=== PATIENT | male | born 1965 | race Caucasian/White ===

== ENCOUNTER 2020-01-17 22:55 | Inpatient (IN) | payer OTHER, SELFPAY ==
[2020-01-17 22:56] VITALS: BP 198/94; PULSE 67; RESP 16; TEMP 37.1; O2SAT 96; BMI 41.5
[2020-01-17 23:11] VITALS: BMI 41.5
[2020-01-17 23:12] VITALS: BP 197/93; PULSE 68; RESP 18; O2SAT 95
--- NOTE | 2020-01-17 23:15 | CT_ITS ---
STUDY: CT BRAIN WITHOUT CONTRAST REASON FOR EXAM: Male, 54 years old. LT WEAKNESS/NOW RESOLVED HX CVA X 2. Hx of HLD, HTN, diabetes, sarcoidosis and sleep apnea RADIATION DOSAGE (If Supplied By Facility): CTDIvol = ( 44.99 ) mGy, DLP = ( 863.60 ) mGycm TECHNIQUE: Transaxial CT imaging of the brain was performed without administration of intravenous contrast material. Individualized dose optimization techniques were used for this CT. COMPARISON: No relevant priors. FINDINGS: Normal soft tissue structures. Normal calvarium. Normal size ventricles and extra-axial spaces for the patient''s age. Normal white matter tracts of the cerebral hemispheres. Lacunar infarcts of the left basal ganglia. Normal brainstem. Normal cerebellum. There is no intracranial hemorrhage. There are no findings of an acute ischemic infarction. Normal visualized paranasal sinuses. CT/Brain/Head without Contrast IMPRESSION: Chronic involutional changes of the brain. Electronically Signed: Parmjit Peterson MD at 23:39 EST , Service support ,
--- NOTE | 2020-01-17 23:15 | RAD_ITS ---
HISTORY: cough came to ed for neuro symptoms (lt sided weakness) EXAMINATION/TECHNIQUE: XR Chest 1 View: COMPARISON: None FINDINGS: Cardiac telemetry leads in place. Shallow inspiration. Borderline cardiomegaly. No vascular congestion, pleural effusion, or pulmonary infiltration. No pneumothorax. The bony thorax appears intact. RAD/Chest 1 View IMPRESSION: 1. No acute cardiopulmonary disease. 2. Borderline cardiomegaly. at 2352 Reported and signed by: Lenny Green MD Electronically Signed: Lenny Green, at 23:51 EST Tel , Service support ,
--- NOTE | 2020-01-17 23:15 | EKG12_ITS ---
Test Reason : STROKE SYMPTOMS Blood Pressure : / mmHG Vent. Rate : 064 BPM Atrial Rate : 064 BPM P-R Int : 170 ms QRS Dur : 096 ms QT Int : 402 ms P-R-T Axes : 030 029 022 degrees QTc Int : 414 ms Normal sinus rhythm Normal ECG Confirmed by NIKOLAY SIMON ([id number]), slot editor LORI MALAVE ([id number]) on 01/19/2020 9:36:00 AM Referred By: DUANE Confirmed By:NIKOLAY SIMON
--- NOTE | 2020-01-17 23:16 | ED.DCSUM_ITS ---
History of Present Illness Chief Complaint: Neuro S/Sx Informant: Patient, Significant Other Onset: Today Context: Gradual Onset Timing: Intermittent Quality and Location: Left Arm Parasthesia, Left Leg Weakness, Expressive Aphasia Onset: 1999 Current Severity: Gone Associated Symptoms: Headache Narrative: Patient is a 54-year-old male with history of hypertension, hyperlipidemia and prior stroke presenting with a transient episode of left-sided weakness. Patient states around 8 PM he was noticed to have some left-sided weakness. He was having a hard time using his left hand, scrolling on his phone and even buckling his pants. His noted that he was having a hard time walking and his left leg seemed to be dragging. Coworker thought his speech sounded different as well. Patient states he was trying to type on his phone but he could not get it to work. While they were driving here patient was also having involuntary flexure of his left wrist. Patient symptoms have since resolved. Patient notes he is had a mild headache today. He notes he is had a cough and some chills for the past few days. He denies any associated chest pain. [place] any vision changes. He denies any paresthesias. He had a stroke in 2017 with left-sided symptoms. Patient denies any other complaints at this time. Prior similar symptoms: Yes Past Medical History - Allergies and Home Meds Allergies/Adverse Reactions: Allergies No Known Allergies Allergy (Verified 01/17/20 22:58) Past Medical History: - - Prior stroke, hypertension, hyperlipidemia Smoking Status: Never smoker - Family History Maternal Family History: Reports: - - Denies knowledge of maternal medical history. Paternal Family History: Reports: Heart Disease, - - He thinks his father from a blood clot. Review of Systems General: Denies: Chills, Fever, Sweats Eyes: Denies: Visual changes - bilaterally, Diplopia ENT: Denies: Rhinorrhea, Sore throat Cardiovascular: Denies: Chest pain, Palpitations Respiratory: Reports: Cough. Denies: Dyspnea, Dyspnea on exertion Gastrointestinal: Denies: Abdominal pain, Nausea, Vomiting, Diarrhea, Melena, Hematochezia Genitourinary: Denies: Dysuria, Hematuria, Frequency Musculoskeletal: Denies: Back pain, Extremity Pain Skin: Denies: Rash, Wounds Neurological: Reports: Headache, Weakness - left sided , - - speech changes . Denies: Numbness STROKE Vital Signs/Narrative: Vital Signs Temp Pulse Resp BP Pulse Ox 01/17/20 23:12 68 18 197/93 H 95 01/17/20 22:56 98.8 F 67 16 198/94 H 96 Inital Vital Signs reviewed: Yes - NIHSS Initial 1a Level of Consciousness: 0 1b LOC Questions (Score 2 if aphasic/stupor): 0 1c LOC Commands (Only score 1st attempt): 0 2 Best Gaze (If aphasic, use reflexive mvmts.): 0 3 Visual: 0 4 Facial Palsy: 0 5 Motor Arm Right (UN = amputation/fusion): 0 5 Motor Arm Left: 0 6 Motor Leg Right: 0 6 Motor Leg Left: 0 7 Limb ataxia (Only + if out of proportion): 0 8 Sensory (Aphasia/stupor=0 or 1, coma=2): 0 9 Best Language: 0 10 Dysarthria (mute, coma=2, intubated=UN): 0 11 Extinction and Inattention (only scored if +): 0 Total Score: 0 General: Well nourished, Well developed, Obese Head: Normocephalic, Atraumatic Eyes: Perrl, EOMI ENT: Moist mucous membranes, No rhinorrhea, TM's clear Neck: Supple, Nontender Cardiovascular: Regular rate, Regular rhythm, No murmurs Respiratory: No distress, CTA bilaterally, Chest nontender Abdomen: Soft, Nontender, Nondistended, Normal bowel sounds Back: Nontender, Normal Inspection Extremities: Nontender, No edema Skin: Normal color, No rash Neurological: Alert, Oriented x3, Cranial nerves II-XII grossly intact, Normal Strength, Normal Sensation. Negative for: Confused, Parasthesia, Weakness Psychological: Normal affect Diagnostic/Tx/Re-eval Clinical Impression(s) from Imaging Studies Brain CT 01/17/20 23:15 IMPRESSION: Chronic involutional changes of the brain. Electronically Signed: Parmjit Peterson MD at 23:39 EST , Service support , Chest X-Ray 01/17/20 23:15 IMPRESSION: 1. No acute cardiopulmonary disease. 2. Borderline cardiomegaly. at 2352 Reported and signed by: Lenny Green MD Electronically Signed: Lenny Green, at 23:51 EST Tel , Service support , Laboratory Data 01/17/20 01/17/20 01/17/20 23:06 23:10 23:10 WBC 7.7 RBC 5.26 Hgb 14.4 Hct 45.0 MCV 85.6 MCH 27.4 MCHC 32.0 RDW Std Deviation 38.2 RDW Coeff of Lefty 12.3 Plt Count 250 MPV 10.0 Immature Gran % (Auto) 0.400 Neut % (Auto) 54.3 Lymph % (Auto) 32.1 [place] % (Auto) 11.0 H Eos % (Auto) 1.4 Baso % (Auto) 0.8 Absolute Neuts (auto) 4.2 Absolute Lymphs (auto) 2.48 Nucleated RBC % 0 PT 13.8 INR 1.1 APTT 23.4 L Sodium Potassium Chloride Carbon Dioxide Anion Gap BUN Creatinine Estim Creat Clear Calc Est GFR (MDRD) Af Amer Est GFR (MDRD) Non-Af BUN/Creatinine Ratio Glucose Calcium Troponin I POC Glucose 300 H 01/17/20 23:10 WBC RBC Hgb Hct MCV MCH MCHC RDW Std Deviation RDW Coeff of Lefty Plt Count MPV Immature Gran % (Auto) Neut % (Auto) Lymph % (Auto) [place] % (Auto) Eos % (Auto) Baso % (Auto) Absolute Neuts (auto) Absolute Lymphs (auto) Nucleated RBC % PT INR APTT Sodium 136 Potassium 4.3 Chloride 102 Carbon Dioxide 28.0 Anion Gap 6 BUN 23 H Creatinine 1.23 Estim Creat Clear Calc 72.54 Est GFR (MDRD) Af Amer 79 Est GFR (MDRD) Non-Af 66 BUN/Creatinine Ratio 18.7 Glucose 320 H Calcium 9.6 Troponin I < 0.015 POC Glucose Chest X-Ray - ED: 1 View, Read by ED Physician, Read by Radiologist, No Acute Disease, Cardiomegaly - Rhythm Strip Rhythm Strip: Sinus Rhythm Rate: 64 Ectopy: None - EKG Initial EKG Interpretation: Sinus Rhythm, - - Normal sinus rhythm at a rate of 64 Normal intervals Normal axis Normal ST segments - Medical Decision Making Stroke Team Activated: No - Symptoms resolved prior to my evaluation Patient is evaluated for episode of left-sided weakness and possible speech symptoms. He does have a history of stroke. By the time patient was brought back to the emergency exam room his symptoms had completely resolved. His NIH was 0. I will treat this like a TIA however. As he currently does not have any symptoms I did not call stroke alert. A work-up does show signs of a prior infarct but no acute intracranial process. Patient will be admitted for further stroke evaluation. His work-up including troponin, EKG, chest x-ray and blood work is otherwise normal. Patient is agreeable to this plan. He is admitted f or observation status to the PCU. ED Disposition - Plan for ED Patient: Disposition: Acute Care Hospital [facility] Diagnosis: Stroke-like symptoms
[2020-01-17 23:18] VITALS: BP 180/91; PULSE 66; RESP 24; O2SAT 97
[2020-01-17 23:27] LABS: Absolute Lymphocyte Count 2.48 X10^3/uL (0.83-4.51); Absolute Neutrophil Count 4.2 X10^3/uL (2.0-7.7); Basophil# 0.06 X10^3/uL; Basophil% 0.8 % (0-1); Eosinophil# 0.11 X10^3/uL; Eosinophils% 1.4 % (0-5); Hemoglobin 14.4 g/dL (13.0-16.5); Lymphocyte # 2.48 X10^3/ul (4.0); Lymphocyte % 32.1 % (19-41); Mean Corpuscular Hgb 27.4 pg (27.0-32.0); Mean Corpuscular Volume 85.6 fL (80-94); Monocyte# 0.85 X10^3/uL; NRBC Flagged by Analyzer 0 % (0-5); Neutrophil % 54.3 % (47-70); Platelet Count 250 K/mm3 (150-450); RBC Distribution Width CV 12.3 % (11.6-14.6); RBC Distribution Width SD 38.2 fl (35.1-43.9); Red Blood Count 5.26 M/mm3 (4.6-6.2); White Blood Count 7.7 K/mm3 (4.4-11.0)
[2020-01-17 23:32] LABS: International Normalized Ratio 1.1; Partial Thromboplast Time 23.4 Seconds (24.1-36.2); Prothrombin Time (Protime)PT. 13.8 SECONDS (11.7-14.9)
[2020-01-17 23:40] LABS: Anion Gap 6 (5-15); BUN 23 mg/dL (7-18); BUN/Creat Ratio 18.7 RATIO (10-20); Calcium,Total 9.6 mg/dL (8.5-10.1); Chloride 102 mmol/L (98-107); Creatinine, Serum 1.23 mg/dL (0.70-1.30); EST Glomerular Filtration Rate 66 mL/min (>60); Est Glom Filt Rate - Afr Amer 79 mL/min (>60); Estimated Creatinine Clearance 72.54 ml/min; Glucose 320 mg/dL (74-106); Potassium 4.3 mmol/L (3.5-5.1); Sodium Level 136 mmol/L (136-145)
[2020-01-17 23:50] VITALS: BP 184/102; PULSE 63; RESP 17; O2SAT 96
[2020-01-17 23:56] LABS: Bedside Glucose 300 mg/dL (70-110)
[2020-01-18] VITALS (14 sets, daily range): BP systolic 112–160; BP diastolic 66–83; PULSE 58–86; RESP 14–18; TEMP 36.4–37.3; O2SAT 94–98; BMI 40.8; BMI 41.6
--- NOTE | 2020-01-18 00:36 | PCM.HP.STD ---
Problem List (1) Stroke-like symptoms Status: Acute History of Present Illness Date of Admission: 01/18/20 Chief Complaint: apraxia The patient is a 54 year old M with a significant history of CVA/TIA x2; pretension; and diabetes mellitus who presented to emergency department with apraxia of his left arm. Patient was not able to use his phone or pickups things his left arm. Also he was found to be dragging his left foot and found to have slurry speech. CT of the head at emergency department was unremarkable. Past Medical History Medical History: Medical History (Last Updated 01/18/20 @ 06:04 by Darion Francis MD) Hypertension I10 Allergies No Known Allergies Allergy (Verified 01/17/20 22:58) Home Medications: Ambulatory Orders Medication Instructions Recorded Amlodipine [Norvasc] 10 mg PO DAILY 01/17/20 Atorvastatin Calcium [Lipitor] 10 mg PO QHS 01/17/20 Clonidine HCl [Catapres] 0.1 mg PO PRN PRN 01/17/20 Clopidogrel Bisulfate [Plavix] 75 mg PO DAILY 01/17/20 Glipizide 20 mg PO BID 01/17/20 Insulin Detemir [Levemir FlexPen] 36 unit SUBCUT QHS 01/17/20 Losartan/Hydrochlorothiazide 1 tab PO DAILY 01/17/20 [Losartan-Hctz 50-12.5 mg Tab] Metoprolol Tartrate 75 mg PO BID 01/17/20 metFORMIN (XR) [Glucophage Xr] 1,000 mg PO BID 01/17/20 Surgical History: - - Mediastinoscopy to remove lymph nodes; tonsillectomy; hernia surgery; varicose veins surgery. Lives: Spouse/ Significant Other Smoking Status: Never smoker Tobacco Use: Non-smoker - *Family History Maternal History Items: - - Denies knowledge of maternal medical history. Paternal History Items: Heart Disease, - - He thinks his father from a blood clot. Review of Systems Constitutional: Denies: Chills, Fever, Weight Change HEENT: Denies: Head Aches, Sinus Congestion, Sinus Drainage Cardiovascular: Denies: Chest Pain, Palpitations Respiratory: Denies: Cough, Shortness of breath at rest, Sputum production Gastrointestinal: Denies: Abdominal Pain, Nausea, Vomiting Genitourinary: Denies: Dysuria Musculoskeletal: Denies: Joint Pain, Joint Tenderness Skin: Denies: Rash, Wounds Neurological: Reports: Slurred speech, Focal weakness. Denies: Numbness, Tingling Psychiatric: Denies: Anxiety, Depression, Homicidal Ideations, Suicidal Ideations Hematologic/ Lymphatic: Denies: Easy Bruising, Easy Bleeding VTE Information - Inpt Only VTE Present on Admission: No VTE Mechan Device Prophylaxis: None VTE Pharm Prophylaxis ordered?: Yes Patient Problems: Active and Suspected Problems (Last Updated 01/18/20 @ 06:04 by Darion Francis MD) Stroke-like symptoms (Acute) - Physical Exam Vitals/I&O's: Vital Signs Temp Pulse Resp BP Pulse Ox 98.8 F 63 17 184/102 H 96 01/17/20 22:56 01/17/20 23:50 01/17/20 23:50 01/17/20 23:50 01/17/20 23:50 Oxygen Delivery Method Room Air Weight: 131.36 kg Body Mass Index (BMI) 41.5 Finger Stick Blood Glucose 300 General: Alert, Oriented x3, Cooperative HEENT: Atraumatic, PERRLA, EOMI, Normocephalic Neck: Supple, No JVD, Negative Carotid Bruits Lungs: Clear to auscultation, Normal air movement Cardiovascular: Regular rate, No murmurs Abdomen: Bowel Sounds Present, Soft, Non Tender Extremities: No edema, Capillary Refill Less than 3 Seconds Skin: No rashes, No breakdown Musculoskeletal: No Tenderness to Palpation of Joints or Extremities Neurological: Cranial nerves II-XII grossly intact, Neuro grossly intact, Motor Exam 5/5 strength throughout, Muscle tone normal Psych/Mental Status: Normal Affect, Appropriate Laboratory Results 01/17/20 23:06: POC Glucose 300 H 01/17/20 23:10: WBC 7.7, RBC 5.26, Hgb 14.4, Hct 45.0, MCV 85.6, MCH 27.4, MCHC 32.0, RDW Std Deviation 38.2, RDW Coeff of Lefty 12.3, Plt Count 250, MPV 10.0, Immature Gran % (Auto) 0.400, Neut % (Auto) 54.3, Lymph % (Auto) 32.1, [place] % (Auto) 11.0 H, Eos % (Auto) 1.4, Baso % (Auto) 0.8, Absolute Neuts (auto) 4.2, Absolute Lymphs (auto) 2.48, Nucleated RBC % 0 01/17/20 23:10: PT 13.8, INR 1.1, APTT 23.4 L 01/17/20 23:10: Sodium 136, Potassium 4.3, Chloride 102, Carbon Dioxide 28.0, Anion Gap 6, BUN 23 H, Creatinine 1.23, Estim Creat Clear Calc 72.54, Est GFR (MDRD) Af Amer 79, Est GFR (MDRD) Non-Af 66, BUN/Creatinine Ratio 18.7, Glucose 320 H, Calcium 9.6, Troponin I < 0.015 Assessment/Plan All Active Problems (Last Updated 01/18/20 @ 06:04 by Darion Francis MD) Stroke-like symptoms (Acute) The patient is a 54 year old M with a significant history of CVA/TIA x2; pretension; and diabetes mellitus who presented to emergency department with apraxia of his left arm; left lower extremity weakness and slurred speech consistent with strokelike symptoms. Stroke-like symptoms CT of the head and CTA head and neck did not show any acute pathology. -Check Hba1c, Lipid level Physical therapy, occupational therapy and speech therapy to work with patient. N.p.o. until bedside swallow eval. Daily aspirin. Home Plavix continued. Escalate home statin. Permissive hypertension. Control blood pressure with labetalol for systolic blood pressure of more than 220 or diastolic blood pressure of more than 120. -Permissive HTN for 24 hrs, buttermaker continuous churn goal BP < 120/80 mmHg and goal Hba1c < 7% MRI of the head ordered. Ativan in route for CT. Echocardiogram ordered. HTN: Blood pressure is now within goal but will accept for permissive hypertension.. Hold home losartan/hydrochlorothiazide combo. Hold home clonidine. Hold home amlodipine. PRN labetalol for permissive hypertension as above. Diabetes mellitus with hyperglycemia Home prandial insulin continued. Accu-Chek with correction scale insulin continued. Glipizide continued. Hold home metformin. DVT prophylaxis Subcutaneous Lovenox Code Visit OBSV E&M: [id number] Initial observation care L3
[2020-01-18] MEDS: Aspirin 81 MG TAB.CHEW 162 MG PO (01:07)
--- NOTE | 2020-01-18 01:27 | ECHOCS_ITS ---
Reason For Study: TIA/CVA Procedure This was a 2D Doppler, Color Flow transthoracic echocardiogram. The study was technically difficult. Exam performed portable in patient room. Left Ventricle Normal size and thickness. The estimated ejection fraction is 65 %. Stage 1 diastolic dysfunction. No regional wall motion abnormalities noted. Right Ventricle Normal size and thickness. Normal systolic function. Atria Normal left atrium. Normal right atrium. Normal atrial septum. Bubble contrast study negative for right to left interatrial shunt. Mitral Valve The mitral valve is structurally normal. No prolapse or stenosis seen. Tricuspid Valve Normal tricuspid valve. Trivial tricuspid valve insufficiency. Unable to estimate RV systolic pressure due to insufficient tricuspid regurgitant envelope. Aortic Valve Normal aortic valve. Trisinus/trileaflet aortic valve. Pulmonic Valve The pulmonic valve is not well visualized. Great Vessels Normal aortic root. Normal arch. Normal inferior vena cava. Inferior vena cava collapse with sniff. Pericardium/Pleural No pericardial effusion. Medication Performed a rapid injection of agitated mix of 9 cc saline and 1cc air to assess for atrial septal defect. Diluted definity 4ml given slow IV push to enhance endocardial definition. MMode/2D Measurements & Calculations LVIDd: 5.1 cm IVSd: 0.95 cm Ao root diam: 3.1 cm LVIDs: 3.3 cm LVPWd: 0.97 cm FS: 34.1 % LAV(MOD-sp4): 40.6 ml LVAd ap4: 35.8 cm2 SV(MOD-sp4): 70.4 ml EDV(MOD-sp4): 118.5 ml EDV(sp4-el): 123.6 ml LVAs ap4: 20.3 cm2 ESV(MOD-sp4): 48.1 ml ESV(sp4-el): 47.8 ml EF(MOD-sp4): 59.4 % EF(sp4-el): 61.3 % SV(sp4-el): 75.7 ml LA A4 area: 16.7 cm2 LA dimension(2D): 4.0 cm RA A4 area: 12.4 cm2 Time Measurements MV dec time: 0.31 sec Doppler Measurements & Calculations MV E max gomez: 76.0 cm/sec Lat Peak E' Gomez: 10.2 cm/sec Med Peak E' Gomez: 6.1 cm/sec MV A max gomez: 87.2 cm/sec E/E' lat: 7.4 E/E' med: 12.4 MV E/A: 0.87 Ao V2 max: 120.5 cm/sec LV V1 max: 91.9 cm/sec PA V2 max: 130.7 cm/sec Ao max P.8 mmHg LV V1 max P.4 mmHg Interpretation Summary The estimated ejection fraction is 65 %. Stage 1 diastolic dysfunction. Trivial tricuspid valve insufficiency. Unable to estimate RV systolic pressure due to insufficient tricuspid regurgitant envelope. Bubble contrast study negative for right to left interatrial shunt. The study was technically difficult. Contrast injection was performed. There is no comparison study available. Ordering Physician: Darion Francis Referring Physician: CHANCE WYNNE Performed By: Maryann Stover RDCS
--- NOTE | 2020-01-18 01:27 | MRI_ITS ---
STUDY: MRI BRAIN WITHOUT CONTRAST REASON FOR EXAM: Male, 54 years old. Stroke confusion slurred speech and left arm weakness TECHNIQUE: Standardized multiplanar fat and water weighted pulse sequences were obtained. COMPARISON: 17 January 2020 FINDINGS: There are small subcortical right parietal and cortical right temporal insular acute infarcts, estimated at less than 3-4 days in age. This appearance of infarcts is possibly related to a small broken up MCA distribution clot. There is no mass effect, midline shift, extra parenchymal fluid collections or hydrocephalus. Major vascular flow structures are preserved. The infarct is too small to be detected on CT. MRI/Brain without Contrast IMPRESSION: 1. Small acute right temporal and parietal cortical/subcortical infarcts, estimated less than 3-4 days old. Electronically Signed: Rosa Evangelista, at 9:25 EST Tel , Service support ,
--- NOTE | 2020-01-18 01:27 | CT_ITS ---
HISTORY: NEURO DEFICIT/LT WEAKNESS. Hx of prior CVA x 2. TECHNIQUE: Routine carotid CT angiogram protocol was performed without and with IV contrast. In addition, images were obtained of the [place]. [place]ascet criteria using the distal ICAs for comparison were used for evaluation of stenoses. 3D reconstructions were reviewed. A radiation dose optimization technique was used for this scan. IV Contrast dosage and agent: Isovue 370 100ml IV COMPARISON: None FINDINGS: --NECK: AORTIC ARCH AND BRANCHES: Normal anatomy, patent. RIGHT CCA/ICA: No occlusion, significant stenosis or dissection. LEFT CCA/ICANo occlusion, significant stenosis or dissection. RIGHT VERTEBRAL ARTERY: No cervical level occlusion, significant stenosis or dissection. LEFT VERTEBRAL ARTERY: No cervical level occlusion, significant stenosis or dissection. --HEAD: --Anterior circulation: Dense eccentric calcified plaque of the supraclinoid left ICA over a 6 mm length with secondary short length 75% ICA narrowing without occlusion or aneurysm formation. Normal bilateral filling of the anterior and middle cerebral arteries without aneurysm or occlusion. No arterial dissection. --Posterior circulation: Circumferential calcified plaque of the proximal intradural left vertebral artery over a 5 mm length with secondary short length 75% stenosis but no occlusion. Normal intradural right vertebral artery. The posterior cerebral arteries fill via the basilar artery. No circulation. Normal bilateral filling of the posterior cerebral arteries. No evidence of intracranial aneurysm or vascular malformation. CT/CTA Head AND Neck W/ Contrast IMPRESSION: 1. 75% short length stenosis of the supraclinoid left ICA secondary to calcified plaque. 2. 75% short length stenosis of the intradural left vertebral artery secondary to calcified plaque. 3. No vessel occlusion, dissection, or acute disease. No aneurysm. 4. No hemodynamically significant narrowing of the cervical carotid and vertebral arteries. Individualized dose optimization techniques were used for this CT. at 0330 Reported and signed by: Lenny Green MD Electronically Signed: Lenny Green, at 3:29 EST Tel , Service support ,
[2020-01-18] MEDS: Atorvastatin Calcium 40 MG Tablet PO (02:34)
[2020-01-18] MEDS: Insulin Lispro 100 UNIT/ML INSULN.PEN 8 UNIT SC ×2 (02:34→18:17)
[2020-01-18 03:06] LABS: Bedside Glucose 245 mg/dL (70-110)
[2020-01-18 03:22] LABS: Absolute Lymphocyte Count 2.24 X10^3/uL (0.83-4.51); Basophil# 0.04 X10^3/uL; Basophil% 0.6 % (0-1); Eosinophil# 0.08 X10^3/uL; Eosinophils% 1.1 % (0-5); Hematocrit 41.4 % (40-54); Hemoglobin 13.4 g/dL (13.0-16.5); Lymphocyte # 2.24 X10^3/ul (4.0); Lymphocyte % 31.4 % (19-41); Mean Corp Hgb Conc 32.4 g/dL (32-36); Mean Corpuscular Hgb 27.6 pg (27.0-32.0); Mean Corpuscular Volume 85.4 fL (80-94); Mean Platelet Vol. 10.1 fl (6.2-12.0); Monocyte# 0.73 X10^3/uL; Monocyte% 10.2 % (0-10); NRBC Flagged by Analyzer 0 % (0-5); Neutrophil # 4.03 X10^3/uL (2.7-7.7); Neutrophil % 56.4 % (47-70); Platelet Count 227 K/mm3 (150-450); RBC Distribution Width CV 12.3 % (11.6-14.6); Red Blood Count 4.85 M/mm3 (4.6-6.2); White Blood Count 7.1 K/mm3 (4.4-11.0)
[2020-01-18 04:31] LABS: Anion Gap 8 (5-15); BUN 22 mg/dL (7-18); BUN/Creat Ratio 21.6 RATIO (10-20); Calcium,Total 9.3 mg/dL (8.5-10.1); Chloride 102 mmol/L (98-107); Cholesterol 142 mg/dL (200); Creatinine, Serum 1.02 mg/dL (0.70-1.30); EST Glomerular Filtration Rate 82 mL/min (>60); Est Glom Filt Rate - Afr Amer 99 mL/min (>60); Estimated Creatinine Clearance 87.47 ml/min; Glucose 263 mg/dL (74-106); High Density Lipoprotein 31 mg/dL; Potassium 4.5 mmol/L (3.5-5.1); Sodium Level 135 mmol/L (136-145); Triglycerides 333 mg/dL; Very Low Density Lipoprotein 67 mg/dL (5-40)
[2020-01-18] MEDS: Insulin Lispro 100 UNIT/ML INSULN.PEN SC ×3 (06:56→18:16)
[2020-01-18] MEDS: glipiZIDE 10 MG Tablet 20 MG PO ×2 (06:56→18:18)
[2020-01-18 07:05] LABS: Bedside Glucose 227 mg/dL (70-110)
[2020-01-18 07:15] LABS: Cholesterol 155 mg/dL (200); High Density Lipoprotein 33 mg/dL; Triglycerides 362 mg/dL; Very Low Density Lipoprotein 72 mg/dL (5-40)
[2020-01-18] MEDS: 0.9% Saline Lock 10 ML Syringe IV (07:55)
[2020-01-18] MEDS: LORazepam 2 MG/ML Syringe 1 MG IV (07:55)
[2020-01-18] MEDS: Clopidogrel Bisulfate 75 MG Tablet PO (09:25)
[2020-01-18] MEDS: Aspirin 81 MG TAB.CHEW PO (09:25)
--- NOTE | 2020-01-18 12:49 | PN_ITS ---
Patient Problems: Active and Suspected Problems (Last Updated 01/18/20 @ 06:04 by Darion Francis MD) Stroke-like symptoms (Acute) Reason for Visit: CVA Subjective: still with left-sided weakness. Vitals/I&O's: Vital Signs Temp Pulse Resp BP Pulse Ox 37.3 C 66 16 147/83 H 95 01/18/20 09:16 01/18/20 09:16 01/18/20 09:16 01/18/20 09:16 01/18/20 09:16 Oxygen Delivery Method Room Air Weight: 129.1 kg Body Mass Index (BMI) 40.8 Finger Stick Blood Glucose 300 Intake and Output for Last 24 Hours 01/16/20 01/17/20 01/18/20 23:59 23:59 23:59 Intake Total 120 / 120 Balance 120 / 120 General: Alert, No apparent distress HEENT: Atraumatic, PERRLA, EOMI, Normocephalic Oral: Moist Mucosa, No Gingival or Mucosal Lesions/ Ulcerations Neck: No Nodes, Trachea Midline Lungs: Clear to auscultation, Normal air movement, No rhonchi, No wheeze, No rales Cardiovascular: Regular rate, Regular Rhythm, Normal S1, Normal S2 Abdomen: Bowel Sounds Present, Soft, Non Tender, Non-Distended, No Hepato- splenomegaly Extremities: No edema, No Calf Tenderness Skin: No rashes, No breakdown Musculoskeletal: No Tenderness to Palpation of Joints or Extremities, No Muscle Wasting Neurological: Cranial nerves II-XII grossly intact, - - MS 5/5 in RUE. 4/5 in LUE and BLE. ataxic in LUE Psych/Mental Status: Flat Affect Laboratory Results 01/17/20 23:06: POC Glucose 300 H 01/17/20 23:10: WBC 7.7, RBC 5.26, Hgb 14.4, Hct 45.0, MCV 85.6, MCH 27.4, MCHC 32.0, RDW Std Deviation 38.2, RDW Coeff of Lefty 12.3, Plt Count 250, MPV 10.0, Immature Gran % (Auto) 0.400, Neut % (Auto) 54.3, Lymph % (Auto) 32.1, Price % (Auto) 11.0 H, Eos % (Auto) 1.4, Baso % (Auto) 0.8, Absolute Neuts (auto) 4.2, Absolute Lymphs (auto) 2.48, Nucleated RBC % 0 01/17/20 23:10: PT 13.8, INR 1.1, APTT 23.4 L 01/17/20 23:10: Sodium 136, Potassium 4.3, Chloride 102, Carbon Dioxide 28.0, Anion Gap 6, BUN 23 H, Creatinine 1.23, Estim Creat Clear Calc 72.54, Est GFR (MDRD) Af Amer 79, Est GFR (MDRD) Non-Af 66, BUN/Creatinine Ratio 18.7, Glucose 320 H, Calcium 9.6, Troponin I < 0.015 01/18/20 01:55: POC Glucose 245 H 01/18/20 02:30: WBC 7.1, RBC 4.85, Hgb 13.4, Hct 41.4, MCV 85.4, MCH 27.6, MCHC 32.4, RDW Std Deviation 38.0, RDW Coeff of Lefty 12.3, Plt Count 227, MPV 10.1, Immature Gran % (Auto) 0.300, Neut % (Auto) 56.4, Lymph % (Auto) 31.4, Price % (Auto) 10.2 H, Eos % (Auto) 1.1, Baso % (Auto) 0.6, Absolute Neuts (auto) 4.0, Absolute Lymphs (auto) 2.24, Nucleated RBC % 0 01/18/20 02:30: Sodium 135 L, Potassium 4.5, Chloride 102, Carbon Dioxide 25.0, Anion Gap 8, BUN 22 H, Creatinine 1.02, Estim Creat Clear Calc 87.47, Est GFR (MDRD) Af Amer 99, Est GFR (MDRD) Non-Af 82, BUN/Creatinine Ratio 21.6 H, Glucose 263 H, Calcium 9.3, Triglycerides 333 H, Cholesterol 142, LDL Cholesterol 44, VLDL Cholesterol 67 H, HDL Cholesterol 31 L 01/18/20 02:30: Troponin I < 0.015 01/18/20 04:55: Troponin I < 0.015 01/18/20 04:55: Triglycerides 362 H, Cholesterol 155, LDL Cholesterol 50, VLDL Cholesterol 72 H, HDL Cholesterol 33 L 01/18/20 04:55: Hemoglobin A1c 12.0 H 01/18/20 06:51: POC Glucose 227 H Clinical Impression(s) from Imaging Studies Brain CT 01/17/20 23:15 IMPRESSION: Chronic involutional changes of the brain. Electronically Signed: Parmjit Peterson MD at 23:39 EST , Service support , Chest X-Ray 01/17/20 23:15 IMPRESSION: 1. No acute cardiopulmonary disease. 2. Borderline cardiomegaly. at 2352 Reported and signed by: Lenny Green MD Electronically Signed: Lenny Green, at 23:51 EST Tel , Service support , Brain MRI 01/18/20 01:27 IMPRESSION: 1. Small acute right temporal and parietal cortical/subcortical infarcts, estimated less than 3-4 days old. Electronically Signed: Rosa Evangelista at 9:25 EST Tel , Service support , Head/Neck CTA 01/18/20 01:27 IMPRESSION: 1. 75% short length stenosis of the supraclinoid left ICA secondary to calcified plaque. 2. 75% short length stenosis of the intradural left vertebral artery secondary to calcified plaque. 3. No vessel occlusion, dissection, or acute disease. No aneurysm. 4. No hemodynamically significant narrowing of the cervical carotid and vertebral arteries. Individualized dose optimization techniques were used for this CT. at 0330 Reported and signed by: Lenny Green MD Electronically Signed: Lenny Green at 3:29 EST Tel , Service support , Current Medications Aspirin (Aspirin, Baby) 81 mg PO DAILY@0800 [facility] Last Admin: 01/18/20 09:25 Dose: 81 mg Documented by: Atorvastatin Calcium (Lipitor) 40 mg PO QHS [facility] Last Admin: 01/18/20 02:34 Dose: 40 mg Documented by: Clopidogrel Bisulfate (Plavix) 75 mg PO DAILY [facility] Last Admin: 01/18/20 09:25 Dose: 75 mg Documented by: Glipizide (Glucotrol) 20 mg PO BIDAC [facility] Last Admin: 01/18/20 06:56 Dose: 20 mg Documented by: Glucagon () 1 mg IM .X1 PRN PRN Reason: Hypoglycemia Dextrose (Dextrose 10%-Water) 250 mls @ 999 mls/hr IV .Q16M PRN; Protocol PRN Reason: HYPOGLYCEMIA Sodium Chloride () 250 mls @ 15 mls/hr IV .[id number] PRN PRN Reason: Saline Flush Sodium Chloride () 250 mls @ 15 mls/hr IV .[id number] PRN PRN Reason: Additional IVPB Infusion Insulin Glargine (Lantus ([facility])) 36 units SC QHS [facility] Insulin Human Lispro (Humalog Kwikpen ([facility])) 0 unit SC ACHS [facility]; Protocol Last Admin: 01/18/20 06:56 Dose: 4 units Documented by: Labetalol HCl (Trandate) 10 mg IV Q10M PRN PRN Reason: MAINTAIN BP < 220/120 Lorazepam (Ativan) 1 mg IV X1 PRN PRN Reason: ANXIETY Last Admin: 01/18/20 07:55 Dose: 1 mg Documented by: Sodium Chloride () 10 - 40 ml IV UD PRN PRN Reason: SALINE FLUSH Last Admin: 01/18/20 07:55 Dose: 10 ml Documented by: STROKE Vital Signs/Narrative: Vital Signs Temp Pulse Resp BP Pulse Ox 01/18/20 09:16 37.3 C 66 16 147/83 H 95 Medical Necessity - Tobacco Use Smoking Status: Never smoker Tobacco Use: Non-smoker Assessment/Plan All Active Problems (Last Updated 01/18/20 @ 06:04 by Darion Francis MD) Stroke-like symptoms (Acute) 1. acute CVA * MRI shows small acute right temporal and parietal cortical/subcortical infarcts. * CTA shows 75% stenosis on LICA and Left vert--not contributing to this CVA * echo pending * on ASA, clopidogrel, atorvastatin (will increase to 80 from 40) * neurology SOC consult pending 2. DM2 * uncontrolled (high) * a1c 12 * increase basal to 40, start scheduled log * metformin held given contrast. 3. HTN * fair control, permissive HTN given the CVA * amlodipine, losartan/HCTZ held * resume metoprolol. 4. Carotid and vertebral stenosis * left sided. this CVA is contralateral * outpt vascular evaluation. 5. VTE proph: LMWH DW family present, with patient's permission. Code Visit Procedures: Other Procedure - See Report - non-billable rounding, patient admitted after midnight.
--- NOTE | 2020-01-18 13:40 | CASEMGMT ---
Therapy indicated patient would be a good rehab candidate. SW spoke with patient and his . Introduced self and role at [facility]. SW mentioned that therapy feels patient would benefit from [facility] Inpatient Rehab Unit. Patient felt he was fine for home, but then his spoke up and said she isn't comfortable with him coming home right now. He needs supervision while walking and he will not have 24/7 supervision. Patient and then agreed to [facility] Inpatient Rehab Unit. KARL explained SW will make a referral and we will need to wait on insurance to approve. Plan: [facility] 4th floor Inpatient Rehab Unit pending insurance acceptance. Tammy TORRES MSW
[2020-01-18 13:41] LABS: Bedside Glucose 280 mg/dL (70-110)
--- NOTE | 2020-01-18 16:31 | PCA ---
Addendum entered by Barb Bess 01/18/20 17:32: When we called to tell them patient would likely come today they stated that had to accept the patient first. Original Note: Rehab called and stated they received approval for patient to come there, they said patient could come today or tomorrow.
--- NOTE | 2020-01-18 16:49 | DCINST_ITS ---
- Discharge Diagnoses Current Active Problems: Current Active and Chronic Problems (Last Updated 01/18/20 @ 06:04 by Darion Francis MD) Stroke-like symptoms (Acute) You will use the following diet at home:: Calorie/Carbohydrate Controlled (specify 1200, 1400, etc) - 1800, Cardiac Your food should be the consistency of: Regular Your liquids should be the consistency of: Regular/Thin Call your doctor if you observe: - - increased weakness, difficulty speaking. Allergies/Adverse Reactions: Allergies No Known Allergies Allergy (Verified 01/17/20 22:58) Medications to take at Discharge Amlodipine [Norvasc] 10 mg PO DAILY 01/17/20 Clonidine HCl [Catapres] 0.1 mg PO PRN PRN 01/17/20 Clopidogrel Bisulfate [Plavix] 75 mg PO DAILY 01/17/20 Glipizide 20 mg PO BID 01/17/20 Losartan/Hydrochlorothiazide [Losartan-Hctz 50-12.5 mg Tab] 1 tab PO DAILY 01/17/20 Metoprolol Tartrate 75 mg PO BID 01/17/20 Aspirin [Aspirin, Baby] 81 mg PO DAILY@0800 tab.chew 01/18/20 Atorvastatin Calcium [Lipitor] 80 mg PO QHS tab 01/18/20 Insulin Glargine [Lantus SoloStar Pen] 40 units SUBCUT QHS pen 01/18/20 Insulin Lispro [Humalog KwikPen] 8 unit SUBCUT TIDAC insuln.pen 01/18/20 Insulin Lispro [Humalog KwikPen] See Protocol SUBCUT ACHS insuln.pen 01/18/20 Orders to be completed after discharge: 30-Day Event Recorder [[facility]] Location: None Selected Primary Care Physician: Helen Howe MD [Primary Care Provider] - Within 2 Weeks Test Results: Test results from this visit will be discussed in further detail at your follow- up appointment, if applicable. Please Follow Up With: Augusto Pickard MD - Cardiology for PAYAL When: 2-4 weeks
--- NOTE | 2020-01-18 16:51 | PCM.DC.SUM ---
Discharge Date and Diagnosis Date of Admission: 01/18/20 Date of Discharge: 01/18/20 - Primary Discharge Diagnosis Active and Suspected Problems (Last Updated 01/18/20 @ 06:04 by Darion Francis MD) [facility] Hospital Course and Treatment Imaging Results: Clinical Impression(s) from Imaging Studies Brain CT 01/17/20 23:15 IMPRESSION: Chronic involutional changes of the brain. Electronically Signed: Parmjit Peterson MD at 23:39 EST , Service support , Chest X-Ray 01/17/20 23:15 IMPRESSION: 1. No acute cardiopulmonary disease. 2. Borderline cardiomegaly. at 2352 Reported and signed by: Lenny Green MD Electronically Signed: Lenny Green, at 23:51 EST Tel , Service support , Brain MRI 01/18/20 01:27 IMPRESSION: 1. Small acute right temporal and parietal cortical/subcortical infarcts, estimated less than 3-4 days old. Electronically Signed: Rosa Evangelista, at 9:25 EST Tel , Service support , Head/Neck CTA 01/18/20 01:27 IMPRESSION: 1. 75% short length stenosis of the supraclinoid left ICA secondary to calcified plaque. 2. 75% short length stenosis of the intradural left vertebral artery secondary to calcified plaque. 3. No vessel occlusion, dissection, or acute disease. No aneurysm. 4. No hemodynamically significant narrowing of the cervical carotid and vertebral arteries. Individualized dose optimization techniques were used for this CT. at 0330 Reported and signed by: Lenny Green MD Electronically Signed: Lenny Green at 3:29 EST Tel , Service support , SOC teleneurology Procedures: 2-D Echocardiogram Summary of Care Provided: The patient is a 54 year old M presents with left-sided weakness and ataxia. Patient had an MRI that showed small acute right temporal and parietal cortical and subcortical infarcts. Patient was seen in consultation by [facility] telemetry neurology. Recommended continue with aspirin and clopidogrel, statin. They also advised Holter monitor but given the embolic nature of an order an event monitor to evaluate for atrial fibrillation. The neurologist also recommended a transesophageal echocardiogram but could be done as outpatient. Discussed with Dr. Pickard, who would be interpreting the event monitor and patient will follow up with Dr. Pickard to have a PAYAL as outpatient. In the midst of the patient stroke work-up patient did have left internal carotid as well as vertebral artery stenosis of 75%. Given that this was contralateral to his acute stroke this was not directly related with his stroke. Patient can follow-up with vascular surgery for further evaluation. Patient also has very uncontrolled diabetes. Patient's basal insulin was increased from 36-40 at night and started on prandial insulin of 8 units with meals. [] - Physical Exam Vitals/I&O's: Vital Signs Temp Pulse Resp BP Pulse Ox 36.8 C 66 16 117/71 98 01/18/20 13:15 01/18/20 13:15 01/18/20 13:15 01/18/20 13:15 01/18/20 13:15 Oxygen Delivery Method Room Air Weight: 129.1 kg Body Mass Index (BMI) 40.8 Finger Stick Blood Glucose 300 Intake and Output for Last 24 Hours 01/16/20 01/17/20 01/18/20 23:59 23:59 23:59 Intake Total 120 / 120 Balance 120 / 120 Laboratory Results 01/17/20 23:06: POC Glucose 300 H 01/17/20 23:10: WBC 7.7, RBC 5.26, Hgb 14.4, Hct 45.0, MCV 85.6, MCH 27.4, MCHC 32.0, RDW Std Deviation 38.2, RDW Coeff of Lefty 12.3, Plt Count 250, MPV 10.0, Immature Gran % (Auto) 0.400, Neut % (Auto) 54.3, Lymph % (Auto) 32.1, [place] % (Auto) 11.0 H, Eos % (Auto) 1.4, Baso % (Auto) 0.8, Absolute Neuts (auto) 4.2, Absolute Lymphs (auto) 2.48, Nucleated RBC % 0 01/17/20 23:10: PT 13.8, INR 1.1, APTT 23.4 L 01/17/20 23:10: Sodium 136, Potassium 4.3, Chloride 102, Carbon Dioxide 28.0, Anion Gap 6, BUN 23 H, Creatinine 1.23, Estim Creat Clear Calc 72.54, Est GFR (MDRD) Af Amer 79, Est GFR (MDRD) Non-Af 66, BUN/Creatinine Ratio 18.7, Glucose 320 H, Calcium 9.6, Troponin I < 0.015 01/18/20 01:55: POC Glucose 245 H 01/18/20 02:30: WBC 7.1, RBC 4.85, Hgb 13.4, Hct 41.4, MCV 85.4, MCH 27.6, MCHC 32.4, RDW Std Deviation 38.0, RDW Coeff of Lefty 12.3, Plt Count 227, MPV 10.1, Immature Gran % (Auto) 0.300, Neut % (Auto) 56.4, Lymph % (Auto) 31.4, [place] % (Auto) 10.2 H, Eos % (Auto) 1.1, Baso % (Auto) 0.6, Absolute Neuts (auto) 4.0, Absolute Lymphs (auto) 2.24, Nucleated RBC % 0 01/18/20 02:30: Sodium 135 L, Potassium 4.5, Chloride 102, Carbon Dioxide 25.0, Anion Gap 8, BUN 22 H, Creatinine 1.02, Estim Creat Clear Calc 87.47, Est GFR (MDRD) Af Amer 99, Est GFR (MDRD) Non-Af 82, BUN/Creatinine Ratio 21.6 H, Glucose 263 H, Calcium 9.3, Triglycerides 333 H, Cholesterol 142, LDL Cholesterol 44, VLDL Cholesterol 67 H, HDL Cholesterol 31 L 01/18/20 02:30: Troponin I < 0.015 01/18/20 04:55: Troponin I < 0.015 01/18/20 04:55: Triglycerides 362 H, Cholesterol 155, LDL Cholesterol 50, VLDL Cholesterol 72 H, HDL Cholesterol 33 L 01/18/20 04:55: Hemoglobin A1c 12.0 H 01/18/20 06:51: POC Glucose 227 H 01/18/20 13:00: POC Glucose 280 H Current Medications Aspirin (Aspirin, Baby) 81 mg PO DAILY@0800 [facility] Last Admin: 01/18/20 09:25 Dose: 81 mg Documented by: Atorvastatin Calcium (Lipitor) 80 mg PO QHS [facility] Clopidogrel Bisulfate (Plavix) 75 mg PO DAILY [facility] Last Admin: 01/18/20 09:25 Dose: 75 mg Documented by: Glipizide (Glucotrol) 20 mg PO BIDAC [facility] Last Admin: 01/18/20 06:56 Dose: 20 mg Documented by: Glucagon () 1 mg IM .X1 PRN PRN Reason: Hypoglycemia Dextrose (Dextrose 10%-Water) 250 mls @ 999 mls/hr IV .Q16M PRN; Protocol PRN Reason: HYPOGLYCEMIA Sodium Chloride () 250 mls @ 15 mls/hr IV .[id number] PRN PRN Reason: Saline Flush Sodium Chloride () 250 mls @ 15 mls/hr IV .[id number] PRN PRN Reason: Additional IVPB Infusion Insulin Glargine (Lantus ([facility])) 40 units SC QHS [facility] Insulin Human Lispro (Humalog Kwikpen ([facility])) 0 unit SC ACHS [facility]; Protocol Last Admin: 01/18/20 13:31 Dose: 6 units Documented by: Insulin Human Lispro (Humalog Kwikpen ([facility])) 8 unit SC TIDAC [facility] Labetalol HCl (Trandate) 10 mg IV Q10M PRN PRN Reason: MAINTAIN BP < 220/120 Lorazepam (Ativan) 1 mg IV X1 PRN PRN Reason: ANXIETY Last Admin: 01/18/20 07:55 Dose: 1 mg Documented by: Sodium Chloride () 10 - 40 ml IV UD PRN PRN Reason: SALINE FLUSH Last Admin: 01/18/20 07:55 Dose: 10 ml Documented by: Discharge Diet: 1800 Calorie Control Diet Call your doctor if you observe: - - increased weakness, difficulty speaking. Home Medications: Medications to take at Discharge Amlodipine [Norvasc] 10 mg PO DAILY 01/17/20 Clonidine HCl [Catapres] 0.1 mg PO PRN PRN 01/17/20 Clopidogrel Bisulfate [Plavix] 75 mg PO DAILY 01/17/20 Glipizide 20 mg PO BID 01/17/20 Losartan/Hydrochlorothiazide [Losartan-Hctz 50-12.5 mg Tab] 1 tab PO DAILY 01/17/20 Metoprolol Tartrate 75 mg PO BID 01/17/20 Aspirin [Aspirin, Baby] 81 mg PO DAILY@0800 tab.chew 01/18/20 Atorvastatin Calcium [Lipitor] 80 mg PO QHS tab 01/18/20 Insulin Glargine [Lantus SoloStar Pen] 40 units SUBCUT QHS pen 01/18/20 Insulin Lispro [Humalog KwikPen] 8 unit SUBCUT TIDAC insuln.pen 01/18/20 Insulin Lispro [Humalog KwikPen] See Protocol SUBCUT ACHS insuln.pen 01/18/20 Other Amb Orders: 30-Day Event Recorder [[facility]] Location: None Selected Primary Care Physician: Helen Howe MD [Primary Care Provider] - Within 2 Weeks Please Follow Up With: Augusto Pickard MD - Cardiology for PAYAL When: 2-4 weeks Disposition: Inpt Rehab Unit/Facility Minutes spent on discharge:: 35 Patient Condition:: Fair Medical Necessity - Tobacco Use Smoking Status: Never smoker Tobacco Use: Non-smoker Meaningful Use Info Meaningful Use Diagnoses (Choose all that apply): Ischemic CVA - CVA Therapy Assessed for PT,OT and/or ST?: Yes - Ischemic Stroke Antithrombotic order at d/c?: Yes Dx of Atrial fib/flutter?: No Statins at discharge?: Yes Primary Dx Acute Ischemic CVA?: Yes IV tPA ordered during stay?: Yes Code Visit Inpatient E&M: 10547 Disch Hosp
--- NOTE | 2020-01-18 17:00 | NURSING ---
Inpatient rehab called to notify that insurance approved rehab. Awaiting final approval from Dr Flores
--- NOTE | 2020-01-18 17:57 | PCA ---
Recieved a call from Keri on Inpt Rehab that they can take patient tonight and for the nurse to call report to [facility] when ready.
[2020-01-18 18:25] LABS: Bedside Glucose 279 mg/dL (70-110)
--- NOTE | 2020-01-19 07:49 | CASEMGMT ---
SW did not complete a PHQ-9 with patient yesterday as his whole family was in the room visiting. SW was planning to come back the next day to complete it, however he was approved by insurance to go to the Inpatient Rehab Unit and was discharged. Tammy TORRES MSW
== END 2020-01-18 19:17 | DRG 65 ==
LOC: ED 23:27 → PCU 01-18 01:25
PROVIDERS: Admitting Provider Hospitalist; Emergency Provider Emergency Medicine; PCP Family Medicine
DX: I63.9 Cerebral infarction, unspecified (principal); G81.94 Hemiplegia, unspecified affecting left nondominant side; Z68.41 Body mass index [BMI] 40.0-44.9, adult; E11.65 Type 2 diabetes mellitus with hyperglycemia; I10 Essential (primary) hypertension; I65.22 Occlusion and stenosis of left carotid artery; I65.02 Occlusion and stenosis of left vertebral artery; R27.0 Ataxia, unspecified; R29.700 NIHSS score 0; Z79.4 Long term (current) use of insulin; E66.9 Obesity, unspecified; Z86.73 Personal history of transient ischemic attack (TIA), and cerebral infarction without residual deficits
CPT/HCPCS: 36415; 70450; 70496; 70498; 70551; 71045; 80048; 80061; 82962; 83036; 84484; 85025; 85610; 85730; 92523; 92610; 93005; 93306; 94762; 97162; 97166; 97530; 99285; Q9957; Q9967; A4216; C8929

== ENCOUNTER 2020-01-18 19:25 | Inpatient (IN) | payer OTHER, SELFPAY ==
[2020-01-18 01:36] VITALS: BMI 40.8
[2020-01-18 19:52] VITALS: BMI 41.4
[2020-01-18 19:56] VITALS: BP 143/77; PULSE 76; RESP 18; TEMP 36.7; O2SAT 96
[2020-01-18 21:45] VITALS: BMI 41.4
[2020-01-18 21:52] VITALS: BMI 41.4
[2020-01-18 22:05] VITALS: BP 143/77; PULSE 75; RESP 18; TEMP 36.7; O2SAT 96
[2020-01-18 22:11] VITALS: BP 143/77; PULSE 76
[2020-01-18 22:11] LABS: Bedside Glucose 240 mg/dL (70-110)
[2020-01-18] MEDS: Metoprolol Tartrate 25 MG Tablet 75 MG PO (22:11)
[2020-01-18] MEDS: Atorvastatin Calcium 80 MG Tablet PO (22:11)
[2020-01-18] MEDS: Senna/Docusate Sodium 1 Tablet 2 TABLET PO (22:11)
[2020-01-18] MEDS: Insulin Lispro 100 UNIT/ML INSULN.PEN SC (22:23)
[2020-01-19] MEDS: 0.9% Saline Lock 10 ML Syringe IV ×3 (02:38→21:09)
[2020-01-19 06:15] VITALS: O2SAT 96
[2020-01-19 07:10] LABS: Bedside Glucose 216 mg/dL (70-110)
[2020-01-19] MEDS: glipiZIDE 10 MG Tablet 20 MG PO ×2 (08:40→16:37)
[2020-01-19] MEDS: Insulin Lispro 100 UNIT/ML INSULN.PEN SC ×4 (08:40→21:12)
[2020-01-19] MEDS: Aspirin 81 MG TAB.CHEW PO (08:41)
[2020-01-19 08:42] VITALS: PULSE 62
[2020-01-19] MEDS: Losartan Potassium 50 MG Tablet PO (08:42)
[2020-01-19] MEDS: hydroCHLOROthiazide 12.5mg 12.5 MG PO (08:42)
[2020-01-19] MEDS: Metoprolol Tartrate 25 MG Tablet 75 MG PO ×2 (08:42→21:10)
[2020-01-19] MEDS: Clopidogrel Bisulfate 75 MG Tablet PO (08:43)
[2020-01-19] MEDS: amLODIPine 10 MG Tablet PO (08:43)
[2020-01-19] MEDS: Senna/Docusate Sodium 1 Tablet 2 TABLET PO ×2 (08:43→21:10)
[2020-01-19 08:52] VITALS: BP 152/83; PULSE 62; RESP 17; TEMP 36.5; O2SAT 96
--- NOTE | 2020-01-19 10:48 | CASEMGMT ---
Social Work Completed PHQ-9 on pt. score 08/26. Kya Pugh, social work manufacturing intern Alanna Chris, [employer] DIRECTOR CYTOLOGY MANAGER
--- NOTE | 2020-01-19 11:53 | HP.PCM_ITS ---
Problem List (1) History of CVA (cerebrovascular accident) Status: Acute Comment: 01/18/2020 possibly cardioembolic (2) HTN (hypertension) Status: Chronic (3) Morbid obesity with BMI of 40.0-44.9, adult Status: Chronic (4) Stenosis of left vertebral artery Status: Chronic (5) Stenosis of left carotid artery Status: Chronic Comment: supraclinoid stenosis (6) Uncontrolled type II diabetes mellitus Status: Chronic Qualifiers: Glycemic state: with hyperglycemia Qualified Code(s): E11.65 - Type 2 diabetes mellitus with hyperglycemia Comment: Hemoglobin A1c was 12.0 on 01/18/2020 (7) Hypertriglyceridemia Status: Chronic Comment: possibly due to uncontrolled DM II (8) Hyperlipidemia associated with type 2 diabetes mellitus Status: Chronic (9) Sarcoid Status: Chronic Comment: not currently seeing a meter repairer helper (10) Obstructive sleep apnea Status: Chronic Comment: on CPAP (11) Diabetic retinopathy associated with uncontrolled type 2 diabetes mellitus Status: Chronic History of Present Illness Date of Admission: 01/18/20 Chief Complaint: Debility secondary to recent right temporal and parietal cortical and subcortical infarcts thought to be cardioembolic The patient is a 54 year old M with a past medical history of hypertension, hyperlipidemia, morbid obesity, diabetic retinopathy, sarcoidosis, ROD and poorly controlled diabetes mellitus type 2 who presented to the ED at [facility] on 01/18/20 with c/o Left side weakness and slurred speech. He has had 2 strokes in the past. Noncontrasted CT brain showed no acute pathology. CTA of the head and neck showed a 75% stenosis of the supraclinoid left internal carotid artery secondary to calcified plaque and a 75% stenosis of the intradural left vertebral artery secondary to calcified plaque. MRI showed small acute right temporal and parietal cortical/subcortical infarcts. [facility] tele-neurology recommended dual antiplatelet drugs, continued statins, a 30-day event monitor, hypercoagulable panel and consideration for PAYAL. Upper coagulable panel was not done in the acute hospital stay. He was admitted to the inpatient rehab unit at [facility] on 01/18/2020 for debility secondary to recent ischemic (suspected to be cardioembolic) CVAs. He will do 3 or more hours of therapy daily to restore function at or near his prior level. He was independent with mobility, ADL's and driving prior to 01/18/20. He has never seen a meter repairer helper about the sarcoid dx...diagnosed from a mediastinal lymph node bx. He was treated with steroids for a time and has had no follow up since that time. He does admit to [facility] and he also has a chronic cough. There is a FH of asthma. His last sleep study was in 2017 and he states his weight has been stable since then. Admits to not checking his BS's at home and thinks his last HGBA1C was 10 something. Echocardiogram recently showed a 65% ejection fraction with stage I diastolic dysfunction and no regional wall motion abnormalities. Bubble contrast study was negative for right to left intra-atrial shunt. There was no significant valvular heart disease and the right ventricular systolic pressure could not be estimated due to insufficient tricuspid regurgitant envelope. At DC from the hospital he was given a req for a 30 day event monitor.....has not been applied. And there is a plan for him to get a PAYAL as an OP with Dr. Pickard. Past Medical History Past Medical History (Chronic Problems): Chronic Problems (Last Reviewed 01/19/20 @ 14:[address] Ruby Flores DO) HTN (hypertension) (Chronic) Morbid obesity with BMI of 40.0-44.9, adult (Chronic) Stenosis of left vertebral artery (Chronic) Stenosis of left carotid artery (Chronic) supraclinoid stenosis Uncontrolled type II diabetes mellitus (Chronic) Hemoglobin A1c was 12.0 on 01/18/2020 Hypertriglyceridemia (Chronic) possibly due to uncontrolled DM II Hyperlipidemia associated with type 2 diabetes mellitus (Chronic) Sarcoid (Chronic) not currently seeing a meter repairer helper Obstructive sleep apnea (Chronic) on CPAP Diabetic retinopathy associated with uncontrolled type 2 diabetes mellitus (Chronic) Medical History: Medical History (Last Reviewed 01/19/20 @ 14:[address] Ruby Flores DO) Hypertension I10 Allergies No Known Allergies Allergy (Verified 01/17/20 22:58) Home Medications: Ambulatory Orders Medication Instructions Recorded Amlodipine [Norvasc] 10 mg PO PRN PRN 01/17/20 Clonidine HCl [Catapres] 0.1 mg PO PRN PRN 01/17/20 Clopidogrel Bisulfate [Plavix] 75 mg PO DAILY 01/17/20 Glipizide 20 mg PO BID 01/17/20 Losartan/Hydrochlorothiazide 1 tab PO DAILY 01/17/20 [Losartan-Hctz 50-12.5 mg Tab] Metoprolol Tartrate 75 mg PO BID 01/17/20 Aspirin [Aspirin, Baby] 81 mg PO DAILY@0800 01/18/20 Atorvastatin Calcium [Lipitor] 80 mg PO QHS 01/18/20 Insulin Glargine [Lantus SoloStar 40 units SUBCUT QHS 01/18/20 Pen] Insulin Lispro [Humalog KwikPen] 8 unit SUBCUT TIDAC 01/18/20 Insulin Lispro [Humalog KwikPen] See Protocol SUBCUT ACHS 01/18/20 Surgical History: - - Mediastinoscopy to remove lymph nodes; tonsillectomy; hernia surgery; varicose veins surgery: laser tx of diabetic retinopathy: catarract surgery Lives: Spouse/ Significant Other Smoking Status: Never smoker Tobacco Use: Non-smoker Alcohol: Occasional Drugs: None - *Family History Maternal History Items: - - Denies knowledge of maternal medical history. His mother is still alive. Paternal History Items: Heart Disease, - - He thinks his father from a blood clot. Sibling History Items: - - he knows of no chronic illnesses in his siblings Review of Systems Constitutional: Reports: Weakness - on the left side. Denies: Chills, Fever, Weight Change Eyes: Reports: Blurred vision - more likely than not due to uncontrolled sugars HEENT: Denies: Head Aches, Nasal Congestion, Sinus Congestion, Sinus Drainage, Sore Throat Cardiovascular: Reports: Edema - sometimes. Denies: Chest Pain, Palpitations, Syncope Respiratory: Reports: Cough - chronic and productive, Shortness of breath upon exertion. Denies: Hemoptysis, Pleuritic Pain, Shortness of Breath, Shortness of breath at rest, Sputum production Gastrointestinal: Denies: Abdominal Pain, Diarrhea, Nausea, Vomiting Genitourinary: Denies: Dysuria Musculoskeletal: Denies: Joint Pain, Joint Tenderness Skin: Denies: Jaundice, Rash, Wounds Neurological: Reports: Balance problems, Numbness - left side - present prior to this third stroke....denies numbness on the right side. Denies: Blurred vision, Double vision, Slurred speech, Confusion, Focal weakness, Tingling, Tremor, Seizures Psychiatric: Denies: Anxiety, Depression, Homicidal Ideations, Suicidal Ideations Endocrine: Denies: Change in Body Habitus, Heat/ Cold Intolerance, Hx of Thyroiditis Hematologic/ Lymphatic: Reports: Adenopathy - has had this in the past and a mediastinal lymph node bx showed sarcoidosis. Denies: Easy Bruising, Easy Bleeding, Hx of blood clot VTE Information - Inpt Only VTE Present on Admission: No VTE Mechan Device Prophylaxis: Knee High YUKI Hose VTE Pharm Prophylaxis ordered?: Yes Patient Problems: Active and Suspected Problems (Last Reviewed 01/19/20 @ 14:[address] Ruby Flores, DO) History of CVA (cerebrovascular accident) (Acute) 01/18/2020 possibly cardioembolic - Physical Exam Vitals/I&O's: Vital Signs Temp Pulse Resp BP Pulse Ox 97.7 F L 62 17 152/83 H 96 01/19/20 08:52 01/19/20 08:52 01/19/20 08:52 01/19/20 08:52 01/19/20 08:52 Oxygen Delivery Method Room Air Weight: 288 lb 12.889 oz Body Mass Index (BMI) 41.4 Finger Stick Blood Glucose 300 Intake and Output for Last 24 Hours 01/17/20 01/18/20 01/19/20 23:59 23:59 23:59 Intake Total 440 / 440 Output Total 300 / 600 600 / 600 Balance -300 / -600 -160 / -160 General: Alert, Oriented x3, Cooperative, No apparent distress, Well developed, Well nourished HEENT: Atraumatic, PERRLA, EOMI, Normocephalic Oral: Moist Mucosa, No Gingival or Mucosal Lesions/ Ulcerations Neck: Supple, No JVD, Negative Carotid Bruits, Trachea Midline Lungs: Clear to auscultation, No rhonchi, No wheeze, No rales, Diminished - devin in the bases Cardiovascular: Regular rate, Regular Rhythm, Normal S1, Normal S2, No murmurs, No Ectopic Activity, No rub noted, No Gallop Abdomen: Bowel Sounds Present, Soft, Non Tender, Non-Distended, Obese Extremities: No clubbing, No cyanosis, No edema, Capillary Refill Less than 3 Seconds, No Calf Tenderness Skin: No rashes, No breakdown Musculoskeletal: No Tenderness to Palpation of Joints or Extremities, No Muscle Wasting Neurological: Cranial nerves II-XII grossly intact, - - He has decreased sensation of the left face, arm and leg. He has 4/5 strength in the LUE and the LLE. He was only able to ambulate 60 feet with a FWW and he reuired assistance and cueing. He drifts/leans to the left and the left knee makenna at times.....not to the point of falling. Psych/Mental Status: Normal Affect, Appropriate Laboratory Results 01/18/20 21:43: POC Glucose 240 H 01/19/20 07:06: POC Glucose 216 H Current Medications Acetaminophen (Tylenol) 650 mg PO Q4H PRN PRN PRN Reason: Pain Score 1-10/10 Amlodipine Besylate (Norvasc) 10 mg PO DAILY [facility] Last Admin: 01/19/20 08:43 Dose: 10 mg Documented by: Aspirin (Aspirin, Baby) 81 mg PO DAILY@0800 [facility] Last Admin: 01/19/20 08:41 Dose: 81 mg Documented by: Atorvastatin Calcium (Lipitor) 80 mg PO QHS [facility] Last Admin: 01/18/20 22:11 Dose: 80 mg Documented by: Bisacodyl (Dulcolax) 10 mg RECTAL .PRN X 1 PRN PRN Reason: Constipation Clonidine (Catapres) 0.1 mg PO PRN PRN PRN Reason: HTN Clopidogrel Bisulfate (Plavix) 75 mg PO DAILY [facility] Last Admin: 01/19/20 08:43 Dose: 75 mg Documented by: Glipizide (Glucotrol) 20 mg PO BIDAC [facility] Last Admin: 01/19/20 08:40 Dose: 20 mg Documented by: Hydrochlorothiazide () 12.5 mg PO DAILY [facility] Last Admin: 01/19/20 08:42 Dose: 12.5 mg Documented by: Insulin Glargine (Lantus (Bk)) 40 units SC QHS [facility] Last Admin: 01/18/20 22:25 Dose: 40 u Documented by: Insulin Human Lispro (Humalog Kwikpen (Bk)) 0 unit [facility]; Protocol Last Admin: 01/19/20 11:51 Dose: 4 u Documented by: Losartan Potassium (Cozaar) 50 mg PO DAILY [facility] Last Admin: 01/19/20 08:42 Dose: 50 mg Documented by: Magnesium Hydroxide (Milk Of Magnesia) 30 ml PO .PRN X 1 PRN PRN Reason: Constipation Metoprolol Tartrate (Lopressor (Beta Wesly)) 75 mg PO BID [facility] Last Admin: 01/19/20 08:42 Dose: 75 mg Documented by: Senna/Docusate Sodium (Senokot-S, Ansley-Colace) 2 tablet PO BID [facility] Last Admin: 01/19/20 08:43 Dose: 2 tablet Documented by: Sodium Chloride () 10 - 40 ml IV UD PRN PRN Reason: SALINE FLUSH Last Admin: 01/19/20 02:38 Dose: 10 ml Documented by: Assessment/Plan All Active Problems (Last Reviewed 01/19/20 @ 14:[address] Ruby Flores, DO) History of CVA (cerebrovascular accident) (Acute) Stroke-like symptoms (Acute) Impressions 1. Debility secondary to recent right parietal and temporal cortical/subcortical infarcts with Left side weakness, numbness and ataxia due to left side weakness in a pt who has had 2 prior strokes at the age of 54. 2. Uncontrolled diabetes mellitus type 2 with a recent hemoglobin A1c of 12-not compliant with blood sugar monitoring at home or diet. Eats out frequently. 3. Permissive mild HTN - stroke on 01/18/20 - will allow for the next week and tehn get the systolic down below 140. 4. L Carotid stenosis and L Vertebral stenosis 5. diabetic retinopathy with hx of laser tx 6. HLD with elevated TRIGS also - this may correct with improvement in the diabetic control. IF not consider Vascepa or fenofibrate 7. History of sarcoidosis diagnosed on a mediastinitis committee with mediastinal lymph node biopsy. Has had a course of steroids in the past but is not seen a meter repairer helper and is complaining of dyspnea on exertion and chronic cough. I recommended to him that he follow-up with pulmonary medicine following discharge. 8. Obstructive sleep apnea 9. Morbid obesity -weight loss was recommended and will consult the dietitian for education. PLAN PT for gait stability OT for ADL's ST for evaluation Analgesics as needed Bowel protocol Fall precautions Assess for Anxiety/Depression GI prophylaxis not indicated DVT prophylaxis with Lovenox 40 mg daily and YUKI hose Follow up with Dr. Howe, pulmonary medicine, Dr. Rueda and Dr. Pickard following DC from Rehab. When he s discharged from rehab will have cardiology apply 30 day event monitor prior to him leaving the building. He will follow up with Dr. Pickard for a PAYAL. Consult Dr. Rueda to manage the DM II and have him follow up with her post DC Code Visit Inpatient E&M: 12371 Init Hosp L3
[2020-01-19 11:55] LABS: Bedside Glucose 246 mg/dL (70-110)
[2020-01-19 13:48] VITALS: BMI 41.4
[2020-01-19 13:55] LABS: Fibrinogen 505 mg/dl (203-444)
--- NOTE | 2020-01-19 14:48 | REHABEVAL_ITS ---
Admission Information Primary Diagnosis:: Debility secondary to right parietal and right temporal cortical and subcortical infarcts Status Changes from Prescreening?: No changes Identified Actual Problem List:: Skin Intergrity, Mobility Impaired, Self Care Deficit, Diabetes, Hyperglycemia, BP, Hypertension, Alteration-Leisure Activ. Potential Problem List:: DVT, Bleeding, Infection, UTI, Aspiration, Falls, Skin Integrity, Depression Risk of Complications DVT: LMWH, YUKI Hose Bleeding: Monitor Lab Values, Nursing to Teach Precautions for anti-coagulation therapy., Wound, if applicable, to be assessed every shift., Stroke patients assessed for lethargy or change in status. Infection: Clinical Staff to Monitor for S/S of infection:, S/S of infection include fever, redness, warmth, etc. Urinary Tract Infection: Monitor for frequency, burning, discomfort, or incontinence., Nursing will obtain urine sample for urinalysis and C&S when ordered. Aspiration: Clinical staff will monitor for coughing, drooling, congestion., Speech will evaluate swallowing and dsyphasia., Nursing will monitor patient swallowing during meals. Falls: Patient will be evaluated for Fall Precautions, Patient will be placed on Fall Precautions as indicated per protocol. Skin Breakdown: Nursing will assess skin daily using assessment tool., Nursing will place on Skin Breakdown Precautions as indicated. Pain: Clinical staff will assess patient's pain level per protocol., Medications will be given, if needed, and the pain level reassessed., Other methods: Massage, distraction, decrease stimulus, etc. used PRN. Plan of Care Patient requires physician specializing in physical medicine and rehab oversight to provide close medical supervision of rehab issues including: Pain Management, Sleep Problems, Bowel and Bladder, Medical and co-morbidity Management, DVT prophylaxis, Rehabilitation Leadership, Coordination of treatment team Patient needs Physical Therapy: For a minimum of 1 hour, At least 5 out of 7 days Patient needs Physical Therapy to improve:: Mobility, Mobility, Mobility, Strengthening, Transfers, Stretching, ROM, Endurance, Stairs, Gait, Balance Patient needs Occupational Therapy: For a minimum of 1 hour, At least 5 out of 7 days Patient needs Occupational Therapy to improve ADL's incl.: Eating, Grooming, Ba thing, Dressing, Toileting, Toilet transfers, Community Reintegration, Higher functioning activities, Household tasks, Adaptive Equipment, Splinting, Other activities as determined Patient requires speech therapy: For a minimum of 1 hour, At least 5 out of 7 days Patient requires speech therapy for: Cognition, Language Skills, Compensatory Strategies Patient requires 24/ Rehabilitation Nursing for: Pain Issues, Identifying and preventing risk factors, Monitoring and reporting current medical conditions, Assisting with ambulation, transfer, and all ADL's, Teaching patients about disease process and medications, Family teaching, Providing safe environment, Bowel and Bladder Issues, Skin integrity, Medication Management Patient needs Guide Changer/ Case Management for: Discharge Planning, Arranging Home Equipment or Services, Family Interventions Patient needs Dietary and Nutrition Services for: Adequate Nutrition, Nutritional Supplements, Nutritional Education Goals Patient will remain: free from falls, or injury at time of discharge. Patient will perform bed mobility at: MOD I level of assist. Patient will complete transfers from bed to chair at: MOD I level of assist. Patient will ambulate: 100 feet, with MOD I assist, with LRD Patient will complete upper body dressing at: MOD I level of assist. Patient will complete lower body dressing at: MOD I level of assist. Patient will complete toileting at: MOD I level of assist. Patient will perform bathing at: MOD I level of assist. Patient will complete grooming at: MOD I level of assist. Patient will complete home management skills at: MOD I level of assist. Patient will achieve: 12 stairs, at MOD I assist Patient will have pain level of: of 3 or less Patient's skin will: remain intact, free from infection. Patient will receive: adequate nutrition. Discharge Planning Pt Prognosis for Sig. Practical Improv. w/in Reasonable Time: Good Estimated Length of stay (days): 14 Anticipated D/C Destination: Home with Outpt Therapy
--- NOTE | 2020-01-19 15:02 | CASEMGMT ---
Social Work Reviewed and agreed with social work international logistics coordinator documentation on this date. Alanna Chris, MEMBER SERVICES REPRESENTATIVE CIGAR INSPECTOR
[2020-01-19 16:51] LABS: Bedside Glucose 322 mg/dL (70-110)
--- NOTE | 2020-01-19 17:40 | CON.PCM_ITS ---
Reason for Consult History of Present Illness: The patient is a 54 year old Male with longstanding history of uncontrolled diabetes type 2. At home he takes oral agents and basal insulin. His A1C is 12.4%. He has had 2 prior strokes and is admitted with stroke. He has carotid disease and most certainly CAD. He states he is too busy to eat right and therefore his diabetes can't be controlled. He is very friendly during interview and uses humor to make his situation seem less dire. [] Past Medical History Past Medical History (Chronic Problems): Chronic Problems (Last Reviewed 01/19/20 @ 14:[address] Ruby Flores DO) HTN (hypertension) (Chronic) Morbid obesity with BMI of 40.0-44.9, adult (Chronic) Stenosis of left vertebral artery (Chronic) Stenosis of left carotid artery (Chronic) supraclinoid stenosis Uncontrolled type II diabetes mellitus (Chronic) Hemoglobin A1c was 12.0 on 01/18/2020 Hypertriglyceridemia (Chronic) possibly due to uncontrolled DM II Hyperlipidemia associated with type 2 diabetes mellitus (Chronic) Sarcoid (Chronic) not currently seeing a health informatics specialist Obstructive sleep apnea (Chronic) on CPAP Diabetic retinopathy associated with uncontrolled type 2 diabetes mellitus (Chronic) Medical History: Medical History (Last Reviewed 01/19/20 @ 14:[address] Ruby Flores DO) Hypertension I10 Allergies No Known Allergies Allergy (Verified 01/17/20 22:58) Home Medications: Ambulatory Orders Medication Instructions Recorded Amlodipine [Norvasc] 10 mg PO PRN PRN 01/17/20 Clonidine HCl [Catapres] 0.1 mg PO PRN PRN 01/17/20 Clopidogrel Bisulfate [Plavix] 75 mg PO DAILY 01/17/20 Glipizide 20 mg PO BID 01/17/20 Losartan/Hydrochlorothiazide 1 tab PO DAILY 01/17/20 [Losartan-Hctz 50-12.5 mg Tab] Metoprolol Tartrate 75 mg PO BID 01/17/20 Aspirin [Aspirin, Baby] 81 mg PO DAILY@0800 01/18/20 Atorvastatin Calcium [Lipitor] 80 mg PO QHS 01/18/20 Insulin Glargine [Lantus SoloStar 40 units SUBCUT QHS 01/18/20 Pen] Insulin Lispro [Humalog KwikPen] 8 unit SUBCUT TIDAC 01/18/20 Insulin Lispro [Humalog KwikPen] See Protocol SUBCUT ACHS 01/18/20 Surgical History: - - Mediastinoscopy to remove lymph nodes; tonsillectomy; hernia surgery; varicose veins surgery: laser tx of diabetic retinopathy: catarract surgery Lives: Spouse/ Significant Other Smoking Status: Never smoker Tobacco Use: Non-smoker Alcohol: Occasional Drugs: None - *Family History Maternal History Items: - - Denies knowledge of maternal medical history. His mother is still alive. Paternal History Items: Heart Disease, - - He thinks his father from a blood clot. Sibling History Items: - - he knows of no chronic illnesses in his siblings Patient Problems: Active and Suspected Problems (Last Reviewed 01/19/20 @ 14:[address] Ruby Flores DO) History of CVA (cerebrovascular accident) (Acute) 01/18/2020 possibly cardioembolic - Physical Exam Vitals/I&O's: Vital Signs Temp Pulse Resp BP Pulse Ox 97.7 F L 62 17 152/83 H 96 01/19/20 08:52 01/19/20 08:52 01/19/20 08:52 01/19/20 08:52 01/19/20 08:52 Oxygen Delivery Method Room Air Weight: 288 lb 12.889 oz Body Mass Index (BMI) 41.4 Finger Stick Blood Glucose 300 Intake and Output for Last 24 Hours 01/17/20 01/18/20 01/19/20 23:59 23:59 23:59 Intake Total 680 / 680 Output Total 300 / 600 750 / 750 Balance -300 / -600 -70 / -70 Laboratory Results 01/18/20 21:43: POC Glucose 240 H 01/19/20 07:06: POC Glucose 216 H 01/19/20 11:50: POC Glucose 246 H 01/19/20 12:50: Miscellaneous Test Pending 01/19/20 13:25: Protein C Antigen Pending, Prot C Funct Activity Pending, Antithrombin III Ag Pending, Func Antithrombin III Pending, Factor V Leiden Mutat Pending, Anti-Cardiolipin IgG Ab Pending, Anti-Cardiolipin IgM Ab Pending 01/19/20 13:25: Miscellaneous Test Cancelled 01/19/20 13:25: Func Antithrombin III Pending 01/19/20 13:25: Miscellaneous Test Cancelled 01/19/20 13:25: Miscellaneous Test Cancelled 01/19/20 13:25: Miscellaneous Test Cancelled 01/19/20 13:25: Miscellaneous Test Cancelled 01/19/20 13:25: Miscellaneous Test Pending 01/19/20 13:25: Miscellaneous Test Pending 01/19/20 13:25: Fibrinogen 505 H 01/19/20 16:38: POC Glucose 322 H Current Medications Acetaminophen (Tylenol) 650 mg PO Q4H PRN PRN PRN Reason: Pain Score 1-10/10 Amlodipine Besylate (Norvasc) 10 mg PO DAILY [facility] Last Admin: 01/19/20 08:43 Dose: 10 mg Documented by: Aspirin (Aspirin, Baby) 81 mg PO DAILY@0800 [facility] Last Admin: 01/19/20 08:41 Dose: 81 mg Documented by: Atorvastatin Calcium (Lipitor) 80 mg PO QHS [facility] Last Admin: 01/18/20 22:11 Dose: 80 mg Documented by: Bisacodyl (Dulcolax) 10 mg RECTAL .PRN X 1 PRN PRN Reason: Constipation Clopidogrel Bisulfate (Plavix) 75 mg PO DAILY [facility] Last Admin: 01/19/20 08:43 Dose: 75 mg Documented by: Enoxaparin Sodium (Lovenox) 40 mg SC DAILY@0600 [facility] Glipizide (Glucotrol) 20 mg PO BIDAC [facility] Last Admin: 01/19/20 16:37 Dose: 20 mg Documented by: Hydrochlorothiazide () 12.5 mg PO DAILY [facility] Last Admin: 01/19/20 08:42 Dose: 12.5 mg Documented by: Insulin Glargine (Lantus (Bkc)) 40 units SC QHS [facility] Last Admin: 01/18/20 22:25 Dose: 40 u Documented by: Insulin Human Lispro (Humalog Kwikpen (Bkc)) 0 unit SC ACHS [facility]; Protocol Last Admin: 01/19/20 16:38 Dose: 6 u Documented by: Insulin Human Lispro (Humalog Kwikpen (Bkc)) 12 unit SC TIDAC [facility] Losartan Potassium (Cozaar) 50 mg PO DAILY [facility] Last Admin: 01/19/20 08:42 Dose: 50 mg Documented by: Magnesium Hydroxide (Milk Of Magnesia) 30 ml PO .PRN X 1 PRN PRN Reason: Constipation Metoprolol Tartrate (Lopressor (Beta Wesly)) 75 mg PO BID [facility] Last Admin: 01/19/20 08:42 Dose: 75 mg Documented by: Senna/Docusate Sodium (Senokot-S, Ansley-Colace) 2 tablet PO BID [facility] Last Admin: 01/19/20 08:43 Dose: 2 tablet Documented by: Sodium Chloride () 10 - 40 ml IV UD PRN PRN Reason: SALINE FLUSH Last Admin: 01/19/20 16:41 Dose: 10 ml Documented by: Assessment/Plan All Active Problems (Last Reviewed 01/19/20 @ 14:[address] Ruby Flores DO) History of CVA (cerebrovascular accident) (Acute) Stroke-like symptoms (Acute)
[2020-01-19] MEDS: Insulin Lispro 100 UNIT/ML INSULN.PEN 8 UNIT SC (17:44)
[2020-01-19 19:12] VITALS: BP 151/81; PULSE 62; RESP 18; TEMP 36.7; O2SAT 96
[2020-01-19 21:01] LABS: Bedside Glucose 297 mg/dL (70-110)
[2020-01-19 21:10] VITALS: BP 151/81; PULSE 62
[2020-01-19] MEDS: Atorvastatin Calcium 80 MG Tablet PO (21:10)
[2020-01-20] VITALS (7 sets, daily range): BP systolic 135–185; BP diastolic 68–91; PULSE 58–64; RESP 16–18; TEMP 36.4–36.7; O2SAT 95–97; BMI 41.4
[2020-01-20 06:16] LABS: Bedside Glucose 173 mg/dL (70-110)
[2020-01-20] MEDS: Enoxaparin 40 MG/0.4 ML Syringe SC (06:40)
[2020-01-20] MEDS: glipiZIDE 10 MG Tablet 20 MG PO ×2 (07:29→16:33)
[2020-01-20] MEDS: Aspirin 81 MG TAB.CHEW PO (07:30)
[2020-01-20] MEDS: Losartan Potassium 50 MG Tablet PO (07:30)
[2020-01-20] MEDS: hydroCHLOROthiazide 12.5mg 12.5 MG PO (07:30)
[2020-01-20] MEDS: Metoprolol Tartrate 25 MG Tablet 75 MG PO ×2 (07:30→21:14)
[2020-01-20] MEDS: Clopidogrel Bisulfate 75 MG Tablet PO (07:31)
[2020-01-20] MEDS: amLODIPine 10 MG Tablet PO (07:31)
[2020-01-20] MEDS: Insulin Lispro 100 UNIT/ML INSULN.PEN SC ×4 (07:32→21:14)
[2020-01-20] MEDS: Senna/Docusate Sodium 1 Tablet 2 TABLET PO ×2 (07:32→21:14)
[2020-01-20] MEDS: Insulin Lispro 100 UNIT/ML INSULN.PEN 12 UNIT SC ×3 (07:33→16:33)
--- NOTE | 2020-01-20 11:41 | PN_ITS ---
Progress Note Afebile VSS-blood pressure is mildly elevated and we will allow this fr the next 4-5 days due to recent ischemic strokes. If still increased by mid week will adjust the antihypertensives with a goal of systolic < 140 and distolic < 85 Maintaining appropriate oxygen saturation on RA Oral intake is good Discussed with nursing - no problems that need addressed Reviewed the PT/OT notes Medication list reviewed. I reviewed Dr. Rueda's consult and appreciate her input. Pt has no complaints. We did some additional teaching with him today. We talked about the cardiovascular complications of uncontrolled DM and we also talked about the lab drawn yesterday for Hypercoagulable W/U. I related to him that the majority of these tests are send outs and the results will not be back until next week at which time we will review the results with him. We explained that diabetics who have retinopathy and cerebrovascular disease frequently have CAD as well and because of neuropathy frequently do not get CP with coronary ischemia....sometimes they just get SENA....which he has. This could be due to sarcoidosis but it may be an anginal equivalent. He is going to follow up with Dr. Pickard for a PAYAL following DC from rehab and in my opinion should have either a pharmacologic stress or a cath also to evaluate for occult CAD. He will discuss with Dr. Pickard. Alert, appropriate, pleasant, no apparent distress, sitting in the recliner at the bedside. Lungs-decreased but clear to auscultation Heart-regular rate and rhythm, no ectopy, no murmur, no gallop No peripheral edema Abdomen-soft, nontender, nondistended, no guarding with palpation, normal bowel sounds heard No calf tenderness Impressions 1. Debility secondary to recent right parietal and temporal cortical/subcortical infarcts with left-sided weakness, numbness and ataxia 2. Permissive hypertension 3. History of sarcoidosis 4. Dyspnea on exertion-secondary to anginal equivalent? Or sarcoid? Will need follow-up with cardiology and pulmonology at discharge 5. Uncontrolled diabetes mellitus with history of retinopathy and cerebrovascular disease. I suspect he may also have coronary artery disease. He will follow-up with Dr. Pickard post discharge from rehab for a PAYAL and pharmacologic stress and/or cardiac catheterization. Hypercoagulability work-up in progress. Appreciate Dr. Rueda's input and patient would like to follow-up with Dr. Rueda post discharge for diabetic management. He will continue to follow-up with Dr. Helen Howe for his routine medical care. awaiting the results of the UA to see if he has protein in the urine. Will also get a microalbumin/creat ratio. I left a VM on his 's cell phone explaining I would like to talk with her and we would like her to come in and meet with Wyatt and the business intelligence etl developer to discuss healthy choices when eating out and also meal planning at home. Code Visit Inpatient E&M: 80515 Subs Hosp L2
[2020-01-20 11:45] LABS: Bedside Glucose 176 mg/dL (70-110)
--- NOTE | 2020-01-20 12:57 | NS ---
Consult received - Dr. Flores requesting patient AND be educated on diabetic diet, specifically given info on eating out and to also encourage pt to eat at home more often. Message left with pt to have RU notify dietitian when available so diet education can be provided.
[2020-01-20 13:51] LABS: Color, Urine Yellow (Yellow); Glucose, Dipstick 1000 mg/dl (Normal); Ketone-Dipstick Negative (Negative); Leukocyte Esterase-Dipstick Negative /ul (Negative); Nitrite-Dipstick Negative (Negative); Occult Blood-Urine Negative /ul (Negative); Protein-Dipstick 100 mg/dl (Negative); Specific Gravity, Urine 1.025 (1.002-1.030); Urine Bilirubin Dipstick Negative (Negative); Urine Clarity Clear (Clear); Urine Urobilinogen Normal (Normal)
[2020-01-20 14:11] LABS: Protein, Urine (Random) 113.2 mg/dL (<11.9); Protein:Creat Ratio 658 mg/g CRE (0-200)
[2020-01-20 16:45] LABS: Bedside Glucose 194 mg/dL (70-110)
--- NOTE | 2020-01-20 17:36 | PCM.PN.BLA ---
Progress Note S: Patient states he is doing fine. Therapy is going well. No problems with eating. Appetite is normal. He states he doesn't understand why his blood sugar is so high. I explain, his sugars are higher than this at home, he just didn't know it. O: Blood sugars 170's earlier today, now 190 Patient is alert and oriented, no distress. sitting in chair, visiting with family A/P: Increase meal time insulin to 15 units with meals. I explained to patient that he will need meal time insulin at discharge. He agrees. Code Visit Inpatient E&M: 08288 Subs Hosp L1
[2020-01-20] MEDS: Insulin Lispro 100 UNIT/ML INSULN.PEN 15 UNIT SC (18:07)
[2020-01-20] MEDS: Acetaminophen 325 MG Tablet 650 MG PO (20:21)
[2020-01-20 21:11] LABS: Bedside Glucose 286 mg/dL (70-110)
[2020-01-20] MEDS: Atorvastatin Calcium 80 MG Tablet PO (21:14)
[2020-01-20] MEDS: hydrALAZINE 25 MG Tablet PO (23:45)
[2020-01-20] MEDS: Rizatriptan Benzoate 10 MG Tablet PO (23:45)
[2020-01-21 01:32] VITALS: BMI 41.4
[2020-01-21 01:49] VITALS: BP 162/95; PULSE 64
[2020-01-21] MEDS: Enoxaparin 40 MG/0.4 ML Syringe SC (05:28)
[2020-01-21 05:31] LABS: Bedside Glucose 189 mg/dL (70-110)
[2020-01-21] MEDS: Acetaminophen 325 MG Tablet 650 MG PO (05:32)
[2020-01-21 07:00] VITALS: BP 158/79; PULSE 66; RESP 16; TEMP 36.7; O2SAT 98
[2020-01-21 07:19] VITALS: O2SAT 92
[2020-01-21 07:52] VITALS: BP 158/79; PULSE 66
[2020-01-21] MEDS: Aspirin 81 MG TAB.CHEW PO (07:52)
[2020-01-21] MEDS: glipiZIDE 10 MG Tablet 20 MG PO ×2 (07:52→16:57)
[2020-01-21] MEDS: Metoprolol Tartrate 25 MG Tablet 75 MG PO ×2 (07:52→21:28)
[2020-01-21] MEDS: hydroCHLOROthiazide 12.5mg 12.5 MG PO (07:52)
[2020-01-21] MEDS: Losartan Potassium 50 MG Tablet PO (07:52)
[2020-01-21] MEDS: amLODIPine 10 MG Tablet PO (07:53)
[2020-01-21] MEDS: Clopidogrel Bisulfate 75 MG Tablet PO (07:53)
[2020-01-21] MEDS: Insulin Lispro 100 UNIT/ML INSULN.PEN SC ×4 (07:54→21:29)
[2020-01-21] MEDS: Insulin Lispro 100 UNIT/ML INSULN.PEN 15 UNIT SC ×3 (07:54→16:58)
[2020-01-21 07:56] LABS: Bedside Glucose 221 mg/dL (70-110)
[2020-01-21 10:13] LABS: Antithrombin 3 Function 110 % (75-135)
[2020-01-21 12:11] LABS: Bedside Glucose 218 mg/dL (70-110)
[2020-01-21 16:38] VITALS: BMI 41.4
[2020-01-21 16:51] LABS: Bedside Glucose 169 mg/dL (70-110)
[2020-01-21 20:30] VITALS: BP 131/68; PULSE 60; RESP 16; TEMP 36.3; O2SAT 95
[2020-01-21 20:36] LABS: Bedside Glucose 152 mg/dL (70-110)
[2020-01-21 21:28] VITALS: BP 131/68; PULSE 60
[2020-01-21] MEDS: Atorvastatin Calcium 80 MG Tablet PO (21:28)
--- NOTE | 2020-01-22 01:25 | NURSING ---
PT REPORTS TO HAVE FRANCO SIMILAR TO FRANCO HE HAD PRIOR NIGHT. LOCATED TO R CHEONDOISM/R EYE AREA. NO OTHER CHANGES NOTED IN NEURO STATUS. VS AND BLOOD SUGAR OBTAINED. PT GIVEN ORANGE JUICE AND A COUPLE COOKIES. SPEECH IS CLEAR AND APPROPRIATE. MEDICATED WITH TYLENOL.
[2020-01-22 01:28] VITALS: BP 147/75; PULSE 58
[2020-01-22] MEDS: Acetaminophen 325 MG Tablet 650 MG PO ×2 (01:29→05:29)
[2020-01-22 01:45] LABS: Bedside Glucose 129 mg/dL (70-110)
--- NOTE | 2020-01-22 01:51 | NURSING ---
PT CONTINUES TO HAVE #7 L TEMPORAL FRANCO PAIN. CALL PLACED TO HOSPITALIST. PT DENIES NAUSEA.
--- NOTE | 2020-01-22 01:55 | NURSING ---
DR DIANNE CONKLIN INFORMED THAT PT HAS SIMILAR FRANCO TO NIGHT PRIOR AND CURRENT BP PROVIDED. INFORMED THAT THERE ARE NO NEURO CHANGES AT THIS TIME. ORDER GIVEN FOR FRANCO PAIN RELIEVER THAT GAVE PT RELIEF LAST NIGHT. PHARMACY AWARE.
--- NOTE | 2020-01-22 02:07 | NURSING ---
WAITING FOR MAXALT TO BE SENT FROM PHARMACY. PT RESTING WITH EYES CLOSED. RESP ARE EVEN AND EASY.
[2020-01-22] MEDS: Rizatriptan Benzoate 10 MG Tablet PO (02:14)
--- NOTE | 2020-01-22 02:14 | NURSING ---
PT'S MAXALT BAR CODE DOES NOT SCAN-VERIFIED BY POLO SCHAEFER RN BUTTON RIVETER.
--- NOTE | 2020-01-22 02:50 | NURSING ---
PT RESTING QUIETLY WITH EYES CLOSED. RESP ARE EVEN AND EASY.
[2020-01-22 04:11] LABS: Bedside Glucose 201 mg/dL (70-110)
[2020-01-22 05:00] VITALS: BMI 41.4
[2020-01-22] MEDS: Enoxaparin 40 MG/0.4 ML Syringe SC (05:29)
[2020-01-22 06:51] LABS: Bedside Glucose 165 mg/dL (70-110)
[2020-01-22 07:35] VITALS: O2SAT 93
[2020-01-22] MEDS: Insulin Lispro 100 UNIT/ML INSULN.PEN SC ×3 (07:39→21:48)
[2020-01-22] MEDS: glipiZIDE 10 MG Tablet 20 MG PO ×2 (07:40→16:54)
[2020-01-22] MEDS: Insulin Lispro 100 UNIT/ML INSULN.PEN 15 UNIT SC ×3 (07:40→16:52)
[2020-01-22] MEDS: Aspirin 81 MG TAB.CHEW PO (07:41)
[2020-01-22] MEDS: Losartan Potassium 50 MG Tablet PO (07:41)
[2020-01-22] MEDS: hydroCHLOROthiazide 12.5mg 12.5 MG PO (07:42)
[2020-01-22 07:43] VITALS: BP 154/90; PULSE 62
[2020-01-22] MEDS: amLODIPine 10 MG Tablet PO (07:43)
[2020-01-22] MEDS: Metoprolol Tartrate 25 MG Tablet 75 MG PO ×2 (07:43→21:46)
[2020-01-22] MEDS: Clopidogrel Bisulfate 75 MG Tablet PO (07:44)
[2020-01-22 09:42] VITALS: BP 154/90; PULSE 62; RESP 16; TEMP 36.6; O2SAT 94
[2020-01-22 11:50] LABS: Bedside Glucose 190 mg/dL (70-110)
[2020-01-22 14:04] VITALS: BMI 41.4
[2020-01-22 17:05] LABS: Bedside Glucose 114 mg/dL (70-110)
[2020-01-22 19:31] VITALS: BP 149/77; PULSE 60; RESP 18; TEMP 36.3; O2SAT 97
[2020-01-22 21:46] VITALS: BP 149/77; PULSE 60
[2020-01-22] MEDS: Senna/Docusate Sodium 1 Tablet 2 TABLET PO (21:46)
[2020-01-22] MEDS: Atorvastatin Calcium 80 MG Tablet PO (21:46)
[2020-01-22 22:16] LABS: Bedside Glucose 165 mg/dL (70-110)
[2020-01-23] MEDS: Acetaminophen 325 MG Tablet 650 MG PO (06:20)
[2020-01-23] MEDS: Enoxaparin 40 MG/0.4 ML Syringe SC (06:21)
[2020-01-23 07:16] LABS: Bedside Glucose 155 mg/dL (70-110)
[2020-01-23 07:37] VITALS: BP 160/89; PULSE 65; RESP 16; TEMP 37.1; O2SAT 98
[2020-01-23 07:45] VITALS: BP 160/89; PULSE 65
[2020-01-23] MEDS: Senna/Docusate Sodium 1 Tablet 2 TABLET PO ×2 (07:45→21:07)
[2020-01-23] MEDS: Clopidogrel Bisulfate 75 MG Tablet PO (07:45)
[2020-01-23] MEDS: Metoprolol Tartrate 25 MG Tablet 75 MG PO ×2 (07:45→21:06)
[2020-01-23] MEDS: amLODIPine 10 MG Tablet PO (07:45)
[2020-01-23] MEDS: Aspirin 81 MG TAB.CHEW PO (07:46)
[2020-01-23] MEDS: Losartan Potassium 50 MG Tablet PO ×2 (07:46→12:19)
[2020-01-23] MEDS: hydroCHLOROthiazide 12.5mg 12.5 MG PO (07:46)
[2020-01-23] MEDS: glipiZIDE 10 MG Tablet 20 MG PO ×2 (07:46→16:58)
[2020-01-23] MEDS: Insulin Lispro 100 UNIT/ML INSULN.PEN SC ×2 (07:50→11:54)
[2020-01-23] MEDS: Insulin Lispro 100 UNIT/ML INSULN.PEN 15 UNIT SC ×3 (07:51→17:09)
[2020-01-23 08:56] VITALS: BP 148/74; PULSE 64
--- NOTE | 2020-01-23 10:01 | CASEMGMT ---
Social Work IDT met with pt and pt . pt transfers min assist, walk with walker 75ft, min-mod assist-left knee makenna after distance, w/c follow, 4steps 2 HR mod x2, taking one step at a time. min to mod ADLS, coordination impairment, left hand neglect, sensory impairment, UE dressing with cues, LE ADLS max assist, use of adaptive equipment LE-min assist. ST working on attention, impulsivity, accuracy-pt 80-85% accurate. Educated pt on [employer] coverage, NRD 01/23. Kya Pugh, social work dietary internship Alanna Chris, SAMPLING EXPERT PROJECT EXECUTIVE
--- NOTE | 2020-01-23 10:49 | PN_ITS ---
Progress Note Patient was seen on team rounds today. His Joyce was present for rounds. Afebile VSS but the BP's have been allowed to be elevated post stroke. Permissive HTN. The blood pressure for the past 2 days has ranged from 147/75-160/89. Blood pressure this a.m. was 148/74. Maintaining appropriate oxygen saturation on RA Oral intake is good Discussed with nursing - no problems that need addressed. Reviewed the PT/OT/ST notes Still with significant L side neglect and impulsiveness. Trouble with balance. Medication list reviewed. Blood sugar record was reviewed. With Dr. Rueda's assistance the blood sugars are coming under good control. The last 5 blood sugars have all been under 190. Pt is c/o pain in the calf and also pain in the hips. He denies CP or SOB alert and oriented X 3, appropriate Lungs - CTA Heat - RRR abd - obese, soft, NT, ND, BS's in all quadrants he has ANITHA wraps on both legs to control swelling....can not tolerate TEDS The left calf is larger than the R. Negative Yusef's but a + Kunal's sign. no change in the neuro exam. Impressions 1. Debility secondary to recent right parietal and temporal cortical/subcortical infarcts. With persistent left side neglect, left side numbness and weakness. 2. Hypertension-not adequately controlled. The goal for blood pressure this week to will be less than 135 systolic and less than 80 diastolic. Will increase Cozaar to 100 mg daily and continue to monitor the blood pressure. 3. Left calf pain-we will obtain a venous ultrasound of the left lower extremity to exclude DVT but suspect the pain is due to exercise/strain. Increase the Cozaar to 100 mg daily BMP, magnesium and H&H in the a.m. I spent a total of 55 minutes in the care of this pt today and > 50% was spent counselling the pt and his . Weight loss was recommended and also a daily exercise program. His is interested in talking with the photoengraving helper and she will come up today and meet with the pt and his today. I stressed the importance of keeping the BS's controlled and the HGBA1C under 7 if he is to prevent other cardiovascular events. We also discussed follow up with pulmonology post DC and with Dr. Pickard. Venous ultrasound of the left lower extremity today Instruct the staff in how to properly apply the ANITHA wraps.....from the toes to the tibial plateau STROKE Vital Signs/Narrative: Vital Signs Temp Pulse Resp BP Pulse Ox 01/23/20 08:56 64 148/74 H 01/23/20 07:45 65 160/89 H 01/23/20 07:37 98.7 F 65 16 160/89 H 98 Code Visit Inpatient E&M: 37539 Subs Hosp L3
--- NOTE | 2020-01-23 11:24 | VDLE_ITS ---
Reason For Study: Left calf pain Procedure LEFT Exam performed portable in patient room. GSV is normal. A preliminary report was called and/or faxed CFV is compressible, spontaneous, phasic, to RU RN. competent, and demonstrates normal augmentation. FV is compressible, spontaneous, phasic, competent and demonstrates normal augmentation. POP V is compressible, spontaneous, phasic, competent and demonstrates normal augmentation. T/P Trunk is compressible. PTV is compressible. LT PerV is compressible. Interpretation Summary Deep veins of the left lower extremity are patent and compressible segmentally. There is no evidence of left lower extremity deep vein thrombosis. Valvular competence appears intact within the proximal deep venous system on the left . The left great saphenous vein appears patent and compressible segmentally. Ordering Physician: Ruby Flores Referring Physician: Helen Howe Performed By: Alice Martin RVT
[2020-01-23 11:26] LABS: Bedside Glucose 261 mg/dL (70-110)
[2020-01-23 17:00] VITALS: BMI 41.4
[2020-01-23 17:15] LABS: Bedside Glucose 123 mg/dL (70-110)
[2020-01-23 19:22] VITALS: BP 133/70; PULSE 62; RESP 18; TEMP 36.6; O2SAT 96
[2020-01-23 20:58] VITALS: BMI 41.4
[2020-01-23 21:06] VITALS: BP 133/70; PULSE 62
[2020-01-23] MEDS: Atorvastatin Calcium 80 MG Tablet PO (21:06)
[2020-01-23 21:30] LABS: Bedside Glucose 143 mg/dL (70-110)
[2020-01-23 22:00] VITALS: PULSE 62; RESP 18
[2020-01-24] MEDS: Enoxaparin 40 MG/0.4 ML Syringe SC (05:13)
[2020-01-24 06:26] LABS: Bedside Glucose 132 mg/dL (70-110)
[2020-01-24 06:38] LABS: Anion Gap 5 (5-15); BUN 30 mg/dL (7-18); BUN/Creat Ratio 28.6 RATIO (10-20); Calcium,Total 8.7 mg/dL (8.5-10.1); Chloride 109 mmol/L (98-107); Creatinine, Serum 1.05 mg/dL (0.70-1.30); EST Glomerular Filtration Rate 79 mL/min (>60); Est Glom Filt Rate - Afr Amer 95 mL/min (>60); Estimated Creatinine Clearance 84.97 ml/min; Glucose 124 mg/dL (74-106); Magnesium 2.1 mg/dL (1.6-2.6); Potassium 3.9 mmol/L (3.5-5.1); Sodium Level 140 mmol/L (136-145)
[2020-01-24] MEDS: hydroCHLOROthiazide 12.5mg 12.5 MG PO (08:11)
[2020-01-24] MEDS: Senna/Docusate Sodium 1 Tablet 2 TABLET PO ×2 (08:11→21:43)
[2020-01-24] MEDS: Clopidogrel Bisulfate 75 MG Tablet PO (08:11)
[2020-01-24] MEDS: Losartan Potassium 100 MG Tablet PO (08:11)
[2020-01-24] MEDS: amLODIPine 10 MG Tablet PO (08:11)
[2020-01-24 08:12] VITALS: BP 142/72; PULSE 56
[2020-01-24] MEDS: Insulin Lispro 100 UNIT/ML INSULN.PEN 15 UNIT SC ×3 (08:12→17:31)
[2020-01-24] MEDS: glipiZIDE 10 MG Tablet 20 MG PO ×2 (08:12→17:31)
[2020-01-24] MEDS: Metoprolol Tartrate 25 MG Tablet 75 MG PO ×2 (08:12→21:43)
[2020-01-24] MEDS: Aspirin 81 MG TAB.CHEW PO (08:12)
[2020-01-24 09:24] VITALS: BP 142/72; PULSE 56; RESP 16; TEMP 36.6; O2SAT 96
[2020-01-24 09:33] VITALS: BMI 41.4
[2020-01-24 11:46] LABS: Bedside Glucose 153 mg/dL (70-110)
[2020-01-24] MEDS: Insulin Lispro 100 UNIT/ML INSULN.PEN SC ×2 (12:05→17:31)
--- NOTE | 2020-01-24 13:18 | CASEMGMT ---
Social Work Completed advanced directives with pt. Copies placed on chart. Kya Pugh, social work internet merchant Alanna Chris, AUDIT CLERK SHOE STOCK ASSOCIATE
[2020-01-24 16:26] LABS: Bedside Glucose 155 mg/dL (70-110)
[2020-01-24 19:43] VITALS: BP 138/73; PULSE 58; RESP 18; TEMP 36.6; O2SAT 96
[2020-01-24 21:43] VITALS: BP 138/73; PULSE 58
[2020-01-24] MEDS: Atorvastatin Calcium 80 MG Tablet PO (21:43)
--- NOTE | 2020-01-24 21:48 | NURSING ---
Hospitalist, Dr Carter, paged re: blood sugar level of 95. advised holding the Lantus 40 units.
[2020-01-24 21:50] LABS: Bedside Glucose 95 mg/dL (70-110)
[2020-01-24 22:00] VITALS: BMI 41.4
[2020-01-25] MEDS: Enoxaparin 40 MG/0.4 ML Syringe SC (05:23)
[2020-01-25 07:35] LABS: Bedside Glucose 157 mg/dL (70-110)
[2020-01-25] MEDS: Senna/Docusate Sodium 1 Tablet 2 TABLET PO (08:00)
[2020-01-25] MEDS: Clopidogrel Bisulfate 75 MG Tablet PO (08:00)
[2020-01-25] MEDS: amLODIPine 10 MG Tablet PO (08:00)
[2020-01-25 08:02] VITALS: PULSE 63
[2020-01-25] MEDS: Metoprolol Tartrate 25 MG Tablet 75 MG PO ×2 (08:02→20:22)
[2020-01-25] MEDS: Aspirin 81 MG TAB.CHEW PO (08:02)
[2020-01-25] MEDS: hydroCHLOROthiazide 12.5mg 12.5 MG PO (08:02)
[2020-01-25] MEDS: Losartan Potassium 100 MG Tablet PO (08:02)
[2020-01-25] MEDS: glipiZIDE 10 MG Tablet 20 MG PO ×2 (08:02→16:55)
[2020-01-25] MEDS: Insulin Lispro 100 UNIT/ML INSULN.PEN 15 UNIT SC ×3 (08:04→17:22)
[2020-01-25] MEDS: Insulin Lispro 100 UNIT/ML INSULN.PEN SC ×3 (08:04→17:22)
[2020-01-25 09:04] VITALS: BP 107/55; PULSE 63; RESP 18; TEMP 36.7; O2SAT 96
[2020-01-25 09:07] LABS: Protein C Antigen 110 % (60-150); Protein C, Functional 147 % (73-180)
[2020-01-25 11:34] LABS: Anti-Cardiolipin Ab, IgG, Qn < 9 GPL U/mL (0-14); Anti-Cardiolipin Ab, IgM, Qn < 9 MPL U/mL (0-12); Anti-Thrombin 3 AG, Immunol 98 % (72-124); Antithrombin 3 Function 115 % (75-135)
[2020-01-25 11:36] LABS: Protein S, Free 110 % (57-157); Protein S, Funtional 106 % (63-140); Protein S, Total 153 % (60-150)
[2020-01-25 11:46] LABS: Bedside Glucose 237 mg/dL (70-110)
--- NOTE | 2020-01-25 13:11 | PCM.PN.BLA ---
Progress Note Afebrile Vital signs stable-blood pressures well controlled Maintaining appropriate oxygen saturation on room air Blood sugars are well controlled now. Results of the hypercoagulable panel were discussed with the pt - they were normal. Lungs-clear to auscultation Heart-regular rate and rhythm, no gallop Abdomen-obese, soft, nontender, nondistended, bowel sounds normal in all 4 quadrants No calf tenderness Impressions 1. Post stroke debility with left side weakness, numbness and ataxic gait 2. Diabetes mellitus type 2-coming under better control with changes made by Dr. Rueda 3. [id number] 4. Left carotid stenosis and left vertebral stenosis Continue current medications and therapy Code Visit Inpatient E&M: 12561 Subs Hosp L1
[2020-01-25 17:00] VITALS: BMI 41.4
[2020-01-25 17:00] LABS: Bedside Glucose 156 mg/dL (70-110)
[2020-01-25] MEDS: Atorvastatin Calcium 80 MG Tablet PO (20:21)
[2020-01-25 20:22] VITALS: PULSE 62
[2020-01-25 21:00] VITALS: BP 142/73; PULSE 62; RESP 18; TEMP 36.7; O2SAT 98
[2020-01-25 22:05] LABS: Bedside Glucose 126 mg/dL (70-110)
--- NOTE | 2020-01-26 01:45 | NURSING ---
Patient woke up confused but easily reoriented and BS taken due to excessive sweating noted all over skin and in the 80's. 4 ounces orange juice given.
[2020-01-26 02:09] VITALS: BMI 41.4
[2020-01-26 02:16] LABS: Bedside Glucose 86 mg/dL (70-110)
[2020-01-26] MEDS: Enoxaparin 40 MG/0.4 ML Syringe SC (06:44)
[2020-01-26 06:51] LABS: Bedside Glucose 152 mg/dL (70-110)
[2020-01-26] MEDS: Insulin Lispro 100 UNIT/ML INSULN.PEN SC ×2 (07:51→12:23)
[2020-01-26] MEDS: Insulin Lispro 100 UNIT/ML INSULN.PEN 15 UNIT SC ×3 (07:52→17:38)
[2020-01-26 07:54] VITALS: BP 139/97; PULSE 74; RESP 18; TEMP 36.3; O2SAT 95
[2020-01-26 07:55] VITALS: PULSE 74
[2020-01-26] MEDS: Aspirin 81 MG TAB.CHEW PO (07:55)
[2020-01-26] MEDS: hydroCHLOROthiazide 12.5mg 12.5 MG PO (07:55)
[2020-01-26] MEDS: Clopidogrel Bisulfate 75 MG Tablet PO (07:55)
[2020-01-26] MEDS: Senna/Docusate Sodium 1 Tablet 2 TABLET PO ×2 (07:55→21:34)
[2020-01-26] MEDS: Metoprolol Tartrate 25 MG Tablet 75 MG PO ×2 (07:55→21:34)
[2020-01-26] MEDS: amLODIPine 10 MG Tablet PO (07:55)
[2020-01-26] MEDS: Losartan Potassium 100 MG Tablet PO (07:56)
[2020-01-26] MEDS: glipiZIDE 10 MG Tablet 20 MG PO ×2 (07:56→16:50)
[2020-01-26 11:36] LABS: Bedside Glucose 217 mg/dL (70-110)
[2020-01-26 14:36] VITALS: BMI 41.4
--- NOTE | 2020-01-26 15:53 | CASEMGMT ---
Social Work IDT recommending continued therapy with all three disciplines. Pt having difficulty with left arm and hand awareness, dexterity, and apraxia, along with left visual neglect. Pt has poor insight into deficits. Pt still requiring physical assistance with transfers and all ADLs. Pt wearing clovis wrap on left foot to assist with foot drop. Pt is unsafe at home alone at this time. Will Reteam with pt and on 01/29 and recommend participate in therapy training. NRD 01/27. Will continue to follow. MORIS Freitas PARK AIDE
[2020-01-26 17:00] LABS: Bedside Glucose 154 mg/dL (70-110)
--- NOTE | 2020-01-26 17:02 | PN_ITS ---
Progress Note Afebile VSS Maintaining appropriate oxygen saturation on RA Oral intake is good Discussed with nursing - no problems that need addressed Reviewed the PT/OT/ST notes Medication list reviewed. Blood sugar record reviewed. Lunch sugar has consistently been > 200. Denies chest pain, shortness of breath, palpitations, nausea, vomiting, diarr hea, constipation. No orthopnea. Alert and oriented X 3 Sitting in the bedside recliner and in no apparent distress Lungs - CTA after a few deep breaths, no wheezing and no rales Heart-regular rate and rhythm, no murmur, no gallop, heart sounds are distant secondary to body habitus abd - obese, soft, NT, ND he has edema at the ankles - ANITHA wraps are in place no facial droop, weak on the Left side, still with unsteady gait Impressions 1. Debility secondary to recent right parietal and temporal cortical/subcortical infarcts with left-sided weakness, numbness and gait instability 2. Diabetes mellitus type 2-coming under much better control on appropriate diet and adjustments in his insulin. 3. Hypertension-mostly controlled, Cozaar was increased to 100 mg p.o. daily on 01/23/2020. 4. Diabetic nephropathy with increased Microalbumin/creat ratio 5. Diabetic retinopathy with hx of laser surgery in the past 6. Carotid vascular disease 7. possible AF - 30 day event monitor at DC and follow up with Dr. Pickard for a PAYAL and a stress. DC the SSI and continue AC & HS accucheks. Increase the humalog with breakfast to 18 units. Pt still has poor insight into his disease processes. He thinks that he can be discharged and go back to work next week. Still very clumsy with the left hand and he has to type at work. He has a soft knee on the left and is not steady ambulating, even with the FWW......the PT pointed this out to him and he though she was over exaggerating. She started pointing this out to him every time he did it and now is able to recognize when he is doing it. I have serious concern about his awareness of his limitations and his ability to stay safe. Update the insurance company tomorrow TEAM meeting on Thursday to discuss his progress and when he may be stable for DC. Discussed with the pt once again how uncontrolled DM has impacted his life and how he may not be able to return to his job if he continues to have clumsy left hand and unsteady gait. Hypercoagulable W/U is negative Code Visit Inpatient E&M: 90458 Subs Hosp L2
[2020-01-26 19:31] VITALS: BP 126/69; PULSE 63; RESP 18; TEMP 36.8; O2SAT 97
[2020-01-26 21:26] VITALS: BMI 41.4
[2020-01-26 21:34] VITALS: BP 126/69; PULSE 63
[2020-01-26] MEDS: Atorvastatin Calcium 80 MG Tablet PO (21:34)
[2020-01-26 22:15] LABS: Bedside Glucose 146 mg/dL (70-110)
[2020-01-27] MEDS: Enoxaparin 40 MG/0.4 ML Syringe SC (05:57)
[2020-01-27 06:37] LABS: Anion Gap 6 (5-15); BUN 34 mg/dL (7-18); Calcium,Total 9.1 mg/dL (8.5-10.1); Chloride 105 mmol/L (98-107); Creatinine, Serum 1.26 mg/dL (0.70-1.30); EST Glomerular Filtration Rate 64 mL/min (>60); Est Glom Filt Rate - Afr Amer 77 mL/min (>60); Estimated Creatinine Clearance 70.81 ml/min; Glucose 147 mg/dL (74-106); Magnesium 2.2 mg/dL (1.6-2.6); Potassium 4.1 mmol/L (3.5-5.1); Sodium Level 138 mmol/L (136-145)
[2020-01-27 06:45] LABS: Bedside Glucose 151 mg/dL (70-110)
[2020-01-27 07:00] VITALS: BP 139/68; PULSE 58; RESP 18; TEMP 36.5; O2SAT 99
[2020-01-27] MEDS: Senna/Docusate Sodium 1 Tablet 2 TABLET PO (08:01)
[2020-01-27] MEDS: Insulin Lispro 100 UNIT/ML INSULN.PEN 18 UNIT SC (08:02)
[2020-01-27] MEDS: Aspirin 81 MG TAB.CHEW PO (08:02)
[2020-01-27] MEDS: hydroCHLOROthiazide 12.5mg 12.5 MG PO (08:02)
[2020-01-27] MEDS: glipiZIDE 10 MG Tablet 20 MG PO ×2 (08:02→17:31)
[2020-01-27] MEDS: amLODIPine 10 MG Tablet PO (08:02)
[2020-01-27] MEDS: Clopidogrel Bisulfate 75 MG Tablet PO (08:02)
[2020-01-27] MEDS: Losartan Potassium 100 MG Tablet PO (08:02)
[2020-01-27 08:03] VITALS: BP 139/68; PULSE 60
[2020-01-27] MEDS: Metoprolol Tartrate 25 MG Tablet 75 MG PO ×2 (08:03→22:14)
[2020-01-27] MEDS: Acetaminophen 325 MG Tablet 650 MG PO ×2 (08:07→22:13)
[2020-01-27 12:05] LABS: Bedside Glucose 198 mg/dL (70-110)
[2020-01-27] MEDS: Insulin Lispro 100 UNIT/ML INSULN.PEN 15 UNIT SC ×2 (12:16→17:31)
[2020-01-27 15:18] VITALS: BMI 41.4
--- NOTE | 2020-01-27 15:19 | PCM.PN.BLA ---
Progress Note Afebrile, vital signs stable, blood pressure is well controlled Maintaining appropriate oxygen saturation on room air Oral intake is down. All lab was personally reviewed. Creatinine today is 1.26, up from 1.05 on 01/24/2020. The BUN is 34 and this is up from 30 on 01/24/2020. Potassium is 4.1 and magnesium is normal at 2.2. Blood sugar record was reviewed-blood sugars are adequately controlled Alert, oriented x3, no apparent distress Lungs-diminished but clear to auscultation Heart-regular rate and rhythm, no gallop Abdomen-obese, nontender, no guarding with palpation No calf tenderness No rashes and no breakdown I observed him ambulating in the [place] today with a FWW and he had less knee dips than yesterday and he is now aware of this and seems to have slowed his capo to compensate Impressions 1. Post stroke debility 2. Uncontrolled DM II with a HGBA1C f 12 recently. BS's are now coming under much better control. He and his have met with the special services director. He will follow up with Dr. Rueda post discharge for management of DM and with Dr. Howe for Primary care 3. Hypertension-controlled 4. Cerebrovascular disease 5. Hyperlipidemia 6. History of sarcoid 7. Obstructive sleep apnea 8. Diabetic nephropathy with proteinuria 9. Morbid obesity 10. Diabetic retinopathy 11. Suspected AF - not a candidate for anticoagulation at this time due to risk for hemorrhagic conversion. He is going to follow up with Dr. Pickard for PAYAL at CT and will place a 30 day event monitor on the day of CT. At some point he will need to have an evaluation for CAD with either a stress or cath.......will defer to Dr. Pickard on this Increase the HS Lantus to 46 units QHS to get the FBS under 130. Increase the Humalog with breakfast because the Lunch BS is still high continue with AC and HS blood sugars. I encouraged him to increase his fluid intake. Code Visit Inpatient E&M: 19490 Subs Hosp L2
[2020-01-27 17:15] LABS: Bedside Glucose 160 mg/dL (70-110)
[2020-01-27 19:31] VITALS: BP 122/68; PULSE 61; RESP 16; TEMP 36.4; O2SAT 100
[2020-01-27 22:14] VITALS: BP 152/72; PULSE 60
[2020-01-27] MEDS: Atorvastatin Calcium 80 MG Tablet PO (22:14)
[2020-01-27 22:16] VITALS: BP 152/72; PULSE 60
[2020-01-27 22:51] LABS: Bedside Glucose 105 mg/dL (70-110)
[2020-01-28 04:51] LABS: Bedside Glucose 104 mg/dL (70-110)
[2020-01-28] MEDS: Enoxaparin 40 MG/0.4 ML Syringe SC (06:56)
[2020-01-28 07:11] LABS: Bedside Glucose 106 mg/dL (70-110)
[2020-01-28] MEDS: Senna/Docusate Sodium 1 Tablet 2 TABLET PO ×2 (07:51→21:08)
[2020-01-28] MEDS: amLODIPine 10 MG Tablet PO (07:51)
[2020-01-28 07:52] VITALS: PULSE 56
[2020-01-28] MEDS: glipiZIDE 10 MG Tablet 20 MG PO ×2 (07:52→17:09)
[2020-01-28] MEDS: Aspirin 81 MG TAB.CHEW PO (07:52)
[2020-01-28] MEDS: Losartan Potassium 100 MG Tablet PO (07:52)
[2020-01-28] MEDS: hydroCHLOROthiazide 12.5mg 12.5 MG PO (07:52)
[2020-01-28] MEDS: Clopidogrel Bisulfate 75 MG Tablet PO (07:52)
[2020-01-28] MEDS: Metoprolol Tartrate 25 MG Tablet 75 MG PO ×2 (07:52→21:06)
[2020-01-28] MEDS: Insulin Lispro 100 UNIT/ML INSULN.PEN 20 UNIT SC (07:53)
[2020-01-28 08:47] VITALS: BP 148/77; PULSE 56; RESP 16; TEMP 36.7; O2SAT 100
[2020-01-28 11:15] LABS: Bedside Glucose 169 mg/dL (70-110)
[2020-01-28] MEDS: Insulin Lispro 100 UNIT/ML INSULN.PEN 15 UNIT SC ×2 (11:24→17:08)
[2020-01-28 12:07] VITALS: BMI 41.4
--- NOTE | 2020-01-28 13:10 | PCM.PN.HOSP ---
Patient Problems: Active and Suspected Problems (Last Reviewed 01/19/20 @ 14:[address] Ruby Flores DO) History of CVA (cerebrovascular accident) (Acute) 01/18/2020 possibly cardioembolic Reason for Visit: Physical debility Subjective: Patient is a 54-year-old gentleman with recent right temporal and parietal cortical and subcortical infarct with subsequent hemorrhagic conversion admitted to the inpatient rehab unit where patient is currently undergoing therapy Complains of some subjective weakness in the left lower extremity Objective: GENERAL: cooperative HEENT: Atraumatic; EYES; Anicteric, Normal Conjunctiva NECK; supple, normal thyroid, RESPIRATORY: Diminished to auscultation CARDIOVASCULAR: Regular S1 S2, GI: soft, normoactive bowel sounds, : No Renal angle tenderness; EXTREMITIES: No edema, no clubbing, MUSCULOSKELETAL: no muscle waisting NEURO: Awake; SKIN: No Rash PSYCH; Flat affect Vitals/I&O's: Vital Signs Temp Pulse Resp BP Pulse Ox 98.1 F 56 L 16 148/77 H 100 01/28/20 08:47 01/28/20 08:47 01/28/20 08:47 01/28/20 08:47 01/28/20 08:47 Oxygen Delivery Method Room Air Weight: 128.537 kg Body Mass Index (BMI) 41.4 Finger Stick Blood Glucose 300 Intake and Output for Last 24 Hours 01/26/20 01/27/20 01/28/20 23:59 23:59 23:59 Intake Total 360 / 360 360 / 360 360 / 360 Balance 360 / 360 360 / 360 360 / 360 Laboratory Results 01/19/20 12:50: Miscellaneous Test 01/19/20 13:25: Miscellaneous Test 01/27/20 17:09: POC Glucose 160 H 01/27/20 22:10: POC Glucose 105 01/28/20 04:45: POC Glucose 104 01/28/20 07:02: POC Glucose 106 01/28/20 11:08: POC Glucose 169 H Current Medications Acetaminophen (Tylenol) 650 mg PO Q4H PRN PRN PRN Reason: Pain Score 1-10/10 Last Admin: 01/27/20 22:13 Dose: 650 mg Documented by: Amlodipine Besylate (Norvasc) 10 mg PO DAILY [facility] Last Admin: 01/28/20 07:51 Dose: 10 mg Documented by: Aspirin (Aspirin, Baby) 81 mg PO DAILY@0800 [facility] Last Admin: 01/28/20 07:52 Dose: 81 mg Documented by: Atorvastatin Calcium (Lipitor) 80 mg PO QHS [facility] Last Admin: 01/27/20 22:14 Dose: 80 mg Documented by: Bisacodyl (Dulcolax) 10 mg RECTAL .PRN X 1 PRN PRN Reason: Constipation Clopidogrel Bisulfate (Plavix) 75 mg PO DAILY [facility] Last Admin: 01/28/20 07:52 Dose: 75 mg Documented by: Enoxaparin Sodium (Lovenox) 40 mg SC DAILY@0600 [facility] Last Admin: 01/28/20 06:56 Dose: 40 mg Documented by: Glipizide (Glucotrol) 20 mg PO BIDAC [facility] Last Admin: 01/28/20 07:52 Dose: 20 mg Documented by: Hydrochlorothiazide () 12.5 mg PO DAILY [facility] Last Admin: 01/28/20 07:52 Dose: 12.5 mg Documented by: Insulin Glargine (Lantus (Bkc)) 46 units SC QHS [facility] Last Admin: 01/27/20 22:14 Dose: 46 units Documented by: Insulin Human Lispro (Humalog Kwikpen (Bkc)) 15 unit SC 1100,1600 [facility] Last Admin: 01/28/20 11:24 Dose: 15 u Documented by: Insulin Human Lispro (Humalog Kwikpen (Bkc)) 20 unit SC 0700 [facility] Last Admin: 01/28/20 07:53 Dose: 20 units Documented by: Losartan Potassium (Cozaar) 100 mg PO DAILY [facility] Last Admin: 01/28/20 07:52 Dose: 100 mg Documented by: Magnesium Hydroxide (Milk Of Magnesia) 30 ml PO .PRN X 1 PRN PRN Reason: Constipation Metoprolol Tartrate (Lopressor (Beta Wesly)) 75 mg PO BID [facility] Last Admin: 01/28/20 07:52 Dose: 75 mg Documented by: Senna/Docusate Sodium (Senokot-S, Ansley-Colace) 2 tablet PO BID [facility] Last Admin: 01/28/20 07:51 Dose: 2 tablet Documented by: Sodium Chloride () 10 - 40 ml IV UD PRN PRN Reason: SALINE FLUSH Last Admin: 01/19/20 21:09 Dose: 10 ml Documented by: Medical Necessity - Tobacco Use Smoking Status: Never smoker Tobacco Use: Non-smoker Assessment/Plan All Active Problems (Last Reviewed 01/19/20 @ 14:[address] Ruby Florse, DO) History of CVA (cerebrovascular accident) (Acute) Stroke-like symptoms (Acute) Patient is a 54-year-old gentleman with recent right temporal and parietal cortical and subcortical infarct with subsequent hemorrhagic conversion admitted to the inpatient rehab unit where patient is currently undergoing therapy 1. Physical debility Secondary to recent right temporal and parietal cortical and subcortical infarct with subsequent hemorrhagic conversion admitted to the inpatient rehab unit where patient is currently undergoing therapy 2. Diabetes mellitus type 2 ?Uncontrolled with hyperglycemia hemoglobin A1c of 12. Patient was seen in consultation by Dr. Rueda with endocrinology. Adjustment made to patient regimen glucose control improving 3. Hypertension ~ blood pressure controlled, home medications continued with dose adjustment as needed 4. Dyslipidemia ~patient is on statin therapy, continued at home dose 5. Diabetic nephropathy with proteinuria ?Patient to follow-up with PCP for subsequent care 6. Suspected atrial fibrillation ?Patient was not placed on systemic anticoagulation in view of his hemorrhagic conversion. Plan is for patient to be discharged with a 30-day event monitor and subsequent follow-up with cardiology Dr. Plata for possible PAYAL 7. Morbid obesity with BMI of 40.7 8. Obstructive sleep apnea 9. Sarcoidosis ?Stable currently not on any systemic anticoagulation 10. DVT prophylaxis ?Enoxaparin Code Visit Inpatient E&M: 68414 Subs Hosp L2
[2020-01-28 17:06] LABS: Bedside Glucose 116 mg/dL (70-110)
[2020-01-28 19:17] VITALS: BP 152/74; PULSE 60; RESP 18; TEMP 36.7; O2SAT 95
[2020-01-28 20:28] VITALS: BMI 41.4
[2020-01-28 20:56] LABS: Bedside Glucose 213 mg/dL (70-110)
[2020-01-28 21:06] VITALS: BP 152/74; PULSE 60
[2020-01-28] MEDS: Atorvastatin Calcium 80 MG Tablet PO (21:07)
[2020-01-29] MEDS: Enoxaparin 40 MG/0.4 ML Syringe SC (06:33)
[2020-01-29] MEDS: Acetaminophen 325 MG Tablet 650 MG PO (06:33)
[2020-01-29 06:36] LABS: Bedside Glucose 138 mg/dL (70-110)
[2020-01-29 07:37] VITALS: BP 147/68; PULSE 60
[2020-01-29] MEDS: Metoprolol Tartrate 25 MG Tablet 75 MG PO ×2 (07:37→21:59)
[2020-01-29] MEDS: glipiZIDE 10 MG Tablet 20 MG PO ×2 (07:38→16:59)
[2020-01-29] MEDS: Losartan Potassium 100 MG Tablet PO (07:39)
[2020-01-29] MEDS: amLODIPine 10 MG Tablet PO (07:39)
[2020-01-29] MEDS: Aspirin 81 MG TAB.CHEW PO (07:39)
[2020-01-29] MEDS: Clopidogrel Bisulfate 75 MG Tablet PO (07:39)
[2020-01-29] MEDS: Senna/Docusate Sodium 1 Tablet 2 TABLET PO ×2 (07:39→21:45)
[2020-01-29] MEDS: hydroCHLOROthiazide 12.5mg 12.5 MG PO (07:39)
[2020-01-29] MEDS: Insulin Lispro 100 UNIT/ML INSULN.PEN 20 UNIT SC (07:40)
[2020-01-29 08:04] VITALS: BP 147/68; PULSE 60; RESP 18; TEMP 36.6; O2SAT 93
[2020-01-29] MEDS: Insulin Lispro 100 UNIT/ML INSULN.PEN 15 UNIT SC ×2 (12:05→16:59)
[2020-01-29 12:16] LABS: Bedside Glucose 159 mg/dL (70-110)
[2020-01-29 14:16] VITALS: BMI 41.4
[2020-01-29 16:56] LABS: Bedside Glucose 136 mg/dL (70-110)
[2020-01-29 19:14] VITALS: BP 141/90; PULSE 59; RESP 18; TEMP 36.3; O2SAT 97
[2020-01-29 21:30] VITALS: PULSE 59; RESP 18; O2SAT 97; BMI 41.4
[2020-01-29 21:35] LABS: Bedside Glucose 180 mg/dL (70-110)
[2020-01-29] MEDS: Atorvastatin Calcium 80 MG Tablet PO (21:45)
[2020-01-29 21:59] VITALS: BP 173/76; PULSE 59
--- NOTE | 2020-01-30 02:25 | NURSING ---
Reviewed and agree with MANAGER OF PROJECT MANAGEMENT documentation and charting.
[2020-01-30] MEDS: Enoxaparin 40 MG/0.4 ML Syringe SC ×2 (05:36→22:00)
[2020-01-30 06:16] LABS: Hematocrit 45.6 % (40-54); Hemoglobin 14.1 g/dL (13.0-16.5); Mean Corp Hgb Conc 30.9 g/dL (32-36); Mean Corpuscular Hgb 26.8 pg (27.0-32.0); Mean Corpuscular Volume 86.7 fL (80-94); Mean Platelet Vol. 10.3 fl (6.2-12.0); Platelet Count 260 K/mm3 (150-450); RBC Distribution Width CV 12.4 % (11.6-14.6); RBC Distribution Width SD 39.2 fl (35.1-43.9); Red Blood Count 5.26 M/mm3 (4.6-6.2); White Blood Count 7.4 K/mm3 (4.4-11.0)
[2020-01-30 06:33] LABS: Anion Gap 6 (5-15); BUN 23 mg/dL (7-18); BUN/Creat Ratio 23.5 RATIO (10-20); Calcium,Total 9.3 mg/dL (8.5-10.1); Chloride 106 mmol/L (98-107); Creatinine, Serum 0.98 mg/dL (0.70-1.30); EST Glomerular Filtration Rate 85 mL/min (>60); Est Glom Filt Rate - Afr Amer 103 mL/min (>60); Estimated Creatinine Clearance 91.04 ml/min; Glucose 104 mg/dL (74-106); Potassium 4.4 mmol/L (3.5-5.1); Sodium Level 140 mmol/L (136-145)
[2020-01-30 07:00] LABS: Bedside Glucose 153 mg/dL (70-110)
[2020-01-30 07:55] VITALS: PULSE 77
[2020-01-30] MEDS: Metoprolol Tartrate 25 MG Tablet 75 MG PO ×2 (07:55→21:42)
[2020-01-30] MEDS: glipiZIDE 10 MG Tablet 20 MG PO ×2 (07:55→16:46)
[2020-01-30] MEDS: hydroCHLOROthiazide 12.5mg 12.5 MG PO (07:55)
[2020-01-30] MEDS: Aspirin 81 MG TAB.CHEW PO (07:55)
[2020-01-30] MEDS: amLODIPine 10 MG Tablet PO (07:55)
[2020-01-30] MEDS: Clopidogrel Bisulfate 75 MG Tablet PO (07:55)
[2020-01-30] MEDS: Insulin Lispro 100 UNIT/ML INSULN.PEN 20 UNIT SC (07:56)
[2020-01-30] MEDS: Lisinopril 20 MG Tablet PO (07:56)
[2020-01-30 08:00] VITALS: BP 168/83; PULSE 78; RESP 20; TEMP 36.6; O2SAT 97
[2020-01-30 08:59] VITALS: BP 137/71; PULSE 66
--- NOTE | 2020-01-30 10:30 | CASEMGMT ---
Social Work IDT met with pt and . Pt is walking 175-200ft at min assist to CGA with FWW. Pt mechanics decrease with fatigue. Pt is CGA- min assist for bathing, using grabber for LE dressing at SBA. Pt is CGA to stand for dressing with cues for left side. Pt is set up for grooming. ST has concerns with left visual attention, higher executive functioning, and impulsivity. Pt awareness is improving, but pt still has poor insight to deficits. Pt expressed feeling this was because staff was not allowing him to do these exercises on his own. Staff agreeable to allowing pt some independence, with supervision, to see pt strengths. Educated pt to [employer] insurance. NRD 3/3 and insurance wants DC plans in place. Educated pt to being able to go to a SNF or appealing DC if pt did not feel ready to go home. Pt expressed wanting to go home. Physician not clearing pt for driving and recommending disability as pt may not be able to return to work. Kya Pugh, social work pharmacy intern Alanna Chris, SEX CRIMES DETECTIVE DESK LIEUTENANT
[2020-01-30 12:11] LABS: Bedside Glucose 199 mg/dL (70-110)
[2020-01-30] MEDS: Insulin Lispro 100 UNIT/ML INSULN.PEN 15 UNIT SC ×2 (12:27→16:48)
[2020-01-30] MEDS: Sertraline 50 MG Tablet PO (13:39)
[2020-01-30 14:14] VITALS: BMI 41.4
--- NOTE | 2020-01-30 14:29 | PCM.PN.BLA ---
Progress Note Patient was seen on TEAM rounds today. His was present. Afebile VSS - BP is not adequately controlled. It goes up when he is angry or agitated. He was converted from Losartan to Lisinopril yesterday. BP seems to go up at night and he takes the medication in the AM. He may having end of dose failure. will continue to monitor today and if it goes up at night will change the dosing to BID. Maintaining appropriate oxygen saturation on RA Oral intake is good Discussed with nursing - no problems that need addressed Reviewed the PT/OT/ST notes Medication list reviewed. no complaints. Pt is irritable today and impatient. He wants to go home and he thinks he is going to be able to drive. He still has visual field deficit to the left and he has decreased safety awareness. He also thinks he is going to go back to work within the next week. Still having some higher level executive functioning disability per ST and also trouble with time management and planning. He does not see this and is very frustrated with ST. He also says he has not been getting 3 hours a day of therapy and says that people have told him his balance is good. He tried ambulating with a cane on Thursday and was very ataxic. Decreased coordination and sensory function left hand. He tried tieing his shoes with OT and he had apraxia. Alert, irritable, oriented X 3 Lungs - CTA H-RRR with no gallop abd - soft, NT ANITHA wraps are in place on the LE's still weak on the left side with L knee buckling Impressions 1. Post stroke debility 2. Hypertension-not adequately controlled at present. We will continue to adjust antihypertensives to get the systolic less than 135 and the diastolic less than 80 consistently. 3. Diabetes mellitus type 2-blood sugars are well controlled at this time. Will need to follow-up with Dr. Rueda as an outpatient. 4. frustration and irritability. this is increasing. We discussed trial of a mediation to control anxiety and depression and he is OK with this. stayed today to do family training with OT and ST I suggested to them that since this is his third stroke and he has significant dysfunction he may want to consider applying for disability. I also told him no driving until he was seen by neurology......he has an appt with [facility] (has seen them in the past) march 29. 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 > 50% of the time today was spent in counselling. total time was 50 minutes Code Visit Inpatient E&M: 57767 Subs Hosp L3
[2020-01-30 16:50] LABS: Bedside Glucose 211 mg/dL (70-110)
[2020-01-30 20:19] VITALS: BP 134/78; PULSE 62; RESP 17; TEMP 37.2; O2SAT 94
[2020-01-30 21:40] LABS: Bedside Glucose 197 mg/dL (70-110)
[2020-01-30 21:42] VITALS: PULSE 62
[2020-01-30] MEDS: Atorvastatin Calcium 80 MG Tablet PO (21:42)
[2020-01-30 22:00] VITALS: PULSE 62; RESP 17; O2SAT 94; BMI 41.4
--- NOTE | 2020-01-30 22:41 | NURSING ---
This nurse notified of accidental med error by orienting GEL COATER with 22:00 biomedical analytical scientist. 06:00 Lovenox given to pt accidently. RN paged Hospitalist, Dr Darion Francis, and changed the order for 22:00 administration. Pharmacy called and notified. Quantros filled out by GEL COATER.
--- NOTE | 2020-01-31 04:07 | NURSING ---
Reviewed and agree with BATH SOLUTION MAKER documentation and charting.
[2020-01-31 07:00] VITALS: BP 155/79; PULSE 64; RESP 18; TEMP 36.8; O2SAT 92
[2020-01-31 07:16] LABS: Bedside Glucose 118 mg/dL (70-110)
[2020-01-31] MEDS: Insulin Lispro 100 UNIT/ML INSULN.PEN 20 UNIT SC (07:50)
[2020-01-31] MEDS: amLODIPine 10 MG Tablet PO (07:51)
[2020-01-31] MEDS: Clopidogrel Bisulfate 75 MG Tablet PO (07:51)
[2020-01-31] MEDS: Lisinopril 20 MG Tablet PO (07:51)
[2020-01-31] MEDS: hydroCHLOROthiazide 12.5mg 12.5 MG PO (07:51)
[2020-01-31] MEDS: Aspirin 81 MG TAB.CHEW PO (07:51)
[2020-01-31] MEDS: Sertraline 50 MG Tablet PO (07:51)
[2020-01-31 07:52] VITALS: PULSE 64
[2020-01-31] MEDS: glipiZIDE 10 MG Tablet 20 MG PO ×2 (07:52→17:01)
[2020-01-31] MEDS: Metoprolol Tartrate 25 MG Tablet 75 MG PO ×2 (07:52→21:14)
[2020-01-31] MEDS: Senna/Docusate Sodium 1 Tablet 2 TABLET PO ×2 (07:53→21:14)
[2020-01-31 11:46] LABS: Bedside Glucose 204 mg/dL (70-110)
[2020-01-31] MEDS: Insulin Lispro 100 UNIT/ML INSULN.PEN 15 UNIT SC ×2 (11:53→17:01)
[2020-01-31 17:00] VITALS: BMI 41.4
--- NOTE | 2020-01-31 17:00 | CASEMGMT ---
Addendum entered by Alanna Chris 02/01/20 16:15: Spoke with patient and whom are requesting outpatient therapy at [facility] - referral made for PT/OT/ST. Original Note: Social Work Insurance issued LCD 01/31, DC 02/01. Notified and inquired about DC plans. to complete PT family training 01/31. requesting shower chair and FWW - referred to [facility] and notified of private pay cost for shower chair - agreeable to cost. Therapy to discuss recommendations for HHC vs outpatient at training. Will continue to follow. Alanna Chris, SNIPPER RADIOCOMMUNICATIONS TECHNICIAN
[2020-01-31 17:05] LABS: Bedside Glucose 114 mg/dL (70-110)
[2020-01-31 18:57] VITALS: BP 147/74; PULSE 56; RESP 17; TEMP 36.1; O2SAT 95
[2020-01-31] MEDS: Atorvastatin Calcium 80 MG Tablet PO (21:13)
[2020-01-31 21:14] VITALS: PULSE 56
[2020-01-31] MEDS: Enoxaparin 40 MG/0.4 ML Syringe SC (21:14)
[2020-01-31 21:15] VITALS: PULSE 56; O2SAT 95; BMI 41.4
[2020-01-31 21:46] LABS: Bedside Glucose 129 mg/dL (70-110)
--- NOTE | 2020-02-01 04:51 | NURSING ---
Reviewed and agree with SENIOR SUPPLY CHAIN ANALYST documentation and charting.
[2020-02-01 06:56] LABS: Bedside Glucose 113 mg/dL (70-110)
[2020-02-01 08:09] VITALS: BP 152/83; PULSE 62; RESP 20; TEMP 36.6; O2SAT 99
[2020-02-01] MEDS: Insulin Lispro 100 UNIT/ML INSULN.PEN 20 UNIT SC (08:11)
[2020-02-01] MEDS: Sertraline 50 MG Tablet PO (08:13)
[2020-02-01] MEDS: Senna/Docusate Sodium 1 Tablet 2 TABLET PO ×2 (08:13→21:40)
[2020-02-01] MEDS: Clopidogrel Bisulfate 75 MG Tablet PO (08:13)
[2020-02-01] MEDS: Lisinopril 20 MG Tablet PO (08:13)
[2020-02-01 08:14] VITALS: BP 152/83; PULSE 62
[2020-02-01] MEDS: amLODIPine 10 MG Tablet PO (08:14)
[2020-02-01] MEDS: Aspirin 81 MG TAB.CHEW PO (08:14)
[2020-02-01] MEDS: glipiZIDE 10 MG Tablet 20 MG PO ×2 (08:14→16:31)
[2020-02-01] MEDS: Metoprolol Tartrate 25 MG Tablet 75 MG PO ×2 (08:14→21:41)
[2020-02-01] MEDS: hydroCHLOROthiazide 12.5mg 12.5 MG PO (08:14)
--- NOTE | 2020-02-01 09:37 | NURSING ---
Educated on insulin administration and pt demonstrated appropriately. Will continue with education and teaching.
[2020-02-01 10:25] VITALS: BMI 41.4
[2020-02-01] MEDS: Insulin Lispro 100 UNIT/ML INSULN.PEN 15 UNIT SC ×2 (12:00→16:32)
[2020-02-01 12:01] LABS: Bedside Glucose 205 mg/dL (70-110)
--- NOTE | 2020-02-01 13:59 | PCM.PN.BLA ---
Progress Note Afebile VSS-systolic is frequently greater than 140. Tends to be lower in the AM. He is on Amlodipine, HCTZ, Metoprolol 75 BID and Zestril. Maintaining appropriate oxygen saturation on RA Oral intake is good Discussed with nursing - no problems that need addressed Reviewed the PT/OT/ST notes. Talked with Marylou from and he seems to be doing better with problem solving Medication list reviewed. Lungs-clear to auscultation Heart-regular rate and rhythm, no gallop Abdomen-obese, soft, nontender No facial droop, strength in the left leg and left upper extremity is improving and so is his stability with ambulation Impressions 1. Pretension-still not adequately controlled. The goal for blood pressure is less than 135 systolic and less than 80 diastolic. I suspect that anxiety is a component in his HTN and Sertraline has been started. increase the Zestril dose to 20 mg in the AM and 10 mg at night Plan DC tomorrow Inpatient E&M: 81173 Subs Hosp L2
[2020-02-01 16:55] LABS: Bedside Glucose 185 mg/dL (70-110)
[2020-02-01 18:22] VITALS: BP 149/76; PULSE 59; RESP 18; TEMP 36.7; O2SAT 96
[2020-02-01 21:39] VITALS: BP 149/82; PULSE 60
[2020-02-01] MEDS: Enoxaparin 40 MG/0.4 ML Syringe SC (21:40)
[2020-02-01] MEDS: Lisinopril 10 MG Tablet PO (21:40)
[2020-02-01 21:41] VITALS: BP 149/82; PULSE 60
[2020-02-01 21:41] LABS: Bedside Glucose 111 mg/dL (70-110)
[2020-02-01] MEDS: Atorvastatin Calcium 80 MG Tablet PO (21:41)
[2020-02-01 22:27] VITALS: BMI 41.4
[2020-02-02 06:41] LABS: Bedside Glucose 91 mg/dL (70-110)
[2020-02-02 07:00] VITALS: BP 147/67; PULSE 60; RESP 20; TEMP 37.1; O2SAT 99
[2020-02-02] MEDS: Insulin Lispro 100 UNIT/ML INSULN.PEN 20 UNIT SC (08:16)
[2020-02-02] MEDS: hydroCHLOROthiazide 12.5mg 12.5 MG PO (08:17)
[2020-02-02] MEDS: Clopidogrel Bisulfate 75 MG Tablet PO (08:17)
[2020-02-02] MEDS: glipiZIDE 10 MG Tablet 20 MG PO (08:17)
[2020-02-02] MEDS: Lisinopril 20 MG Tablet PO (08:17)
[2020-02-02] MEDS: amLODIPine 10 MG Tablet PO (08:17)
[2020-02-02] MEDS: Sertraline 50 MG Tablet PO (08:17)
[2020-02-02 08:18] VITALS: BP 147/67; PULSE 60
[2020-02-02] MEDS: Aspirin 81 MG TAB.CHEW PO (08:18)
[2020-02-02] MEDS: Metoprolol Tartrate 25 MG Tablet 75 MG PO (08:18)
--- NOTE | 2020-02-02 09:59 | NURSING ---
Attempted to fax [facility] paper work to Barb Sullivan several times with out success. Original given to pt's . Copy in chart.
--- NOTE | 2020-02-02 11:15 | DCINST_ITS ---
- Discharge Diagnoses Current Active Problems: Current Active and Chronic Problems (Last Reviewed 01/19/20 @ 14:[address] Ruby Flores, DO) History of CVA (cerebrovascular accident) (Acute) 01/18/2020 possibly cardioembolic HTN (hypertension) (Chronic) Morbid obesity with BMI of 40.0-44.9, adult (Chronic) Stenosis of left vertebral artery (Chronic) Stenosis of left carotid artery (Chronic) supraclinoid stenosis Uncontrolled type II diabetes mellitus (Chronic) Hemoglobin A1c was 12.0 on 01/18/2020 Hypertriglyceridemia (Chronic) possibly due to uncontrolled DM II Hyperlipidemia associated with type 2 diabetes mellitus (Chronic) Sarcoid (Chronic) not currently seeing a estimating manager Obstructive sleep apnea (Chronic) on CPAP Diabetic retinopathy associated with uncontrolled type 2 diabetes mellitus (Chronic) You will use the following diet at home:: Calorie/Carbohydrate Controlled (specify 1200, 1400, etc) - 2000 calorie low fat and low salt diet, Cardiac Your food should be the consistency of: Regular Your liquids should be the consistency of: Regular/Thin Discharge Activity: May Not Drive - you may not drive until you are released by the neurologist to drive. This is because of the visual field deficit., Bernadette Dunn [email or web address] Return to work on:: 04/02/20 - this is a tentative date. you can not return to work until you are cleared by the neurologist. Your appt is on 03/29/2020 May resume sexual activity in: No Restrictions Weight Bearing Status: Full weight bearing Keep extremity elevated above heart level: Left Leg Call your doctor if you observe: Fever of 101 or Higher, Inability to urinate, Inability to have a bowel movement, Shortness of breath, Dizziness, Fainting spells, Swelling in the ankles, Chest pain, Calf discomfort Instructions: Intimacy After Stroke, Effects of a Stroke on the Brain and Body, Stroke and Heart Disease, Stroke: Taking Medications, Mood Swings and Depression After a Stroke, Risk Factors for Stroke Additional Instructions: 1. You have really improved over the past 4 days. A stroke is really a brain attack. Most stroke patients who come to rehab are having some brain dysfunction/thinking problems in addition to weakness and numbness. It usually takes 10-14 days before the fog lifts and then we see a big improvement in performance with therapy. I hope this improvement continues for you and you get back to your prior level of function. 2. You are not ready to go back to work. You are still having visual problems with the left side and you will need more speech therapy and physical/occupational therapy prior to returning to work. You are not allowed to drive until you are cleared by the neurologist. You have an appt with the neurologist on 03/29/2020. I have set your return to work date for 04/02/2020 tentatively. 3. You will need to follow up with Dr. Pickard from Cardiology after discharge. He wants to do a different kind of Echocardiogram looking at the heart from inside the esophagus. He also wants you to have a 30 day heart monitor. He suspects you mike be having a problem wqith the rhythm of your heart called atrial fibrillation and this can cause strokes. I also think you need a stress test. You have disease in the arteries in your neck and head, you have had disease in the arteries in your eyes and you have the start of kidney disease which is due to disease in the arteries in the kidneys. The vascular disease is a result of poorly controlled diabetes, high blood pressure and high fats in the blood. The same risk factors that cause strokes cause heart disease. The risk factors include: high blood pressure, diabetes, high cholesterol, smoking, being a man over the age of 45 and a family hx of cardiovascular disease. You have several of these risk factors. If you want to prevent more strokes, heart attacks, worsening kidney disease, loss of eye sight you MUST control the blood sugars and the blood pressure. The Atorvastatin is doing a good job controlling the LDL which is the bad cholesterol. Make yourself a priority......it takes some planning. 4. I started you on a medication called Sertraline to help with control of anxiety and depression.......both of these things occur with strokes. When you are anxious or depressed you get irritable and anger easily, you are also less motivated to take care of yourself. when you get anxious the BP goes up.......it needs to be treated if the blood pressure is going to be well c ontrolled. You are now on 4 different medications to control BP and the BP is still mildly increased. It is my opinion that if we control anxiety we can get control of the BP. Try it for 6 months. I have started you on a low dose of 50 mg.....at your next appt with your PCP if you are not having any adverse effects from the Sertraline your doctor will probably increase the dose to 100 mg which is a more therapeutic dose. 5. It was a pleasure meeting you Wyatt. I hope you continue to do well. If you have any questions after you leave please call the rehab unit at [phone] to talk with us. If I am not available and the nurses can not answer your questions leave a phone number and I will get back to you. 6. The blood work we got to check for a clotting disorder of the blood was all negative. you do NOT have a hypercoagulable disorder. Remenber to always wear the CPAP........untreated sleep apnea is associated with Atrial fibrillation and with uncontrolled Hypertension and with restless leg. Allergies/Adverse Reactions: Allergies No Known Allergies Allergy (Verified 01/17/20 22:58) Medications to take at Discharge Metoprolol Tartrate 75 mg PO BID 01/17/20 Aspirin [Aspirin, Baby] 81 mg PO DAILY@0800 01/18/20 Acetaminophen [Tylenol Tablet] 650 mg PO Q4H PRN PRN tablet 02/02/20 Amlodipine [Norvasc] 10 mg PO DAILY #30 tab 02/02/20 Atorvastatin Calcium [Lipitor] 80 mg PO QHS #30 tab 02/02/20 Clopidogrel Bisulfate [Plavix] 75 mg PO DAILY #30 tab 02/02/20 Glipizide 20 mg PO BID #120 tab 02/02/20 Insulin Glargine [Lantus SoloStar Pen] 46 units SUBCUT QHS 30 Days #5 pen 02/02/20 Insulin Lispro [Humalog KwikPen] 24 unit SUBCUT 0700 30 Days #6 insuln.pen 02/02/20 Lisinopril [Zestril] 20 mg PO BID #60 tab 02/02/20 Sertraline HCl [Zoloft] 50 mg PO DAILY #30 tab 02/02/20 hydroCHLOROthiazide [Hydrochlorothiazide] 12.5 mg PO DAILY #30 cap 02/02/20 The following prescriptions were given: Glipizide 20 mg PO BID #120 tab Prescription Printed Insulin Lispro [Humalog KwikPen] 24 unit SUBCUT 0700 30 Days #6 insuln.pen Prescription Printed hydroCHLOROthiazide [Hydrochlorothiazide] 12.5 mg PO DAILY #30 cap Prescription Printed Insulin Glargine [Lantus SoloStar Pen] 46 units SUBCUT QHS 30 Days #5 pen Prescription Printed Atorvastatin Calcium [Lipitor] 80 mg PO QHS #30 tab Prescription Printed Amlodipine [Norvasc] 10 mg PO DAILY #30 tab Prescription Printed Clopidogrel Bisulfate [Plavix] 75 mg PO DAILY #30 tab Prescription Printed Lisinopril [Zestril] 20 mg PO BID #60 tab Prescription Printed Sertraline HCl [Zoloft] 50 mg PO DAILY #30 tab Prescription Printed Primary Care Physician: Helen Howe MD [Primary Care Provider] - Test Results: Test results from this visit will be discussed in further detail at your follow- up appointment, if applicable. Please Follow Up With: Helen Hwoe MD When: PCP 02/14/2020 at 11:20 Please Follow Up With: Augusto Pickard MD When: CARDIOLOGY 02/21/2020 at 11:00AM Please Follow Up With: Brady Rueda MD When: ticket sales supervisor 02/16/2020 at 11:30 AM Please Follow Up With: 30 Day Event Monitor When: pick at 1400 on 02/02/2020 Please Follow Up With: Sadie Oenill DO When: Neurocare 03/29/2020 at 13:45 Please Follow Up With: Dr Guajardo When: Pulmonary office will call you to set up an appt to be seen for Sarcoid
[2020-02-02 12:06] LABS: Bedside Glucose 190 mg/dL (70-110)
[2020-02-02] MEDS: Insulin Lispro 100 UNIT/ML INSULN.PEN 15 UNIT SC (12:35)
--- NOTE | 2020-02-02 12:36 | PCM.DC.SUM ---
Discharge Date and Diagnosis Date of Admission: 01/18/20 Date of Discharge: 02/02/20 - Primary Discharge Diagnosis Active and Suspected Problems (Last Reviewed 01/19/20 @ 14:[address] 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 Ruby Flores DO) Diabetic nephropathy with proteinuria (Chronic) HTN (hypertension) (Chronic) Morbid obesity with BMI of 40.0-44.9, adult (Chronic) Stenosis of left vertebral artery (Chronic) Stenosis of left carotid artery (Chronic) supraclinoid stenosis Uncontrolled type II diabetes mellitus (Chronic) Hemoglobin A1c was 12.0 on 01/18/2020 Hypertriglyceridemia (Chronic) possibly due to uncontrolled DM II Hyperlipidemia associated with type 2 diabetes mellitus (Chronic) Sarcoid (Chronic) not currently seeing a travel pt and is having SENA....anginal equivalent? or due to chronic lung disease Obstructive sleep apnea (Chronic) on CPAP and is compliant Diabetic retinopathy associated with uncontrolled type 2 diabetes mellitus (Chronic) has had laser treatments Anxiety/depression Hospital Course and Treatment Imaging Results: Laboratory Results - last 24 hr 02/01/20 02/01/20 02/02/20 16:31 21:34 06:29 POC Glucose 185 H 111 H 91 02/02/20 11:54 POC Glucose 190 H Active Medications Generic Name Dose Route Start Last Admin Trade Name Freq PRN Reason Stop Dose Admin Acetaminophen 650 mg 01/18/20 20:00 01/29/20 06:33 Tylenol PO 650 mg Q4H PRN PRN Administration Pain Score 1-10/10 Amlodipine Besylate 10 mg 01/19/20 10:00 02/02/20 08:17 Norvasc PO 10 mg DAILY KAROLINA Administration Aspirin 81 mg 01/19/20 08:00 02/02/20 08:18 Aspirin, Baby PO 81 mg DAILY@0800 KAROLINA Administration Atorvastatin Calcium 80 mg 01/18/20 22:00 02/01/20 21:41 Lipitor PO 80 mg QHS KAROLINA Administration Bisacodyl 10 mg 01/18/20 20:00 Dulcolax RECTAL .PRN X 1 PRN Constipation Clopidogrel Bisulfate 75 mg 01/19/20 10:00 02/02/20 08:17 Plavix PO 75 mg DAILY KAROLINA Administration Enoxaparin Sodium 40 mg 01/31/20 22:00 02/01/20 21:40 Lovenox SC 40 mg HS KAROLINA Administration Glipizide 20 mg 01/19/20 07:30 02/02/20 08:17 Glucotrol PO 20 mg BIDAC K[facility]INA Administration Hydrochlorothiazide 12.5 mg 01/30/20 10:00 02/02/20 08:17 PO 12.5 mg DAILY K[facility]OLINA Administration Insulin Glargine 46 units 01/27/20 22:00 02/01/20 21:41 Lantus ([facility]) SC 46 units QHS KAROLINA Administration Insulin Human Lispro 15 unit 01/27/20 11:00 02/02/20 12:35 Humalog Kwikpen ([facility]) SC 15 u 1100,1600 KAROLINA Administration Insulin Human Lispro 20 unit 01/28/20 07:00 02/02/20 08:16 Humalog Kwikpen ([facility]) SC 20 units 0700 K[facility] Administration Lisinopril 10 mg 02/01/20 22:00 02/01/20 21:40 Zestril PO 10 mg QHS K[facility] Administration Lisinopril 20 mg 02/02/20 10:00 02/02/20 08:17 Zestril PO 20 mg DAILY K[facility] Administration Magnesium Hydroxide 30 ml 01/18/20 20:00 Milk Of Magnesia PO .PRN X 1 PRN Constipation Metoprolol Tartrate 75 mg 01/18/20 22:00 02/02/20 08:18 Lopressor (Beta Wesly) PO 75 mg BID [facility] Administration Senna/Docusate Sodium 2 tablet 01/18/20 22:00 02/02/20 08:19 Senokot-S, Ansley-Colace PO Not Given BID [facility] Sertraline HCl 50 mg 01/30/20 12:00 02/02/20 08:17 Zoloft PO 50 mg DAILY [facility] Administration Sodium Chloride 10 - 40 ml 01/18/20 21:37 01/19/20 21:09 IV 10 ml UD PRN Administration SALINE FLUSH Transthoracic echocardiogram: 65% EF with stage I diastolic dysfunction and no regional wall motion abnormalities. Bubble contrast study was negative. No significant valvular heart disease and the right ventricular systolic pressure could not be estimated due to insufficient tricuspid regurgitant envelope. Dr. Brady Rueda - endocrinology Operations: None Procedures: - - Venous Doppler of left lower extremity 01/23/2020-negative for DVT Summary of Care Provided: The patient is a 54 year old M with a past medical history of hypertension, hyperlipidemia, morbid obesity, diabetic retinopathy, sarcoidosis, ROD (compliant with CPAP) and poorly controlled diabetes mellitus type 2 who presented to the ED at [facility] on 01/18/20 with c/o Left side weakness and slurred speech. He has had 2 strokes in the past. Noncontrasted CT brain showed no acute pathology. CTA of the head and neck showed a 75% stenosis of the supraclinoid left internal carotid artery secondary to calcified plaque and a 75% stenosis of the intradural left vertebral artery secondary to calcified plaque. MRI showed small acute right temporal and parietal cortical/subcortical infarcts. [facility] tele-neurology recommended dual antiplatelet drugs, continued statins, a 30-day event monitor, hypercoagulable panel and consideration for PAYAL. A Hypercoagulable panel was not done in the acute hospital stay so it was done in the rehab unit and was negative for hypercoagulable disorders. He was admitted to the inpatient rehab unit at [facility] on 01/18/2020 for debility secondary to recent ischemic (suspected to be cardioembolic) CVAs. He will do 3 or more hours of therapy daily to restore function at or near his prior level. He was independent with mobility, ADL's and driving prior to 01/18/20. 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 All lab from the acute hospital stay was reviewed at admission to the rehab unit. A CBC was repeated on 01/30/20 and it was normal. BMP on 01/27/2020 showed an increased creatinine at 1.26 but when the patient began to have improved mental status and appetite his oral intake increased and the creatinine prior to discharge was 0.98. Magnesium has been within normal limits and so has the potassium. Hemoglobin A1c checked at admission to the acute side of the hospital was 12%. Patient admitted to not checking his blood sugars at home and primarily relying on fast food for intake. Blood sugars were initially very uncontrolled and Dr. Rueda from endocrinology was consulted and made adjustments to the insulin regimen and the blood sugars were well controlled prior to DC. Wyatt is going to follow up with Dr. Rueda going forward and may at some point be a good candidate for an insulin pump. Initially Wyatt had very poor insight into the seriousness of his situation. He has a laissez-faire attitude about controlling high blood pressure, diabetes, weight and his ability to recover completely from the stroke. He presumed he would be going right back to work upon DC from rehab and everything would be fine. This is his third stroke. Dr. Rueda mentioned this in her consult as well. He is obese, has uncontrolled DM II, uncontrolled HTN, diabetic retinopathy, cerebrovascular disease, diabetic nephropathy with proteinuria and SENA which may be an anginal equivalent or could be due to sarcoid....has not seen a travel pt. Starting on 01/30/20 he became much more alert and showed significant improvement in problem solving, time management and cognitive function. He started to do much better with ambulating and was more aware of the left knee buckling and the left hand sliding off the walker. He continued to have problems with recognizing things to the left side of his vision and was unaware of what was going on to his left. He will continue working on scanning right to left. His will be at home initially to supervise and ease the transition home. She was brought in for family training prior to Wyatt's discharge. He will be returning home with SBA with WW and was referred for ongoing OP therapy. OT recommended WW and shower chair at [place]. They also recommended continued OP therapy which he will be getting at [facility]. Wyatt already has an elevated commode and OT recommended putting grab bar up on the right side of the wall. Wyatt started to become irritable his last week in rehab. He was frustrated when he realized things he used to do without thinking have now become more difficult and he will not be able to drive until cleared by neurology and that he will not be returning back to work until he has had more therapy and he is deemed safe to return to work by therapy and his physicians. His anger was evident and the BP's increased. Medications were adjusted to try and get the BP controlled but, the BP stayed mildly elevated and I think this is due to anxiety. He was started on Sertraline 50 mg daily which he has been tolerating without any adverse effects. If he continues to tolerate then I recommend increasing the dose in another week to 100 mg daily which is a more therapeutic dose. Wyatt was agreeable to the Sertraline and I recommended he continue this medication for 6 months and then consider tapering if he is back at work and doing well. We had a lot of discussion during his stay about the importance of controlling BS, BP and lipids if he is going to limit further vascular events. He was also part of the discussion. On the day of discharge he had a 30 day event monitor placed (to monitor for suspected AF) and he will follow up with Dr. Pickard to arrange possible PAYAL and stress and/or cath to evaluate the complaint of SENA. He will follow up with Dr. Luis Howe for his routine medical care and he will continue to follow up with Dr. Rueda to manage the DM II. Weight loss was encouraged and he was told that the house manager's have a program to help with weight loss called [employer]. He will need a referral from Dr. Howe to be enrolled in the program if he would like help. He has a follow up appt scheduled with Neuro care on March 29. He was instructed not to drive until he was released by the neurologist to drive. He will also be following up with Dr. Abimael Guajardo for the c/o SENA and hx of sarcoid and ROD. Prior to [place] his FMLA papers were completed and since we were unable to get the fax to his HR dept to go through the papers were given to the patient at [place]. Alert, oriented x3, pleasant, cooperative. Less agitated today. Because membranes are moist. No facial droop. Lungs-clear to auscultation throughout Heart-regular rate and rhythm, no murmur, no gallop, no rub Abdomen-obese, nondistended, soft, nontender, bowel sounds present, no guarding with palpation No significant peripheral edema, no calf tenderness. Cranial nerves II through XII are grossly intact. He is aware of his left side when I touch him. Persistent weakness in the left arm and the left leg with persistent soft knee on the left when ambulating. The weakness in the left arm has significantly improved and the weakness is primarily in his hands now and also is having coordination difficulty with the left hand. He does a lot of typing at work. He will continue with the WW at [place] This note was generated with [employer] dictation software. It may contain incorrect words, spelling, and punctuation that were not noted in checking the note before signing. - Physical Exam Vitals/I&O's: Vital Signs Temp Pulse Resp BP Pulse Ox 98.7 F 60 20 H 147/67 H 99 02/02/20 07:00 02/02/20 08:18 02/02/20 07:00 02/02/20 08:18 02/02/20 07:00 Oxygen Delivery Method Room Air Weight: 280 lb 6.848 oz Body Mass Index (BMI) 41.4 Finger Stick Blood Glucose 300 Intake and Output for Last 24 Hours 01/31/20 02/01/20 02/02/20 23:59 23:59 23:59 Intake Total 120 / 120 1080 / 1080 Output Total 900 / 900 Balance 120 / 120 180 / 180 Laboratory Results 02/01/20 16:31: POC Glucose 185 H 02/01/20 21:34: POC Glucose 111 H 02/02/20 06:29: POC Glucose 91 02/02/20 11:54: POC Glucose 190 H Current Medications Acetaminophen (Tylenol) 650 mg PO Q4H PRN PRN PRN Reason: Pain Score 1-10/10 Last Admin: 01/29/20 06:33 Dose: 650 mg Documented by: Amlodipine Besylate (Norvasc) 10 mg PO DAILY [facility] Last Admin: 02/02/20 08:17 Dose: 10 mg Documented by: Aspirin (Aspirin, Baby) 81 mg PO DAILY@0800 [facility] Last Admin: 02/02/20 08:18 Dose: 81 mg Documented by: Atorvastatin Calcium (Lipitor) 80 mg PO QHS [facility] Last Admin: 02/01/20 21:41 Dose: 80 mg Documented by: Bisacodyl (Dulcolax) 10 mg RECTAL .PRN X 1 PRN PRN Reason: Constipation Clopidogrel Bisulfate (Plavix) 75 mg PO DAILY [facility] Last Admin: 02/02/20 08:17 Dose: 75 mg Documented by: Enoxaparin Sodium (Lovenox) 40 mg SC HS [facility] Last Admin: 02/01/20 21:40 Dose: 40 mg Documented by: Glipizide (Glucotrol) 20 mg PO BIDAC [facility] Last Admin: 02/02/20 08:17 Dose: 20 mg Documented by: Hydrochlorothiazide () 12.5 mg PO DAILY [facility] Last Admin: 02/02/20 08:17 Dose: 12.5 mg Documented by: Insulin Glargine (Lantus ([facility])) 46 units SC QHS [facility] Last Admin: 02/01/20 21:41 Dose: 46 units Documented by: Insulin Human Lispro (Humalog Kwikpen ([facility])) 15 unit SC 1100,1600 [facility] Last Admin: 02/02/20 12:35 Dose: 15 u Documented by: Insulin Human Lispro (Humalog Kwikpen ([facility])) 20 unit SC 0700 [facility] Last Admin: 02/02/20 08:16 Dose: 20 units Documented by: Lisinopril (Zestril) 10 mg PO QHS [facility] Last Admin: 02/01/20 21:40 Dose: 10 mg Documented by: Lisinopril (Zestril) 20 mg PO DAILY [facility] Last Admin: 02/02/20 08:17 Dose: 20 mg Documented by: Magnesium Hydroxide (Milk Of Magnesia) 30 ml PO .PRN X 1 PRN PRN Reason: Constipation Metoprolol Tartrate (Lopressor (Beta Wesly)) 75 mg PO BID [facility] Last Admin: 02/02/20 08:18 Dose: 75 mg Documented by: Senna/Docusate Sodium (Senokot-S, Ansley-Colace) 2 tablet PO BID [facility] Last Admin: 02/02/20 08:19 Dose: Not Given Documented by: Sertraline HCl (Zoloft) 50 mg PO DAILY [facility] Last Admin: 02/02/20 08:17 Dose: 50 mg Documented by: Sodium Chloride () 10 - 40 ml IV UD PRN PRN Reason: SALINE FLUSH Last Admin: 01/19/20 21:09 Dose: 10 ml Documented by: Discharge Activity: May Not Drive - you may not drive until you are released by the neurologist to drive. This is because of the visual field deficit., May Shower Return to work on:: 04/02/20 - this is a tentative date. you can not return to work until you are cleared by the neurologist. Your appt is on 03/29/2020 May resume sexual activity in: No Restrictions Weight Bearing Status: Full weight bearing Keep extremity elevated above heart level: Left Leg Call your doctor if you observe: Fever of 101 or Higher, Inability to urinate, Inability to have a bowel movement, Shortness of breath, Dizziness, Fainting spells, Swelling in the ankles, Chest pain, Calf discomfort Home Medications: Medications to take at Discharge Metoprolol Tartrate 75 mg PO BID 01/17/20 Aspirin [Aspirin, Baby] 81 mg PO DAILY@0800 01/18/20 Acetaminophen [Tylenol Tablet] 650 mg PO Q4H PRN PRN tab 02/02/20 Amlodipine [Norvasc] 10 mg PO DAILY #30 tab 02/02/20 Atorvastatin Calcium [Lipitor] 80 mg PO QHS #30 tab 02/02/20 Clopidogrel Bisulfate [Plavix] 75 mg PO DAILY #30 tab 02/02/20 Glipizide 20 mg PO BID #120 tab 02/02/20 Insulin Glargine [Lantus SoloStar Pen] 46 units SUBCUT QHS 30 Days #5 pen 02/02/20 Insulin Lispro [Humalog KwikPen] 24 unit SUBCUT 0700 30 Days #6 insuln.pen 02/02/20 Lisinopril [Zestril] 20 mg PO BID #60 tab 02/02/20 Sertraline HCl [Zoloft] 50 mg PO DAILY #30 tab 02/02/20 hydroCHLOROthiazide [Hydrochlorothiazide] 12.5 mg PO DAILY #30 cap 02/02/20 Following Prescrptions Were Given to Patient: Glipizide 20 mg PO BID #120 tab Prescription Printed Insulin Lispro [Humalog KwikPen] 24 unit SUBCUT 0700 30 Days #6 insuln.pen Prescription Printed hydroCHLOROthiazide [Hydrochlorothiazide] 12.5 mg PO DAILY #30 cap Prescription Printed Insulin Glargine [Lantus SoloStar Pen] 46 units SUBCUT QHS 30 Days #5 pen Prescription Printed Atorvastatin Calcium [Lipitor] 80 mg PO QHS #30 tab Prescription Printed Amlodipine [Norvasc] 10 mg PO DAILY #30 tab Prescription Printed Clopidogrel Bisulfate [Plavix] 75 mg PO DAILY #30 tab Prescription Printed Lisinopril [Zestril] 20 mg PO BID #60 tab Prescription Printed Sertraline HCl [Zoloft] 50 mg PO DAILY #30 tab Prescription Printed Primary Care Physician: Helen Howe MD [Primary Care Provider] - Please Follow Up With: Helen Howe MD When: PCP 02/14/2020 at 11:20 Please Follow Up With: Augusto Pickard MD When: CARDIOLOGY 02/21/2020 at 11:00AM Please Follow Up With: Brady Rueda MD 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 02/16/2020 at 11:30 AM Please Follow Up With: 30 Day Event Monitor When: pick at 1400 on 02/02/2020 Please Follow Up With: Sadie Oneill DO When: [facility] 03/29/2020 at 13:45 Please Follow Up With: Dr Guajardo When: Pulmonary office will call you to set up an appt to be seen for Sarcoid Patient Instructions: Intimacy After Stroke, Effects of a Stroke on the Brain and Body, Stroke and Heart Disease, Stroke: Taking Medications, Mood Swings and Depression After a Stroke, Risk Factors for Stroke Disposition: Home - with OP PT/OT and ST at [facility] Minutes spent on discharge:: 55 Patient Condition:: Stable - improving Medical Necessity - Tobacco Use Smoking Status: Never smoker Tobacco Use: Non-smoker Meaningful Use Info Meaningful Use Diagnoses (Choose all that apply): Ischemic CVA - CVA Therapy Assessed for PT,OT and/or ST?: Yes - Ischemic Stroke Antithrombotic order at d/c?: Yes Dx of Atrial fib/flutter?: No Anticoagulant at discharge?: No Reason anticoagulant not ordered: Treatment not Indicated Statins at discharge?: Yes Reason Statin not ordered: Treatment not Indicated Primary Dx Acute Ischemic CVA?: Yes IV tPA ordered during stay?: No Reason IV t-PA not ordered: Treatment not Indicated - pt in a rehab unit not acute hospital during this admission Inpatient E&M: [id number] Disch Hosp
[2020-02-02 14:19] VITALS: BMI 41.4
[2020-02-02 14:26] VITALS: BP 147/67; PULSE 60; RESP 18; TEMP 37.1; O2SAT 99
--- NOTE | 2020-02-02 14:27 | NURSING ---
Discharged home with . discharge instructions, medications and appointments reviewed with pt and family. Denies questions or concerns
--- NOTE | 2020-02-03 10:12 | PCM.PN.BLA ---
Progress Note I called Wyatt's cell phone today to ask if he had any questions and how things were going at home. He reassured me that everything is going well. Denies pain. No questions. He was once again told that he he has questions prior to seeing his PCP I would be happy to help him out and all he needs to do is contact the rehab unit and we will get back to him.
== END 2020-02-02 14:00 | disposition home or self-care (01) | DRG 57 ==
PROVIDERS: Admitting Provider Internal Medicine; PCP Family Medicine; Visit Provider Internal Medicine
DX: I69.354 Hemiplegia and hemiparesis following cerebral infarction affecting left non-dominant side (principal); Z68.41 Body mass index [BMI] 40.0-44.9, adult; I69.328 Other speech and language deficits following cerebral infarction; I69.393 Ataxia following cerebral infarction; I69.398 Other sequelae of cerebral infarction; I10 Essential (primary) hypertension; G47.33 Obstructive sleep apnea (adult) (pediatric); E78.5 Hyperlipidemia, unspecified; E66.01 Morbid (severe) obesity due to excess calories; E11.21 Type 2 diabetes mellitus with diabetic nephropathy; E11.319 Type 2 diabetes mellitus with unspecified diabetic retinopathy without macular edema; E11.65 Type 2 diabetes mellitus with hyperglycemia; D86.9 Sarcoidosis, unspecified; I25.10 Atherosclerotic heart disease of native coronary artery without angina pectoris; I48.91 Unspecified atrial fibrillation
CPT/HCPCS: 36415; 80048; 81002; 81241; 82570; 82962; 83735; 84156; 85027; 85300; 85301; 85302; 85303; 85305; 85306; 85384; 86147; 92507; 92523; 92526; 93971; 97110; 97112; 97116; 97162; 97166; 97530; 97535; 97802; 97803; A4216

== ENCOUNTER → 2020-02-02 14:07 | Outpatient (REF) | payer OTHER, SELFPAY ==
[2020-01-26 21:26] VITALS: BMI 41.4
== END ==
LOC: CVS 14:07
PROVIDERS: PCP Family Medicine
DX: Z86.73 Personal history of transient ischemic attack (TIA), and cerebral infarction without residual deficits (principal)
CPT/HCPCS: 93270; 93271

== ENCOUNTER 2020-04-11 15:26 | Inpatient (IN) | payer OTHER, SELFPAY ==
[2020-02-21 10:48] VITALS: BMI 40.6
[2020-02-24 09:34] VITALS: BMI 42.0
[2020-04-11] VITALS (12 sets, daily range): BP systolic 132–185; BP diastolic 46–93; PULSE 69–84; RESP 17–18; TEMP 36.7–36.9; O2SAT 93–96; BMI 40.6; BMI 41.3
--- NOTE | 2020-04-11 10:53 | STEWCON_ITS ---
Reason For Study: TIA/CVA Stress Results Protocol: Dobutamine Stress Echo With Definiity Maximum Predicted HR: 168 bpm Target HR: 143 bpm % Maximum Predicted HR: 82 % Heart Stage Duration Rate BP Dose Comment (mm:ss) (bpm) UNABLE TO OBTAIN HEART RATE ON TREADMILL, CHANGED TO DOBUTAMINE BASELINE 80 144/75 STRESS TEST. 8 CC DEFINITY TOTAL FOR TEST STAGE 1 3:00 94 167/6610.00 STAGE 2 3:33 122 / 20.00 STAGE 3 3:47 137 164/8530.00 STAGE 4 0:24 134 / 40.00 DR. PICKARD IN ROOM, LOPRESSOR 5 MG IV X1 GIVEN NOW. TRANSFERRED RECOVERY 87 158/89 TO PARTS CLASSIFIER VIA BED Stress Duration: 10:44 mm:ss Maximum Stress HR: 137 bpm Baseline Echocardiogram Findings The estimated ejection fraction is 65 %. Stress Echo Wall motion Data Resting WM Intermediate WM Stress WM Resting Wall Motion Wall Motion Stress No regional wall motion Posterior-Basal: Mildly abnormalities noted. hypokinetic. Infero-Basal: Mildly hypokinetic. Interpretation Summary The estimated ejection fraction is 65 %. Posterior-Basal: Mildly hypokinetic Infero-Basal: Mildly hypokinetic Abnormal, adequate, dobutamine echocardiogram. Positive for ischemia by EKG and echocardiographic criteria. Patient developed anginal symptoms during infusion which resolved several minutes into recovery. During dobutamine the patient developed ST elevation along the inferior and anterolateral leads. This progressed to a maximum of 2 to [address] elevation with lateral reciprical ST depression at peak infusion. In addition the patient had hypokinesis of the inferior and posterior ramirez at peak infusion. Post infusion the patient's EKG changes resolved by 9 minutes 50 seconds into recovery as it is chest pain. No arrhythmias noted. Appropriate blood pressure response to dobutamine. Test terminated a chest pain and EKG changes. Patient was brought to [facility] urgently for diagnostic coronary angiogram. Patient had originally tried to perform a treadmill echocardiogram but was only able to reach 50% of target heart rate so this was converted to dobutamine. No complications. The study was technically difficult. Contrast injection was performed. Ordering Physician: Augusto Pickard Referring Physician: Augusto Pickard Performed By: Cindy Gallardo, DALIA, RVT
--- NOTE | 2020-04-11 12:42 | HP.PCM_ITS ---
Problem List (1) Abnormal stress echocardiogram Status: Acute (2) History of CVA (cerebrovascular accident) Status: Chronic Comment: 01/18/2020 possibly cardioembolic (3) Essential hypertension Status: Chronic (4) Stenosis of left vertebral artery Status: Chronic (5) Stenosis of left carotid artery Status: Chronic Comment: supraclinoid stenosis (6) Uncontrolled type II diabetes mellitus Status: Chronic Qualifiers: Comment: Hemoglobin A1c was 12.0 on 01/18/2020 History and Physical Date of Admission: 04/11/20 [facility] [address] [place] [address] OFFICE VISIT Date of Service: 02/21/20 MR#: [id number] Acct: [id number] Name: SAQIB SEVILLA Rep #: [id number] : 1965 Provider: Augusto kearney MD Age/Sex: 54/M Location: [facility] [place] Status: Signed HPI HPI History of Present Illness Surgical H&P: Yes Details: Mr. Ny is a very pleasant 54-year-old morbidly obese gentleman with a history of angina, hypertriglyceridemia, diabetes, sarcoidosis, obstructive sleep apnea who is compliant with his CPAP, non-smoker, diabetic nephropathy, hypertension, and history of previous CVA x 2 in 2017. At that time his initial stroke was treated with baby aspirin, and then Plavix was added soon after that after his second stroke. Patient presented to [facility] ER on 01/17/2020 with what sounds like TIA type symptoms with minimal slurred speech, a generalized feeling of unwellness, decreased strength on his left side and left hand as well as numbness down his left arm, with difficulty grasping the door handle. He was evaluated with a CT scan of his head which showed a small acute right temporal and parietal cortical/subcortical infarcts in the past. Patient was admitted to the hospital for several days, and then went to rehabilitation. He was not seen by neurology and is awaiting that consultation. He continued on baby aspirin and Plavix.. His symptoms resolved, and he was subsequently discharged home. Patient was placed on an event monitor to determine if he has paroxysmal atrial fibrillation, which is thus far been negative. Apparently he was quite hypertensive as well as hyperglycemic at the time of his presentation. His most recent echocardiogram dated 01/18/2020 is as follows: The estimated ejection fraction is 65 %. Stage 1 diastolic dysfunction. Trivial tricuspid valve insufficiency. Unable to estimate RV systolic pressure due to insufficient tricuspid regurgitant envelope. Bubble contrast study negative for right to left interatrial shunt. The study was technically difficult. Contrast injection was performed. There is no comparison study available. In addition the patient underwent a head/neck CTA on 01/18/2020 with the following results: 1. 75% short length stenosis of the supraclinoid left ICA secondary to calcified plaque. 2. 75% short length stenosis of the intradural left vertebral artery secondary to calcified plaque. 3. No vessel occlusion, dissection, or acute disease. No aneurysm. 4. No hemodynamically significant narrowing of the cervical carotid and vertebral arteries. Individualized dose optimization techniques were used for this CT. Patient is now here for further evaluation and possible PAYAL. From a cardiac standpoint he denies any chest pain, angina, shortness of breath or dyspnea on exertion. Apparently the patient was quite hypertensive on his admission, but h is blood pressure has been improved. In our office today's blood pressure is 130/64, pulse is 52 and regular. His physical exam demonstrates clear lungs bilaterally, no carotid bruits, 2+ upstroke bilaterally, regular rate and rhythm, normal S1/S2, no S3, S4 or murmurs are noted. He has no edema. His lipids dated 01/18/2020 show an LDL of 50 and an HDL of 33. EKG dated 01/17/2020 shows normal sinus rhythm, normal axis, normal intervals, no evidence of previous myocardial infarction or acute changes. Intake Vital Signs 02/21/20 Height 5 ft 10 in 02/21/20 Weight: 283 lb 02/21/20 BMI 40.6 02/21/20 BP 130/64 H 02/21/20 Blood Pressure Location Rt brachial 02/21/20 Position Sitting 02/21/20 Respiration 20 H 02/21/20 Pulse 52 L 02/21/20 Pulse Source Auscultation Intake Visit Reasons: STROKES (ON REHAB UNIT) NEEDS APYAL Allergies bee venom protein (honey bee) Allergy (Severe, Verified 02/21/20 11:07) tunnel vision, bp drops Medications Metoprolol Tartrate 75 mg PO BID 01/17/20 [History Confirmed 02/20/20] Aspirin [Aspirin, Baby] 81 mg PO DAILY@0800 01/18/20 [History Confirmed 02/20/20] Acetaminophen [Tylenol Tablet] 650 mg PO Q4H PRN PRN tab 02/02/20 [Rx Confirmed 02/20/20] Amlodipine [Norvasc] 10 mg PO DAILY #30 tab 02/02/20 [Rx Confirmed 02/20/20] Atorvastatin Calcium [Lipitor] 80 mg PO QHS #30 tab 02/02/20 [Rx Confirmed 02/20/20] Clopidogrel Bisulfate [Plavix] 75 mg PO DAILY #30 tab 02/02/20 [Rx Confirmed 02/20/20] Glipizide 20 mg PO BID #120 tab 02/02/20 [Rx Confirmed 02/20/20] Insulin Glargine [Lantus SoloStar Pen] 46 units SUBCUT QHS 30 Days #5 pen 02/02/20 [Rx Confirmed 02/20/20] Insulin Lispro [Humalog KwikPen] 24 unit SUBCUT 0700 30 Days #6 insuln.pen 02/02/20 [Rx Confirmed 02/20/20] Lisinopril [Zestril] 20 mg PO BID #60 tab 02/02/20 [Rx Confirmed 02/20/20] Sertraline HCl [Zoloft] 50 mg PO DAILY #30 tab 02/02/20 [Rx Confirmed 02/20/20] hydroCHLOROthiazide [Hydrochlorothiazide] 12.5 mg PO DAILY #30 cap 02/02/20 [Rx Confirmed 02/20/20] PFSH Medical History (Updated 02/21/20 @ 10:49 by Anita Ferraro) History of CVA (cerebrovascular accident) (Chronic) Cognitive dysfunction due to acute cerebrovascular accident (CVA) (Acute) Essential hypertension (Chronic) Visual field cut (Acute) Acute left hemiparesis (Acute) Physical debility (Acute) Diabetic nephropathy with proteinuria (Chronic) Morbid obesity with BMI of 40.0-44.9, adult (Chronic) Stenosis of left vertebral artery (Chronic) Stenosis of left carotid artery (Chronic) Uncontrolled type II diabetes mellitus (Chronic) Hypertriglyceridemia (Chronic) Hyperlipidemia associated with type 2 diabetes mellitus (Chronic) Sarcoid (Chronic) Obstructive sleep apnea (Chronic) Diabetic retinopathy associated with uncontrolled type 2 diabetes mellitus (Chronic) Surgical History History of hernia repair (Chronic 2007) History of vein stripping (Chronic 2008) Family History (Updated 02/21/20 @ 11:02 by Anita Ferraro) Father , of blood clots Hypertension Mother Cancer in leg muscle Social History (Updated 02/21/20 @ 11:[address] Augusto Pickard MD) Smoking Status: Never smoker ROS Const Const: Negative for fatigue, weakness, body ache, fever(s), headache(s), chills, frequent falls, night sweats, daytime sleepiness, difficulty sleeping, excessive sweating, weight gain, weight loss, increased appetite, poor appetite, anorexia or other Eyes Eyes: Negative for blind spots, loss of peripheral vision, transient loss of vision, blurry vision, change in vision, double vision, floaters, tunnel vision or other ENT ENT: Negative for headache(s), dizziness, hearing loss, tinnitus, Nosebleed/epistaxis, balance problems, post nasal drip, lip swelling, tongue swelling, bleeding gums, hoarseness, neck pain, dry mouth or other Cardio Chest Pain: No Resp Respiratory: Negative for SOB with activity, SOB at rest, SOB orthopnea\SOB lying down, Coughing up blood/hemoptysis, chest congestion, pain on inspiration, snoring, stridor, wheezing, crackles, paroxysmal nocturnal dyspnea or other GI GI: Negative nausea, vomiting, heartburn, constipation, belching, bloating, cramping, vomiting blood/hematemesis, bright, red blood in stools, black,tarry stools, loose stools, Difficulty Swallowing or other : Negative for hematuria, frequent nighttime urination/ nocturia, erectile dysfunction or abnormal vaginal bleeding Musc Musc: Negative for muscle aches/ myalgia, muscle weakness, joint pain or balance problems Skin Skin: Negative redness, non-healing lesions, rash, unusual bruising, skin ulcer, wounds, jaundice or other Neuro Neuro: Negative for dizziness, lightheadedness, near syncope, syncope, orthostatic symptoms, frequent falls, headache(s), weakness, confusion, memory loss, restless legs, blurry vision, double vision, vertigo, seizures, lack of coordination or other Matheus Hematologic/Lymphatic: Negative for easy bleeding, easy bruising, enlarged lymph nodes or other Endo Endo: Negative for fatigue, cold intolerance, heat intolerance, excessive sweating, flushing, increased thirst/drinking, increased hunger, hair loss, hair growth or other Psych Psych: Negative for anxiety, depression, thoughts of harming anyone, thoughts of harming yourself, visual hallucinations, panic attacks or audible hallucinations Allergy Allergy/Immunology: Negative for throat swelling, Negative for tongue swelling, Negative for hives, Negative for rash, Negative for lip swelling Cardiology Exam Const Appearance: cooperative, healthy appearing and no acute distress Nutritional Appearance: well nourished Orientation: alert, oriented x3 and oriented to person Head Head: normal to inspection, normocephalic and atraumatic Nose: external nose normal Face and Sinus: face symmetric Mouth: oral mucosae normal Eyes General: appearance normal, both eyes and all related structures Eyelids: eyelids normal Conjunctivae: conjunctivae normal Pupils: PERRL and normal by confrontation EOM: EOM intact bilaterally Neck Neck: normal visual inspection and full ROM Carotids: normal carotid upstroke Chest Chest inspection: normal inspection of the chest Auscultation: Bilateral: Clear to Auscultation Cardio Palpation: normal PMI Rate: regular rate Rhythm: regular rhythm Heart sounds: S1 normal and S2 normal GI GI: normal to inspection, no hepatosplenomegaly and bowel sounds present Neuro General: alert, awake, oriented x3, CN's II-XI intact bilaterally and moves all extremities Skin Skin: no rashes or lesions noted Extremities Pulses: Normal: Right Femoral Pulse, Left Femoral Pulse, Right Dorsalis Pedis Pulse, Left Dorsalis Pedis Pulse, Right Posterior Tibial Pulse, Left Posterior Tibial Pulse, Right Radial Pulse, Left Radial Pulse Lower Extremity Edema: None: Bilateral Psych Psychological: normal affect Assessment & Plan 1. History of CVA (cerebrovascular accident) Z86.73 01/18/2020 possibly cardioembolic Plan 1. Recent history of CVA: The patient had a small CVA recently in December 2019, which may have been embolic from his carotid disease versus cardiac in origin. His LV function is normal, his pulmonary pressures are probably normal as well. His bubble study was negative. He is currently undergoing an event monitor which has documented no atrial fibrillation thus far. However patient has had a total of 3 CVAs, this most recent one while being treated with dual antiplatelet therapy of baby aspirin and Plavix. I have recommended the patient be switched to baby aspirin and either Eliquis or Coumadin, but his neurology appointment is pending. I do not believe the patient requires a transesophageal echocardiogram at this time as a surface echo was fairly adequate, and he has known vascular disease. I would however recommend the patient undergo a dobutamine echocardiogram to assess for cardiac ischemia as his left arm numbness combined with his hypertension may have been an anginal equivalent. If this is grossly abnormal, the patient may require diagnostic coronary angiogram. Orders Orders: Stress Test Echo W/Contrast Today 2. Hypertriglyceridemia E78.1 possibly due to uncontrolled DM II Plan 2. Hypertriglyceridemia: I will defer this to the patient's primary care physician. His LDL is under adequate control on current high-dose Lipitor therapy. His hypertriglyceridemia may be a manifestation of uncontrolled sugars which are evident on his recent presentation for his CVA. Orders Orders: Stress Test Echo W/Contrast Today 3. Essential hypertension I10 Plan 3. Hypertension: His blood pressure is much better controlled on today's exam. He will continue his amlodipine, hydrochlorothiazide, lisinopril and metoprolol. 4. Return office in 6 months. This note was generated using a voice recognition system and there may be incorrect words, spelling or punctuation that were not noted when reviewing the office note prior to saving. Orders Orders: Stress Test Echo W/Contrast Today Plan Detail Follow Up +6M (Neeraj) Coding Level of Care Code Off vis,new,level 4 Diagnoses History of CVA (cerebrovascular accident) Z86.73 Hypertriglyceridemia E78.1 Essential hypertension I10 Coding Level of Care Code Off vis,new,level 4 Diagnoses History of CVA (cerebrovascular accident) Z86.73 Hypertriglyceridemia E78.1 Essential hypertension I10 Supplemental Info Supplemental Information Labs LDL Cholesterol 50 mg/dL (0-130) 01/18/20 HDL Cholesterol 33 mg/dL (40-) L 01/18/20 Triglycerides 362 mg/dL (-199) H 01/18/20 VLDL Cholesterol 72 mg/dL (5-40) H 01/18/20 Diagnostics Electrocardiogram 01/17/20 Echocardiogram 01/18/20 Chest X-Ray 01/17/20 Venous Doppler Study 01/23/20 02/21/20 2094 <Electronically signed by Augusto Pickard MD> Date _ Augusto Pickard MD [facility] Signature: Date (if applicable) CC: Helen Howe MD ~ Interventional cardiology addendum: The patient underwent a treadmill echocardiogram today and while in the stress lab, was unable to achieve target heart rate, and had suggestion of possible inferior hypokinesis on the echocardiogram. As the patient did not reach target heart rate, he was switched over to a dobutamine echocardiogram which was able to achieve target heart rate. During his dobutamine echocardiogram the patient developed dynamic inferior lateral ST segment elevation with associated chest pain and concomitant inferior/posterior wall hypokinesis. The test was terminated, his symptoms completely resolved, and he was brought over to the [facility] for urgent left heart catheterization. His EKG changes normalized soon after discontinuation of dobutamine, and he had no ventricular arrhythmias noted. The patient is already been on aspirin and Plavix for his recent CVA. The risk/benefits of the procedure were thoroughly explained the patient including specific attention to lack of onsite surgical backup, and the patient agreed to proceed. Urgent left heart catheterization to follow. Given the urgency of the patient's abnormality on his stress echocardiogram, laboratory exam will be obtained in the [facility]. Laboratory exam reviewed from previous admission for his CVA in January 2020, and no overt laboratory abnormalities noted. Inpatient E&M: 92038 Subs Hosp L2
[2020-04-11 13:32] LABS: Absolute Lymphocyte Count 1.54 X10^3/uL (0.83-4.51); Absolute Neutrophil Count 5.4 X10^3/uL (2.0-7.7); Basophil# 0.05 X10^3/uL; Basophil% 0.6 % (0-1); Eosinophil# 0.05 X10^3/uL; Eosinophils% 0.6 % (0-5); Hematocrit 38.6 % (40-54); Hemoglobin 12.6 g/dL (13.0-16.5); Lymphocyte # 1.54 X10^3/ul (4.0); Lymphocyte % 19.6 % (19-41); Mean Corp Hgb Conc 32.6 g/dL (32-36); Mean Corpuscular Hgb 27.7 pg (27.0-32.0); Mean Corpuscular Volume 84.8 fL (80-94); Mean Platelet Vol. 10.2 fl (6.2-12.0); Monocyte# 0.77 X10^3/uL; Monocyte% 9.8 % (0-10); NRBC Flagged by Analyzer 0 % (0-5); Neutrophil # 5.44 X10^3/uL (2.7-7.7); Neutrophil % 69.3 % (47-70); Platelet Count 212 K/mm3 (150-450); RBC Distribution Width SD 39.8 fl (35.1-43.9); Red Blood Count 4.55 M/mm3 (4.6-6.2); White Blood Count 7.9 K/mm3 (4.4-11.0)
[2020-04-11 13:47] LABS: Anion Gap 9 (5-15); BUN 24 mg/dL (7-18); BUN/Creat Ratio 24.7 RATIO (10-20); Chloride 107 mmol/L (98-107); Creatinine, Serum 0.97 mg/dL (0.70-1.30); EST Glomerular Filtration Rate 86 mL/min (>60); Est Glom Filt Rate - Afr Amer 104 mL/min (>60); Estimated Creatinine Clearance 91.98 ml/min; Glucose 120 mg/dL (74-106); Potassium 3.9 mmol/L (3.5-5.1); Sodium Level 141 mmol/L (136-145)
--- NOTE | 2020-04-11 13:49 | HP.PCM_ITS ---
History of Present Illness Date of Admission: 04/11/20 Chief Complaint: abnormal stress test The patient is a 54 year old M with an extensive past medical history as outlined was admitted on 04/11/2020. Patient came in for an outpatient stress test on 04/11/2020. However during the stress test-dobutamine stress echo, he was noted to have evidence of inferior hypokinesis. He therefore had an emergent cath which showed severe multivessel disease. Plan is for patient to have cardiac cath and he has been admitted because transfer to tertiary facility is being worked out. Patient seen and examined. [] Past Medical History Past Medical History (Chronic Problems): Chronic Problems (Last Reviewed 02/24/20 @ 09:45 by Carmen Wilson) History of left heart catheterization (Chronic 04/11/20) Surgery consult for coronary revascularization vs PCI of LCX and WIG DRESSER of RCA. Will refer to [facility] for transfer for CABG. 04/11/2020 per MEGHANN @ [facility] History of CVA (cerebrovascular accident) (Chronic) 01/18/2020 possibly cardioembolic Essential hypertension (Chronic) Diabetic nephropathy with proteinuria (Chronic) Morbid obesity with BMI of 40.0-44.9, adult (Chronic) Stenosis of left vertebral artery (Chronic) Stenosis of left carotid artery (Chronic) supraclinoid stenosis Uncontrolled type II diabetes mellitus (Chronic) Hemoglobin A1c was 12.0 on 01/18/2020 Hypertriglyceridemia (Chronic) possibly due to uncontrolled DM II Hyperlipidemia associated with type 2 diabetes mellitus (Chronic) Sarcoid (Chronic) 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 Obstructive sleep apnea (Chronic) on CPAP Diabetic retinopathy associated with uncontrolled type 2 diabetes mellitus (Chronic) Medical History: Medical History (Last Reviewed 02/24/20 @ 09:45 by Carmen Wilson) History of CVA (cerebrovascular accident) (Chronic) Z86.73 01/18/2020 possibly cardioembolic Cognitive dysfunction due to acute cerebrovascular accident (CVA) (Acute) I63.9, R41.89 Essential hypertension (Chronic) I10 Visual field cut (Acute) H53.40 Acute left hemiparesis (Acute) G81.94 Physical debility (Acute) R53.81 Diabetic nephropathy with proteinuria (Chronic) E11.21 Morbid obesity with BMI of 40.0-44.9, adult (Chronic) E66.01, Z68.41 Stenosis of left vertebral artery (Chronic) I65.02 Stenosis of left carotid artery (Chronic) I65.22 supraclinoid stenosis Uncontrolled type II diabetes mellitus (Chronic) E11.65 Hemoglobin A1c was 12.0 on 01/18/2020 Hypertriglyceridemia (Chronic) E78.1 possibly due to uncontrolled DM II Hyperlipidemia associated with type 2 diabetes mellitus (Chronic) E11.69, E78.5 Sarcoid (Chronic) D86.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 Obstructive sleep apnea (Chronic) G47.33 on CPAP Diabetic retinopathy associated with uncontrolled type 2 diabetes mellitus (Chronic) E11.319, E11.65 Allergies bee venom protein (honey bee) Allergy (Severe, Verified 02/24/20 09:45) tunnel vision, bp drops Home Medications: Ambulatory Orders Medication Instructions Recorded Metoprolol Tartrate 75 mg PO BID 01/17/20 Aspirin [Aspirin, Baby] 81 mg PO DAILY@0800 01/18/20 Acetaminophen [Tylenol Tablet] 650 mg PO Q4H PRN PRN tab 02/02/20 Amlodipine [Norvasc] 10 mg PO DAILY #30 tab 02/02/20 Atorvastatin Calcium [Lipitor] 80 mg PO QHS #30 tab 02/02/20 Clopidogrel Bisulfate [Plavix] 75 mg PO DAILY #30 tab 02/02/20 Glipizide 20 mg PO BID #120 tab 02/02/20 Lisinopril [Zestril] 20 mg PO BID #60 tab 02/02/20 hydroCHLOROthiazide 12.5 mg PO DAILY #30 cap 02/02/20 [Hydrochlorothiazide] Insulin Glargine,Hum.rec.anlog 46 units SQ QHS 04/11/20 [Lantus] Insulin Lispro [Humalog KwikPen] 15 units SQ LUNCH 04/11/20 Insulin Lispro [Humalog KwikPen] 24 units SQ BREAKFAST 04/11/20 Insulin Lispro [Humalog Kwikpen] 15 units SQ DINNER 04/11/20 Surgical History: Surgical History (Last Updated 04/11/20 @ 15:46 by Anita Ferraro) History of left heart catheterization (Chronic) Onset Date: 04/11/20 Z98.890 Surgery consult for coronary revascularization vs PCI of LCX and WIG DRESSER of RCA. Will refer to [facility] for transfer for CABG. 04/11/2020 per RAYSHAWN @ [facility] History of hernia repair Onset Date: 2007 Z9889, Z87.19 History of vein stripping Onset Date: 2008 Surgical History: - - Mediastinoscopy to remove lymph nodes; tonsillectomy; h ernia surgery; varicose veins surgery: laser tx of diabetic retinopathy: catarract surgery Smoking Status: Never smoker - *Family History Maternal Family History: Family History (Last Reviewed 02/24/20 @ 09:45 by Carmen Wilson) Father Hypertension Mother Cancer History Items: - - Denies knowledge of maternal medical history. His mother is still alive. Paternal Family History: Family History (Last Reviewed 02/24/20 @ 09:45 by Carmen Wilson) Father Hypertension Mother Cancer History Items: Heart Disease, - - He thinks his father from a blood clot. Sibling Family History: Family History (Last Reviewed 02/24/20 @ 09:45 by Carmen Wilson) Father Hypertension Mother Cancer History Items: - - he knows of no chronic illnesses in his siblings Review of Systems Constitutional: Denies: Chills, Fever, Weight Change Eyes: Denies: Blurred vision HEENT: Denies: Head Aches, Sinus Congestion, Sinus Drainage Cardiovascular: Denies: Chest Pain, Palpitations Respiratory: Denies: Cough, Shortness of Breath, Shortness of breath at rest, Sputum production Gastrointestinal: Denies: Abdominal Pain, Nausea, Vomiting Genitourinary: Denies: Dysuria Musculoskeletal: Denies: Joint Pain, Joint Tenderness Skin: Reports: - - cath site in right groin is clean.. Denies: Rash, Wounds Neurological: Denies: Numbness, Tingling, Focal weakness Psychiatric: Denies: Anxiety, Depression, Homicidal Ideations, Suicidal Ideations Hematologic/ Lymphatic: Denies: Easy Bruising, Easy Bleeding VTE Information - Inpt Only VTE Present on Admission: No VTE Pharm Prophylaxis ordered?: Yes Patient Problems: Active and Suspected Problems (Last Reviewed 02/24/20 @ 09:45 by Carmen Wilson) Abnormal stress echocardiogram (Acute) - Physical Exam Vitals/I&O's: Weight: 283 lb Body Mass Index (BMI) 40.6 Finger Stick Blood Glucose 300 General: Alert, Oriented x3, Cooperative, No apparent distress HEENT: Atraumatic, PERRLA, EOMI, Normocephalic Oral: Moist Mucosa Neck: Supple, No JVD, Negative Carotid Bruits Lungs: Clear to auscultation, Normal air movement, No rhonchi, No wheeze, No rales Cardiovascular: Regular rate, Regular Rhythm, Normal S1, Normal S2, No murmurs Abdomen: Bowel Sounds Present, Soft, Non Tender, Non-Distended, No Hepato- splenomegaly Extremities: No clubbing, No cyanosis, No edema, Capillary Refill Less than 3 Seconds Skin: No rashes, No breakdown Musculoskeletal: No Tenderness to Palpation of Joints or Extremities Lymphatic: No Cervical, Supraclavicular, or Inguinal Adenopathy Neurological: Cranial nerves II-XII grossly intact, Neuro grossly intact, Motor Exam 5/5 strength throughout Psych/Mental Status: Normal Affect, Appropriate, Alert and oriented to time, place, person, mood and affect Laboratory Results 04/11/20 13:20: WBC 7.9, RBC 4.55 L, Hgb 12.6 L, Hct 38.6 L, MCV 84.8, MCH 27.7, MCHC 32.6, RDW Std Deviation 39.8, RDW Coeff of Lefty 13.0, Plt Count 212, MPV 10.2, Immature Gran % (Auto) 0.100, Neut % (Auto) 69.3, Lymph % (Auto) 19.6, [place] % (Auto) 9.8, Eos % (Auto) 0.6, Baso % (Auto) 0.6, Absolute Neuts (auto) 5.4, Absolute Lymphs (auto) 1.54, Nucleated RBC % 0 04/11/20 13:20: PT Pending, INR Pending 04/11/20 13:20: Sodium 141, Potassium 3.9, Chloride 107, Carbon Dioxide 25.0, Anion Gap 9, BUN 24 H, Creatinine 0.97, Estim Creat Clear Calc 91.98, Est GFR (MDRD) Af Amer 104, Est GFR (MDRD) Non-Af 86, BUN/Creatinine Ratio 24.7 H, Glucose 120 H, Calcium 9.0 Assessment/Plan All Active Problems (Last Reviewed 02/24/20 @ 09:45 by Carmen Wilson) Abnormal stress echocardiogram (Acute) Cognitive dysfunction due to acute cerebrovascular accident (CVA) (Acute) Visual field cut (Acute) Acute left hemiparesis (Acute) Physical debility (Acute) 54 y/o admitted with multivessel disease on cardiac cath. 1. CAD * had an abnormal stress test today * emergent cardiac cath done showed segmented left ventricular systolic dysfunction with double vessel CAD of the RCA and obtuse marginal artery with nonobstructive coronary artery disease. * cardiology on board- patient will need CABG * Plan is to arrange for transfer to tertiary facility- [facility], for CABG * on aspirin, plavix and statin. * 2. Recent CVA * on aspirin, statin and plavix. * 3. Hyperlipidemia: on statin 4. TYpe 2 diabetes mellitus complicated by nephropathy adn retinopathy * on glipizide. Last A1C was 12 in 12/2019 * ISS. Accuchecks ACHS * 5. ROD: on CPAP 6. Essential hypertension: on lisinopril and metoprolol as well as HCTZ and amlodipine 7. Morbid obesity; BMI is 40.6. Complicates acute care, prognosis and expected recovery DVT prophylaxis: lovenox Code status: * full code * Patient counseled extensively about different types of CODE STATUS including full code, DNR CCA and DNR CCA. Patient elects to be full code. * Total [id number] time 17 minutes. Inpatient E&M: 17582 Init Hosp L2
[2020-04-11 13:55] LABS: International Normalized Ratio 1.2; Prothrombin Time (Protime)PT. 14.5 SECONDS (11.7-14.9)
--- NOTE | 2020-04-11 14:00 | CL.D_ITS ---
Patient Name: SAQIB SEVILLA Study Date: 04/11/2020 Performing: Augusto Pickard MD Ht: inches cm : 1965 Wt: lbs kg Age: 54 Gender: male BSA: PROCEDURE(S) PERFORMED [id number] CLINICAL PROFILE AND INDICATIONS Indications: Suspected CAD, Other; dyspnea on exertion Heart Failure: None Stress/Imaging Date: 04/11/2020Stress Echocardiogram: Positive High Risk Angina Classification Anginal Classification w/in 2 Weeks: Anginal Equivalent Dyspnea CAD Presentations: Unstable angina. 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 Successful Mynx Control of RFA. Will refer to [facility] for transfer for CABG. D/w Dr Carter. DESCRIPTION OF PROCEDURE The patient arrived to the procedure lab. The risks and benefits of the procedure as well as a full d escription of our services here and current unavailability of surgical backup were fully explained to the patient and/or their significant other prior to the catheterization. The Timeout was completed, verifying the correct patient and procedure. The patient's procedural site was prepped and draped in the usual fashion. Local anesthetic was given subcutaneously to right groin region with Lidocaine 2%. Using a modified Seldinger technique, arterial access was obtained via the right femoral artery, a 4 Fr sheath was inserted Left Coronary Artery selective angiography was performed in multiple views us ing a 4 Fr. JL5 catheter. Right Coronary Artery selective angiography was then performed in multiple views using a 4 Fr. 3DRC catheter. Left Ventriculography was performed in PUENTES projection using a 4 Fr . Pigtail catheter. LV to AO pullback pressures were then recorded.The arterial sheath was pulled and a Mynx closure device was deployed for hemostasis CORONARY ANGIOGRAPHY DOMINANCE: Right Dominant LEFT HEART ASSESSMENT Left Ventricular Ejection Fraction: by LV Gram 55 % Inferior Basal Hypokinesis - Mild Depressed Left Ventricular systolic function LVEDP: 12 mmHg Normal Left Ventricular End Diastolic Pressure LEFT MAIN: Mild luminal irregularities less than 30% LEFT ANTERIOR DESCENDING ARTERY: PROX LAD: Mild luminal irregularities less than 30% CIRCUMFLEX ARTERY: PROX CIRC: Moderate calcification MID CIRC: Moderate luminal irregularities up to 50% OM 1: Proximal - 90 % Stenosis RIGHT CORONARY ARTERY: PROX RCA: is occluded COLLATERAL FLOW: Collateral flow from Left to Right COMPLICATIONS No Complications PROCEDURE MEDICATIONS Oxygen: 2 L/min via nasal cannula Nitro 300 mcg IC 04/11/2020 13:29:44 Nitro Paste 0.5 in 04/11/2020 13:42:20 SUMMARY OF HEMODYNAMIC DATA Time AIR REST ECG 12:38:20 AO 149/70 (97) SA 13:21:21 LV 161/-24, 13 13:27:58 LV 157/-24, 12 13:28:05 LVp 164/-24, 10 13:28:10 AOp 164/65 (103) 13:28:15 Signed By Augusto Pickard MD On 04/11/2020 13:59:34 Augusto Pickard MD
--- NOTE | 2020-04-11 15:49 | NURSING ---
This RN called report to JAMAL Hannah at [facility].
[2020-04-11] MEDS: glipiZIDE 10 MG Tablet 20 MG PO (16:14)
[2020-04-11 16:40] LABS: Bedside Glucose 99 mg/dL (70-110)
[2020-04-11 16:40] LABS: Bedside Glucose 69 mg/dL (70-110)
--- NOTE | 2020-04-11 17:06 | DS.PCM_ITS ---
Discharge Date and Diagnosis - Problem List Patient Problems: Active and Suspected Problems (Last Reviewed 02/24/20 @ 09:45 by Carmen Wilson) Abnormal stress echocardiogram (Acute) Date of Admission: 04/11/20 Date of Discharge: 04/11/20 - Primary Discharge Diagnosis Active and Suspected Problems (Last Reviewed 02/24/20 @ 09:45 by Carmen Wilson) Abnormal stress echocardiogram (Acute) coronary artery disease - Secondary Discharge Diagnosis Chronic Problems (Last Reviewed 02/24/20 @ 09:45 by Carmen Wilson) History of left heart catheterization (Chronic 04/11/20) Surgery consult for coronary revascularization vs PCI of LCX and 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 Will refer to [facility] for transfer for CABG. 04/11/2020 per MEGHANN @ [facility] History of CVA (cerebrovascular accident) (Chronic) 01/18/2020 possibly cardioembolic Essential hypertension (Chronic) Diabetic nephropathy with proteinuria (Chronic) Morbid obesity with BMI of 40.0-44.9, adult (Chronic) Stenosis of left vertebral artery (Chronic) Stenosis of left carotid artery (Chronic) supraclinoid stenosis Uncontrolled type II diabetes mellitus (Chronic) Hemoglobin A1c was 12.0 on 01/18/2020 Hypertriglyceridemia (Chronic) possibly due to uncontrolled DM II Hyperlipidemia associated with type 2 diabetes mellitus (Chronic) Sarcoid (Chronic) 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 Patient came in for an outpatient stress test on 04/11/2020. However during the stress test-dobutamine stress echo, he was noted to have evidence of inferior hypokinesis. He therefore had an emergent cath which showed severe multivessel disease with segmental left ventricular systolic dysfunction and double vessel CAD of the RCA and obtuse marginal arteries as well as nonobstructive coronary arteries. Patient was therefore determined to need CABG and was admitted for CAD needing CABG was transferred for coverage of being worked out. Patient was accepted at [facility] under the care of Dr. Liz and he was transferred to [facility] on the evening of 04/11/2020. Patient was seen and examined prior to discharge. He had no complaints and felt well. Review systems otherwise negative. Labs and vitals reviewed. Home medication reviewed and reconciled. o/e: Vital Signs Temp Pulse Resp BP Pulse Ox 98.3 F 84 18 177/81 H 93 04/11/20 16:00 04/11/20 16:00 04/11/20 16:04/11/20 16:04/11/20 16:00 General: Alert, Oriented x3, Cooperative, No apparent distress HEENT: Atraumatic, PERRLA, EOMI, Normocephalic Oral: Moist Mucosa Neck: Supple, No JVD, Negative Carotid Bruits Lungs: Clear to auscultation, Normal air movement, No rhonchi, No wheeze, No rales Cardiovascular: Regular rate, Regular Rhythm, Normal S1, Normal S2, No murmurs Abdomen: Bowel Sounds Present, Soft, Non Tender, Non-Distended, No Hepato- splenomegaly Extremities: No clubbing, No cyanosis, No edema, Capillary Refill Less than 3 Seconds Skin: No rashes, No breakdown; site of cardiac cath in right groin is clean, with no evidence of bleeding or swelling. Clean dressing in place. Musculoskeletal: No Tenderness to Palpation of Joints or Extremities Lymphatic: No Cervical, Supraclavicular, or Inguinal Adenopathy Neurological: Cranial nerves II-XII grossly intact, Neuro grossly intact, Motor Exam 5/5 strength throughout Psych/Mental Status: Normal Affect, Appropriate, Alert and oriented to time, place, person, mood and affect. Patient transferred to [facility] for CABG. Patient Problems: Active and Suspected Problems (Last Reviewed 02/24/20 @ 09:45 by Carmen Wilson) Abnormal stress echocardiogram (Acute) - Physical Exam Vitals/I&O's: Vital Signs Temp Pulse Resp BP Pulse Ox 98.3 F 84 18 177/81 H 93 04/11/20 16:00 04/11/20 16:00 04/11/20 16:04/11/20 16:00 04/11/20 16:00 Oxygen Delivery Method Room Air Weight: 288 lb Body Mass Index (BMI) 41.3 Finger Stick Blood Glucose 300 Laboratory Results 04/11/20 13:20: WBC 7.9, RBC 4.55 L, Hgb 12.6 L, Hct 38.6 L, MCV 84.8, MCH 27.7, MCHC 32.6, RDW Std Deviation 39.8, RDW Coeff of Lefty 13.0, Plt Count 212, MPV 10.2, Immature Gran % (Auto) 0.100, Neut % (Auto) 69.3, Lymph % (Auto) 19.6, Miner % (Auto) 9.8, Eos % (Auto) 0.6, Baso % (Auto) 0.6, Absolute Neuts (auto) 5.4, Absolute Lymphs (auto) 1.54, Nucleated RBC % 0 04/11/20 13:20: PT 14.5, INR 1.2 04/11/20 13:20: Sodium 141, Potassium 3.9, Chloride 107, Carbon Dioxide 25.0, Anion Gap 9, BUN 24 H, Creatinine 0.97, Estim Creat Clear Calc 91.98, Est GFR (MDRD) Af Amer 104, Est GFR (MDRD) Non-Af 86, BUN/Creatinine Ratio 24.7 H, Glucose 120 H, Calcium 9.0 04/11/20 16:02: POC Glucose 69 L 04/11/20 16:37: POC Glucose 99 Current Medications Acetaminophen (Tylenol) 650 mg PO Q4H PRN PRN PRN Reason: Pain Score 1-10/10 Amlodipine Besylate (Norvasc) 10 mg PO DAILY [facility] Aspirin (Aspirin, Baby) 81 mg PO DAILY@0800 [facility] Atorvastatin Calcium (Lipitor) 80 mg PO QHS [facility] Clopidogrel Bisulfate (Plavix) 75 mg PO DAILY [facility] Dextrose (D50w Syringe) 0 gm IV X1 PRN; Protocol PRN Reason: Hypoglycemia Glipizide (Glucotrol) 20 mg PO BIDCM [facility] Last Admin: 04/11/20 16:14 Dose: 20 mg Documented by: Glucagon () 1 mg IM .X1 PRN PRN Reason: Hypoglycemia Heparin Sodium (Beef Lung) (Heparin 500 Unit/5 Ml (100/Ml)) 500 unit IV UD PRN PRN Reason: HEPARIN FLUSH Hydrochlorothiazide () 12.5 mg PO DAILY [facility] Sodium Chloride () 500 mls @ 15 mls/hr IV PRN PRN PRN Reason: Blood Transfusion Sodium Chloride () 250 mls @ 15 mls/hr IV .[id number] PRN PRN Reason: Saline Flush Sodium Chloride () 250 mls @ 15 mls/hr IV .[id number] PRN PRN Reason: Additional IVPB Infusion Insulin Glargine (Lantus (Bkc)) 46 units SC QHS [place] Insulin Human Lispro (Humalog Kwikpen (Bkc)) 15 unit SC DINNER [place] Last Admin: 04/11/20 16:05 Dose: Not Given Documented by: Insulin Human Lispro (Humalog Kwikpen (Bkc)) 15 unit SC LUNCH [place] Insulin Human Lispro (Humalog Kwikpen (Bk)) 24 unit SC BREAKFAST [place] Insulin Human Lispro (Humalog Kwikpen ([facility])) 0 unit SC ACHS [place]; Protocol Last Admin: 04/11/20 16:04 Dose: Not Given Documented by: Labetalol HCl (Trandate) 5 mg IV X1 PRN PRN Reason: SBP > 160 prior to sheath pull Stop: 04/13/20 13:49 Lisinopril (Zestril) 20 mg PO BID [facility] Metoprolol Tartrate (Lopressor (Beta Wesly)) 75 mg PO BID [facility] Nitroglycerin (Nitrostat) 0.4 mg SUBLINGUAL Q5M PRN PRN Reason: CARDIAC/CHEST PAIN Ondansetron HCl (Zofran) 4 mg IV Q8H PRN PRN PRN Reason: NAUSEA/VOMITING Sodium Chloride () 10 - 40 ml IV UD PRN PRN Reason: SALINE FLUSH Home Medications: Medications to take at Discharge Metoprolol Tartrate 75 mg PO BID 01/17/20 Aspirin [Aspirin, Baby] 81 mg PO DAILY@0800 01/18/20 Acetaminophen [Tylenol Tablet] 650 mg PO Q4H PRN PRN tab 02/02/20 Amlodipine [Norvasc] 10 mg PO DAILY #30 tab 02/02/20 Atorvastatin Calcium [Lipitor] 80 mg PO QHS #30 tab 02/02/20 Clopidogrel Bisulfate [Plavix] 75 mg PO DAILY #30 tab 02/02/20 Glipizide 20 mg PO BID #120 tab 02/02/20 Lisinopril [Zestril] 20 mg PO BID #60 tab 02/02/20 hydroCHLOROthiazide [Hydrochlorothiazide] 12.5 mg PO DAILY #30 cap 02/02/20 Insulin Glargine,Hum.rec.anlog [Lantus] 46 units SQ QHS 04/11/20 Insulin Lispro [Humalog KwikPen] 15 units SQ LUNCH 04/11/20 Insulin Lispro [Humalog KwikPen] 24 units SQ BREAKFAST 04/11/20 Insulin Lispro [Humalog Kwikpen] 15 units SQ DINNER 04/11/20 Primary Care Physician: Helen Howe MD [Primary Care Provider] - Please follow up with your Primary Care Physician in: 1-2 weeks Disposition: Acute care Hospital Minutes spent on discharge:: 35 Patient Condition:: Stable Medical Necessity - Tobacco Use Smoking Status: Never smoker Meaningful Use Info Meaningful Use Diagnoses (Choose all that apply): None applicable OBSV E&M: [id number] Observ/hosp same date L2
[2020-04-11] MEDS: Metoprolol Tartrate 50 MG Tablet 75 MG PO (18:07)
--- NOTE | 2020-04-11 18:38 | NURSING ---
Ambulated hallway after bedrest completion. No complications or s/s of bleeding.
== END 2020-04-11 18:36 | disposition short-term general hospital (02) | DRG 287 ==
PROVIDERS: Admitting Provider Internal Medicine Cardiovascular Disease; PCP Family Medicine; Referring Provider Internal Medicine Cardiovascular Disease; Visit Provider Internal Medicine Cardiovascular Disease
DX: R94.39 Abnormal result of other cardiovascular function study (principal); Z68.41 Body mass index [BMI] 40.0-44.9, adult; I25.10 Atherosclerotic heart disease of native coronary artery without angina pectoris; Z86.73 Personal history of transient ischemic attack (TIA), and cerebral infarction without residual deficits; E11.51 Type 2 diabetes mellitus with diabetic peripheral angiopathy without gangrene; E11.21 Type 2 diabetes mellitus with diabetic nephropathy; G47.33 Obstructive sleep apnea (adult) (pediatric); I10 Essential (primary) hypertension; E66.01 Morbid (severe) obesity due to excess calories; Z79.899 Other long term (current) drug therapy; E78.5 Hyperlipidemia, unspecified; Z82.49 Family history of ischemic heart disease and other diseases of the circulatory system; Z79.4 Long term (current) use of insulin; Z66 Do not resuscitate; Z79.02 Long term (current) use of antithrombotics/antiplatelets; I65.22 Occlusion and stenosis of left carotid artery; E78.1 Pure hyperglyceridemia; E11.319 Type 2 diabetes mellitus with unspecified diabetic retinopathy without macular edema
CPT/HCPCS: 80048; 82962; 85025; 85610; 93017; 93350; 93458; C1760; J7040; Q9957; Q9967; A4216; C1769; C1894; C8928

== ENCOUNTER → 2020-05-09 13:05 | Outpatient (CLI) | payer OTHER, SELFPAY ==
[2020-04-11 14:37] VITALS: BMI 41.3
--- NOTE | 2020-05-09 13:10 | CR.ITP_ITS ---
Diagnosis - General Information Admitting Diagnosis: S/P CABG x 4 VESSELS Secondary Diagnosis: LEFT HEMIPARESIS Personal Learning Style:: Audio/Visual, Written Barriers to Learning: Physical Condition/Sensory Deficit - LEFT HEMIPARESIS drags left foot, left arm weakness along wit diabetic neuropathy, Vision Impairment - DIABETIC RETINOPATHY Stage of change r/t lifestyle modifications:: Action Gave educational material for:: Treating Heart Disease, Emotions & Heart Disease, Stress Management & Relaxation, Sleep Disorders & Heart Disease, How The Heart Works, What it means to have Heart Disease, How Coronary Artery Disease is Diagnosed, Heart Procedures, What Heart Medications Do, Risk Factors & Modifications, Living an Active Life, Nutrition - Education/Goals Individual Counseling: Initial Assessment: Abnormal Cholesterol Levels, High Blood Pressure, Overweight/Obesity, Diabetes, Metabolic Syndrome (as evidenced by 3 of 5 A-E below), A. Fasting Blood Sugar >100, B. Waist Circumference >35/Females >40/Males, C. High Triglycerides >150, Hypertension, Low HDL <40/Males or <50/Females, Sedentary Lifestyle Cardiac Rehabilitation Goals: 1. Maintain the individual as the primary focus of care. 2. To improve the patient's quality of life. 3. Identification of cardiac risk factors and provide cardiac risk factor management. 4. Enhance the psychosocial status of the patient. 5. Reconditioning enough to allow the patient to resume customary activities. 6. Control symptoms of cardiac disease Personal Goals: Initial Assessment: Improve energy level, Improve muscle strength and endurance, Improve diet and eating habits (eat healthier), Control risk factors (learn risk factor modification) Scale for measuring improvement of personal goals: Enter appropriate number in Comments. 2 = Unchanged. 3 = Slightly Better. 4 = Moderate Improvement. 5 = Met my Goal - Diagnosis & Disease Process Outcomes/Goals: Pt IDs own risk factors & lifestyle modifications by Session 10, Verbalizes symptoms of angina & response by session 3., Pt independently manages Plan/Interventions: Assist Pt to ID & engage in lifestyle modification to reduce CVD risk, Instruct on individual risk factors, Review symptoms of angina & emergency actions, Review secondary diagnosis & identify educational needs. - Safety Referral to Physical Therapy: No Referral to [facility] Case Management: No Fall Risk Assessed:: Yes Assistive Devices:: None Exercise - Initial Assessment - Visit Date of Eval: 05/09/20 Session #:: 0 - initial evaluation Mets: Pre-: >5 METS for 30 minutes by discharge - Physician Prescribed Exercise Modalities: Treadmill - Patient wants to try at low speed no elevation, Airdyne, NuStep, SciFit Frequency: 3x/week for 12 weeks [36 sessions] Intensity: 60-80% of age predicted maximum heart rate reserve Current METSs:: 3.0 Target Heart Rate:: 109-142 Resting Blood Pressure: 154/84 EKG Type: NORMAL SINUS RHYTHM - Outcomes & Goals Goals:: Verbalizes understanding of THR, RPE & goal METS by session 6, Documents in home exercise log/reports 30 min aerobic 5 day/wk by DC, Demonstrates accurate pulse taking by DC - Intervention & Plan Exercise Program Goals: Instruct on personal THR & RPE, Instruct on MET level & personal MET goal, Show patient to take own pulse /validate performance until accurate, Instruct on home exercise - Physical Activity Home Exercise Physical Activity - Home Exercise: Safe Exercise, Warm-up, Self-monitoring, Cool-Down, Home Exercise > 30 min Daily, Sitting Time <3 hours/daily - Outcomes & Goals Outcomes/Goals: Demonstrates correct Warm-up/exercise Cool-Down (S3) if = 2.5 METs, Verbalizes symptoms of exercise intolerance by Session 3 (S3), Demonstrate safe equipment use (S3) & follows exercise prescrition (6) - Intervention & Plan Plan/Intervention: Instruct warm-up & cool-down if exercising at > 2 METs, Instruct on symptoms of exercise intolerance & actions to take, Instruct & monitor on saf, Assess intial functional capacity & safety risk Nutrition - Initial Assessment - Program Goals Nutrition Program Goals: LDL <100 optimal. 100 - 129 Near optimal. 130 - 159 Borderline High. 160 - 189 High. Total Cholesterol <200 desirable. 200 - 239 Borderline High. >/= 240 High. HDL < 40 Low >/=60 High. Triglycerides <150 desirable. <199 optimal. VlDL 5 - 40. HgbA1C <7%. BMI <25 Patient has diagnosis of Hyperlipidemia (ICD E78)?: Yes - Visit Date of Assessment:: 05/09/20 Session #:: 0 - INITIAL EVALUATION - Cholesterol/Lipids Triglycerides (mg/dL): 362 Total Cholesterol (mg/dL): 155 LDL Cholesterol (mg/dL): 50 HDL Cholesterol (mg/dL): 33 Determine presence & major risk factors that modify LDL goal: Hypertension or hypertensive medication, Low HDL cholesterol <40 mg/dL*, Age men > 45 years; women >/= 55 years Outcomes/Goals: Pt IDs own risk factors & lifestyle modifications by Session 10, Verbalizes symptoms of angina & response by session 3., Pt independently manages Intervention/Plan: Instruct on personal lipid levels & lipid goals/NCEP guidelines, Instruct on cholesterol Referral to dietitian:: Yes - Diabetes (Other Core Measures) Diabetes Type: Diagnosis Type II ICD-10 E11 Fasting blood glucose:: 120 Hgb A1C (4.2 - 6.3): 12.0 Insulin dependent injection/pump?: Yes - HUMALOG, LANTUS INSULIN Non-Insulin Dependent?: No Do you monitor your blood sugar at home?: Yes Referral to Diabetic Clinic:: Yes Outcomes/Goals:: Able to state symptoms of, Able to state, Able to state Intervention/Plan:: Instruct on, Refer to, Instruct on - Weight Mgt (Other Care) Not Applicable: No Height: 5 ft 10 in Weight:: 290 lb BMI: 41.5 Diagnosis Overweight/Obesity BMI> 30% ICD-10 E66: Yes Diagnosis High BMI/Morbid Obesity BMI> 35% ICD-10 Z68: Yes Outcomes/Goals: Pt sets, maintains & shows weight loss goal & trend during rehab Intervention/Plan: Instruct on ideal BMI & set weight loss goal w/patient, Assist pt to ID & incorporate diet changes for weight loss by S9, Refer to Structured Weight Loss program as appropriate, Encourage goal of using 250- 300dcal per session for weight loss - Healthy Eating Habits Will attend diet classes:: Yes Outcomes/Goals:: Consume diet rich in vegs,fruits,whole grain/high fiber,fish,lean meat, Limit sat/trans fats,cholesterol & added salts & sugars Intervention/Plan:: Assess current eating habits - Education Gave educational materials for:: Signs & symptoms of hypoglycemia, Signs & symptoms of hyperglycemia, Relate diabetes to coronary artery disease, Healthy eating Medical - Initial Assessment - Visit Date of Eval: 05/09/20 Session #:: 0 - INITIAL EVALUATION - Medication Compliance Preventative Medication(s):: Aspirin, Clopidogrel/P2Y12 inhibit, Statin/lipid, Beta jim H/O mental health issues: depression, anxiety, or addiction?: No Doesn?t believe in the benefits of treatment?: No Believes medications are unnecessary or harmful?: No Has a concern about medication side effects?: No Expresses concern over the cost of medications?: No Outcomes/Goals: Verbalizes medications,desired effect & common side effects @ DC, Pt self-reports following medication regimen, Keeps card in wallet w/medications listed by DC Interventions/plans: Instruct on medication effects & side effects, Review medication list w/patient every two weeks, Instruct importance of taking meds as ordered & assist problem solving - Tobacco Use Tobacco Use: Non-smoker - Hypertension Hypertension Diagnosis:: Hypertension ICD-10 I10 Resting Blood Pressure:: 154/84 [place] [employer] Hypertension Guidelines: [place] [employer] Hypertension Guidelines. Normal BP Less than 120/80. Elevated BP 120/80. Hypertension Stage 1: BP 130-139/80-89. Hypertesnion Stage 2: BP 140 or higher/90 or higher. Hypertension Crisis: BP higher than 180/120 Outcomes/Goals: Able to verbalize/achieve optimal blood pressure <130/80, Incorporates diet changes & exercise for blood pressure control by DC Interventions/plan: Instruct on optimal blood pressure, hypertension & medications, Instruct on effects of sodium, alcohol, stress, exercise &hypertension - Tobacco Cessation Referral Smoking Cessation Referral:: No Individual Education/Counseling:: No Education Schedule Given:: Yes Psychosocial - Initial Assess - VIsit Date of Eval: 05/09/20 Session #:: 0 - INITIAL EVALUATION Not Applicable: Yes History of previous Mental disease:: No - Target Goals Target Goals: Assess presence or absence of depression. Using a valid screening tool, maximizes coping skills. Positive support system - Psychosocial Test Tool Used:: Gaurav Fisher QOL Cardiac, PHQ-9 Questionnaire phq-9 Severity: Severity. 1-4 Minimal Depression. 5-9 Mild Depression. 10-14 Moderate Depression. 15-19 Moderately Sever Depression. 20-27 Severe Depression. Rule: - Referral to Behavioral Health PS - Interventions: Yes Attend Stress Management Classes, No Referral to Behavioral Health if PHQ-9 score >9:, No Referral to [facility], No Referral to Physician if PHQ-9 if score is 5-9: - Outcomes/Goals: See list Psychosocial Outcomes/Goals:: ID's personal stressors & 2 strategies to manage stress by discharge - Intervention/Plan: See List Interventions/Plan:: Assess stressors,coping strategies & signs of derpression on admission, Instruct/assist pt to develop coping & personal stress Mgt strategies, Instruct patient to recognize signs & symptoms of depression, Instruct patient to recog Patient Health Questionnaire Initial Assessment 1. Little interest or pleasure in doing things: Several days 2. Feeling down, depressed, or hopeless: Not at all 3. Trouble falling or staying asleep, or sleeping too much: Not at all 4. Feeling tired or having little energy: Several days 5. Poor appetite or overeating: Not at all 6. Feeling bad about yourself -- or that you are a failure or have let yourself or your family down: Not at all 7. Trouble concentrating on things, such as reading the newspaper or watching television: Not at all 8. Moving or speaking so slowly that other people could have noticed. Or the opposite - being so fidgety or restless that you have been moving around a lot more than usual: Several days 9. Thoughts that you would be better off , or of hurting yourself in some way: Not at all How difficult have these problems made it for you to do your work, take care of things at home, or get along with other people?: Not difficult at all Total Score: 3 KEISHA-Q SV Test - Statements CAD is a disease of the arteries in the heart: False Examples of risk factors for heart disease: True Angina is chest pain or discomfort: True The benefits of resistance training include: True Eating more meat and dairy products: I Don't Know Anti-platelet medications such as aspirin are important: True The only effective way to manage stress: False An exercise warm-up slowly increases heart rate: I Don't Know Prepared, processed foods usually have high sodium: True Depression is common after a heart attack: True The statin medications lower cholesterol: True To control blood pressure, lower the amount of sodium: True If someone gets chest discomfort during walking: I Don't Know Transfats are partially hydrogenated vegetable oils: I Don't Know Sleep apnea that is not treated increases the risk: I Don't Know To control cholesterol, one should become a vegetarian: False Someone knows if he/she is exercising at the right level: I Don't Know Diabetes cannot be prevented with exercise & health eating: False Stress is a large risk for heart attack: I Don't Know A diet that can help lower blood pressure is rich in: True - Total Score Total Correct Responses: 13 Self-Efficacy Initial Assessment We would like to know how confident you are in doing certain activities. Please select your confidence level for:: Select your confidence level for the following using the scale 1-10 where 1 is not at all confident and 10 is totally confident. Your score is the average of all 6 responses. Fatigue: How confident are you that you can keep the fatigue caused by your disease from interfering with the things you want to do? Select Number: 6 Physical Discomfort or Pain: How confident are you that you can keep the physical discomfort or pain of your disease from interfering with the things you want to do? Select Number: 7 Emotional Distress: How confident are you that you can keep the emotional distress caused by your disease from interfering with the things you want to do? Select Number: 8 Other Symptoms or Health Problems: How confident are you that you can keep other symptoms or health problems from interfering with the things you want to do? Select Number: 8 Different Tasks and Activities: How confident are you that you can do the different tasks and activities needed to manage your health condition so as to reduce your need to see a doctor? Select Number: 8 Medication: How confident are you that you can do things other than just taking medication to reduce how much your illness affects your everyday life? Select Number: 8 Total Score:: 7 Nutrition Survey - Nutrition Survey Instructions Scoring Instructions: Scoring is as follows: Yes = 1 points. No = 0 point. Patient score that is >/=12 is considered to be at potential nutritional risk and could benefit from a referral to a registered dietitian. - Nutrition Survey Initial Have you lost >10 lbs over the past 2 months without trying?: Yes Are you following a special diet at home for diabetes, low fat, or low salt?: Yes Are you interested in meeting with a dietitian for help understanding your diet?: Yes Do you eat less than 3 meals a day?: No Do you eat fatty meats (hastings, sausage, ribs, etc), fried foods, desserts, large amounts of salad dressings, margarine, butter, or cheese most days?: No Do you have food allergies? [Enter types in comment field]: No Do you eat in restaurants more than 3 times a week?: No Do you season food with salt, seasoning salt, or garlic salt?: No Do you used canned, boxed, frozen meals, or soups, seasoning packets?: No Total Score:: 3
--- NOTE | 2020-05-09 13:11 | CR.HP_ITS ---
CR - History & Physical - General Arrival date:: 05/09/20 Arrival time:: 13:00 Date of Referral:: 05/04/20 Date of CR Evaluation:: 05/09/20 - \ Referring Physician: DR. NIKOLAY SIMON Primary Diagnosis: S/P CABG @ [facility] DR. CODY GARCIA - History of Present Cardiac Event Onset Date: Enter Onset Date of cardiac illnesses in Comment field below Coronary Artery Bypass Graft:: Yes - 04/18/2020 Type of Symptoms:: FAILED STRESS TEST, ABNORMAL STRESS ECHO, TAKENT O COLLECTION ADMINISTRATOR HERE AT [facility] AND THEN TRANSFER TO [facility]. - Medications Home Medications: Ambulatory Orders Medication Instructions Recorded Metoprolol Tartrate 75 mg PO BID 01/17/20 Aspirin [Aspirin, Baby] 81 mg PO DAILY@0800 01/18/20 Acetaminophen [Tylenol Tablet] 650 mg PO Q4H PRN PRN tab 02/02/20 Amlodipine [Norvasc] 10 mg PO DAILY #30 tab 02/02/20 Atorvastatin Calcium [Lipitor] 80 mg PO QHS #30 tab 02/02/20 Clopidogrel Bisulfate [Plavix] 75 mg PO DAILY #30 tab 02/02/20 Glipizide 20 mg PO BID #120 tab 02/02/20 Lisinopril [Zestril] 20 mg PO BID #60 tab 02/02/20 hydroCHLOROthiazide 12.5 mg PO DAILY #30 cap 02/02/20 [Hydrochlorothiazide] Insulin Glargine,Hum.rec.anlog 46 units SQ QHS 04/11/20 [Lantus] Insulin Lispro [Humalog KwikPen] 15 units SQ LUNCH 04/11/20 Insulin Lispro [Humalog KwikPen] 24 units SQ BREAKFAST 04/11/20 Insulin Lispro [Humalog Kwikpen] 15 units SQ DINNER 04/11/20 Oxycodone HCl/Acetaminophen 1 each PO Q4H PRN 05/09/20 [Oxycodone-Acetaminophen 5-325] Pantoprazole Sodium [Protonix] 40 mg PO DAILY 05/09/20 - Allergies Allergies/Adverse Reactions: Allergies bee venom protein (honey bee) Allergy (Severe, Verified 02/24/20 09:45) tunnel vision, bp drops - Sleep Disorder Evaluation Hx of Sleep Apnea: Yes Do you snore loudly (louder than talking or can be heard through closed doors)?: Yes - DIAGONSED ROD HAS HOME CPAP UNIT Do you often feel tired/ fatigued/ sleepy during daytime?: No Has anyone observed you stop breathing during sleep?: Yes History of Hypertension (for STOP score): Yes STOP Results: Positive Advanced Directives - Advanced Directives Power of Principal Programmer: Yes Living Will: Yes Advance Directives Information Provided: No Advance Directives on File: Yes - COMPLETED HERE AT [facility] SHOULD BE ON RECORD Past Medical History - Past Medical Illness Medical History: Past Medical History (Last Reviewed 02/24/20 @ 09:45 by Carmen Wilson) History of CVA (cerebrovascular accident) (Chronic) Z86.73 01/18/2020 possibly cardioembolic Cognitive dysfunction due to acute cerebrovascular accident (CVA) (Acute) I63.9, R41.89 Essential hypertension (Chronic) I10 Visual field cut (Acute) H53.40 Acute left hemiparesis (Acute) G81.94 Physical debility (Acute) R53.81 Diabetic nephropathy with proteinuria (Chronic) E11.21 Morbid obesity with BMI of 40.0-44.9, adult (Chronic) E66.01, Z68.41 Stenosis of left vertebral artery (Chronic) I65.02 Stenosis of left carotid artery (Chronic) I65.22 supraclinoid stenosis Uncontrolled type II diabetes mellitus (Chronic) E11.65 Hemoglobin A1c was 12.0 on 01/18/2020 Hypertriglyceridemia (Chronic) E78.1 possibly due to uncontrolled DM II Hyperlipidemia associated with type 2 diabetes mellitus (Chronic) E11.69, E78.5 Sarcoid (Chronic) D86.9 not currently seeing a quality assurance technician Obstructive sleep apnea (Chronic) G47.33 on CPAP Diabetic retinopathy associated with uncontrolled type 2 diabetes mellitus (Chronic) E11.319, E11.65 - Past Surgical History Surgical History: Past Surgical History (Last Updated 05/04/20 @ 14:50 by Anita Ferraro) S/P CABG x 4 (Chronic) Onset Date: 04/18/20 Z95.1 LOCKWOOD to LAD, SVG to Diagonal, SVG to OM1, SVG to PDA of RCA per Dr. Thompson @ [facility] 04/18/2020 History of left heart catheterization (Chronic) Onset Date: 04/11/20 Z98.890 Surgery consult for coronary revascularization vs PCI of LCX and DIRECTOR INSURANCE of RCA. Will refer to [facility] for transfer for CABG. 04/11/[address]SHAWN @ [facility] History of hernia repair Onset Date: 2007, Z87.19 History of vein stripping Onset Date: 2008 Surgical History: - - Mediastinoscopy to remove lymph nodes; tonsillectomy; hernia surgery; varicose veins surgery: laser tx of diabetic retinopathy: catarract surgery - Family History Summary Family History: Family History (Last Reviewed 02/24/20 @ 09:45 by Carmen Wilson) Father , of blood clots Hypertension Mother Cancer in leg muscle Social History - Smoking History Smoking Status: Never smoker Hx Tobacco Use: No Hx Smoking Exposure: No - Alcohol Use Alcohol Usage: No - VERY RARE. - Substance Abuse Hx Substance Use: No - Occupation Occupation (List type of work in comments):: Employed Hours worked per day:: 8 Returned to work on:: 05/28/20 - Hobbies, Recreation, Social Activities Hobbies: Other - 4-WHEELING [employer] KIDS Recreational Activities: I am able to engage in most, but not all activities Social Environment - Status Marital Status: - Current Living Arrangements Living Environment:: Spouse - Children How many children do you have?: 5 - INCLUDING STEP CHILDREN Do any of your children live nearby?: Yes - Safety Do you feel safe in your surroundings?: Yes - Assistance Do you need any assistance at home?: NO Review of Systems - Review of Systems Hints: Right click = Denies (Slash). Left click = Reports ([place]) Review of Present Symptoms: Reports: Wound Healing, Fatigue - EVERY NOW AND THEN NOT VERY OFTEN., Appetite - Normal, Appetite - Special Diet - DIABETIC DIET, LOW SALT, LOW FAT, LOW CHOLESTEROL, Sleep - Normal. Denies: Shortness of Breath at Rest, Shortness of Breath with Exertion, Operative Discomfort, Dizziness/Lightheadedness, Heart Arrhythmia/Irregularities, Sexual Changes - Pain Is Patient Pain Free?: Yes Pain Location: chest - FROM SURGERY, VEIN REMOVED FROM THE UPPER LEFT CHEST AREA Pain Level: 0/10 Risk Factor Assessment - Chief Complaint Chief Complaint: S/P CABG X 4 - Vital Signs Temperature: 96 F Respiratory Rate: 14 Pulse Ox: 98 Blood Pressure: 154/84 - Pulse Pulse Rate: 53 Pulse Rhythm: Regular - Hypertension Blood Pressure Sitting - Right Arm: 154/84 - Blood Cholesterol/Lipids Total Cholesterol (mg/dL) Goal = less than 200 mg/dL: 155 HDL Cholesterol (mg/dL) Goal = less than 40 mg/dL: 33 LDL Cholesterol (mg/dL) Goal = less than 70 mg/dL: 50 Triglycerides (mg/dL) Goal = less than 150 mg/dL: 362 - Diabetes Diabetic History: Type II, Medication Dependent, Insulin Dependent Nutrition Referral for Diabetes: Yes - Obesity Height: 5 ft 10 in Weight:: 290 lb Weight in Pounds: 290.0 lbs Body Mass Index (BMI): 41.5 Nutritional Referral for Obesity: Yes - MEDICAL NUTRITION THERAPY-DSMNT & MNGT & WHY WEIGHT - Physical Inactivity Physical Inactivity: None - Risk Stratification Risk Guidelines: Lowest Risk: Risk Factor for Smoking, Risk Factor for Depr ession, Moderate Risk: Risk Factor for Sedentary Lifestyle, Highest Risk: Risk Factor for Dyslipidemia, Risk Factor for Diabetes - GLUCOSE 120 A1C 12.0, Risk Factor for Obesity - BMI 41.7, Risk Factor for Hypertension - For Smoking Smoking Risk Guidelines: Smoking Low Risk: None or quit greater than 6 months ago. Smoking Moderate Risk: Smoker or quit 6 months or less ago. Smoking High Risk: Smoker - For Dyslipidemia Dyslipidemia Risk Guidelines: Low Risk: Moderate Risk: High Risk: 15-25% fat 25.1-29% fat >/= 30% fat. <7% sat fat 7-9% sat fat >9% sat fat. <150 mg chol 150-299 mg chol >/= 300 mg chol. LDL <100 LDL 100-129 LDL >/= 130. Chol/HDL ratio <5.0 Chol/HDL ratio 5.0-6.0 Chol/HDL ratio >6.0. Triglycerides <100 Triglycerides 100- 149 Triglycerides >/= 150 - For Diabetes Mellitus Diabetes Risk Guidelines: Diabetes Low Risk: HgA1c <6.5% and/or FBG <120. Diabetes Moderate Risk: HgA1c 6.6-7.9% and/or FBG 120-180. Diabetes High Risk: HgA1c >/= 8% and/or FBG >180 - For Obesity/Overweight Obesity/Overweight Risk Guidelines: Obesity Low Risk: BMI <25.0. Obesity Moderate Risk: BMI 25-29.9. Obesity High Risk: BMI >/= 30.0 - For Hypertension Hypertension Risk Guidelines: Hypertension Low Risk: Systolic <120 and Diastolic <80. Hypertension Moderate Risk: Systolic 120-139 and Diastolic 80-89. Hypertension High Risk: Systolic >/= 140 and Diastolic >/= 90 - For Sedentary Lifestyle Sedentary Lifestyle Risk Guidelines: Sedentary Lifestyle Low Risk: >/= 1,500 kcal/week. Sedentary Lifestyle Moderate Risk: 700-1,499 kcal/week. Sedentary Lifestyle High Risk: < 700 kcal/week - For Depression Depression Risk Guidelines: Depression Low Risk: Not clinically depressed. Depression Moderate Risk: Mildly depressed. Depression High Risk: Clinically depressed - Family History Family History: Family History (Last Reviewed 02/24/20 @ 09:45 by Carmen Wilson) Father Hypertension Mother Cancer Motivation - Motivation to Participate On a scale of 1 to 10, how prepared are you to commit to attending program?: 8 What do you see as barriers to successfully being able to complete the program?: NONE What do you see as the benefits of succesfully completing the program? In other words, what do you hope to get out of participating in the program?: IMPROVED HEALTH Are there issues you are dealing with that will interfere with completing the program?: NONE Do you have a spouse or signficant other, family or friends who will help support you to complete the program?: YES
[2020-05-09 13:36] VITALS: BP 154/84; PULSE 53; RESP 14; TEMP 35.5; O2SAT 98; BMI 41.5
[2020-05-09 14:11] VITALS: BP 154/84; BMI 41.5
== END ==
PROVIDERS: PCP Family Medicine; Referring Provider Internal Medicine Cardiovascular Disease; Visit Provider Internal Medicine Cardiovascular Disease
DX: Z95.1 Presence of aortocoronary bypass graft (principal); E11.65 Type 2 diabetes mellitus with hyperglycemia; G47.33 Obstructive sleep apnea (adult) (pediatric); I10 Essential (primary) hypertension; E11.21 Type 2 diabetes mellitus with diabetic nephropathy; E66.01 Morbid (severe) obesity due to excess calories; Z68.41 Body mass index [BMI] 40.0-44.9, adult; E11.69 Type 2 diabetes mellitus with other specified complication; E78.5 Hyperlipidemia, unspecified; E11.319 Type 2 diabetes mellitus with unspecified diabetic retinopathy without macular edema; Z86.73 Personal history of transient ischemic attack (TIA), and cerebral infarction without residual deficits; Z79.4 Long term (current) use of insulin; Z79.82 Long term (current) use of aspirin; Z79.02 Long term (current) use of antithrombotics/antiplatelets; Z79.84 Long term (current) use of oral hypoglycemic drugs; Z79.899 Other long term (current) drug therapy

== ENCOUNTER 2020-05-28 08:00 | Outpatient (RCR) | payer OTHER, SELFPAY ==
[2020-05-09 13:36] VITALS: BMI 41.5
[2020-05-09 14:11] VITALS: BMI 41.5
== END 2020-05-29 23:59 ==
LOC: CR 08:00
PROVIDERS: PCP Family Medicine; Referring Provider Internal Medicine Cardiovascular Disease; Visit Provider Internal Medicine Cardiovascular Disease
DX: Z95.1 Presence of aortocoronary bypass graft (principal)
CPT/HCPCS: 93798

== ENCOUNTER 2020-06-29 08:00 | Outpatient (RCR) | payer OTHER, SELFPAY ==
[2020-05-09 13:36] VITALS: BMI 41.5
[2020-05-09 14:11] VITALS: BMI 41.5
--- NOTE | 2020-06-08 08:08 | PCM.CR.ITP ---
Diagnosis - General Information Admitting Diagnosis: S/P CABG Personal Learning Style:: Audio/Visual, Written Barriers to Learning: Vision Impairment Stage of change r/t lifestyle modifications:: Action Gave educational material for:: Treating Heart Disease, Emotions & Heart Disease, Stress Management & Relaxation, Sleep Disorders & Heart Disease, How The Heart Works, What it means to have Heart Disease, How Coronary Artery Disease is Diagnosed, Heart Procedures, What Heart Medications Do, Risk Factors & Modifications, Living an Active Life, Nutrition - Education/Goals Cardiac Rehabilitation Goals: 1. Maintain the individual as the primary focus of care. 2. To improve the patient's quality of life. 3. Identification of cardiac risk factors and provide cardiac risk factor management. 4. Enhance the psychosocial status of the patient. 5. Reconditioning enough to allow the patient to resume customary activities. 6. Control symptoms of cardiac disease Scale for measuring improvement of personal goals: Enter appropriate number in Comments. 2 = Unchanged. 3 = Slightly Better. 4 = Moderate Improvement. 5 = Met my Goal - Diagnosis & Disease Process Outcomes/Goals: Pt IDs own risk factors & lifestyle modifications by Session 10, Verbalizes symptoms of angina & response by session 3., Pt independently manages, Other Additional Outcomes/Goals: Plan/Interventions: Assist Pt to ID & engage in lifestyle modification to reduce CVD risk, Instruct on individual risk factors, Review symptoms of angina & emergency actions, Review secondary diagnosis & identify educational needs., Other see comment 30 day Reassessments:: Progressing 30 day Reassessments:: Progressing 30 day Reassessments:: Progressing 30 day Reassessments:: Progressing Final Reassessments:: Progressing - Safety Referral to Physical Therapy: No Referral to [facility] Case Management: No Fall Risk Assessed:: Yes Assistive Devices:: None Exercise - 30-day Assessment - Visit Date of Eval: 06/08/20 Session #:: 10 - Physician Prescribed Exercise Modalities: Treadmill, NuStep, SciFit Intensity: 60-80% of age predicted maximum heart rate reserve Current METSs:: 3.5 Target Heart Rate:: 109-142 Current RPE:: 12-13 Maximum Excercise HR:: 88 Resting Blood Pressure: 140/78 Maximum Exercise Blood Pressure: 146/80 EKG Type: SR - Outcomes & Goals Goals:: Verbalizes understanding of THR, RPE & goal METS by session 6, Documents in home exercise log/reports 30 min aerobic 5 day/wk by DC, Demonstrates accurate pulse taking by DC, Other additional outcome/goals: see below - Intervention & Plan Exercise Program Goals: Instruct on personal THR & RPE, Instruct on MET level & personal MET goal, Show patient to take own pulse /validate performance until accurate, Instruct on home exercise, Other additional plan/int - 30-day Reassessments 30 day Reassessments:: Progressing - Physical Activity Home Exercise Physical Activity - Home Exercise: Safe Exercise, Warm-up, Self-monitoring, Cool-Down, Home Exercise > 30 min Daily, Sitting Time <3 hours/daily - Outcomes & Goals Outcomes/Goals: Demonstrates correct Warm-up/exercise Cool-Down (S3) if = 2.5 METs, Verbalizes symptoms of exercise intolerance by Session 3 (S3), Demonstrate safe equipment use (S3) & follows exercise prescrition (6), Other: See below - Intervention & Plan Plan/Intervention: Instruct warm-up & cool-down if exercising at > 2 METs, Instruct on symptoms of exercise intolerance & actions to take, Instruct & monitor on saf, Assess intial functional capacity & safety risk, Other See below - 30-day Reassessments 30 day Reassessments:: Progressing Nutrition - 30-Day Assessment - Program Goals Nutrition Program Goals: LDL <100 optimal. 100 - 129 Near optimal. 130 - 159 Borderline High. 160 - 189 High. Total Cholesterol <200 desirable. 200 - 239 Borderline High. >/= 240 High. HDL < 40 Low >/=60 High. Triglycerides <150 desirable. <199 optimal. VlDL 5 - 40. HgbA1C <7%. BMI <25 Patient has diagnosis of Hyperlipidemia (ICD E78)?: Yes - Visit Date of Assessment:: 06/08/20 Session #:: 10 - Cholesterol/Lipids Determine presence & major risk factors that modify LDL goal: Hypertension or hypertensive medication, Age men > 45 years; women >/= 55 years Outcomes/Goals: Pt IDs own risk factors & lifestyle modifications by Session 10, Verbalizes symptoms of angina & response by session 3., Pt independently manages, Other Additional Outcomes/Goals: Intervention/Plan: Advocate for lipid panel cholesterol medication if applicable, Instruct on personal lipid levels & lipid goals/NCEP guidelines, Instruct on cholesterol, Other additional plan/int Referral to dietitian:: Yes 30-day Reassessments:: Progressing - Diabetes (Other Core Measures) Diabetes Type: Diagnosis Type II ICD-10 E11 Fasting blood glucose:: 122 Insulin dependent injection/pump?: Yes - humalog, lantus Do you monitor your blood sugar at home?: Yes Referral to Diabetic Clinic:: Yes Outcomes/Goals:: Able to state symptoms of, Able to state, Able to state, Other additional Intervention/Plan:: Instruct on, Refer to, Instruct on, Other 30-day Reassessments:: Progressing - Weight Mgt (Other Care) Height: 5 ft 10 in Weight:: 125.418 kg BMI: 39.6 Diagnosis Overweight/Obesity BMI> 30% ICD-10 E66: Yes Intervention/Plan: Instruct on ideal BMI & set weight loss goal w/patient, Assist pt to ID & incorporate diet changes for weight loss by S9, Refer to Structured Weight Loss program as appropriate, Encourage goal of using 250-300dcal per session for weight loss, Other additional plan/interventions 30 day Reassessments:: Progressing - Healthy Eating Habits Will attend diet classes:: Yes Outcomes/Goals:: Consume diet rich in vegs,fruits,whole grain/high fiber,fish,lean meat, Limit sat/trans fats,cholesterol & added salts & sugars, Other additional outcome/goals: Intervention/Plan:: Assess current eating habits, Other Additional plan/interventions 30-day Reassessments:: Progressing Medical- 30-Day Assessment - Visit Date of Eval: 06/08/20 Session #:: 10 - Medication Compliance Preventative Medication(s):: Aspirin, Clopidogrel/P2Y12 inhibit, Statin/lipid, Beta jim H/O mental health issues: depression, anxiety, or addiction?: No Doesn?t believe in the benefits of treatment?: No Believes medications are unnecessary or harmful?: No Has a concern about medication side effects?: No Expresses concern over the cost of medications?: No Outcomes/Goals: Verbalizes medications,desired effect & common side effects @ DC, Pt self-reports following medication regimen, Keeps card in wallet w/medications listed by DC, Other additional outcome/goals: Interventions/plans: Instruct on medication effects & side effects, Review medication list w/patient every two weeks, Instruct importance of taking meds as ordered & assist problem solving, Other additional 30-day Reassessments:: Progressing - Tobacco Use Tobacco Use: Non-smoker - Hypertension Hypertension Diagnosis:: Hypertension ICD-10 I10 [place] [employer] Hypertension Guidelines: [place] [employer] Hypertension Guidelines. Normal BP Less than 120/80. Elevated BP 120/80. Hypertension Stage 1: BP 130-139/80-89. Hypertesnion Stage 2: BP 140 or higher/90 or higher. Hypertension Crisis: BP higher than 180/120 Outcomes/Goals: Able to verbalize/achieve optimal blood pressure <130/80, Incorporates diet changes & exercise for blood pressure control by DC, Other additional outcomes/goals Interventions/plan: Instruct on optimal blood pressure, hypertension & medications, Instruct on effects of sodium, alcohol, stress, exercise &hypertension, Other additional plan/interventions 30 day Reassessments:: Progressing - Tobacco Cessation Referral Smoking Cessation Referral:: No Individual Education/Counseling:: No Education Schedule Given:: Yes Psychosocial - 30-Day Assess - VIsit Date of Eval: 06/08/20 Session #:: 10 Not Applicable: No - Target Goals Target Goals: Assess presence or absence of depression. Using a valid screening tool, maximizes coping skills. Positive support system - Psychosocial Test Tool Used:: [employer] QOL Cardiac, PHQ-9 Questionnaire phq-9 Severity: Severity. 1-4 Minimal Depression. 5-9 Mild Depression. 10-14 Moderate Depression. 15-19 Moderately Sever Depression. 20-27 Severe Depression. Rule: Patient Health Questionnaire 30-Day Re-eval Assessment 1. Little interest or pleasure in doing things: Several days 2. Feeling down, depressed, or hopeless: Not at all 3. Trouble falling or staying asleep, or sleeping too much: Not at all 4. Feeling tired or having little energy: Several days 5. Poor appetite or overeating: Not at all 6. Feeling bad about yourself -- or that you are a failure or have let yourself or your family down: Not at all 7. Trouble concentrating on things, such as reading the newspaper or watching television: Not at all 8. Moving or speaking so slowly that other people could have noticed. Or the opposite - being so fidgety or restless that you have been moving around a lot more than usual: Not at all 9. Thoughts that you would be better off , or of hurting yourself in some way: Not at all How difficult have these problems made it for you to do your work, take care of things at home, or get along with other people?: Not difficult at all Total Score: 2 Self-Efficacy 30-Day Re-eval Assessment We would like to know how confident you are in doing certain activities. Please select your confidence level for:: Select your confidence level for the following using the scale 1-10 where 1 is not at all confident and 10 is totally confident. Your score is the average of all 6 responses. Fatigue: How confident are you that you can keep the fatigue caused by your disease from interfering with the things you want to do? Select Number: 6 Physical Discomfort or Pain: How confident are you that you can keep the physical discomfort or pain of your disease from interfering with the things you want to do? Select Number: 7 Emotional Distress: How confident are you that you can keep the emotional distress caused by your disease from interfering with the things you want to do? Select Number: 8 Other Symptoms or Health Problems: How confident are you that you can keep other symptoms or health problems from interfering with the things you want to do? Select Number: 8 Different Tasks and Activities: How confident are you that you can do the different tasks and activities needed to manage your health condition so as to reduce your need to see a doctor? Select Number: 8 Medication: How confident are you that you can do things other than just taking medication to reduce how much your illness affects your everyday life? Select Number: 8 Total Score:: 7
[2020-06-08 08:21] VITALS: BP 140/78; BMI 39.6
== END 2020-06-29 23:59 ==
LOC: CR 08:00
PROVIDERS: PCP Family Medicine; Referring Provider Internal Medicine Cardiovascular Disease; Visit Provider Internal Medicine Cardiovascular Disease
DX: Z95.1 Presence of aortocoronary bypass graft (principal)
CPT/HCPCS: 93798

== ENCOUNTER → 2020-07-03 07:04 | Outpatient (CLI) | payer OTHER, SELFPAY ==
[2020-02-24 09:34] VITALS: BMI 42.0
[2020-05-09 13:36] VITALS: BMI 41.5
[2020-06-08 08:21] VITALS: BMI 39.6
--- NOTE | 2020-07-03 12:40 | PFTCOMP_ITS ---
COMPLETE PULMONARY FUNCTION TEST INTERPRETATION Brief HPI: Patient is a 54 year old male, currently under the care of myself, who presents to [facility] for complete pulmonary function tests secondary to diagnosis of COPD. Respiratory therapist reports good effort and reproducible results. Interpretation: Forced expiration spirometry shows no large airways obstructive ventilatory defect with an FEV1 of 80% predicted. There is no significant bronchodilator response by strict ATS criteria. Spirograms are of good quality and plateau normally. The respiratory flow volume loop shows a normal pattern. Lung volumes by body plethysmography show a decreased total lung capacity at 5.5 L, 81% predicted. All other lung volumes are reduced symmetrically. Diffusion capacity by carbon monoxide is normal at 79% predicted. The airway resistance is normal. No previous pulmonary function tests were available for review. Impression: Mild restrictive ventilatory defect with preserved spirometry and DLCO
== END ==
PROVIDERS: PCP Family Medicine; Referring Provider Internal Medicine Critical Care Medicine; Visit Provider Internal Medicine Critical Care Medicine
DX: D86.9 Sarcoidosis, unspecified (principal)
CPT/HCPCS: 94060; 94726; 94729

== ENCOUNTER → 2020-07-04 08:38 | Outpatient (CLI) | payer OTHER, SELFPAY ==
[2020-05-09 13:36] VITALS: BMI 41.5
[2020-06-08 08:21] VITALS: BMI 39.6
--- NOTE | 2020-07-04 08:52 | RAD_ITS ---
STUDY: X-RAY CHEST REASON FOR EXAM: Male, 54 years old. HISTORY OF SARCOIDOSIS TECHNIQUE: 3 PA and lateral views of the chest. COMPARISON: Every 2019 FINDINGS: The lungs are clear and expanded. There is no demonstrated pleural abnormality. New sternal cerclage wires and vascular clips are present (since the prior study) from a prior sternotomy and coronary artery bypass graft procedure (CABG). Normal heart size. Stable visualized osseous structures. RAD/Chest PA and Lateral IMPRESSION: No acute process Electronically Signed: Stalin Madison MD at 23:08 EDT , Service support ,
== END ==
PROVIDERS: PCP Family Medicine; Referring Provider Internal Medicine Critical Care Medicine; Visit Provider Internal Medicine Critical Care Medicine
DX: D86.9 Sarcoidosis, unspecified (principal)
CPT/HCPCS: 71046

== ENCOUNTER 2020-07-30 08:00 | Outpatient (RCR) | payer OTHER, SELFPAY ==
[2020-05-09 13:36] VITALS: BMI 41.5
[2020-06-08 08:21] VITALS: BMI 39.6
[2020-06-30 00:34] VITALS: BP 140/78
--- NOTE | 2020-07-09 08:07 | PCM.CR.ITP ---
Diagnosis - General Information Admitting Diagnosis: S/P CABG Personal Learning Style:: Audio/Visual, Written Barriers to Learning: Vision Impairment Stage of change r/t lifestyle modifications:: Contemplation Gave educational material for:: Treating Heart Disease, Emotions & Heart Disease, Stress Management & Relaxation, Sleep Disorders & Heart Disease, How The Heart Works, What it means to have Heart Disease, How Coronary Artery Disease is Diagnosed, Heart Procedures, What Heart Medications Do, Risk Factors & Modifications, Living an Active Life, Nutrition - Education/Goals Cardiac Rehabilitation Goals: 1. Maintain the individual as the primary focus of care. 2. To improve the patient's quality of life. 3. Identification of cardiac risk factors and provide cardiac risk factor management. 4. Enhance the psychosocial status of the patient. 5. Reconditioning enough to allow the patient to resume customary activities. 6. Control symptoms of cardiac disease Scale for measuring improvement of personal goals: Enter appropriate number in Comments. 2 = Unchanged. 3 = Slightly Better. 4 = Moderate Improvement. 5 = Met my Goal - Diagnosis & Disease Process Outcomes/Goals: Pt IDs own risk factors & lifestyle modifications by Session 10, Verbalizes symptoms of angina & response by session 3., Pt independently manages, Other Additional Outcomes/Goals: Plan/Interventions: Assist Pt to ID & engage in lifestyle modification to reduce CVD risk, Instruct on individual risk factors, Review symptoms of angina & emergency actions, Review secondary diagnosis & identify educational needs., Other see comment 30 day Reassessments:: Progressing 30 day Reassessments:: Progressing 30 day Reassessments:: Progressing 30 day Reassessments:: Progressing Final Reassessments:: Progressing - Safety Referral to Physical Therapy: No Referral to [facility] Case Management: Yes Fall Risk Assessed:: Yes Assistive Devices:: None Exercise - 60-day Assessment - Visit Date of Eval: 07/09/20 Session #:: 23 - Physician Prescribed Exercise Modalities: Treadmill, NuStep, SciFit Frequency: 3x/week for 12 weeks [36 sessions] Intensity: 60-80% of age predicted maximum heart rate reserve Current METSs:: 4.4 Target Heart Rate:: 109-142 Current RPE:: 14 Maximum Excercise HR:: 90 Resting Blood Pressure: 128/68 Maximum Exercise Blood Pressure: 150/80 EKG Type: sinus rhythm - Outcomes & Goals Goals:: Verbalizes understanding of THR, RPE & goal METS by session 6, Documents in home exercise log/reports 30 min aerobic 5 day/wk by DC, Demonstrates accurate pulse taking by DC, Other additional outcome/goals: see below - Intervention & Plan Exercise Program Goals: Instruct on personal THR & RPE, Instruct on MET level & personal MET goal, Show patient to take own pulse /validate performance until accurate, Instruct on home exercise, Other additional plan/int - 30-day Reassessments 30 day Reassessments:: Progressing - Physical Activity Home Exercise Physical Activity - Home Exercise: Safe Exercise, Warm-up, Self-monitoring, Cool-Down, Home Exercise > 30 min Daily, Sitting Time <3 hours/daily - Outcomes & Goals Outcomes/Goals: Demonstrates correct Warm-up/exercise Cool-Down (S3) if = 2.5 METs, Verbalizes symptoms of exercise intolerance by Session 3 (S3), Demonstrate safe equipment use (S3) & follows exercise prescrition (6), Other: See below - Intervention & Plan Plan/Intervention: Instruct warm-up & cool-down if exercising at > 2 METs, Instruct on symptoms of exercise intolerance & actions to take, Instruct & monitor on saf, Assess intial functional capacity & safety risk, Other See below - 30-day Reassessments 30 day Reassessments:: Progressing Nutrition - 60-Day Assessment - Program Goals Nutrition Program Goals: LDL <100 optimal. 100 - 129 Near optimal. 130 - 159 Borderline High. 160 - 189 High. Total Cholesterol <200 desirable. 200 - 239 Borderline High. >/= 240 High. HDL < 40 Low >/=60 High. Triglycerides <150 desirable. <199 optimal. VlDL 5 - 40. HgbA1C <7%. BMI <25 Patient has diagnosis of Hyperlipidemia (ICD E78)?: Yes - Visit Date of Assessment:: 07/09/20 Session #:: 23 - Cholesterol/Lipids Determine presence & major risk factors that modify LDL goal: Family history of premature CHD in Male < 55 years: female <65 yearsFa, Age men > 45 years; women >/= 55 years Intervention/Plan: Advocate for lipid panel cholesterol medication if applicable, Instruct on personal lipid levels & lipid goals/NCEP guidelines, Instruct on cholesterol, Other additional plan/int Referral to dietitian:: Yes 30-day Reassessments:: Progressing - Diabetes (Other Core Measures) Diabetes Type: Diagnosis Type II ICD-10 E11 Fasting blood glucose:: 124 Insulin dependent injection/pump?: Yes - humalog, lantus Do you monitor your blood sugar at home?: Yes Referral to Diabetic Clinic:: Yes Outcomes/Goals:: Able to state symptoms of, Able to state, Able to state, Other additional Intervention/Plan:: Instruct on, Refer to, Instruct on, Other 30-day Reassessments:: Progressing - Weight Mgt (Other Care) Height: 5 ft 10 in Weight:: 123.604 kg BMI: 39.1 Diagnosis Overweight/Obesity BMI> 30% ICD-10 E66: Yes Outcomes/Goals: Pt sets, maintains & shows weight loss goal & trend during rehab, Other additional outcomes/goals 30 day Reassessments:: Progressing - Healthy Eating Habits Will attend diet classes:: Yes Outcomes/Goals:: Consume diet rich in vegs,fruits,whole grain/high fiber,fish,lean meat, Limit sat/trans fats,cholesterol & added salts & sugars, Other additional outcome/goals: Intervention/Plan:: Assess current eating habits, Other Additional plan/interventions 30-day Reassessments:: Progressing Medical- 60-Day Assessment - Visit Date of Eval: 07/09/20 Session #:: 23 - Medication Compliance Preventative Medication(s):: Aspirin, Clopidogrel/P2Y12 inhibit, Statin/lipid, Beta jim H/O mental health issues: depression, anxiety, or addiction?: No Doesn?t believe in the benefits of treatment?: No Believes medications are unnecessary or harmful?: No Has a concern about medication side effects?: No Expresses concern over the cost of medications?: No Outcomes/Goals: Verbalizes medications,desired effect & common side effects @ DC, Pt self-reports following medication regimen, Keeps card in wallet w/medications listed by DC, Other additional outcome/goals: Interventions/plans: Instruct on medication effects & side effects, Review medication list w/patient every two weeks, Instruct importance of taking meds as ordered & assist problem solving, Other additional 30-day Reassessments:: Progressing - Tobacco Use Tobacco Use: Non-smoker - Hypertension Hypertension Diagnosis:: Hypertension ICD-10 I10 Resting Blood Pressure:: 128/68 [place] [employer] Hypertension Guidelines: [place] [employer] Hypertension Guidelines. Normal BP Less than 120/80. Elevated BP 120/80. Hypertension Stage 1: BP 130-139/80-89. Hypertesnion Stage 2: BP 140 or higher/90 or higher. Hypertension Crisis: BP higher than 180/120 Peak Exercise Blood Pressure:: 150/80 Outcomes/Goals: Able to verbalize/achieve optimal blood pressure <130/80, Incorporates diet changes & exercise for blood pressure control by DC, Other additional outcomes/goals Interventions/plan: Instruct on optimal blood pressure, hypertension & medications, Instruct on effects of sodium, alcohol, stress, exercise &hypertension, Other additional plan/interventions 30 day Reassessments:: Progressing - Tobacco Cessation Referral Smoking Cessation Referral:: No Individual Education/Counseling:: No Education Schedule Given:: Yes Psychosocial - 60-Day Assess - VIsit Date of Eval: 07/09/20 Session #:: 23 History of previous Mental disease:: No - Target Goals Target Goals: Assess presence or absence of depression. Using a valid screening tool, maximizes coping skills. Positive support system - Psychosocial Test Tool Used:: [employer] QOL Cardiac, PHQ-9 Questionnaire phq-9 Severity: Severity. 1-4 Minimal Depression. 5-9 Mild Depression. 10-14 Moderate Depression. 15-19 Moderately Sever Depression. 20-27 Severe Depression. Rule: - Referral to Behavioral Health PS - Interventions: Yes Referral to Behavioral Health if PHQ-9 score >9:, Yes Referral to Physician if PHQ-9 if score is 5-9:, Yes Attend Stress Management Classes, No Referral to [facility] - Outcomes/Goals: See list Psychosocial Outcomes/Goals:: ID's personal stressors & 2 strategies to manage stress by discharge, Other Additional outcome/goals: - Intervention/Plan: See List Interventions/Plan:: Assess stressors,coping strategies & signs of derpression on admission, Instruct/assist pt to develop coping & personal stress Mgt strategies, Refer to Behavioral Health if appropriate, Refer to Physician if appropriate, Instruct patient to recognize signs & symptoms of depression, Instruct patient to recog, Other additional plan/intervention - 30-day Reassessments: 30 day Reassessments:: Progressing Patient Health Questionnaire 60-Day Re-eval Assessment 1. Little interest or pleasure in doing things: Several days 2. Feeling down, depressed, or hopeless: Not at all 3. Trouble falling or staying asleep, or sleeping too much: Not at all 4. Feeling tired or having little energy: Several days 5. Poor appetite or overeating: Not at all 6. Feeling bad about yourself -- or that you are a failure or have let yourself or your family down: Not at all 7. Trouble concentrating on things, such as reading the newspaper or watching television: Not at all 8. Moving or speaking so slowly that other people could have noticed. Or the opposite - being so fidgety or restless that you have been moving around a lot more than usual: Not at all 9. Thoughts that you would be better off , or of hurting yourself in some way: Not at all How difficult have these problems made it for you to do your work, take care of things at home, or get along with other people?: Not difficult at all Total Score: 2 Self-Efficacy 60-Day Re-eval Assessment We would like to know how confident you are in doing certain activities. Please select your confidence level for:: Select your confidence level for the following using the scale 1-10 where 1 is not at all confident and 10 is totally confident. Your score is the average of all 6 responses. Fatigue: How confident are you that you can keep the fatigue caused by your disease from interfering with the things you want to do? Select Number: 6 Physical Discomfort or Pain: How confident are you that you can keep the physical discomfort or pain of your disease from interfering with the things you want to do? Select Number: 7 Emotional Distress: How confident are you that you can keep the emotional distress caused by your disease from interfering with the things you want to do? Select Number: 8 Other Symptoms or Health Problems: How confident are you that you can keep other symptoms or health problems from interfering with the things you want to do? Select Number: 8 Different Tasks and Activities: How confident are you that you can do the different tasks and activities needed to manage your health condition so as to reduce your need to see a doctor? Select Number: 8 Medication: How confident are you that you can do things other than just taking medication to reduce how much your illness affects your everyday life? Select Number: 8 Total Score:: 7
[2020-07-09 08:22] VITALS: BP 128/68; BP 150/80; BMI 39.1
== END 2020-07-30 23:59 ==
LOC: CR 08:00
PROVIDERS: PCP Family Medicine; Referring Provider Internal Medicine Cardiovascular Disease; Visit Provider Internal Medicine Cardiovascular Disease
DX: Z95.1 Presence of aortocoronary bypass graft (principal)
CPT/HCPCS: 93798

== ENCOUNTER 2020-08-13 08:00 | Outpatient (RCR) | payer OTHER, SELFPAY ==
[2020-07-09 08:22] VITALS: BMI 39.1
[2020-07-10 05:32] VITALS: BMI 38.5
--- NOTE | 2020-08-09 06:17 | PCM.CR.ITP ---
Diagnosis - General Information Barriers to Learning: No Barriers Stage of change r/t lifestyle modifications:: Action Gave educational material for:: Treating Heart Disease, Emotions & Heart Disease, Stress Management & Relaxation, Sleep Disorders & Heart Disease, How The Heart Works, What it means to have Heart Disease, How Coronary Artery Disease is Diagnosed, Heart Procedures, What Heart Medications Do, Risk Factors & Modifications, Living an Active Life, Nutrition - Education/Goals Individual Counseling: Initial Assessment: Abnormal Cholesterol Levels, High Blood Pressure, Overweight/Obesity, Diabetes Cardiac Rehabilitation Goals: 1. Maintain the individual as the primary focus of care. 2. To improve the patient's quality of life. 3. Identification of cardiac risk factors and provide cardiac risk factor management. 4. Enhance the psychosocial status of the patient. 5. Reconditioning enough to allow the patient to resume customary activities. 6. Control symptoms of cardiac disease Personal Goals: Initial Assessment: Improve energy level - 5, Control risk factors (learn risk factor modification) - 5 Scale for measuring improvement of personal goals: Enter appropriate number in Comments. 2 = Unchanged. 3 = Slightly Better. 4 = Moderate Improvement. 5 = Met my Goal - Diagnosis & Disease Process Outcomes/Goals: Pt IDs own risk factors & lifestyle modifications by Session 10, Verbalizes symptoms of angina & response by session 3., Pt independently manages Plan/Interventions: Assist Pt to ID & engage in lifestyle modification to reduce CVD risk, Instruct on individual risk factors, Review symptoms of angina & emergency actions, Review secondary diagnosis & identify educational needs. 30 day Reassessments:: Progressing 30 day Reassessments:: Progressing 30 day Reassessments:: Progressing 30 day Reassessments:: Progressing Final Reassessments:: Met - Safety Referral to Physical Therapy: No Referral to [facility] Case Management: No Fall Risk Assessed:: Yes Assistive Devices:: None Exercise - Final/Discharge - Visit Date of Eval: 08/09/20 Session #:: 34 - Physician Prescribed Exercise Modalities: Treadmill, Airdyne, NuStep, SciFit Frequency: 3x/week for 12 weeks [36 sessions] Intensity: 60-80% of age predicted maximum heart rate reserve Current METSs:: 4.7 increase from 3.0; 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 Determined pt. Target Heart Rate:: 109-142 Current RPE:: 11-13 Maximum Excercise HR:: 82 Resting Blood Pressure: 124/70 - controlled on medications Maximum Exercise Blood Pressure: 152/86 EKG Type: Sinus tachycardia with occas. PACs - Outcomes & Goals Goals:: Verbalizes understanding of THR, RPE & goal METS by session 6, Documents in home exercise log/reports 30 min aerobic 5 day/wk by DC, Demonstrates accurate pulse taking by DC - Intervention & Plan Exercise Program Goals: Instruct on personal THR & RPE, Instruct on MET level & personal MET goal, Show patient to take own pulse /validate performance until accurate, Instruct on home exercise - 30-day Reassessments 30 day Reassessments:: Met - Physical Activity Home Exercise Physical Activity - Home Exercise: Safe Exercise, Warm-up, Self-monitoring, Cool-Down, Home Exercise > 30 min Daily, Sitting Time <3 hours/daily - Outcomes & Goals Outcomes/Goals: Demonstrates correct Warm-up/exercise Cool-Down (S3) if = 2.5 METs, Verbalizes symptoms of exercise intolerance by Session 3 (S3), Demonstrate safe equipment use (S3) & follows exercise prescrition (6) - Intervention & Plan Plan/Intervention: Instruct warm-up & cool-down if exercising at > 2 METs, Instruct on symptoms of exercise intolerance & actions to take, Instruct & monitor on saf, Assess intial functional capacity & safety risk - 30-day Reassessments 30 day Reassessments:: Met Nutrition - Final Assessment - Program Goals Nutrition Program Goals: LDL <100 optimal. 100 - 129 Near optimal. 130 - 159 Borderline High. 160 - 189 High. Total Cholesterol <200 desirable. 200 - 239 Borderline High. >/= 240 High. HDL < 40 Low >/=60 High. Triglycerides <150 desirable. <199 optimal. VlDL 5 - 40. HgbA1C <7%. BMI <25 Patient has diagnosis of Hyperlipidemia (ICD E78)?: Yes - Visit Date of Assessment:: 08/09/20 - no recent labs - Cholesterol/Lipids Determine presence & major risk factors that modify LDL goal: Hypertension or hypertensive medication, Age men > 45 years; women >/= 55 years Outcomes/Goals: Pt IDs own risk factors & lifestyle modifications by Session 10, Verbalizes symptoms of angina & response by session 3., Pt independently manages Intervention/Plan: Instruct on personal lipid levels & lipid goals/NCEP guidelines, Instruct on cholesterol Referral to dietitian:: No - Patient declined already participated 30-day Reassessments:: Progressing - Diabetes (Other Core Measures) Diabetes Type: Diagnosis Type II ICD-10 E11 Fasting blood glucose:: 117 Insulin dependent injection/pump?: Yes Non-Insulin Dependent?: Yes - metformin Referral to Diabetic Clinic:: No Outcomes/Goals:: Able to state symptoms of, Able to state Intervention/Plan:: Instruct on, Instruct on 30-day Reassessments:: Met - Weight Mgt (Other Care) Height: 5 ft 10 in Weight:: 268 lb - initial weight 290 BMI: 38.4 Diagnosis Overweight/Obesity BMI> 30% ICD-10 E66: Yes Diagnosis High BMI/Morbid Obesity BMI> 35% ICD-10 Z68: Yes Outcomes/Goals: Pt sets, maintains & shows weight loss goal & trend during rehab Intervention/Plan: Instruct on ideal BMI & set weight loss goal w/patient, Assist pt to ID & incorporate diet changes for weight loss by S9, Encourage goal of using 250-300dcal per session for weight loss 30 day Reassessments:: Progressing - Healthy Eating Habits Will attend diet classes:: Yes Outcomes/Goals:: Consume diet rich in vegs,fruits,whole grain/high fiber,fish,lean meat, Limit sat/trans fats,cholesterol & added salts & sugars Intervention/Plan:: Assess current eating habits 30-day Reassessments:: Progressing - Education Gave educational materials for:: Signs & symptoms of hypoglycemia, Signs & symptoms of hyperglycemia, Relate diabetes to coronary artery disease, Healthy eating Medical - Final Assessment - Visit Date of Eval: 08/09/20 Session #:: 33 - Medication Compliance Preventative Medication(s):: Aspirin, Clopidogrel/P2Y12 inhibit, Statin/lipid, Beta jim H/O mental health issues: depression, anxiety, or addiction?: No Doesn?t believe in the benefits of treatment?: No Believes medications are unnecessary or harmful?: No Has a concern about medication side effects?: No Expresses concern over the cost of medications?: No Outcomes/Goals: Verbalizes medications,desired effect & common side effects @ DC, Pt self-reports following medication regimen, Keeps card in wallet w/medications listed by DC Interventions/plans: Instruct on medication effects & side effects, Review medication list w/patient every two weeks, Instruct importance of taking meds as ordered & assist problem solving 30-day Reassessments:: Met - Tobacco Use Tobacco Use: Non-smoker - Hypertension Hypertension Diagnosis:: Hypertension ICD-10 I10 Resting Blood Pressure:: 124/70 - controlled on medication [place] [employer] Hypertension Guidelines: [place] [employer] Hypertension Guidelines. Normal BP Less than 120/80. Elevated BP 120/80. Hypertension Stage 1: BP 130-139/80-89. Hypertesnion Stage 2: BP 140 or higher/90 or higher. Hypertension Crisis: BP higher than 180/120 Peak Exercise Blood Pressure:: 152/86 Outcomes/Goals: Able to verbalize/achieve optimal blood pressure <130/80, Incorporates diet changes & exercise for blood pressure control by DC Interventions/plan: Instruct on optimal blood pressure, hypertension & medications, Instruct on effects of sodium, alcohol, stress, exercise &hypertension 30 day Reassessments:: Met - Tobacco Cessation Referral Smoking Cessation Referral:: No Individual Education/Counseling:: No Education Schedule Given:: Yes Patient Health Questionnaire Discharge Assessment 1. Little interest or pleasure in doing things: Not at all 2. Feeling down, depressed, or hopeless: Not at all 3. Trouble falling or staying asleep, or sleeping too much: Not at all 4. Feeling tired or having little energy: Not at all 5. Poor appetite or overeating: Not at all 6. Feeling bad about yourself -- or that you are a failure or have let yourself or your family down: Not at all 7. Trouble concentrating on things, such as reading the newspaper or watching television: Not at all 8. Moving or speaking so slowly that other people could have noticed. Or the opposite - being so fidgety or restless that you have been moving around a lot more than usual: Not at all 9. Thoughts that you would be better off , or of hurting yourself in some way: Not at all Total Score: 0 KEISHA-Q SV Test - Statements CAD is a disease of the arteries in the heart: True Examples of risk factors for heart disease: True Angina is chest pain or discomfort: True The benefits of resistance training include: True Eating more meat and dairy products: False Anti-platelet medications such as aspirin are important: True The only effective way to manage stress: True An exercise warm-up slowly increases heart rate: True Prepared, processed foods usually have high sodium: True Depression is common after a heart attack: True The statin medications lower cholesterol: True To control blood pressure, lower the amount of sodium: True If someone gets chest discomfort during walking: False Transfats are partially hydrogenated vegetable oils: True Sleep apnea that is not treated increases the risk: False To control cholesterol, one should become a vegetarian: False Someone knows if he/she is exercising at the right level: True Diabetes cannot be prevented with exercise & health eating: False Stress is a large risk for heart attack: True A diet that can help lower blood pressure is rich in: True - Total Score Total Correct Responses: 18 Self-Efficacy Discharge Assessment We would like to know how confident you are in doing certain activities. Please select your confidence level for:: Select your confidence level for the following using the scale 1-10 where 1 is not at all confident and 10 is totally confident. Your score is the average of all 6 responses. Fatigue: How confident are you that you can keep the fatigue caused by your disease from interfering with the things you want to do? Select Number: 10 Physical Discomfort or Pain: How confident are you that you can keep the physical discomfort or pain of your disease from interfering with the things you want to do? Select Number: 10 Emotional Distress: How confident are you that you can keep the emotional distress caused by your disease from interfering with the things you want to do? Select Number: 10 Other Symptoms or Health Problems: How confident are you that you can keep other symptoms or health problems from interfering with the things you want to do? Select Number: 10 Different Tasks and Activities: How confident are you that you can do the different tasks and activities needed to manage your health condition so as to reduce your need to see a doctor? Select Number: 10 Medication: How confident are you that you can do things other than just taking medication to reduce how much your illness affects your everyday life? Select Number: 10 Total Score:: 10
[2020-08-09 06:29] VITALS: BP 124/70; BP 152/86; BMI 38.4
== END 2020-08-29 23:59 ==
LOC: CR 08:00
PROVIDERS: PCP Family Medicine; Visit Provider Internal Medicine Cardiovascular Disease
DX: Z95.1 Presence of aortocoronary bypass graft (principal)
CPT/HCPCS: 93798

== ENCOUNTER → 2021-07-04 06:45 | Outpatient (CLI) | payer OTHER, SELFPAY ==
[2020-08-08 15:05] VITALS: BMI 38.2
[2020-08-09 06:29] VITALS: BMI 38.4
--- NOTE | 2021-07-04 13:58 | PFTCOMP_ITS ---
COMPLETE PULMONARY FUNCTION TEST INTERPRETATION Brief HPI: Patient is a 55 year old male, currently under the care of myself, who presents to [facility] for complete pulmonary function tests secondary to diagnosis of sarcoidosis. Respiratory therapist reports good effort and reproducible results. Interpretation: Forced expiration spirometry shows no large airways obstructive ventilatory defect with an FEV1 of 95% predicted. There is no significant bronchodilator response by strict ATS criteria. Spirograms are of good quality and plateau normally. The respiratory flow volume loop shows a normal pattern. Lung volumes by body plethysmography show a normal total lung capacity at 6.72 L, 99% predicted. All other lung volumes are within normal limits. Diffusion capacity by carbon monoxide is normal at 93% predicted. The airway resistance is normal. Compared to previous pulmonary function tests from 07/03/2020, there is been normalization of all values. Impression: Normal pulmonary function test with significant improvements compared to 2020.
== END ==
PROVIDERS: PCP Family Medicine; Referring Provider Internal Medicine Critical Care Medicine; Visit Provider Internal Medicine Critical Care Medicine
DX: D86.9 Sarcoidosis, unspecified (principal)
CPT/HCPCS: 94060; 94726; 94729

== ENCOUNTER → 2022-09-12 | Outpatient (CLI) | payer BC, SELFPAY ==
[2020-08-09 06:29] VITALS: BMI 38.4
--- NOTE | 2022-09-12 14:50 | ECHOD_ITS ---
Version 2 Reason For Study: MURMUR Procedure This was a 2D Doppler, Color Flow transthoracic echocardiogram. Technically difficult study, definity deferred due to previous reaction. The study was technically difficult. Exam performed in department. Left Ventricle Normal LV size. Segmental dysfunction with preserved ejection fraction (see wall motion). The estimated ejection fraction is 60 %. Diastolic function is indeterminate. Infero-Basal: Hypokinetic. Right Ventricle Normal RV size. Normal systolic function. Atria The left atrium is mildly enlarged. Normal right atrium. No doppler evidence for ASD. Mitral Valve There is no mitral annular calcification. Anterior leaflet diffuse mitral valve thickening. Trivial mitral valve insufficiency. Tricuspid Valve Normal tricuspid valve. Trivial tricuspid valve insufficiency. Right ventricular systolic pressure estimated to be 45 mmHg. Aortic Valve Trisinus/trileaflet aortic valve. Mild to moderate moderate focal calcification of the aortic valve leaflets. Aortic sclerosis, no stenosis. Pulmonic Valve The pulmonic valve is not well visualized. Trivial pulmonic valve insufficiency. Great Vessels The aortic root is not well visualized. Pericardium/Pleural No pericardial effusion. MMode/2D Measurements & Calculations LVIDd: 5.5 cm IVSd: 0.92 cm LVOT diam: 1.9 cm LVIDs: 4.2 cm LVPWd: 1.0 cm LVOT area: 2.9 cm2 FS: 22.8 % LAV(MOD-sp4): 121.2 ml LA A4 area: 30.1 cm2 LA dimension(2D): 4.9 cm Time Measurements MV dec time: 0.34 sec Doppler Measurements & Calculations MV E max any: 144.9 cm/sec MV V2 max: 144.2 cm/sec MV dec slope: 428.4 cm/sec2 MV A max any: 87.0 cm/sec MV max P.3 mmHg MV E/A: 1.7 MV V2 mean: 61.3 cm/sec MV mean P.0 mmHg MV V2 VTI: 43.4 cm MVA(VTI): 2.0 cm2 Ao V2 max: 157.3 cm/sec LV V1 max: 126.7 cm/sec SV(LVOT): 86.8 ml Ao max P.3 mmHg LV V1 max P.5 mmHg Ao V2 mean: 108.8 cm/sec LV V1 mean P.3 mmHg Ao mean P.5 mmHg LV V1 mean: 84.7 cm/sec Ao V2 VTI: 38.7 cm LV V1 VTI: 30.3 cm MAIN(I,D): 2.2 cm2 MAIN(V,D): 2.3 cm2 PA V2 max: 97.2 cm/sec TR max any: 323.0 cm/sec PA V2 mean: 66.5 cm/sec TR max P.7 mmHg ECHO/Echo Complete Interpretation Summary The study was technically difficult. Segmental dysfunction with preserved ejection fraction (see wall motion). The estimated ejection fraction is 60 %. The left atrium is mildly enlarged. Anterior leaflet diffuse mitral valve thickening. Trivial mitral valve insufficiency. Trivial tricuspid valve insufficiency. Aortic sclerosis, no stenosis. Trivial pulmonic valve insufficiency. Right ventricular systolic pressure estimated to be 45 mmHg. Diastolic function is indeterminate. Ordering Physician: Bobo Marques Referring Physician: Bobo Marques Performed By: Azul Langford RCS
== END | disposition home or self-care (01) ==
PROVIDERS: PCP Family Medicine; Referring Provider Internal Medicine Cardiovascular Disease; Visit Provider Internal Medicine Cardiovascular Disease
DX: R60.9 Edema, unspecified (principal); R01.1 Cardiac murmur, unspecified; I25.10 Atherosclerotic heart disease of native coronary artery without angina pectoris; I10 Essential (primary) hypertension; Z95.1 Presence of aortocoronary bypass graft
CPT/HCPCS: 93306

== ENCOUNTER 2023-09-09 18:41 | Inpatient (IN) | payer BC, SELFPAY ==
[2020-08-09 06:29] VITALS: BMI 38.4
[2023-09-09] VITALS (7 sets, daily range): BP systolic 129–186; BP diastolic 68–97; PULSE 74–102; RESP 18–20; TEMP 36.8–38.3; O2SAT 92–99; BMI 37.3; BMI 37.0
--- NOTE | 2023-09-09 19:01 | EKG12_ITS ---
Test Reason : CP Blood Pressure : / mmHG Vent. Rate : 103 BPM Atrial Rate : 103 BPM P-R Int : 176 ms QRS Dur : 092 ms QT Int : 344 ms P-R-T Axes : 061 083 064 degrees QTc Int : 450 ms Sinus tachycardia Cannot rule out Anterior infarct , age undetermined Abnormal ECG Confirmed by GEOFF VELAZQUEZ, ALONZO ([id number]), editorial project manager JAYME ALEXANDER ([id number]) on 09/14/2023 2:02:26 PM Referred By: LAYLA Confirmed By:ALONZO TELLEZ MD
[2023-09-09] MEDS: Acetaminophen 500 MG Tablet 1000 MG PO (19:14)
[2023-09-09] MEDS: Aspirin 81 MG TAB.CHEW 324 MG PO (19:14)
--- NOTE | 2023-09-09 19:16 | RAD_ITS ---
INDICATION: chest pain EXAMINATION/TECHNIQUE: X-RAY - XR Chest 1 View COMPARISON: No relevant prior comparison study available FINDINGS: LINES/DEVICES: Median sternotomy wires appear intact. LUNGS: The lungs are well expanded. No consolidation, edema or effusion. No pneumothorax. MEDIASTINUM AND CARDIOVASCULAR STRUCTURES: Cardiac silhouette not enlarged. Central airways and mediastinal contour are unremarkable. BONES AND SOFT TISSUES: No acute abnormality. RAD/Chest 1 View (Portable) IMPRESSION: No acute pulmonary finding. Electronically Signed: Samir Oneal MD at 19:32 EDT ,
[2023-09-09 19:17] LABS: Absolute Lymphocyte Count 0.89 X10^3/uL (0.83-4.51); Absolute Neutrophil Count 12.9 X10^3/uL (2.0-7.7); Basophil# 0.02 X10^3/uL; Basophil% 0.1 % (0-1); Hematocrit 34.1 % (40-54); Hemoglobin 10.4 g/dL (13.0-16.5); Lymphocyte # 0.89 X10^3/ul (0.83-4.51); Lymphocyte % 5.9 % (19-41); Mean Corp Hgb Conc 30.5 g/dL (32-36); Mean Corpuscular Hgb 28.3 pg (27.0-32.0); Mean Corpuscular Volume 92.9 fL (80-94); Mean Platelet Vol. 10.3 fl (6.2-12.0); Monocyte# 1.11 X10^3/uL; Monocyte% 7.4 % (0-10); NRBC Flagged by Analyzer 0 % (0-5); Neutrophil # 12.91 X10^3/uL (2.7-7.7); Neutrophil % 85.9 % (47-70); Platelet Count 197 K/mm3 (150-450); RBC Distribution Width CV 11.9 % (11.6-14.6); RBC Distribution Width SD 40.7 fl (35.1-43.9); Red Blood Count 3.67 M/mm3 (4.6-6.2)
--- NOTE | 2023-09-09 19:18 | EX.ED.DYSGE1 ---
HPI History of Present Illness Chief Complaint: Chest Pain Informant: patient Onset/Context/Timing Onset: Days Timing: Intermittent Narrative Narrative: Patient presents with intermittent right upper chest pain for the past 3 days. He states it typically happens at night when he lays down. It is better if he sits upright or if he takes nitro. He does have a history of coronary disease and had a four-vessel bypass in 2019. He does not have any cardiac stents. He previously had been followed by Dr. Marques but has not seen anyone else in the group since Dr. Marques left the practice. Patient does report fever the past several days along with urinary frequency and urgency. He was seen in urgent care last night and diagnosed with a UTI. [facility] Medical History Abnormal stress echocardiogram Acute left hemiparesis Cognitive dysfunction due to acute cerebrovascular accident (CVA) Diabetic nephropathy with proteinuria Diabetic retinopathy associated with uncontrolled type 2 diabetes mellitus Essential hypertension History of CVA (cerebrovascular accident) Hyperlipidemia associated with type 2 diabetes mellitus Hypertriglyceridemia Obstructive sleep apnea Physical debility Sarcoid Stenosis of left carotid artery Stenosis of left vertebral artery Uncontrolled type II diabetes mellitus Visual field cut Home Medications aspirin 81 mg chewable tablet 81 mg PO DAILY@0800 [facility] 01/18/20 [History Last Taken Unknown] acetaminophen 325 mg tablet 650 mg (2 x 325 mg) PO Q4H PRN PRN Pain Score 1-09/0802/02/20 [Rx Last Taken Unknown] amlodipine 10 mg tablet 10 mg PO DAILY #30 tabs 02/02/20 [Rx Last Taken Unknown] atorvastatin 80 mg tablet 80 mg PO QHS Cholesterol #30 tabs 02/02/20 [Rx Last Taken Unknown] clopidogrel 75 mg tablet 75 mg PO DAILY blood thinner #30 tabs 02/02/20 [Rx Last Taken Unknown] bupropion HCl 150 mg tablet,12 hr sustained-release (Wellbutrin SR) 150 mg PO DAILY 07/09/22 [History Last Taken Unknown] hydrochlorothiazide 12.5 mg capsule 25 mg PO DAILY 07/09/22 [History Last Taken Unknown] sildenafil 100 mg tablet (Viagra) 100 mg PO DAILY PRN 07/09/22 [History Last Taken Unknown] diphenhydramine HCl 25 mg capsule (Benadryl) 25 mg PO QHS PRN sleep 08/25/22 [History Last Taken Unknown] insulin detemir U-100 100 unit/mL (3 mL) subcutaneous pen 40 unit subcut QHS 08/25/22 [History Last Taken Unknown] metformin 500 mg tablet 500 mg PO BID 08/25/22 [History Last Taken Unknown] metoprolol tartrate 25 mg tablet 25 mg PO BID 08/25/22 [History Last Taken Unknown] nitrofurantoin monohydrate/macrocrystals 100 mg capsule 100 mg PO Q12H 09/09/23 [History Last Taken Unknown] Allergy/AdvReac Type Severity Reaction Status Date / Time bee venom protein (honey bee) Allergy Severe tunnel Verified 09/09/23 18:42 vision, bp drops Family History Father , of blood clots Hypertension Mother Cancer in leg muscle Surgical History History of hernia repair (2007) History of left heart catheterization (04/11/20) History of vein stripping (2008) S/P CABG x 4 (04/18/20) Social History Smoking Status: Never smoker ROS ROS ED Constitutional Constitutional ED: Reports chills and fever(s) Eyes Eyes: Denies change in vision or discharge from eye(s) ENT ENT ED: Denies discharge from eye(s), rhinorrhea or sore throat Cardiovascular Cardiovascular: Reports chest pain; Denies palpitations Respiratory/Chest Respiratory/Chest: Reports cough; Denies dyspnea Gastrointestinal Gastrointestinal: Denies abdominal pain, nausea or vomiting Genitourinary Genitourinary ED: Reports dysuria and urinary frequency Musculoskeletal Musculoskeletal: Denies back pain or extremity pain Integumentary Denies Abrasions or rash Neurologic Neurologic: Denies headache(s) or weakness Psychiatric Psychiatric: Denies anxiety or depression Allergic/Immunologic Allergic/Immunologic ED: Denies lip swelling or urticaria EXAM Physical Exam Const Vital Signs: 09/09/23 18:42 09/09/23 18:48 09/09/23 19:06 Temperature 101 F H Temperature Source Temporal Pulse Rate 99 102 H Respiratory Rate 18 20 H Blood Pressure 180/71 H 186/97 H Blood Pressure Mean 107 126 Pulse Ox 99 95 Oxygen Delivery Method Room Air Room Air Positive well nourished and well developed General Appearance ED: well developed HEENT Reports normocephalic and head/scalp atraumatic Eyes PERRL and EOMs intact bilaterally Neck supple Chest Wall inspection of chest normal and palpation of chest normal Resp normal respiratory effort and clear to auscultation bilaterally Cardio regular rate and regular rhythm GI non-tender Auscultation: hypoactive bowel sounds Palpation: soft Extremity normal to inspection Neuro oriented x3 Sensorium / Orientation: alert Psych mental status grossly normal Skin no rashes or lesions noted MDM MDM MDM Narrative Medical decision making narrative: Patient placed on monitoring manager. IV line initiated. Given the patient's cardiac history aspirin is given. Labwork obtained to evaluate for leukocytosis, electrolyte derangement, cardiac injury. Swab for COVID and influenza also obtained. Patient given Tylenol for fever of 101 on arrival. History & Record Review Discussion w/independent historian: Patient and Family Lab Data Attestation: I reviewed the patient's lab results. Labs: Laboratory Results - last 24 hr 09/09/23 19:00 WBC 15.0 H RBC 3.67 L Hgb 10.4 L Hct 34.1 L MCV 92.9 MCH 28.3 MCHC 30.5 L RDW Std Deviation 40.7 RDW Coeff of Lefty 11.9 Plt Count 197 MPV 10.3 Immature Gran % (Auto) 0.700 Neut % (Auto) 85.9 H Lymph % (Auto) 5.9 L Glasscock % (Auto) 7.4 Eos % (Auto) 0.0 Baso % (Auto) 0.1 Absolute Neuts (auto) 12.9 H Absolute Lymphs (auto) 0.89 Nucleated RBC % 0 Sodium 135 L Potassium 4.7 Chloride 104 Carbon Dioxide 24.0 Anion Gap 7 BUN 32 H Creatinine 2.08 H Estim Creat Clear Calc 41.43 Est GFR (MDRD) Af Amer 43 L Est GFR (MDRD) Non-Af 35 L BUN/Creatinine Ratio 15.4 Glucose 182 H Calcium 9.1 Troponin I High Sens 541 H* Radiography Chest X-Ray - ED: 1 View, Read by ED Physician, Normal, Heart, Lungs and Mediastinum Diagnostic Testing: Clinical Impression(s) from Imaging Studies Chest X-Ray 10/11/23 19:16 IMPRESSION: No acute pulmonary finding. Electronically Signed: Samir Oneal MD at 19:32 EDT , EKG Initial EKG: Attestation: I personally reviewed and interpreted this EKG as follows: Interpretation: Sinus Tachycardia (Sinus tach at 103. No acute ischemia noted.) Treatment and Re-Evaluation :: On repeat evaluation patient resting comfortably. He denies pain at this time. He feels that his fever broke and he feels improved. CBC reveals white count of 15,000 with a hemoglobin of 10.4. 86% neutrophils noted. Chemistry studies significant for a sodium of 135, BUN of 32, creatinine 2.08. Glucose is 182. Troponin is elevated at 541. Last labs I have available for comparison are from 2019 and at that time his renal function was normal. Swab for COVID and influenza returned negative. Chest x-ray per my interpretation reveals no focal infiltrate. Radiology interpretation reviewed and agrees. EKG is sinus tachycardia with no acute ischemia. Given the patient's cardiac history and elevation in troponin I will speak with cardiology. I spoke Dr. Ulloa. He asked that we get a respiratory viral panel as he has noted multiple viruses in the community recently causing pericarditis and myocarditis. This has been ordered and is pending. Repeat 2-hour troponin is also pending at this time. Dr. Ulloa would like patient admitted for cycling of cardiac enzymes, but do not start heparin or other cardiac meds at this time. This is discussed with the patient and family at bedside. Patient does note that his renal function has been poor recently. He recently had his medications adjusted. On review of [facility] records it appears his most recent BUN and creatinine from August 14 was 39 and 1.63 respectively. He is also now telling me that he has had some intermittent right upper quadrant pain. I will send LFTs to ensure no evidence of liver or gallbladder disease. Discharge Plan Triage Chief Complaint: Chest Pain ED Provider: Sadie Viera Dx/Rx/DC Orders Clinical Impression: UTI (urinary tract infection), Elevated troponin, Chest pain Prescriptions: No Action insulin detemir U-100 100 unit/mL (3 mL) insulin pen 40 unit SC QHS Patient Comments: inject 48 UNITS SUBCUTANEOUSLY AT BEDTIME metformin 500 mg tablet 500 mg PO BID Patient Comments: TAKE 1 TABLET BY MOUTH TWICE A DAY diphenhydramine HCl [Benadryl] 25 mg capsule 25 mg PO QHS PRN (Reason: sleep) metoprolol tartrate 25 mg tablet 25 mg PO BID hydrochlorothiazide 12.5 mg capsule 25 mg PO DAILY sildenafil [Viagra] 100 mg tablet 100 mg PO DAILY PRN Rx Instructions: administer 30 minutes to 4 hours before activity bupropion HCl [Wellbutrin SR] 150 mg tablet sustained-release 12 hr 150 mg PO DAILY aspirin 81 MG tablet,chewable 81 mg PO DAILY@0800 acetaminophen 325 MG tablet 650 mg PO Q4H PRN PRN (Reason: Pain Score 1-10/10) 0RF amlodipine 10 MG tablet 10 mg PO DAILY Qty: 30 0RF atorvastatin 80 MG tablet 80 mg PO QHS Qty: 30 0RF clopidogrel 75 MG tablet 75 mg PO DAILY Qty: 30 0RF nitrofurantoin monohyd/m-cryst 100 mg capsule 100 mg PO Q12H Primary Care Provider: Julien Patel Referrals: Julien Patel DO [Primary Care Provider] - Disposition Disposition: Acute Care Hospital [facility]
[2023-09-09 19:44] LABS: Anion Gap 7 (5-15); BUN 32 mg/dL (7-18); BUN/Creat Ratio 15.4 RATIO (10-20); Calcium,Total 9.1 mg/dL (8.5-10.1); Chloride 104 mmol/L (98-107); Creatinine, Serum 2.08 mg/dL (0.70-1.30); EST Glomerular Filtration Rate 35 mL/min (>60); Est Glom Filt Rate - Afr Amer 43 mL/min (>60); Estimated Creatinine Clearance 41.43 ml/min; Glucose 182 mg/dL (74-106); Potassium 4.7 mmol/L (3.5-5.1); Sodium Level 135 mmol/L (136-145); Troponin-I HS 541 pg/mL (3.0-78.0)
[2023-09-09] MEDS: 0.9% Normal Saline (1000mL) 1,000 ML 150 ML IV (20:14)
[2023-09-09 22:16] LABS: AST(SGOT) 13 U/L (15-37); Alanine Aminotransfer ALT/SGPT 18 U/L (16-61); Albumin, Serum 2.8 g/dL (3.2-5.0); Alkaline Phosphatase 94 U/L (45-117); Bilirubin, Direct 0.35 mg/dL (0.00-0.30); Globulin 3.4 g/dL (2.2-4.2); Protein, Total 6.2 g/dL (6.4-8.2); Troponin-I HS 690 pg/mL (3.0-78.0)
--- NOTE | 2023-09-09 22:44 | PCM.HP.STD ---
HPI - General General Date of Admission: 09/09/23 Date of Service: 09/09/23 Chief Complaint: Chest pain HPI Narrative SAQIB SEVILLA, is a 57 M with a significant history of coronary bypass in 2003; and CVA who presents to the emergency department with 3-day history of persistent right-sided chest pain. He rated his pain a 6 on a scale of 1-10. The pain has been occurring in the evenings. The pain occurs with lying down. Sitting up or taking nitroglycerin relieves the pain. The pain occasionally radiates to his bilateral shoulders. Also patient reports burning sensation with urination. He has difficulty emptying his bladder and he has urinary urgency. A day before presentation the patient went to the urgent care where he was diagnosed with UTI and was started on Macrobid. Patient denies any nausea, vomiting or shortness of breath. For the past 2 nights he has had a fever of 101-102 Fahrenheit. He reports chills. At the emergency department patient was found to have elevated troponin. ED physician discussed case with cardiology and recommendation was not to start any anticoagulation but because of viral infection in the community viral panel be obtained. Patient reports chronic bilateral leg edema; with left leg worse than right leg. [facility] Medical History Abnormal stress echocardiogram Acute left hemiparesis Cognitive dysfunction due to acute cerebrovascular accident (CVA) Diabetic nephropathy with proteinuria Diabetic retinopathy associated with uncontrolled type 2 diabetes mellitus Essential hypertension History of CVA (cerebrovascular accident) Hyperlipidemia associated with type 2 diabetes mellitus Hypertriglyceridemia Obstructive sleep apnea Physical debility Sarcoid Stenosis of left carotid artery Stenosis of left vertebral artery Uncontrolled type II diabetes mellitus Visual field cut Home Medications aspirin 81 mg chewable tablet 81 mg PO DAILY@0800 [facility] 01/18/20 [History Last Taken Unknown] acetaminophen 325 mg tablet 650 mg (2 x 325 mg) PO Q4H PRN PRN Pain Score 1-09/0802/02/20 [Rx Last Taken Unknown] amlodipine 10 mg tablet 10 mg PO DAILY #30 tabs 02/02/20 [Rx Last Taken Unknown] atorvastatin 80 mg tablet 80 mg PO QHS Cholesterol #30 tabs 02/02/20 [Rx Last Taken Unknown] clopidogrel 75 mg tablet 75 mg PO DAILY blood thinner #30 tabs 03/05/20 [Rx Last Taken Unknown] bupropion HCl 150 mg tablet,12 hr sustained-release (Wellbutrin SR) 150 mg PO DAILY 07/09/22 [History Last Taken Unknown] hydrochlorothiazide 12.5 mg capsule 25 mg PO DAILY 07/09/22 [History Last Taken Unknown] sildenafil 100 mg tablet (Viagra) 100 mg PO DAILY PRN sexual activity 07/09/22 [History Last Taken Unknown] diphenhydramine HCl 25 mg capsule (Benadryl) 25 mg PO QHS PRN sleep 08/25/22 [History Last Taken Unknown] insulin detemir U-100 100 unit/mL (3 mL) subcutaneous pen 40 unit subcut QHS 08/25/22 [History Last Taken Unknown] metformin 500 mg tablet 500 mg PO BID 08/25/22 [History Last Taken Unknown] metoprolol tartrate 25 mg tablet 25 mg PO BID 08/25/22 [History Last Taken Unknown] nitrofurantoin monohydrate/macrocrystals 100 mg capsule 100 mg PO Q12H 09/09/23 [History Last Taken Unknown] Allergy/AdvReac Type Severity Reaction Status Date / Time bee venom protein (honey bee) Allergy Severe tunnel Verified 09/09/23 18:42 vision, bp drops Family History Father , of blood clots Hypertension Mother Cancer in leg muscle Surgical History History of hernia repair (2007) History of left heart catheterization (04/11/20) History of vein stripping (2008) S/P CABG x 4 (04/18/20) Social History Smoking Status: Never smoker ROS ROS Narrative Pertinent positives and pertinent negatives as noted in HPI. All other systems were reviewed and are negative Vital Signs Vital Signs Vital Signs: 09/09/23 18:42 09/09/23 18:48 09/09/23 19:06 Temperature 101 F H Temperature Source Temporal Pulse Rate 99 102 H Respiratory Rate 18 20 H Blood Pressure 180/71 H 186/97 H Blood Pressure Mean 107 126 Pulse Ox 99 95 Oxygen Delivery Method Room Air Room Air 09/09/23 21:32 09/09/23 22:35 Temperature 99.1 F Temperature Source Pulse Rate 75 74 Respiratory Rate 18 18 Blood Pressure 131/76 H 129/68 H Blood Pressure Mean 94 88 Pulse Ox 92 94 Oxygen Delivery Method Room Air Weight Weight: 118.115 kg Body Mass Index (BMI) 37.3 Physical Exam Narrative Physical exam: General: Well-nourished, well-developed. Head: Normocephalic, atraumatic, no tenderness Eyes: Vision is grossly intact. EOMI. Injected conjunctiva of the right eye. ENT, no trauma, moist mucous membranes, no rhinorrhea Neck: Nontender, No thyromegaly. CVS: Regular rate and rhythm. S1-S2 present. No murmur, gallop or rub. Respiratory : clear to auscultation bilaterally, chest wall nontender Abdomen: Soft, nontender, nondistended, normal bowel sounds, no masses : Deferred Back: Nontender, no CVA tenderness, no midline spinal tenderness, deformities, step-offs Extremities: Bilateral lower leg and feet edema with left worse than right. Nontender full range of motion, no trauma Skin: Normal color, no trauma, abrasions Neuro: Alert, oriented, cranial nerves II through XII grossly intact. Psychiatry: Normal mood. Normal affect. Not depressed. Not anxious. Results Lab / Micro Data 09/09/23 19:00 09/09/23 19:00 Labs: Laboratory Results - last 24 hr 09/09/23 19:00: WBC 15.0 H, RBC 3.67 L, Hgb 10.4 L, Hct 34.1 L, MCV 92.9, MCH 28.3, MCHC 30.5 L, RDW Std Deviation 40.7, RDW Coeff of Lefty 11.9, Plt Count 197, MPV 10.3, Immature Gran % (Auto) 0.700, Neut % (Auto) 85.9 H, Lymph % (Auto) 5.9 L, [place] % (Auto) 7.4, Eos % (Auto) 0.0, Baso % (Auto) 0.1, Absolute Neuts (auto) 12.9 H, Absolute Lymphs (auto) 0.89, Nucleated RBC % 0, Sodium 135 L, Potassium 4.7, Chloride 104, Carbon Dioxide 24.0, Anion Gap 7, BUN 32 H, Creatinine 2.08 H, Estim Creat Clear Calc 41.43, Est GFR (MDRD) Af Amer 43 L, Est GFR (MDRD) Non-Af 35 L, BUN/Creatinine Ratio 15.4, Glucose 182 H, Calcium 9.1, Troponin I High Sens 541 H* 09/09/23 21:15: Total Bilirubin 0.90, Direct Bilirubin 0.35 H, AST 13 L, ALT 18, Alkaline Phosphatase 94, Troponin I High Sens 690 H*, Total Protein 6.2 L, Albumin 2.8 L, Globulin 3.4 Micro: Microbiology 09/09/23 19:00 Nasal Secretion SARS-CoV-2 & FLU Antigen (Rapid) - Final Radiology Impression Chest X-Ray 09/09/23 19:16 IMPRESSION: No acute pulmonary finding. Electronically Signed: Samir Oneal MD at 19:32 EDT Reading Location ID and State: [address] [place] [address] Tel , Service support , Assessment & Plan Assessment/Plan (1) Chest pain: QUALIFIERS: Chest pain type: unspecified Qualified Code(s): R07.9 - Chest pain, unspecified (2) Elevated troponin: (3) UTI (urinary tract infection): QUALIFIERS: Hematuria presence: without hematuria Urinary tract infection type: acute cystitis Qualified Code(s): N30.00 - Acute cystitis without hematuria (4) Diabetic retinopathy associated with uncontrolled type 2 diabetes mellitus: PLAN: Plan Chest pain with elevated troponin EKG showed some mild ST depression in inferior leads. Impression of chest x-ray by radiologist: No acute pulmonary findings. Chest x-ray was independently interpreted by hospitalist; agrees with radiology interpretation. Etiology unclear. Could be viral as patient reports chills; and fever. It could also be musculoskeletal as patient reports changes with positioning It could be cardiac or GI as patient reports relief with nitroglycerin. Initial high-sensitivity troponin was 541. Trended to 690. Will get another high-sensitivity troponin level. Patient does not have excruciating chest pain and he does not look sick. Received a full dose aspirin on presentation. Continue home dual antiplatelet therapy of aspirin and Plavix. Continue beta-blockers. Continue high intensity statins. Rapid COVID test and influenza screen was negative. Respiratory panel PCR is pending. Will keep patient NPO. Will consult cardiology. Diabetes mellitus with retinopathy Blood glucose is stable. On patient's own a glucometer on his cell phone his blood glucose was 140. We will hold off home metformin and basal insulin as patient will be n.p.o. after midnight and was not willing to eat at the time of examination. Accu-Chek with correction scale insulin ordered. UTI With fever, chills and elevated white counts we will hold off home Macrodantin the patient has taken 2 doses and will start patient on IV ceftriaxone. We will trend CBC and BMP. Will get blood cultures. DAVID Mild Creatinine presentation was 2.08. His creatinine on records from this Hospital in the year 2019 values ranged from 0.97-1.26. His creatinine from [facility] was 1.63 on 08/14/2023; 1.78 on 07/23/2023; 2.65 on 05/28/2023; and 1.71 on 01/09/2023. Baseline creatinine is around 1.7. Avoid nephrotoxins. Home hydrochlorothiazide held. Hypertension Blood pressure is not within goal Metoprolol continued. With holding home hydrochlorothiazide for DAVID as needed hydralazine ordered. Trend blood pressure and adjust blood pressure medications. Bilateral leg edema: Chronic. Reports that he uses YUKI hose at home. YUKI hose ordered. Injected conjunctiva of the right eyes. Secondary to injection in the right eye for diabetic macular edema. Per family improving. DVT prophylaxis: SCDs ordered. Time spent in the patient's overall evaluation,decision-making process, review of diagnostic data, adjustment of management, discussion with other providers, nursing and ancillary staff involved in patient's care documentation, 70 minutes. Charges/Coding Visit Charges Inpatient E&M: 66594 Init Hosp L3
[2023-09-09 23:04] LABS: Erythrocyte Sedimentation Rate 51 mm/hr (0-20)
--- NOTE | 2023-09-09 23:11 | EKG12_ITS ---
Test Reason : CHEST PAIN REPEAT Blood Pressure : / mmHG Vent. Rate : 089 BPM Atrial Rate : 089 BPM P-R Int : 168 ms QRS Dur : 090 ms QT Int : 368 ms P-R-T Axes : 043 043 066 degrees QTc Int : 447 ms Normal sinus rhythm Anterolateral infarct , age undetermined Abnormal ECG When compared with ECG of 10-SEP-2023 04:46, MANUAL COMPARISON REQUIRED, DATA IS UNCONFIRMED Confirmed by GEOFF VELAZQUEZ, ALONZO ([id number]), commissioning editor VANITA LEE ([id number]) on 09/24/2023 11:43:22 AM Referred By: Confirmed By:ALONZO TELLEZ MD
[2023-09-09] MEDS: Ceftriaxone 2 GM in 0.9% Normal Saline (50mL MB+) 50 ML IV (23:41)
[2023-09-09] MEDS: 0.9% Normal Saline (1000mL) 1,000 ML 100 ML IV (23:42)
[2023-09-09] MEDS: DiphenhydrAMINE 25 MG Capsule PO (23:49)
[2023-09-10] VITALS (15 sets, daily range): BP systolic 130–152; BP diastolic 62–100; PULSE 74–102; RESP 14–18; TEMP 36.6–38.1; O2SAT 90–96
[2023-09-10 00:23] LABS: Bedside Glucose 147 mg/dL (74-106)
[2023-09-10 01:12] LABS: Troponin-I HS 1196 pg/mL (3.0-78.0)
[2023-09-10 02:18] LABS: Absolute Lymphocyte Count 1.42 X10^3/uL (0.83-4.51); Absolute Neutrophil Count 10.8 X10^3/uL (2.0-7.7); Basophil# 0.04 X10^3/uL; Basophil% 0.3 % (0-1); Eosinophil# 0.01 X10^3/uL; Eosinophils% 0.1 % (0-5); Hemoglobin 9.2 g/dL (13.0-16.5); Lymphocyte # 1.42 X10^3/ul (0.83-4.51); Lymphocyte % 10.4 % (19-41); Mean Corp Hgb Conc 30.7 g/dL (32-36); Mean Corpuscular Hgb 28.6 pg (27.0-32.0); Mean Corpuscular Volume 93.2 fL (80-94); Mean Platelet Vol. 10.2 fl (6.2-12.0); Monocyte# 1.29 X10^3/uL; Monocyte% 9.5 % (0-10); NRBC Flagged by Analyzer 0 % (0-5); Neutrophil % 79.1 % (47-70); Platelet Count 165 K/mm3 (150-450); RBC Distribution Width CV 11.7 % (11.6-14.6); RBC Distribution Width SD 39.7 fl (35.1-43.9); Red Blood Count 3.22 M/mm3 (4.6-6.2); White Blood Count 13.6 K/mm3 (4.4-11.0)
[2023-09-10 02:35] LABS: Anion Gap 6 (5-15); BUN 31 mg/dL (7-18); Calcium,Total 8.5 mg/dL (8.5-10.1); Chloride 108 mmol/L (98-107); Creatinine, Serum 1.82 mg/dL (0.70-1.30); EST Glomerular Filtration Rate 41 mL/min (>60); Est Glom Filt Rate - Afr Amer 50 mL/min (>60); Estimated Creatinine Clearance 47.35 ml/min; Glucose 157 mg/dL (74-106); International Normalized Ratio 1.4; Partial Thromboplast Time 37.7 Seconds (24.1-36.2); Potassium 4.2 mmol/L (3.5-5.1); Prothrombin Time (Protime)PT. 17.1 SECONDS (11.7-14.9); Sodium Level 137 mmol/L (136-145)
[2023-09-10] MEDS: HEPARIN/D5w 25,000 UNITS 25,000 UNITS/250 ML IV.SOLN. 16 UNITS CONT INF (03:18)
[2023-09-10] MEDS: Heparin Injection (Vial) 5,000 UNIT/ML VIAL 9500 UNIT IV (03:19)
--- NOTE | 2023-09-10 04:32 | EKG12_ITS ---
Test Reason : CP ADMIT Blood Pressure : / mmHG Vent. Rate : 076 BPM Atrial Rate : 076 BPM P-R Int : 172 ms QRS Dur : 100 ms QT Int : 402 ms P-R-T Axes : 056 047 075 degrees QTc Int : 452 ms Normal sinus rhythm Normal ECG When compared with ECG of 09-SEP-2023 18:48, MANUAL COMPARISON REQUIRED, DATA IS UNCONFIRMED Confirmed by GEOFF VELAZQUEZ, ALONZO ([id number]), newspaper managing editor VANITA LEE ([id number]) on 09/10/2023 11:09:28 AM Referred By: Confirmed By:ALONZO TELLEZ MD
[2023-09-10] MEDS: Morphine 2 MG/ML Syringe IV (04:59)
--- NOTE | 2023-09-10 05:55 | ECHOCS_ITS ---
Reason For Study: CHF Procedure This was a 2D Doppler, Color Flow transthoracic echocardiogram. The study was technically difficult. Exam performed portable in patient room. Left Ventricle Normal LV size. Left ventricular systolic function is normal. The estimated ejection fraction is 55 %. Stage 1 diastolic dysfunction. Mid-Inferior: Hypokinetic. Right Ventricle Normal RV size. Normal systolic function. Aortic Valve Trisinus/trileaflet aortic valve. Mild focal aortic valve calcification. Pulmonic Valve Normal pulmonic valve. Great Vessels Normal aortic root. Pericardium/Pleural No pericardial effusion. Medication Diluted definity 3ml given slow IV push to enhance endocardial definition. MMode/2D Measurements & Calculations LVIDd: 5.7 cm IVSd: 1.5 cm LAV(MOD-bp): 64.5 ml LVIDs: 4.2 cm LVPWd: 1.1 cm LAV(MOD-bp) Indexed: 27.8 ml/m2 FS: 25.9 % LAV(MOD-sp2): 58.2 ml LAV(MOD-sp4): 61.6 ml LVAd ap4: 50.3 cm2 LVAd ap2: 48.5 cm2 SV(MOD-sp4): 136.0 ml LVLd ap4: 9.0 cm LVLd ap2: 10.1 cm EDV(MOD-sp4): 233.1 ml EDV(MOD-sp2): 192.7 ml EDV(sp4-el): 239.2 ml EDV(sp2-el): 198.0 ml LVAs ap4: 30.7 cm2 LVAs ap2: 32.0 cm2 LVLs ap4: 8.0 cm LVLs ap2: 8.3 cm ESV(MOD-sp4): 97.2 ml ESV(MOD-sp2): 100.6 ml ESV(sp4-el): 100.4 ml ESV(sp2-el): 104.6 ml EF(MOD-sp4): 58.3 % EF(MOD-sp2): 47.8 % EF(sp4-el): 58.0 % SV(MOD-sp2): 92.2 ml SV(sp4-el): 138.7 ml LA A4 area: 19.2 cm2 LA dimension(2D): 4.7 cm TAPSE: 2.1 cm Doppler Measurements & Calculations MV E max gomez: 99.1 cm/sec Lat Peak E' Gomez: 16.5 cm/sec Med Peak E' Gomez: 7.9 cm/sec MV A max gomez: 129.7 cm/sec E/E' lat: 6.0 E/E' med: 12.5 MV E/A: 0.76 Ao V2 max: 171.1 cm/sec LV V1 max: 113.5 cm/sec PA V2 max: 91.2 cm/sec Ao max P.7 mmHg LV V1 max P.1 mmHg ECHO/Echo Complete W/ Contrast Interpretation Summary Normal LV size. Left ventricular systolic function is normal. The estimated ejection fraction is 55 %. Mid-Inferior: Hypokinetic Mild focal aortic valve calcification. Stage 1 diastolic dysfunction. Ordering Physician: Darion Francis Referring Physician: Julien Patel Performed By: Azul Langford RCS
[2023-09-10] MEDS: Nitroglycerin Oint 1 INCH PACKET TD (06:15)
--- NOTE | 2023-09-10 06:35 | EKG12_ITS ---
Test Reason : CP Blood Pressure : / mmHG Vent. Rate : 088 BPM Atrial Rate : 088 BPM P-R Int : 164 ms QRS Dur : 098 ms QT Int : 358 ms P-R-T Axes : 055 063 075 degrees QTc Int : 433 ms Normal sinus rhythm Nonspecific ST abnormality Abnormal ECG When compared with ECG of 10-SEP-2023 00:05, MANUAL COMPARISON REQUIRED, DATA IS UNCONFIRMED Confirmed by GEOFF VELAZQUEZ, ALONZO ([id number]), assistant film editor VANITA LEE ([id number]) on 09/10/2023 11:11:01 AM Referred By: Confirmed By:ALONZO TELLEZ MD
--- NOTE | 2023-09-10 08:00 | PN.HOSP_ITS ---
Reason for Visit Reason for Visit: Diagnoses Type 2 diabetes mellitus with unspecified diabetic retinopathy without macular edema (09/09/23) Type 2 diabetes mellitus with hyperglycemia (09/09/23) Acute cystitis without hematuria (09/09/23) Chest pain, unspecified (09/09/23) Other specified abnormal findings of blood chemistry (09/09/23) Subjective Subjective No further chest pain. Objective Data Objective Data Vital Signs: Vital Signs Temp Pulse Resp BP Pulse Ox O2 Del Method 36.6 C 95 18 152/78 H 96 Room Air 09/10/23 05:06 09/10/23 06:15 09/10/23 05:06 09/10/23 06:15 09/10/23 05:06 09/10/23 06:19 Oxygen Delivery Method Room Air Weight: 117.1 kg Body Mass Index (BMI) 37.0 Intake & Output: Intake and Output for Last 24 Hours 09/08/23 09/09/23 09/10/23 23:59 23:59 23:59 Intake Total 50 / 50 1050 / 1050 Output Total 0 / 0 50 / 50 Balance 50 / 50 1000 / 1000 Lab / Micro Data 09/10/23 02:10 09/10/23 02:10 Labs: Laboratory Results - last 24 hr 09/09/23 19:00: WBC 15.0 H, RBC 3.67 L, Hgb 10.4 L, Hct 34.1 L, MCV 92.9, MCH 28.3, MCHC 30.5 L, RDW Std Deviation 40.7, RDW Coeff of Lefty 11.9, Plt Count 197, MPV 10.3, Immature Gran % (Auto) 0.700, Neut % (Auto) 85.9 H, Lymph % (Auto) 5.9 L, [place] % (Auto) 7.4, Eos % (Auto) 0.0, Baso % (Auto) 0.1, Absolute Neuts (auto) 12.9 H, Absolute Lymphs (auto) 0.89, Nucleated RBC % 0, ESR 51 H, Sodium 135 L, Potassium 4.7, Chloride 104, Carbon Dioxide 24.0, Anion Gap 7, BUN 32 H, Creatinine 2.08 H, Estim Creat Clear Calc 41.43, Est GFR (MDRD) Af Amer 43 L, Est GFR (MDRD) Non-Af 35 L, BUN/Creatinine Ratio 15.4, Glucose 182 H, Calcium 9.1, Troponin I High Sens 541 H* 09/09/23 21:15: Total Bilirubin 0.90, Direct Bilirubin 0.35 H, AST 13 L, ALT 18, Alkaline Phosphatase 94, Troponin I High Sens 690 H*, C-React Prot Ext Range 160.00 H, Total Protein 6.2 L, Albumin 2.8 L, Globulin 3.4 09/09/23 23:48: POC Glucose 147 H 09/10/23 00:40: Troponin I High Sens 1196 H* 09/10/23 02:10: WBC 13.6 H, RBC 3.22 L, Hgb 9.2 L, Hct 30.0 L, MCV 93.2, MCH 28.6, MCHC 30.7 L, RDW Std Deviation 39.7, RDW Coeff of Lefty 11.7, Plt Count 165, MPV 10.2, Immature Gran % (Auto) 0.600, Neut % (Auto) 79.1 H, Lymph % (Auto) 10.4 L, [place] % (Auto) 9.5, Eos % (Auto) 0.1, Baso % (Auto) 0.3, Absolute Neuts (auto) 10.8 H, Absolute Lymphs (auto) 1.42, Nucleated RBC % 0, PT 17.1 H, INR 1.4, APTT 37.7 H, Sodium 137, Potassium 4.2, Chloride 108 H, Carbon Dioxide 23.0, Anion Gap 6, BUN 31 H, Creatinine 1.82 H, Estim Creat Clear Calc 47.35, Est GFR (MDRD) Af Amer 50 L, Est GFR (MDRD) Non-Af 41 L, BUN/Creatinine Ratio 17.0, Glucose 157 H, Calcium 8.5 Micro: Microbiology 09/09/23 21:03 Mucosa - Nasopharyngeal Respiratory Panel (PCR) - Final 09/09/23 19:00 Nasal Secretion SARS-CoV-2 & FLU Antigen (Rapid) - Final Radiography Diagnostic Testing: Radiology Impression Chest X-Ray 09/09/23 19:16 IMPRESSION: No acute pulmonary finding. Electronically Signed: Samir Oneal MD at 19:32 EDT , Physical Exam Const alert and no apparent distress Constitutional Narrative: lying bed post-cath HEENT head/scalp atraumatic Neck no lymphadenopathy Resp normal respiratory effort, no retractions, no use of accessory muscles and clear to auscultation bilaterally Cardio regular rate, regular rhythm, S1 normal heart sound and S2 normal heart sound GI normal to inspection, nondistended, normoactive bowel sounds, soft to palpation and non-tender Extremity normal to inspection and full ROM Assessment & Plan Assessment/Plan (1) NSTEMI, initial episode of care: PLAN: Troponins peaked at 1196. On heparin gtt, ASA, atorvastatin, clopidogrel, metoprolol Cardiology consult. Left heart cath showed most of bypass grafts closed. Normal EF Echo shows an EF of 55%. Mid inferior hypokinetic. DW Dr. Ulloa, plan to monitor overnight. (2) UTI (urinary tract infection): QUALIFIERS: Hematuria presence: without hematuria Urinary tract infection type: acute cystitis Qualified Code(s): N30.00 - Acute cystitis without hematuria PLAN: subsequent evaluation. repeat UA on CTX, was on nitrofurantonin as outpt. (3) DAVID (acute kidney injury): PLAN: No recent baseline Admission creatinine was 2.08, down to 1.82 On IVF PLAN: Plan Chronic conditions: * Diabetes mellitus type 2 with retinopathy:Blood glucose is stable. On patient's own a glucometer on his cell phone his blood glucose was 140. We will hold off home metformin and basal insulin as patient will be n.p.o. after midnight and was not willing to eat at the time of examination.Accu-Chek with correction scale insulin ordered. * Hypertension: Metoprolol continued. With holding home hydrochlorothiazide for DAVID as needed hydralazine ordered. Trend blood pressure and adjust blood pressure medications. * Bilateral leg edema: Chronic. Reports that he uses YUKI hose at home. YUKI hose ordered. Injected conjunctiva of the right eyes. Secondary to injection in the right eye for diabetic macular edema. Per family improving. DVT prophylaxis: SCDs ordered. Charges/Coding Visit Charges Inpatient E&M: 11635 Subs Hosp L2
[2023-09-10] MEDS: amLODIPine 10 MG Tablet PO (08:15)
[2023-09-10] MEDS: Metoprolol Tartrate 25 MG Tablet PO ×2 (08:15→21:39)
[2023-09-10] MEDS: buPROPion (SR) 150 MG Tablet.SA PO (08:16)
--- NOTE | 2023-09-10 08:18 | PCM.CONS.C ---
Assessment & Plan Assessment/Plan (1) NSTEMI, initial episode of care: PLAN: He presents with chest discomfort which has some atypical features. However he does have elevation of his cardiac enzymes suggestive of a non-ST elevation myocardial infarction. Ultimately he would need evaluation of his coronary anatomy. He is however febrile at this time and we will defer this for now. He will continue on his beta-jim He will continue the high intensity statin We will hold off on heparin until a pericardial effusion is excluded. (2) S/P CABG x 4: PLAN: He is status post four-vessel coronary bypass surgery as noted above. This will be reevaluated prior to his discharge. (3) Essential hypertension: PLAN: He does have a history of hypertension his blood pressure appears to be under good control. I would not recommend that we make any changes at this time. (4) Pericardial disease: PLAN: He does have features which are suggestive of pericardial disease. I would like us to obtain an echocardiogram. It is not clear whether his fever is related to his urinary tract infection or from possible pericardial disease. We will await cultures Thank you for allowing me to participate in the care of your patient. Please don't hesitate to call if any issues arise. HPI Consult Data Date of Consult: 09/10/23 HPI Narrative HPI Narrative: SAQIB SEVILLA, is a 57 M who presents with chest discomfort which he describes as sharp on the right side and appears to be worse with deep inspiration or lying down. It seems to be better when he sits up. He denies any recent upper respiratory tract infection though he has had a fever over the last 3 days and was also treated at the urgent care clinic for urinary tract infection. He has a history of coronary artery disease status post CABG x4 LOCKWOOD to LAD, SVG to diagonal, SVG to OM1, SVG to PDA of RCA in 2020. He also has a history of hypertension, hyperlipidemia, diabetes mellitus, previous cerebrovascular accident in 2017 and in 2020. In addition he does have obstructive sleep apnea and uses CPAP therapy. He had been doing well at his last visit in the office. He denies palpitations. He states bilateral lower extremity edema a month go that improved with Lasix. This resolved after starting. He denies claudication. He denies shortness of breath with activity, shortness of breath at rest, orthopnea, or PND. He states intermittent cough. He denies significant, sudden weight gain. He denies lightheadedness, dizziness, near-syncope, or syncope. He denies blood in urine, blood in stool, or epistaxis. He has also been febrile the last 3 days. He needed to be catheterized when he came in. His EKG did not demonstrate any acute changes or his chest x-ray. Troponins were however elevated. Sed rate as well as C-reactive protein were also elevated. He says he is doing better at this time. [facility] Medical History Abnormal stress echocardiogram Acute left hemiparesis Cognitive dysfunction due to acute cerebrovascular accident (CVA) Diabetic nephropathy with proteinuria Diabetic retinopathy associated with uncontrolled type 2 diabetes mellitus Essential hypertension History of CVA (cerebrovascular accident) Hyperlipidemia associated with type 2 diabetes mellitus Hypertriglyceridemia Obstructive sleep apnea Physical debility Sarcoid Stenosis of left carotid artery Stenosis of left vertebral artery Uncontrolled type II diabetes mellitus Visual field cut Home Medications aspirin 81 mg chewable tablet 81 mg PO DAILY@0800 [facility] 01/18/20 [History Last Taken Unknown] acetaminophen 325 mg tablet 650 mg (2 x 325 mg) PO Q4H PRN PRN Pain Score 1-09/0802/02/20 [Rx Last Taken Unknown] amlodipine 10 mg tablet 10 mg PO DAILY #30 tabs 02/02/20 [Rx Last Taken Unknown] atorvastatin 80 mg tablet 80 mg PO QHS Cholesterol #30 tabs 02/02/20 [Rx Last Taken Unknown] clopidogrel 75 mg tablet 75 mg PO DAILY blood thinner #30 tabs 02/02/20 [Rx Last Taken Unknown] bupropion HCl 150 mg tablet,12 hr sustained-release (Wellbutrin SR) 150 mg PO DAILY 07/09/22 [History Last Taken Unknown] hydrochlorothiazide 12.5 mg capsule 25 mg PO DAILY 07/09/22 [History Last Taken Unknown] sildenafil 100 mg tablet (Viagra) 100 mg PO DAILY PRN sexual activity 07/09/22 [History Last Taken Unknown] diphenhydramine HCl 25 mg capsule (Benadryl) 25 mg PO QHS PRN sleep 08/25/22 [History Last Taken Unknown] insulin detemir U-100 100 unit/mL (3 mL) subcutaneous pen 40 unit subcut QHS 08/25/22 [History Last Taken Unknown] metformin 500 mg tablet 500 mg PO BID 08/25/22 [History Last Taken Unknown] metoprolol tartrate 25 mg tablet 25 mg PO BID 08/25/22 [History Last Taken Unknown] nitrofurantoin monohydrate/macrocrystals 100 mg capsule 100 mg PO Q12H 09/09/23 [History Last Taken Unknown] Allergy/AdvReac Type Severity Reaction Status Date / Time bee venom protein (honey bee) Allergy Severe tunnel Verified 09/09/23 18:42 vision, bp drops Family History Father , of blood clots Hypertension Mother Cancer in leg muscle Surgical History History of hernia repair (2007) History of left heart catheterization (04/11/20) History of vein stripping (2008) S/P CABG x 4 (04/18/20) Social History Smoking Status: Never smoker ROS Constitutional Constitutional: Denies fever(s) or weight loss Eyes Eyes: Reports systems reviewed and no addt'l complaints, except as documented ENT HEENT: Reports systems reviewed and no addt'l complaints, except as documented Cardiovascular Cardiovascular: Reports chest pain at rest and chest pain with activity; Denies dyspnea at rest, dyspnea on exertion, edema, palpitations or paroxysmal nocturnal dyspnea Respiratory/Chest Respiratory/Chest: Denies dyspnea on exertion, productive cough, shortness of breath at rest or shortness of breath with exertion Gastrointestinal Gastrointestinal: Denies change in bowel habits, nausea, vomiting or weight changes Genitourinary Genitourinary: Reports difficulty urinating Musculoskeletal Musculoskeletal: Denies joint stiffness or muscle weakness Integumentary Integumentary: Denies lesions Neurologic Neurologic: Denies dizziness or syncope Psychiatric Psychiatric: Denies anxiety Endocrine Endocrinology: Denies excessive sweating or fatigue Hematologic/Lymphatic Hematologic/Lymphatic: Denies anemia Allergic/Immunologic Allergic/Immunologic: Denies seasonal rhinorrhea Physical Exam Const alert, oriented x3 and no apparent distress General Appearance: cooperative HEENT hearing grossly normal bilaterally Head and Scalp: atraumatic Eyes EOMs intact bilaterally Neck General: normal visual inspection Chest inspection of chest normal and palpation of chest normal Resp normal respiratory effort Auscultation: clear to auscultation bilaterally Cardio regular rate, regular rhythm, S1 normal heart sound and S2 normal heart sound Jugular Venous Distention: JVD Heart Sounds: murmur systolic I/ soft and rub pericardial friction rub GI normal to inspection, nondistended, normoactive bowel sounds Extremity normal capillary refill and no pedal edema Peripheral Pulses: Yes pulses 2+ throughout and femoral pulses present Skin no rashes or lesions noted Neuro oriented x3 and CN's II-XII intact bilaterally Psych Appearance: grossly normal and appropriate Risk Stratification Risk Stratification Applicable: Yes Age >/= 65: No >/= 3 CAD Risk Factors (HTN, HLD, DM, family hx of CAD, or current smoker): Yes Aspirin Use in the Past 7 Days: Yes Severe Angina (>/= episodes in 24 hours): No EKG ST Changes >/= 0.5mm: No Positive Cardiac Marker: Yes YULI Risk Stratification Score: 3 YULI % Risk: 13% Risk Objective Data Vital Signs: Vital Signs Temp Pulse Resp BP Pulse Ox O2 Del Method 97.8 F 102 H 18 152/78 H 96 Room Air 09/10/23 05:06 09/10/23 08:15 09/10/23 05:06 09/10/23 06:15 09/10/23 05:06 09/10/23 06:19 Oxygen Delivery Method Room Air Weight: 258 lb 2.581 oz Body Mass Index (BMI) 37.0 Intake & Output: Intake and Output for Last 24 Hours 09/08/23 09/09/23 09/10/23 23:59 23:59 23:59 Intake Total 50 / 50 1050 / 1050 Output Total 0 / 0 50 / 50 Balance 50 / 50 1000 / 1000 Lab / Micro Data 09/10/23 02:10 09/10/23 02:10 Labs: Laboratory Results - last 24 hr 09/09/23 19:00: WBC 15.0 H, RBC 3.67 L, Hgb 10.4 L, Hct 34.1 L, MCV 92.9, MCH 28.3, MCHC 30.5 L, RDW Std Deviation 40.7, RDW Coeff of Lefty 11.9, Plt Count 197, MPV 10.3, Immature Gran % (Auto) 0.700, Neut % (Auto) 85.9 H, Lymph % (Auto) 5.9 L, [place] % (Auto) 7.4, Eos % (Auto) 0.0, Baso % (Auto) 0.1, Absolute Neuts (auto) 12.9 H, Absolute Lymphs (auto) 0.89, Nucleated RBC % 0, ESR 51 H, Sodium 135 L, Potassium 4.7, Chloride 104, Carbon Dioxide 24.0, Anion Gap 7, BUN 32 H, Creatinine 2.08 H, Estim Creat Clear Calc 41.43, Est GFR (MDRD) Af Amer 43 L, Est GFR (MDRD) Non-Af 35 L, BUN/Creatinine Ratio 15.4, Glucose 182 H, Calcium 9.1, Troponin I High Sens 541 H* 09/09/23 21:15: Total Bilirubin 0.90, Direct Bilirubin 0.35 H, AST 13 L, ALT 18, Alkaline Phosphatase 94, Troponin I High Sens 690 H*, C-React Prot Ext Range 160.00 H, Total Protein 6.2 L, Albumin 2.8 L, Globulin 3.4 09/09/23 23:48: POC Glucose 147 H 09/10/23 00:40: Troponin I High Sens 1196 H* 09/10/23 02:10: WBC 13.6 H, RBC 3.22 L, Hgb 9.2 L, Hct 30.0 L, MCV 93.2, MCH 28.6, MCHC 30.7 L, RDW Std Deviation 39.7, RDW Coeff of Lefty 11.7, Plt Count 165, MPV 10.2, Immature Gran % (Auto) 0.600, Neut % (Auto) 79.1 H, Lymph % (Auto) 10.4 L, [place] % (Auto) 9.5, Eos % (Auto) 0.1, Baso % (Auto) 0.3, Absolute Neuts (auto) 10.8 H, Absolute Lymphs (auto) 1.42, Nucleated RBC % 0, PT 17.1 H, INR 1.4, APTT 37.7 H, Sodium 137, Potassium 4.2, Chloride 108 H, Carbon Dioxide 23.0, Anion Gap 6, BUN 31 H, Creatinine 1.82 H, Estim Creat Clear Calc 47.35, Est GFR (MDRD) Af Amer 50 L, Est GFR (MDRD) Non-Af 41 L, BUN/Creatinine Ratio 17.0, Glucose 157 H, Calcium 8.5 Micro: Microbiology 09/09/23 21:03 Mucosa - Nasopharyngeal Respiratory Panel (PCR) - Final 09/09/23 19:00 Nasal Secretion SARS-CoV-2 & FLU Antigen (Rapid) - Final Cardiology Labs/Tests 09/09/23 19:00: WBC 15.0 H, RBC 3.67 L, Hgb 10.4 L, Hct 34.1 L, MCV 92.9, MCH 28.3, MCHC 30.5 L, Plt Count 197, MPV 10.3, Immature Gran % (Auto) 0.700, Neut % (Auto) 85.9 H, Lymph % (Auto) 5.9 L, [place] % (Auto) 7.4, Eos % (Auto) 0.0, Baso % (Auto) 0.1, Absolute Neuts (auto) 12.9 H, Nucleated RBC % 0, Sodium 135 L, Potassium 4.7, Chloride 104, Carbon Dioxide 24.0, Anion Gap 7, BUN 32 H, Creatinine 2.08 H, Est GFR (MDRD) Af Amer 43 L, Est GFR (MDRD) Non-Af 35 L, BUN/Creatinine Ratio 15.4, Glucose 182 H, Calcium 9.1 09/09/23 21:15: Total Bilirubin 0.90, Direct Bilirubin 0.35 H 09/10/23 02:10: WBC 13.6 H, RBC 3.22 L, Hgb 9.2 L, Hct 30.0 L, MCV 93.2, MCH 28.6, MCHC 30.7 L, Plt Count 165, MPV 10.2, Immature Gran % (Auto) 0.600, Neut % (Auto) 79.1 H, Lymph % (Auto) 10.4 L, [place] % (Auto) 9.5, Eos % (Auto) 0.1, Baso % (Auto) 0.3, Absolute Neuts (auto) 10.8 H, Nucleated RBC % 0, PT 17.1 H, INR 1.4, APTT 37.7 H, Sodium 137, Potassium 4.2, Chloride 108 H, Carbon Dioxide 23.0, Anion Gap 6, BUN 31 H, Creatinine 1.82 H, Est GFR (MDRD) Af Amer 50 L, Est GFR (MDRD) Non-Af 41 L, BUN/Creatinine Ratio 17.0, Glucose 157 H, Calcium 8.5 Rhythm: EKG: ECHO: Stress Test: Cardiac Cath: PCI: CT Surgery: Holter monitor: EPS: PPM: CXR: Chest CT Scan: Radiography Diagnostic Testing: Radiology Impression Chest X-Ray 09/09/23 19:16 IMPRESSION: No acute pulmonary finding. Electronically Signed: Samir Oneal MD at 19:32 EDT ,
[2023-09-10] MEDS: Aspirin 81 MG TAB.CHEW PO (09:30)
[2023-09-10] MEDS: 0.9% Normal Saline (1000mL) 1,000 ML 100 ML IV ×2 (12:26→21:41)
--- NOTE | 2023-09-10 13:35 | CASEMGMT ---
JAMAL GONZALEZ Face to Face with patient for initial transition planning/care coordination assessment. RN CM introduced self and role at [facility]. Patient lying in bed, alert and oriented, at bedside. Patient willing to participate in assessment and is able to answer all questions appropriately. Care providers, pharmacy, and demographics verified. Patient wishes to discharge home, denies need for home health at this time. Patient states he has no further needs or concerns at this time. CM to follow for discharge planning needs that may arise. PCP: Helen Howe Specialists: Elma probation officer; LAURY, supervisor whipped topping Preferred Pharmacy: [facility] Insurance: [employer] Prescription Benefit:yes Living Will/HPOA: none LNOK: Living Arrangements: Patient lives with in a 2 story home with bed and bath on first floor, 1 step to enter the home. Patient states he is independent at home. Transportation: self, DME/HHC: Patient has shower chair, rasied toilet, grab bars, walker, cpap at home. Patient has been to Rehab Unit in the past. Disposition Plan: Patient to discharge home with family support and follow-up plans in place. Alice TRINIDAD, RN, CM
--- NOTE | 2023-09-10 14:59 | PHA.DC_ITS ---
Pharmacy [place] Med Reconciliation Pharmacy Service has performed discharge medication reconciliation for this patient. No new medications at time of medication list review. Medications reviewed are from previously reported home medications. The patient's discharge medication list was reviewed for discrepancies and discrepancies were resolved. Medications at Discharge Home Medications aspirin 81 mg chewable tablet 81 mg PO DAILY@0800 [facility] 01/18/20 acetaminophen 325 mg tablet 650 mg (2 x 325 mg) PO Q4H PRN PRN Pain Score 1- 09/0802/02/20 amlodipine 10 mg tablet 10 mg PO DAILY #30 tabs 02/02/20 atorvastatin 80 mg tablet 80 mg PO QHS Cholesterol #30 tabs 02/02/20 clopidogrel 75 mg tablet 75 mg PO DAILY blood thinner #30 tabs 02/02/20 bupropion HCl 150 mg tablet,12 hr sustained-release (Wellbutrin SR) 150 mg PO DAILY 07/09/22 hydrochlorothiazide 12.5 mg capsule 25 mg PO DAILY 07/09/22 sildenafil 100 mg tablet (Viagra) 100 mg PO DAILY PRN sexual activity 07/09/22 diphenhydramine HCl 25 mg capsule (Benadryl) 25 mg PO QHS PRN sleep 08/25/22 insulin detemir U-100 100 unit/mL (3 mL) subcutaneous pen 40 unit subcut QHS 08/25/22 metformin 500 mg tablet 500 mg PO BID 08/25/22 metoprolol tartrate 25 mg tablet 25 mg PO BID 08/25/22 nitrofurantoin monohydrate/macrocrystals 100 mg capsule 100 mg PO Q12H 09/09/23
--- NOTE | 2023-09-10 16:48 | CL.D_ITS ---
Patient Name: SAQIB SEVILLA Study Date: 09/10/2023 Performing: Slade Ulloa MD Ht: 70 inches 177.8 cm : 1965 Wt: 258.5 lbs 117.1 kg Age: 57 Gender: male BSA: 2.33 PROCEDURE(S) PERFORMED DC11-([id number])AO ROOT ANGIO WITH HEART CATH DC02-([id number])LHC/COR CLINICAL PROFILE AND INDICATIONS Indications: ACS <= 24 hrs Heart Failure: None Stress/Imaging Stress/Image Study Performed: No CAD Presentations: Non-STEMI. 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 RECOMMENDATIONS Medical therapy DESCRIPTION OF PROCEDURE The patient arrived to the procedure lab. The risks and benefits of the procedure as well as a full description of our services here and current unavailability of surgical backup were fully explained to the patient and/or their significant other prior to the catheterization. The Timeout was completed, verifying the correct patient and procedure. The patient's procedural site was prepped and draped in the usual fashion. Local anesthetic was given subcutaneously to right groin region with Lidocaine 2%. Using a modified Seldinger technique, Left Coronary Artery selective angiography was performed in multiple views using a 5 Fr. JL4 catheter. Right Coronary Artery selective angiography was then performed in multiple views using a 5 Fr. 3DRC (Jens) catheter. Left internal mammary artery graft to the LAD selective angiography was performed in multiple views using a 5 Fr. IM catheter. Ascending (root) aorta selective angiography was then performed in single view. Ascending (root) aorta selective angiography was then performed in single view.The arterial sheath was pulled and manual compression applied until hemostasis is achieved. CORONARY ANGIOGRAPHY DOMINANCE: Right Dominant LEFT HEART ASSESSMENT Left Ventricular Ejection Fraction: by Echo 55 % Inferior Basal Hypokinesis - Moderate LEFT MAIN: Angiographically normal LEFT ANTERIOR DESCENDING ARTERY: OSTIAL LAD: is occluded CIRCUMFLEX ARTERY: High-grade mid left circumflex artery stenosis and a small nondominant vessel RIGHT CORONARY ARTERY: PROX RCA: is occluded GRAFTS: LOCKWOOD graft to the Mid LAD is patent Saphenous Vein graft to the 1st Diagonal is totally occluded Saphenous Vein graft to the RPDA is totally occluded Saphenous Vein graft to the Mid CIRC is totally occluded COLLATERAL FLOW: Collateral flow from Left to Right AORTIC ROOT: No additional grafts are noted COMPLICATIONS No Complications PROCEDURE MEDICATIONS Versed 1 mg IV Oxygen: 2 L/min via nasal cannula Oxygen: 4 L/min via nasal cannula SUMMARY OF HEMODYNAMIC DATA Time AIR REST ECG 10:41:15 AO 136/65 (91) SA 11:18:27 Signed By Slade Ulloa MD On 09/10/2023 16:47:17 Slade Ulloa MD
[2023-09-10] MEDS: Juven (unflavored) Packet 1 PACKET PO (18:58)
[2023-09-10 20:57] LABS: Mucous, Urine 0 SEEN /hpf (<or=2+)
[2023-09-10 21:02] LABS: Color, Urine Yellow (Yellow); Glucose, Dipstick Normal (Normal); Ketone-Dipstick 5 mg/dl (Negative); Leukocyte Esterase-Dipstick 25 /ul (Negative); Nitrite-Dipstick Negative (Negative); Occult Blood-Urine 250 /ul (Negative); Protein-Dipstick 100 mg/dl (Negative); Specific Gravity, Urine 1.015 (1.002-1.030); Urine Bilirubin Dipstick Negative (Negative); Urine Clarity Sl. Cloudy (Clear); Urine Urobilinogen Normal (Normal)
[2023-09-10 21:15] LABS: Bacteria RARE /hpf (None Seen); Red Blood Cells-Urine 5-10 SEEN /hpf (0-5); Squamous Epithelial Cells - UA 0-5 SEEN /hpf (0-5); White Blood Cells 0-5 SEEN /hpf (0-5)
[2023-09-10] MEDS: Atorvastatin Calcium 80 MG Tablet PO (21:38)
[2023-09-10] MEDS: Ceftriaxone 2 GM in 0.9% Normal Saline (50mL MB+) 50 ML IV (21:43)
[2023-09-10] MEDS: Insulin Lispro 100 UNIT/ML INSULN.PEN SC (21:51)
[2023-09-10] MEDS: DiphenhydrAMINE 25 MG Capsule PO (21:54)
[2023-09-11] VITALS (11 sets, daily range): BP systolic 148–174; BP diastolic 57–109; PULSE 73–104; RESP 16–20; TEMP 36.9–38.2; O2SAT 86–98
[2023-09-11] MEDS: Insulin Lispro 100 UNIT/ML INSULN.PEN SC ×4 (06:24→21:34)
[2023-09-11] MEDS: Influenza Virus Vac Quad 23-24 60 MCG/0.5 ML SYRINGE IM (06:27)
[2023-09-11 06:52] LABS: Absolute Lymphocyte Count 0.81 X10^3/uL (0.83-4.51); Absolute Neutrophil Count 7.3 X10^3/uL (2.0-7.7); Basophil# 0.03 X10^3/uL; Basophil% 0.3 % (0-1); Eosinophil# 0.02 X10^3/uL; Eosinophils% 0.2 % (0-5); Hematocrit 26.4 % (40-54); Hemoglobin 8.1 g/dL (13.0-16.5); Lymphocyte # 0.81 X10^3/ul (0.83-4.51); Lymphocyte % 8.5 % (19-41); Mean Corp Hgb Conc 30.7 g/dL (32-36); Mean Corpuscular Hgb 28.4 pg (27.0-32.0); Mean Corpuscular Volume 92.6 fL (80-94); Mean Platelet Vol. 10.7 fl (6.2-12.0); Monocyte# 1.26 X10^3/uL; Monocyte% 13.2 % (0-10); NRBC Flagged by Analyzer 0 % (0-5); Neutrophil # 7.32 X10^3/uL (2.7-7.7); Neutrophil % 77.1 % (47-70); Platelet Count 165 K/mm3 (150-450); RBC Distribution Width CV 11.8 % (11.6-14.6); RBC Distribution Width SD 40.1 fl (35.1-43.9); Red Blood Count 2.85 M/mm3 (4.6-6.2); White Blood Count 9.5 K/mm3 (4.4-11.0)
--- NOTE | 2023-09-11 06:55 | EKG12_ITS ---
Test Reason : CP Blood Pressure : / mmHG Vent. Rate : 092 BPM Atrial Rate : 092 BPM P-R Int : 176 ms QRS Dur : 102 ms QT Int : 368 ms P-R-T Axes : 053 061 090 degrees QTc Int : 455 ms Normal sinus rhythm Nonspecific ST and T wave abnormality Abnormal ECG When compared with ECG of 10-SEP-2023 06:50, MANUAL COMPARISON REQUIRED, DATA IS UNCONFIRMED Confirmed by GEOFF VELAZQUEZ, ALONZO ([id number]), copy editor VANITA LEE ([id number]) on 09/24/2023 11:46:20 AM Referred By: KATHI Confirmed By:ALONZO TELLEZ MD
[2023-09-11] MEDS: 0.9% Normal Saline (1000mL) 1,000 ML 100 ML IV ×2 (06:57→16:55)
[2023-09-11 07:00] LABS: International Normalized Ratio 1.3; Prothrombin Time (Protime)PT. 16.3 SECONDS (11.7-14.9)
[2023-09-11 07:01] LABS: Partial Thromboplast Time 35.6 Seconds (24.1-36.2)
[2023-09-11] MEDS: Morphine 2 MG/ML Syringe IV (07:07)
--- NOTE | 2023-09-11 07:17 | PCM.PN.CARD ---
Subjective Subjective Patient seen and evaluated. Appears to be doing well other than a cough. Objective Data Vital Signs: Vital Signs Temp Pulse Resp BP Pulse Ox O2 Del Method O2 Flow Rate 98.5 F 73 18 160/57 H 91 CPAP 3 09/11/23 06:17 09/11/23 06:17 09/11/23 06:17 09/11/23 06:17 09/11/23 06:17 09/11/23 06:17 09/10/23 21:27 Oxygen Flow Rate (L/min) 3 Oxygen Delivery Method CPAP Weight: 258 lb 2.581 oz Body Mass Index (BMI) 37.0 Intake & Output: Intake and Output for Last 24 Hours 09/09/23 09/10/23 09/11/23 23:59 23:59 23:59 Intake Total 50 / 50 3447.93 / 3447.93 1126.67 / 1126.67 Output Total 0 / 0 600 / 600 100 / 100 Balance 50 / 50 2847.93 / 2847.93 1026.67 / 1026.67 Lab / Micro Data 09/11/23 06:12 09/10/23 02:10 Labs: Laboratory Results - last 24 hr 09/10/23 09:15: APTT 53.0 H 09/10/23 15:10: Urine Color Yellow, Urine Clarity Sl. Cloudy, Urine pH 5.0, Ur Specific [place] 1.015, Urine Protein 100 H, Urine Glucose (UA) Normal, Urine Ketones 5 H, Urine Occult Blood 250 H, Urine Nitrite Negative, Urine Bilirubin Negative, Urine Urobilinogen Normal, Ur Leukocyte Esterase 25 H, Urine RBC 5-10 SEEN, Urine WBC 0-5 SEEN, Ur Squamous Epith Cells 0-5 SEEN, Urine Bacteria RARE, Urine Mucus 0 SEEN 09/11/23 06:12: WBC 9.5, RBC 2.85 L, Hgb 8.1 L, Hct 26.4 L, MCV 92.6, MCH 28.4, MCHC 30.7 L, RDW Std Deviation 40.1, RDW Coeff of Lefty 11.8, Plt Count 165, MPV 10.7, Immature Gran % (Auto) 0.700, Neut % (Auto) 77.1 H, Lymph % (Auto) 8.5 L, [place] % (Auto) 13.2 H, Eos % (Auto) 0.2, Baso % (Auto) 0.3, Absolute Neuts (auto) 7.3, Absolute Lymphs (auto) 0.81 L, Nucleated RBC % 0, PT 16.3 H, INR 1.3, APTT 35.6 Micro: Microbiology 09/09/23 21:03 Mucosa - Nasopharyngeal Respiratory Panel (PCR) - Final Cardiology Labs/Tests 09/10/23 09:15: APTT 53.0 H 09/10/23 15:10: Urine Color Yellow, Urine Clarity Sl. Cloudy, Urine pH 5.0, Ur Specific [place] 1.015, Urine Protein 100 H, Urine Glucose (UA) Normal, Urine Ketones 5 H, Urine Occult Blood 250 H, Urine Nitrite Negative, Urine Bilirubin Negative, Urine Urobilinogen Normal, Ur Leukocyte Esterase 25 H, Urine RBC 5-10 SEEN, Urine WBC 0-5 SEEN 09/11/23 06:12: WBC 9.5, RBC 2.85 L, Hgb 8.1 L, Hct 26.4 L, MCV 92.6, MCH 28.4, MCHC 30.7 L, Plt Count 165, MPV 10.7, Immature Gran % (Auto) 0.700, Neut % (Auto) 77.1 H, Lymph % (Auto) 8.5 L, [place] % (Auto) 13.2 H, Eos % (Auto) 0.2, Baso % (Auto) 0.3, Absolute Neuts (auto) 7.3, Nucleated RBC % 0, PT 16.3 H, INR 1.3, APTT 35.6 Rhythm: EKG: ECHO: Stress Test: Cardiac Cath: PCI: CT Surgery: Holter monitor: EPS: PPM: CXR: Chest CT Scan: Radiography Diagnostic Testing: Radiology Impression Echocardiogram 09/10/23 05:55 Interpretation Summary Normal LV size. Left ventricular systolic function is normal. The estimated ejection fraction is 55 %. Mid-Inferior: Hypokinetic Mild focal aortic valve calcification. Stage 1 diastolic dysfunction. Ordering Physician: Darion Francis Referring Physician: Julien Patel Performed By: Azul Langford RCS Physical Exam Const alert, oriented x3 and no apparent distress General Appearance: cooperative HEENT hearing grossly normal bilaterally Head and Scalp: atraumatic Eyes EOMs intact bilaterally Neck General: normal visual inspection Chest inspection of chest normal and palpation of chest normal Resp normal respiratory effort Auscultation: clear to auscultation bilaterally Cardio regular rate, regular rhythm, S1 normal heart sound and S2 normal heart sound Jugular Venous Distention: JVD Heart Sounds: murmur systolic I/ soft and rub pericardial friction rub GI normal to inspection, nondistended, normoactive bowel sounds Extremity normal capillary refill and no pedal edema Peripheral Pulses: Yes pulses 2+ throughout and femoral pulses present Skin no rashes or lesions noted Neuro oriented x3 and CN's II-XII intact bilaterally Psych Appearance: grossly normal and appropriate Assessment & Plan Assessment/Plan (1) NSTEMI, initial episode of care: PLAN: He presents with chest discomfort which has some atypical features. Does appear to have resolved. His echocardiogram demonstrated preserved left ventricular systolic function. He underwent a cardiac catheterization which demonstrated occlusion of his bypass grafts except for his [place]. Plan at this time will be to continue him on medical therapy. He previously had an occluded right coronary artery and a high-grade circumflex artery with a patent LAD. His anatomy at this time appears to be similar to prebypass. He will have his medications optimized and can be discharged from the cardiac standpoint for follow-up in the office. Not sure I understand why his hemoglobin is 8. This can be evaluated by primary care and or GI (2) S/P CABG x 4: PLAN: He is status post four-vessel coronary bypass surgery as noted above. I did explain to him and his family in detail about the possible pathology. (3) Essential hypertension: PLAN: He does have a history of hypertension his blood pressure appears to be under good control. I would not recommend that we make any changes at this time.
[2023-09-11 07:22] LABS: Anion Gap 9 (5-15); BUN 39 mg/dL (7-18); BUN/Creat Ratio 17.9 RATIO (10-20); Calcium,Total 8.2 mg/dL (8.5-10.1); Chloride 109 mmol/L (98-107); Creatinine, Serum 2.18 mg/dL (0.70-1.30); EST Glomerular Filtration Rate 34 mL/min (>60); Est Glom Filt Rate - Afr Amer 41 mL/min (>60); Estimated Creatinine Clearance 39.53 ml/min; Glucose 172 mg/dL (74-106); Potassium 4.2 mmol/L (3.5-5.1); Sodium Level 140 mmol/L (136-145)
--- NOTE | 2023-09-11 08:10 | PN.HOSP_ITS ---
Reason for Visit Reason for Visit: Diagnoses Type 2 diabetes mellitus with unspecified diabetic retinopathy without macular edema (09/09/23) Type 2 diabetes mellitus with hyperglycemia (09/09/23) Non-ST elevation (NSTEMI) myocardial infarction (09/09/23) Acute kidney failure, unspecified (09/09/23) Acute cystitis without hematuria (09/09/23) Chest pain, unspecified (09/09/23) Other specified abnormal findings of blood chemistry (09/09/23) Subjective Subjective Chest pain again today. Currently resolved. Complains of urinary frequency and incomplete emptying of his bladder. Objective Data Objective Data Vital Signs: Vital Signs Temp Pulse Resp BP Pulse Ox O2 Del Method O2 Flow Rate 36.9 C 73 18 160/57 H 91 CPAP 3 09/11/23 06:17 09/11/23 06:17 09/11/23 06:17 09/11/23 06:17 09/11/23 06:17 09/11/23 06:17 09/10/23 21:27 Oxygen Flow Rate (L/min) 3 Oxygen Delivery Method CPAP Weight: 117.1 kg Body Mass Index (BMI) 37.0 Intake & Output: Intake and Output for Last 24 Hours 09/09/23 09/10/23 09/11/23 23:59 23:59 23:59 Intake Total 50 / 50 3447.93 / 3447.93 1126.67 / 1126.67 Output Total 0 / 0 600 / 600 100 / 100 Balance 50 / 50 2847.93 / 2847.93 1026.67 / 1026.67 Lab / Micro Data 09/11/23 11:00 09/11/23 06:12 Labs: Laboratory Results - last 24 hr 09/10/23 09:15: APTT 53.0 H 09/10/23 15:10: Urine Color Yellow, Urine Clarity Sl. Cloudy, Urine pH 5.0, Ur Specific [place] 1.015, Urine Protein 100 H, Urine Glucose (UA) Normal, Urine Ketones 5 H, Urine Occult Blood 250 H, Urine Nitrite Negative, Urine Bilirubin Negative, Urine Urobilinogen Normal, Ur Leukocyte Esterase 25 H, Urine RBC 5-10 SEEN, Urine WBC 0-5 SEEN, Ur Squamous Epith Cells 0-5 SEEN, Urine Bacteria RARE, Urine Mucus 0 SEEN 09/11/23 06:12: WBC 9.5, RBC 2.85 L, Hgb 8.1 L, Hct 26.4 L, MCV 92.6, MCH 28.4, MCHC 30.7 L, RDW Std Deviation 40.1, RDW Coeff of [place]ef[place] 11.8, Plt Count 165, MPV 10.7, Immature Gran % (Auto) 0.700, Neut % (Auto) 77.1 H, Lymph % (Auto) 8.5 L, [place] % (Auto) 13.2 H, Eos % (Auto) 0.2, Baso % (Auto) 0.3, Absolute Neuts (auto) 7.3, Absolute Lymphs (auto) 0.81 L, Nucleated RBC % 0, PT 16.3 H, INR 1.3, APTT 35.6, Sodium 140, Potassium 4.2, Chloride 109 H, Carbon Dioxide 22.0, Anion Gap 9, BUN 39 H, Creatinine 2.18 H, Estim Creat Clear Calc 39.53, Est GFR (MDRD) Af Amer 41 L, Est GFR (MDRD) Non-Af 34 L, BUN/Creatinine Ratio 17.9, Glucose 172 H, Calcium 8.2 L Micro: Microbiology 09/09/23 21:03 Mucosa - Nasopharyngeal Respiratory Panel (PCR) - Final 09/09/23 19:00 Nasal Secretion SARS-CoV-2 & FLU Antigen (Rapid) - Final Radiography Diagnostic Testing: Radiology Impression Echocardiogram 09/10/23 05:55 Interpretation Summary Normal LV size. Left ventricular systolic function is normal. The estimated ejection fraction is 55 %. Mid-Inferior: Hypokinetic Mild focal aortic valve calcification. Stage 1 diastolic dysfunction. Ordering Physician: Darion Francis Referring Physician: Julien Patel Performed By: Azul Langford RCS Physical Exam Const alert and no apparent distress HEENT head/scalp atraumatic and moist oral mucous membranes Neck no lymphadenopathy, supple, no JVD and no carotid bruits Resp normal respiratory effort, no retractions, no use of accessory muscles and clear to auscultation bilaterally Cardio regular rate, regular rhythm, S1 normal heart sound and S2 normal heart sound GI normal to inspection, nondistended, normoactive bowel sounds, soft to palpation, non-tender and non-distended Extremity normal to inspection and full ROM Neuro Sensorium / Orientation: awake and alert Assessment & Plan Assessment/Plan (1) NSTEMI, initial episode of care: PLAN: Troponins peaked at 1196. On heparin gtt, ASA, atorvastatin, clopidogrel, metoprolol Cardiology consult. Left heart cath showed most of bypass grafts closed. Normal EF Echo shows an EF of 55%. Mid inferior hypokinetic. Dtr asking about referral to cardiothoracic surgery. Pt has reportedly not seen the surgeon in 3 years. When the daughter called to set up an appointment, they told her that they will require a referral. DW Dr. Ulloa, he will make arrangements for the referral. (2) UTI (urinary tract infection): QUALIFIERS: Hematuria presence: without hematuria Urinary tract infection type: acute cystitis Qualified Code(s): N30.00 - Acute cystitis without hematuria PLAN: subsequent evaluation. repeat UA unremarkable on CTX, was on nitrofurantonin as outpt. (3) DAVID (acute kidney injury): PLAN: No recent baseline Admission creatinine was 2.08, down to 1.82 On IVF concern for post renal. Check kidney US. Urine studies. I am concerned pt has BPH, will check post void residual. Start tamsulosin. (4) Anemia: QUALIFIERS: Anemia type: other cause PLAN: Hg dropped from 10.4 now down to 8.1. 8.7 on repeat. Monitor PLAN: Plan Chronic conditions: * Diabetes mellitus type 2 with retinopathy:Blood glucose is stable. On patient's own a glucometer on his cell phone his blood glucose was 140. We will hold off home metformin and basal insulin as patient will be n.p.o. after midnight and was not willing to eat at the time of examination.Accu-Chek with correction scale insulin ordered. * Hypertension: Metoprolol continued. With holding home hydrochlorothiazide for DAVID as needed hydralazine ordered. Trend blood pressure and adjust blood pressure medications. * Bilateral leg edema: Chronic. Reports that he uses YUKI hose at home. YUKI hose ordered. DVT prophylaxis: SCDs ordered. Greater than 55 minutes of which greater than 50% of the time was counseling the patient, about his heart disease, DAVID, likelihood of BPH and urinary retention. Charges/Coding Visit Charges Inpatient E&M: 67689 Subs Hosp L3
[2023-09-11] MEDS: Furosemide 20 MG/2 ML VIAL IV (10:17)
[2023-09-11] MEDS: Aspirin 81 MG TAB.CHEW PO (10:18)
[2023-09-11] MEDS: Juven (unflavored) Packet 1 PACKET PO ×2 (10:18→16:56)
[2023-09-11] MEDS: Clopidogrel Bisulfate 75 MG Tablet PO (10:19)
[2023-09-11] MEDS: Metoprolol Tartrate 25 MG Tablet PO ×2 (10:19→21:34)
[2023-09-11] MEDS: buPROPion (SR) 150 MG Tablet.SA PO (10:19)
[2023-09-11] MEDS: amLODIPine 10 MG Tablet PO (10:19)
--- NOTE | 2023-09-11 10:42 | US_ITS ---
HISTORY: DAVID. TECHNIQUE: Horowitz scale and color doppler images were obtained of the kidneys. 74 images. COMPARISON: None. FINDINGS: RIGHT KIDNEY: 12 cm in length with a cortical thickness of 1.4 cm. Contour and echogenicity unremarkable. No hydronephrosis. No gross renal mass demonstrated. LEFT KIDNEY: 12.3 cm in length with a cortical thickness of 1.3 cm. Contour and echogenicity unremarkable. No hydronephrosis. No gross renal mass demonstrated. URINARY BLADDER: Unremarkable at 236 cc with a wall thickness of 3 mm. Bilateral ureteral jets visualized. US/Kidney and Bladder IMPRESSION: Unremarkable examination of the kidneys. Electronically Signed: Shirley Mayo MD at 14:18 EDT ,
[2023-09-11 11:15] LABS: Hematocrit 29.1 % (40-54); Hemoglobin 8.7 g/dL (13.0-16.5)
[2023-09-11] MEDS: Tamsulosin HCl 0.4 MG Capsule PO (16:55)
[2023-09-11] MEDS: 0.9% Saline Lock 10 ML Syringe IV ×2 (19:21→21:33)
[2023-09-11] MEDS: Furosemide 40 MG/4 ML Vial IV (19:21)
[2023-09-11] MEDS: Ceftriaxone 2 GM in 0.9% Normal Saline (50mL MB+) 50 ML IV (21:33)
[2023-09-11] MEDS: Atorvastatin Calcium 80 MG Tablet PO (21:34)
[2023-09-11] MEDS: Acetaminophen 325 MG Tablet 650 MG PO (21:37)
[2023-09-12] VITALS (11 sets, daily range): BP systolic 136–175; BP diastolic 68–91; PULSE 69–95; RESP 18; TEMP 36.6–37.3; O2SAT 92–96
[2023-09-12] MEDS: BENZOCAINE/MENTHOL 1 LOZENGE MUCOUS MEM (04:09)
[2023-09-12] MEDS: 0.9% Saline Lock 10 ML Syringe IV (05:07)
[2023-09-12] MEDS: Furosemide 40 MG/4 ML Vial IV (05:07)
[2023-09-12] MEDS: Insulin Lispro 100 UNIT/ML INSULN.PEN SC ×4 (06:29→21:21)
[2023-09-12 08:40] LABS: Absolute Lymphocyte Count 0.85 X10^3/uL (0.83-4.51); Absolute Neutrophil Count 8.2 X10^3/uL (2.0-7.7); Basophil# 0.02 X10^3/uL; Basophil% 0.2 % (0-1); Eosinophil# 0.07 X10^3/uL; Eosinophils% 0.7 % (0-5); Hematocrit 25.6 % (40-54); Hemoglobin 8.1 g/dL (13.0-16.5); Lymphocyte # 0.85 X10^3/ul (0.83-4.51); Lymphocyte % 8.1 % (19-41); Mean Corp Hgb Conc 31.6 g/dL (32-36); Mean Corpuscular Hgb 28.9 pg (27.0-32.0); Mean Corpuscular Volume 91.4 fL (80-94); Mean Platelet Vol. 10.5 fl (6.2-12.0); Monocyte# 1.31 X10^3/uL; Monocyte% 12.5 % (0-10); NRBC Flagged by Analyzer 0 % (0-5); Neutrophil # 8.18 X10^3/uL (2.7-7.7); Platelet Count 184 K/mm3 (150-450); RBC Distribution Width CV 11.7 % (11.6-14.6); RBC Distribution Width SD 39.3 fl (35.1-43.9); White Blood Count 10.5 K/mm3 (4.4-11.0)
[2023-09-12 08:59] LABS: Anion Gap 8 (5-15); BUN 53 mg/dL (7-18); BUN/Creat Ratio 18.2 RATIO (10-20); Calcium,Total 8.2 mg/dL (8.5-10.1); Chloride 110 mmol/L (98-107); Creatinine, Serum 2.92 mg/dL (0.70-1.30); EST Glomerular Filtration Rate 24 mL/min (>60); Est Glom Filt Rate - Afr Amer 29 mL/min (>60); Estimated Creatinine Clearance 29.51 ml/min; Glucose 182 mg/dL (74-106); Potassium 4.1 mmol/L (3.5-5.1); Sodium Level 138 mmol/L (136-145)
--- NOTE | 2023-09-12 09:39 | PN.HOSP_ITS ---
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 Since has been able to be weaned down to 2 L. Breathing comfortably now. Patient does have some urinary hesitancy yesterday but is currently improved after starting tamsulosin. Objective Data Objective Data Vital Signs: Vital Signs Temp Pulse Resp BP Pulse Ox O2 Del Method O2 Flow Rate 37.1 C 77 18 136/68 H 92 CPAP 7 09/12/23 08:20 09/12/23 08:20 09/12/23 08:20 09/12/23 08:20 09/12/23 08:20 09/12/23 08:20 09/12/23 04:15 Oxygen Flow Rate (L/min) 7 Oxygen Delivery Method CPAP Weight: 117.1 kg Body Mass Index (BMI) 37.0 Intake & Output: Intake and Output for Last 24 Hours 09/10/23 09/11/23 09/12/23 23:59 23:59 23:59 Intake Total 3447.93 / 3447.93 2495.01 / 2495.01 100 / 100 Output Total 600 / 600 825 / 825 475 / 475 Balance 2847.93 / 2847.93 1670.01 / 1670.01 -375 / -375 Lab / Micro Data 09/12/23 08:11 09/12/23 08:11 Labs: Laboratory Results - last 24 hr 09/11/23 11:00: Hgb 8.7 L, Hct 29.1 L 09/12/23 08:11: WBC 10.5, RBC 2.80 L, Hgb 8.1 L, Hct 25.6 L, MCV 91.4, MCH 28.9, MCHC 31.6 L, RDW Std Deviation 39.3, RDW Coeff of [place]ef[place] 11.7, Plt Count 184, MPV 10.5, Immature Gran % (Auto) 0.500, Neut % (Auto) 78.0 H, Lymph % (Auto) 8.1 L, [place] % (Auto) 12.5 H, Eos % (Auto) 0.7, Baso % (Auto) 0.2, Absolute Neuts (auto) 8.2 H, Absolute Lymphs (auto) 0.85, Nucleated RBC % 0, Sodium 138, Potassium 4.1, Chloride 110 H, Carbon Dioxide 20.0 L, Anion Gap 8, BUN 53 H, Creatinine 2.92 H, Estim Creat Clear Calc 29.51, Est GFR (MDRD) Af Amer 29 L, Est GFR (MDRD) Non-Af 24 L, BUN/Creatinine Ratio 18.2, Glucose 182 H, Calcium 8.2 L Micro: Microbiology 09/10/23 15:10 Urine, Clean Catch Urine Culture - Final Culture exhibits no growth. 09/09/23 21:03 Mucosa - Nasopharyngeal Respiratory Panel (PCR) - Final 09/09/23 19:00 Nasal Secretion SARS-CoV-2 & FLU Antigen (Rapid) - Final Radiography Diagnostic Testing: Radiology Impression Renal Ultrasound 09/11/23 10:42 IMPRESSION: Unremarkable examination of the kidneys. Electronically Signed: Shirley Mayo MD at 14:18 EDT Reading Location ID and State: [facility] / [place] Tel , Service support , Physical Exam Const alert and no apparent distress HEENT head/scalp atraumatic and moist oral mucous membranes Resp normal respiratory effort and no retractions Resp Narrative: Crackles left lower lobe Cardio regular rate, regular rhythm, S1 normal heart sound and S2 normal heart sound GI normal to inspection, nondistended, normoactive bowel sounds, soft to palpation, non-tender and non-distended Extremity normal to inspection Neuro oriented x3 Sensorium / Orientation: awake and alert Psych affect normal Assessment & Plan Assessment/Plan (1) NSTEMI, initial episode of care: PLAN: Troponins peaked at 1196. On heparin gtt, ASA, atorvastatin, clopidogrel, metoprolol Cardiology consult. Left heart cath showed most of bypass grafts closed. Normal EF Echo shows an EF of 55%. Mid inferior hypokinetic. Dtr asking about referral to cardiothoracic surgery. Pt has reportedly not seen the surgeon in 3 years. When the daughter called to set up an appointment, they told her that they will require a referral. DW Dr. Ulloa, he will make arrangements for the referral. (2) UTI (urinary tract infection): QUALIFIERS: Hematuria presence: without hematuria Urinary tract infection type: acute cystitis Qualified Code(s): N30.00 - Acute cystitis without hematuria PLAN: subsequent evaluation. repeat UA unremarkable on CTX, was on nitrofurantonin as outpt. (3) DAVID (acute kidney injury): PLAN: Worsening. Concern for contrast nephropathy. IVF discontinued given worsening respiratory status Patient does not have postobstructive findings that based on his ultrasound as well as his postvoid residual. Though patient states that his not have any urinary hesitancy was before since starting tamsulosin so we will continue with that for now. Kidney US: unremarkable. Consult nephrology. (4) Anemia: QUALIFIERS: Anemia type: iron deficiency Iron deficiency anemia type: unspecified iron deficiency Qualified Code(s): D50.9 - Iron deficiency anemia, unspecified PLAN: Hg dropped from 10.4 now down to 8.1. Monitor Iron level 16, ferritin 135, folate 9.5, TSH 1.39. B12 and Hemoccult pending. Will start ferrous sulfate every other day dosing. PLAN: Plan Chronic conditions: * Diabetes mellitus type 2 with retinopathy:Blood glucose is stable. On patient's own a glucometer on his cell phone his blood glucose was 140. We will hold off home metformin and basal insulin as patient will be n.p.o. after midnight and was not willing to eat at the time of examination.Accu-Chek with correction scale insulin ordered. * Hypertension: Metoprolol continued. With holding home hydrochlorothiazide for DAVID as needed hydralazine ordered. Trend blood pressure and adjust blood pressure medications. * Bilateral leg edema: Chronic. Reports that he uses YUKI hose at home. YUKI hose ordered. DVT prophylaxis: SCDs ordered. JORJE pt's dtr at bedside. Charges/Coding Visit Charges Inpatient E&M: 31026 Subs Hosp L2
--- NOTE | 2023-09-12 09:41 | RAD_ITS ---
STUDY: X-RAY CHEST REASON FOR EXAM: Male, 57 years old. Respiratory failure TECHNIQUE: Frontal view of the chest COMPARISON: 09/09/2023 FINDINGS: There are mild congestive changes noted. The lungs are otherwise clear. There are no pleural effusions. There is no pneumothorax. The heart is stable in size. Again noted are sternotomy wires. The visualized osseous structures are within normal limits. RAD/Chest 1 View (Portable) IMPRESSION: Mild pulmonary vascular congestion. Electronically Signed: Neel Pedersen MD at 10:47 EDT ,
[2023-09-12] MEDS: Juven (unflavored) Packet 1 PACKET PO ×2 (09:42→17:52)
[2023-09-12] MEDS: Metoprolol Tartrate 25 MG Tablet PO ×2 (09:42→21:24)
[2023-09-12] MEDS: Aspirin 81 MG TAB.CHEW PO (09:42)
[2023-09-12] MEDS: Clopidogrel Bisulfate 75 MG Tablet PO (09:43)
[2023-09-12] MEDS: buPROPion (SR) 150 MG Tablet.SA PO (09:43)
[2023-09-12] MEDS: amLODIPine 10 MG Tablet PO (09:43)
[2023-09-12 10:37] LABS: Ferritin 135 ng/mL (26-388); Iron 16 ug/dL (65-175); Iron Binding Capacity,Total 213 ug/dL (250-450); PERCENT IRON SATURATION 7.5 % (15.0-55.0); Thyroid Stim Hormone (TSH) 1.39 uIU/mL (0.358-3.74)
[2023-09-12 13:02] LABS: Mucous, Urine 0 SEEN /hpf (<or=2+); Red Blood Cells-Urine 0 SEEN /hpf (0-5); Squamous Epithelial Cells - UA 0 SEEN /hpf (0-5)
[2023-09-12 13:16] LABS: Urea Nitrogen, Urine 473 mg/dL (NO RANGE EST.)
[2023-09-12 13:18] LABS: Color, Urine Yellow (Yellow); Glucose, Dipstick Normal (Normal); Ketone-Dipstick Negative (Negative); Leukocyte Esterase-Dipstick Negative /ul (Negative); Nitrite-Dipstick Negative (Negative); Occult Blood-Urine 25 /ul (Negative); Protein-Dipstick 30 mg/dl (Negative); Urine Bilirubin Dipstick Negative (Negative); Urine Clarity Clear (Clear); Urine Urobilinogen Normal (Normal)
[2023-09-12 13:31] LABS: Amorphous Sediment 1+; Bacteria 1+ /hpf (None Seen); White Blood Cells 0-5 SEEN /hpf (0-5)
[2023-09-12] MEDS: Ferrous Sulfate 325 MG Tablet PO (14:22)
--- NOTE | 2023-09-12 16:15 | CON.PCM.RE_ITS ---
Assessment & Plan Assessment/Plan (1) DAVID (acute kidney injury): PLAN: I think that the original elevation creatinine was due to urinary retention, obstructive uropathy. Now addition of IV contrast could have contributed to further kidney injury due to contrast-induced nephropathy PLAN: Plan we will start with Rodriguez catheter placement, add terazosin HPI Consult Data Date of Consult: 09/12/23 HPI Narrative Reason for Consultation: Acute kidney injury HPI Narrative: SAQIB SEVILLA, is a 57 M who presents With chest pain. He has been diabetic for long period of time and has known vascular disease, he is status post CABG 3 years ago. Apparently shortly prior to admission he started to experiencing dribbling, incomplete bladder emptying and was seen at urgent care where he was told that he is got urinary tract infection and given Macrobid. At the same time he has developed some chest pains and came over to emergency room. At that time his creatinine was already 2. Previous creatinine from 2019 was normal. Knowing that he is got coronary artery disease he has gotten cardiac catheterization in the right after administration of IV contrast his creatinine started to go up. In the meantime he was noticed to have 900 cc in the bladder and he was unable to empty it. 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 cerebrovascular accident (CVA) Diabetic nephropathy with proteinuria Diabetic retinopathy associated with uncontrolled type 2 diabetes mellitus Essential hypertension History of CVA (cerebrovascular accident) Hyperlipidemia associated with type 2 diabetes mellitus Hypertriglyceridemia Obstructive sleep apnea Physical debility Sarcoid Stenosis of left carotid artery Stenosis of left vertebral artery Uncontrolled type II diabetes mellitus Visual field cut Home Medications aspirin 81 mg chewable tablet 81 mg PO DAILY@0800 [facility] 01/18/20 [History Last Taken Unknown] acetaminophen 325 mg tablet 650 mg (2 x 325 mg) PO Q4H PRN PRN Pain Score 1- 09/0802/02/20 [Rx Last Taken Unknown] amlodipine 10 mg tablet 10 mg PO DAILY #30 tabs 02/02/20 [Rx Last Taken Unknown] atorvastatin 80 mg tablet 80 mg PO QHS Cholesterol #30 tabs 02/02/20 [Rx Last Taken Unknown] clopidogrel 75 mg tablet 75 mg PO DAILY blood thinner #30 tabs 02/02/20 [Rx Last Taken Unknown] bupropion HCl 150 mg tablet,12 hr sustained-release (Wellbutrin SR) 150 mg PO DAILY 07/09/22 [History Last Taken Unknown] hydrochlorothiazide 12.5 mg capsule 25 mg PO DAILY 07/09/22 [History Last Taken Unknown] sildenafil 100 mg tablet (Viagra) 100 mg PO DAILY PRN sexual activity 07/09/22 [History Last Taken Unknown] diphenhydramine HCl 25 mg capsule (Benadryl) 25 mg PO QHS PRN sleep 08/25/22 [History Last Taken Unknown] insulin detemir U-100 100 unit/mL (3 mL) subcutaneous pen 40 unit subcut QHS 08/25/22 [History Last Taken Unknown] metformin 500 mg tablet 500 mg PO BID 08/25/22 [History Last Taken Unknown] metoprolol tartrate 25 mg tablet 25 mg PO BID 08/25/22 [History Last Taken Unknown] nitrofurantoin monohydrate/macrocrystals 100 mg capsule 100 mg PO Q12H 09/09/23 [History Last Taken Unknown] Allergy/AdvReac Type Severity Reaction Status Date / Time bee venom protein (honey bee) Allergy Severe tunnel Verified 09/09/23 18:42 vision, bp drops Family History Father , of blood clots Hypertension Mother Cancer in leg muscle Surgical History History of hernia repair (2007) History of left heart catheterization (04/11/20) History of vein stripping (2008) S/P CABG x 4 (04/18/20) Social History Smoking Status: Never smoker ROS Eyes Eyes: Denies blindness, blurry vision, change in vision, discongugate gaze, double vision, dry eyes or loss of vision ENT HEENT: Denies dry mouth, epistaxis, hoarseness, loss taste/smell or nasal congestion Cardiovascular Cardiovascular: Reports chest pain and leg edema Respiratory/Chest Respiratory/Chest: Denies dry cough, dyspnea on exertion, hemoptysis, portable oxygen @ home, productive cough, shortness of breath at rest or wheezing Gastrointestinal Gastrointestinal: Denies abdominal pain, anorexia, diarrhea, dry heaves, hematemesis, hematochezia, melena, nausea, rectal bleeding, vomiting or weight changes Genitourinary Genitourinary: Reports change in urinary stream, difficulty urinating, dribbling, dysuria, nocturia, urinary frequency, urinary hesitancy and urinary urgency Musculoskeletal Musculoskeletal: Denies abnormal gait, arthralgias, joint stiffness, joint swelling, muscle cramps or myalgias Integumentary Integumentary: Denies dry skin, erythema, jaundice, lesions, pruritus, rash or skin ulcer Neurologic Neurologic: Denies abnormal gait, burning sensations, confusion, focal weakness, frequent falls, headache(s), numbness, restless legs, seizures, syncope, tremor(s) or weakness Psychiatric Psychiatric: Denies anxiety, confusion, depression or hallucinations Endocrine Endocrinology: Denies cold intolerance, fatigue, heat intolerance, polydipsia or polyuria Hematologic/Lymphatic Hematologic/Lymphatic: Denies anemia, easy bleeding or easy bruising Physical Exam Const alert, oriented x3, no apparent distress and average body habitus General Appearance: well developed Orientation / Consciousness: oriented to person, oriented to place and oriented to time HEENT normocephalic Head and Scalp: atraumatic External Ear: external ears normal Eyes PERRL Neck no lymphadenopathy Resp no use of accessory muscles Cardio regular rate GI non-tender and non-distended Auscultation: normoactive bowel sounds Back/Spine normal ROM Extremity full ROM Skin no rashes or lesions noted Neuro CN's II-XII intact bilaterally Sensorium / Orientation: awake and alert Psych cooperative Medical Records Data Attestation: I reviewed the patient's medical records Lab / Micro Data Attestation: I reviewed the patient's lab results. 09/12/23 08:11 09/12/23 08:11 Labs: Laboratory Results - last 24 hr 09/12/23 08:11: WBC 10.5, RBC 2.80 L, Hgb 8.1 L, Hct 25.6 L, MCV 91.4, MCH 28.9, MCHC 31.6 L, RDW Std Deviation 39.3, RDW Coeff of Lefty 11.7, Plt Count 184, MPV 10.5, Immature Gran % (Auto) 0.500, Neut % (Auto) 78.0 H, Lymph % (Auto) 8.1 L, [place] % (Auto) 12.5 H, Eos % (Auto) 0.7, Baso % (Auto) 0.2, Absolute Neuts (auto) 8.2 H, Absolute Lymphs (auto) 0.85, Nucleated RBC % 0, Sodium 138, Potassium 4.1, Chloride 110 H, Carbon Dioxide 20.0 L, Anion Gap 8, BUN 53 H, Creatinine 2.92 H, Estim Creat Clear Calc 29.51, Est GFR (MDRD) Af Amer 29 L, Est GFR (MDRD) Non-Af 24 L, BUN/Creatinine Ratio 18.2, Glucose 182 H, Calcium 8.2 L, Iron 16 L, TIBC 213 L, Iron Saturation 7.5 L, Ferritin 135, Folate 9.50, TSH 1.39 09/12/23 12:55: Urine Color Yellow, Urine Clarity Clear, Urine pH 5.0, Ur Specific [place] 1.010, Urine Protein 30 H, Urine Glucose (UA) Normal, Urine Ketones Negative, Urine Occult Blood 25 H, Urine Nitrite Negative, Urine Bilirubin Negative, Urine Urobilinogen Normal, Ur Leukocyte Esterase Negative, Urine RBC 0 SEEN, Urine WBC 0-5 SEEN, Ur Squamous Epith Cells 0 SEEN, Amorphous Sediment 1+, Urine Bacteria 1+, Urine Mucus 0 SEEN, Urine Creatinine 89.00, Urine Urea Nitrogen 473 Micro: Microbiology 09/09/23 23:25 Blood Culture (Wb) - Anticubital Left Blood Culture - Preliminary No growth in 48 hours. 09/10/23 00:40 Blood Culture (Wb) - Right Forearm Blood Culture - Preliminary No growth in 48 hours. 09/10/23 15:10 Urine, Clean Catch Urine Culture - Final Culture exhibits no growth. Radiology Impression Chest X-Ray 09/12/23 09:41 IMPRESSION: Mild pulmonary vascular congestion. Electronically Signed: Neel Pedersen MD at 10:47 EDT ,
[2023-09-12] MEDS: Tamsulosin HCl 0.4 MG Capsule PO (17:52)
[2023-09-12] MEDS: Ceftriaxone 2 GM in 0.9% Normal Saline (50mL MB+) 50 ML IV (21:21)
[2023-09-12] MEDS: Atorvastatin Calcium 80 MG Tablet PO (21:27)
--- NOTE | 2023-09-12 23:24 | CPS ---
Pt wearing own cpap from home. bled in 3L o2 into his machine.
[2023-09-13] VITALS (8 sets, daily range): BP systolic 143–171; BP diastolic 67–82; PULSE 72–96; RESP 16–18; TEMP 36.7–37; O2SAT 95–98
[2023-09-13] MEDS: Insulin Lispro 100 UNIT/ML INSULN.PEN SC ×4 (06:09→21:15)
[2023-09-13] MEDS: Metoprolol Tartrate 25 MG Tablet PO ×2 (08:25→21:15)
[2023-09-13] MEDS: Juven (unflavored) Packet 1 PACKET PO ×2 (08:25→17:33)
[2023-09-13] MEDS: Aspirin 81 MG TAB.CHEW PO (08:25)
--- NOTE | 2023-09-13 08:25 | PN.HOSP_ITS ---
Reason for Visit Reason for Visit: Diagnoses Iron deficiency anemia, unspecified (09/09/23) Anemia, unspecified (09/09/23) Type 2 diabetes mellitus with unspecified diabetic retinopathy without macular edema (09/09/23) Type 2 diabetes mellitus with hyperglycemia (09/09/23) Essential (primary) hypertension (09/09/23) Non-ST elevation (NSTEMI) myocardial infarction (09/09/23) Disease of pericardium, unspecified (09/09/23) Acute kidney failure, unspecified (09/09/23) Acute cystitis without hematuria (09/09/23) Chest pain, unspecified (09/09/23) Other specified abnormal findings of blood chemistry (09/09/23) Presence of aortocoronary bypass graft (09/09/23) Subjective Subjective Feeling better. Breathing better. Objective Data Objective Data Vital Signs: Vital Signs Temp Pulse Resp BP Pulse Ox O2 Del Method O2 Flow Rate 36.9 C 85 16 147/76 H 96 Nasal Cannula 3 09/13/23 08:17 09/13/23 08:17 09/13/23 08:17 09/13/23 08:17 09/13/23 08:17 09/13/23 08:17 09/13/23 08:17 Oxygen Flow Rate (L/min) 3 Oxygen Delivery Method Nasal Cannula Weight: 117.1 kg Body Mass Index (BMI) 37.0 Intake & Output: Intake and Output for Last 24 Hours 09/11/23 09/12/23 09/13/23 23:59 23:59 23:59 Intake Total 2495.01 / 2495.01 150 / 250 100 / 100 Output Total 825 / 825 1100 / 1500 1700 / 1700 Balance 1670.01 / 1670.01 -950 / -1250 -1600 / -1600 Lab / Micro Data 09/13/23 08:44 09/13/23 08:44 Labs: Laboratory Results - last 24 hr 09/12/23 08:11: WBC 10.5, RBC 2.80 L, Hgb 8.1 L, Hct 25.6 L, MCV 91.4, MCH 28.9, MCHC 31.6 L, RDW Std Deviation 39.3, RDW Coeff of Lefty 11.7, Plt Count 184, MPV 10.5, Immature Gran % (Auto) 0.500, Neut % (Auto) 78.0 H, Lymph % (Auto) 8.1 L, [place] % (Auto) 12.5 H, Eos % (Auto) 0.7, Baso % (Auto) 0.2, Absolute Neuts (auto) 8.2 H, Absolute Lymphs (auto) 0.85, Nucleated RBC % 0, Sodium 138, Potassium 4.1, Chloride 110 H, Carbon Dioxide 20.0 L, Anion Gap 8, BUN 53 H, Creatinine 2.92 H, Estim Creat Clear Calc 29.51, Est GFR (MDRD) Af Amer 29 L, Est GFR (MDRD) Non-Af 24 L, BUN/Creatinine Ratio 18.2, Glucose 182 H, Calcium 8.2 L, Iron 16 L, TIBC 213 L, Iron Saturation 7.5 L, Ferritin 135, Folate 9.50, TSH 1.39 09/12/23 12:55: Urine Color Yellow, Urine Clarity Clear, Urine pH 5.0, Ur Specific [place] 1.010, Urine Protein 30 H, Urine Glucose (UA) Normal, Urine Ketones Negative, Urine Occult Blood 25 H, Urine Nitrite Negative, Urine Bilirubin Negative, Urine Urobilinogen Normal, Ur Leukocyte Esterase Negative, Urine RBC 0 SEEN, Urine WBC 0-5 SEEN, Ur Squamous Epith Cells 0 SEEN, Amorphous Sediment 1+, Urine Bacteria 1+, Urine Mucus 0 SEEN, Urine Creatinine 89.00, Urine Urea Nitrogen 473 Micro: Microbiology 09/09/23 23:25 Blood Culture (Wb) - Anticubital Left Blood Culture - Preliminary No growth in 48 hours. 09/10/23 00:40 Blood Culture (Wb) - Right Forearm Blood Culture - Preliminary No growth in 48 hours. 09/10/23 15:10 Urine, Clean Catch Urine Culture - Final Culture exhibits no growth. 09/09/23 21:03 Mucosa - Nasopharyngeal Respiratory Panel (PCR) - Final 09/09/23 19:00 Nasal Secretion SARS-CoV-2 & FLU Antigen (Rapid) - Final Radiography Diagnostic Testing: Radiology Impression Chest X-Ray 09/12/23 09:41 IMPRESSION: Mild pulmonary vascular congestion. Electronically Signed: Neel Pedersen MD at 10:47 EDT , Physical Exam Const alert and no apparent distress HEENT head/scalp atraumatic and moist oral mucous membranes Resp normal respiratory effort and no retractions Resp Narrative: bibasilar crackles. Cardio regular rate, regular rhythm, S1 normal heart sound and S2 normal heart sound GI normal to inspection, nondistended, normoactive bowel sounds, soft to palpation, non-tender and non-distended Extremity General Extremity: edema bilateral lower extremity Details: moderate Neuro oriented x3 and CN's II-XII intact bilaterally Assessment & Plan Assessment/Plan (1) NSTEMI, initial episode of care: PLAN: Troponins peaked at 1196. On heparin gtt, ASA, atorvastatin, clopidogrel, metoprolol Cardiology consult. Left heart cath showed most of bypass grafts closed. Normal EF Echo shows an EF of 55%. Mid inferior hypokinetic. Dtr asking about referral to cardiothoracic surgery. Pt has reportedly not seen the surgeon in 3 years. When the daughter called to set up an appointment, they told her that they will require a referral. DW Dr. Ulloa, he will make arrangements for the referral. (2) UTI (urinary tract infection): QUALIFIERS: Hematuria presence: without hematuria Urinary tract infection type: acute cystitis Qualified Code(s): N30.00 - Acute cystitis without hematuria PLAN: subsequent evaluation. repeat UA unremarkable on CTX, was on nitrofurantonin as outpt. (3) DAVID (acute kidney injury): PLAN: Patient does not have postobstructive findings that based on his ultrasound as well as his postvoid residual. Though patient states that his not have any urinary hesitancy was before since starting tamsulosin so we will continue with that for now. Kidney US: unremarkable. Nephrology who ordered catheter placement. (4) Anemia: QUALIFIERS: Anemia type: iron deficiency Iron deficiency anemia type: unspecified iron deficiency Qualified Code(s): D50.9 - Iron deficiency anemia, unspecified PLAN: Hg dropped from 10.4 now down to 8.1. Monitor Iron level 16, ferritin 135, folate 9.5, TSH 1.39. B12 and Hemoccult pending. Will start ferrous sulfate every other day dosing. (5) (HFpEF) heart failure with preserved ejection fraction: QUALIFIERS: Heart failure chronicity: acute Qualified Code(s): I50.31 - Acute diastolic (congestive) heart failure PLAN: Clinically volume overloaded. +2 liters since admission. Bilateral crackles and LE edema. Will administer a dose of furosemide. PLAN: Plan Chronic conditions: * Diabetes mellitus type 2 with retinopathy:Blood glucose is stable. On patient's own a glucometer on his cell phone his blood glucose was 140. We will hold off home metformin and basal insulin as patient will be n.p.o. after midnight and was not willing to eat at the time of examination.Accu-Chek with correction scale insulin ordered. * Hypertension: Metoprolol continued. With holding home hydrochlorothiazide for DAVID as needed hydralazine ordered. Trend blood pressure and adjust blood pressure medications. * Bilateral leg edema: Chronic. Reports that he uses YUKI hose at home. YUKI hose ordered. DVT prophylaxis: SCDs ordered. Charges/Coding Visit Charges Inpatient E&M: 46960 Subs Hosp L2
[2023-09-13] MEDS: amLODIPine 10 MG Tablet PO (08:26)
[2023-09-13] MEDS: Clopidogrel Bisulfate 75 MG Tablet PO (08:26)
[2023-09-13] MEDS: buPROPion (SR) 150 MG Tablet.SA PO (08:29)
[2023-09-13 08:54] LABS: Absolute Neutrophil Count 6.8 X10^3/uL (2.0-7.7); Basophil# 0.03 X10^3/uL; Basophil% 0.3 % (0-1); Eosinophils% 2.2 % (0-5); Hematocrit 28.5 % (40-54); Hemoglobin 9.2 g/dL (13.0-16.5); Mean Corp Hgb Conc 32.3 g/dL (32-36); Mean Corpuscular Hgb 29.1 pg (27.0-32.0); Mean Corpuscular Volume 90.2 fL (80-94); Mean Platelet Vol. 9.7 fl (6.2-12.0); Monocyte# 1.06 X10^3/uL; Monocyte% 11.6 % (0-10); NRBC Flagged by Analyzer 0 % (0-5); Neutrophil # 6.76 X10^3/uL (2.7-7.7); Neutrophil % 74.4 % (47-70); Platelet Count 209 K/mm3 (150-450); RBC Distribution Width CV 11.7 % (11.6-14.6); RBC Distribution Width SD 38.9 fl (35.1-43.9); Red Blood Count 3.16 M/mm3 (4.6-6.2); White Blood Count 9.1 K/mm3 (4.4-11.0)
[2023-09-13 09:06] LABS: Anion Gap 8 (5-15); BUN 54 mg/dL (7-18); BUN/Creat Ratio 23.6 RATIO (10-20); Calcium,Total 8.8 mg/dL (8.5-10.1); Chloride 109 mmol/L (98-107); Creatinine, Serum 2.29 mg/dL (0.70-1.30); EST Glomerular Filtration Rate 32 mL/min (>60); Est Glom Filt Rate - Afr Amer 38 mL/min (>60); Estimated Creatinine Clearance 37.63 ml/min; Glucose 184 mg/dL (74-106); Potassium 3.7 mmol/L (3.5-5.1); Sodium Level 139 mmol/L (136-145)
[2023-09-13] MEDS: Furosemide 40 MG/4 ML Vial IV (13:37)
[2023-09-13] MEDS: Tamsulosin HCl 0.4 MG Capsule PO (17:33)
[2023-09-13] MEDS: Ceftriaxone 2 GM in 0.9% Normal Saline (50mL MB+) 50 ML IV (21:14)
[2023-09-13] MEDS: Atorvastatin Calcium 80 MG Tablet PO (21:18)
[2023-09-13] MEDS: DiphenhydrAMINE 25 MG Capsule PO (21:22)
[2023-09-14] VITALS (11 sets, daily range): BP systolic 154–166; BP diastolic 63–88; PULSE 70–92; RESP 14–18; TEMP 36.1–36.8; O2SAT 95–100
[2023-09-14 05:59] LABS: Absolute Lymphocyte Count 1.46 X10^3/uL (0.83-4.51); Absolute Neutrophil Count 6.1 X10^3/uL (2.0-7.7); Basophil# 0.04 X10^3/uL; Basophil% 0.4 % (0-1); Eosinophil# 0.15 X10^3/uL; Eosinophils% 1.7 % (0-5); Hematocrit 26.4 % (40-54); Hemoglobin 8.3 g/dL (13.0-16.5); Lymphocyte # 1.46 X10^3/ul (0.83-4.51); Lymphocyte % 16.3 % (19-41); Mean Corp Hgb Conc 31.4 g/dL (32-36); Mean Corpuscular Hgb 28.4 pg (27.0-32.0); Mean Corpuscular Volume 90.4 fL (80-94); Mean Platelet Vol. 9.9 fl (6.2-12.0); Monocyte# 1.18 X10^3/uL; Monocyte% 13.2 % (0-10); NRBC Flagged by Analyzer 0 % (0-5); Neutrophil # 6.05 X10^3/uL (2.7-7.7); Neutrophil % 67.7 % (47-70); Platelet Count 220 K/mm3 (150-450); RBC Distribution Width CV 11.8 % (11.6-14.6); RBC Distribution Width SD 38.9 fl (35.1-43.9); Red Blood Count 2.92 M/mm3 (4.6-6.2); White Blood Count 8.9 K/mm3 (4.4-11.0)
[2023-09-14 06:28] LABS: Anion Gap 6 (5-15); BUN 46 mg/dL (7-18); Calcium,Total 8.7 mg/dL (8.5-10.1); Chloride 110 mmol/L (98-107); Creatinine, Serum 1.64 mg/dL (0.70-1.30); EST Glomerular Filtration Rate 47 mL/min (>60); Est Glom Filt Rate - Afr Amer 56 mL/min (>60); Estimated Creatinine Clearance 52.55 ml/min; Glucose 221 mg/dL (74-106); Potassium 3.8 mmol/L (3.5-5.1); Sodium Level 141 mmol/L (136-145)
[2023-09-14] MEDS: Insulin Lispro 100 UNIT/ML INSULN.PEN SC ×4 (06:28→23:10)
[2023-09-14 08:43] LABS: Vitamin B12 209 pg/mL (211-911)
[2023-09-14] MEDS: Clopidogrel Bisulfate 75 MG Tablet PO (09:43)
[2023-09-14] MEDS: Metoprolol Tartrate 25 MG Tablet PO ×2 (09:43→23:14)
[2023-09-14] MEDS: Ferrous Sulfate 325 MG Tablet PO (09:44)
[2023-09-14] MEDS: amLODIPine 10 MG Tablet PO (09:44)
[2023-09-14] MEDS: buPROPion (SR) 150 MG Tablet.SA PO (09:44)
[2023-09-14] MEDS: Aspirin 81 MG TAB.CHEW PO (09:44)
[2023-09-14] MEDS: Juven (unflavored) Packet 1 PACKET PO ×2 (09:45→16:17)
[2023-09-14] MEDS: 0.9% Normal Saline (1000mL) 1,000 ML 15 ML IV (10:03)
--- NOTE | 2023-09-14 10:44 | CASEMGMT ---
Patient has a Healthcare Power of Amusement Machine Mechanic and a Healthcare Living Will on file at [facility]. Patient's Joyce is patient's Healthcare Power of Amusement Machine Mechanic. Tammy TORRES
--- NOTE | 2023-09-14 11:22 | PCM.PN.REN ---
Subjective Subjective Sitting in chair. Denies any complaints. Objective Data Objective Data Vital Signs: Vital Signs Temp Pulse Resp BP Pulse Ox O2 Del Method O2 Flow Rate 98 F 80 16 154/74 H 95 Room Air 3 09/14/23 10:09/14/23 10:09/14/23 10:23 09/14/23 10:23 09/14/23 10:23 09/14/23 10:09/14/23 07:32 Oxygen Flow Rate (L/min) 3 Oxygen Delivery Method Room Air Weight: 117.1 kg Body Mass Index (BMI) 37.0 Intake & Output: Intake and Output for Last 24 Hours 09/12/23 09/13/23 09/14/23 23:59 23:59 23:59 Intake Total 150 / 250 630 / 630 Output Total 1100 / 1500 3700 / 5200 1700 / 1700 Balance -950 / -1250 -3070 / -4570 -1700 / -1700 Lab / Micro Data 09/14/23 05:41 09/14/23 05:41 Labs: Laboratory Results - last 24 hr 09/12/23 10:18: Vitamin B12 209 L 09/14/23 05:41: WBC 8.9, RBC 2.92 L, Hgb 8.3 L, Hct 26.4 L, MCV 90.4, MCH 28.4, MCHC 31.4 L, RDW Std Deviation 38.9, RDW Coeff of Lefty 11.8, Plt Count 220, MPV 9.9, Immature Gran % (Auto) 0.700, Neut % (Auto) 67.7, Lymph % (Auto) 16.3 L, [place] % (Auto) 13.2 H, Eos % (Auto) 1.7, Baso % (Auto) 0.4, Absolute Neuts (auto) 6.1, Absolute Lymphs (auto) 1.46, Nucleated RBC % 0, Sodium 141, Potassium 3.8, Chloride 110 H, Carbon Dioxide 25.0, Anion Gap 6, BUN 46 H, Creatinine 1.64 H, Estim Creat Clear Calc 52.55, Est GFR (MDRD) Af Amer 56 L, Est GFR (MDRD) Non-Af 47 L, BUN/Creatinine Ratio 28.0 H, Glucose 221 H, Calcium 8.7 Micro: Microbiology 09/09/23 23:25 Blood Culture (Wb) - Anticubital Left Blood Culture - Preliminary No growth in 48 hours. 09/10/23 00:40 Blood Culture (Wb) - Right Forearm Blood Culture - Preliminary No growth in 48 hours. 09/10/23 15:10 Urine, Clean Catch Urine Culture - Final Culture exhibits no growth. 09/09/23 21:03 Mucosa - Nasopharyngeal Respiratory Panel (PCR) - Final 09/09/23 19:00 Nasal Secretion SARS-CoV-2 & FLU Antigen (Rapid) - Final Physical Exam Narrative Alert orient x3, no apparent distress S1, S2, RRR Lung sounds clear anteriorly and posteriorly Abdomen soft, rounded No pitting edema. Bilateral compression hose on Indwelling Rodriguez with clear urine in bag Assessment & Plan Assessment/Plan (1) DAVID (acute kidney injury): PLAN: - nonoliguric DAVID with normal baseline SCr as of 2019. Serum creatinine 2.08 on admission (09/09), peaked 2.92 on 09/12 and today improved to 1.64. It is felt original elevation of creatinine was due to urinary retention (noted to unable to empty bladder completely with 900cc in bladder), obstructive uropathy then with addition of IV contrast (heart cath 09/10) which could have contributed to further kidney injury. Fortunately renal function is improving, no acute indication for GEOSPATIAL IMAGE ANALYST. Renal ultrasound no hydronephrosis. Blood pressures acceptable. Patient may need to follow-up with urology. Discussed nephrology plan with Dr. Desai. Will arrange for hospital follow-up at time of discharge. Discussed with patient importance of avoiding NSAIDs PLAN: Plan we will start with Rodriguez catheter placement, add terazosin
[2023-09-14] MEDS: Senna/Docusate Sodium 1 Tablet 2 TABLET PO ×2 (12:14→23:09)
[2023-09-14] MEDS: Tamsulosin HCl 0.4 MG Capsule PO (17:08)
--- NOTE | 2023-09-14 17:14 | PCM.PN.HOSP ---
Reason for Visit Reason for Visit: Diagnoses Iron deficiency anemia, unspecified (09/09/23) Anemia, unspecified (09/09/23) Type 2 diabetes mellitus with unspecified diabetic retinopathy without macular edema (09/09/23) Type 2 diabetes mellitus with hyperglycemia (09/09/23) Essential (primary) hypertension (09/09/23) Non-ST elevation (NSTEMI) myocardial infarction (09/09/23) Disease of pericardium, unspecified (09/09/23) Acute diastolic (congestive) heart failure (09/09/23) Acute kidney failure, unspecified (09/09/23) Acute cystitis without hematuria (09/09/23) Chest pain, unspecified (09/09/23) Other specified abnormal findings of blood chemistry (09/09/23) Presence of aortocoronary bypass graft (09/09/23) Subjective Subjective Patient seen at bedside this morning. Sitting comfortably in bedside chair, conversing normally, no acute distress. Patient denies any shortness of breath at rest or with exertion this morning. Denies any cough or sputum production. Denies any fevers or chills. Main concern is that his Rodriguez catheter is still in place and he is wondering if he will need it on discharge. Otherwise denies any other acute concerns. Objective Data Objective Data Vital Signs: Vital Signs Temp Pulse Resp BP Pulse Ox O2 Del Method O2 Flow Rate 98 F 71 16 156/63 H 99 Room Air 3 09/14/23 16:00 09/14/23 16:00 09/14/23 16:00 09/14/23 16:00 09/14/23 16:00 09/14/23 16:00 09/14/23 07:32 Oxygen Flow Rate (L/min) 3 Oxygen Delivery Method Room Air Weight: 117.1 kg Body Mass Index (BMI) 37.0 Intake & Output: Intake and Output for Last 24 Hours 09/12/23 09/13/23 09/14/23 23:59 23:59 23:59 Intake Total 150 / 250 630 / 630 240 / 240 Output Total 1100 / 1500 3700 / 5200 1700 / 1700 Balance -950 / -1250 -3070 / -4570 -1460 / -1460 Lab / Micro Data 09/14/23 05:41 09/14/23 05:41 Labs: Laboratory Results - last 24 hr 09/12/23 10:18: Vitamin B12 209 L 09/14/23 05:41: WBC 8.9, RBC 2.92 L, Hgb 8.3 L, Hct 26.4 L, MCV 90.4, MCH 28.4, MCHC 31.4 L, RDW Std Deviation 38.9, RDW Coeff of Lef[place] 11.8, Plt Count 220, MPV 9.9, Immature Gran % (Auto) 0.700, Neut % (Auto) 67.7, Lymph % (Auto) 16.3 L, Jerome % (Auto) 13.2 H, Eos % (Auto) 1.7, Baso % (Auto) 0.4, Absolute Neuts (auto) 6.1, Absolute Lymphs (auto) 1.46, Nucleated RBC % 0, Sodium 141, Potassium 3.8, Chloride 110 H, Carbon Dioxide 25.0, Anion Gap 6, BUN 46 H, Creatinine 1.64 H, Estim Creat Clear Calc 52.55, Est GFR (MDRD) Af Amer 56 L, Est GFR (MDRD) Non-Af 47 L, BUN/Creatinine Ratio 28.0 H, Glucose 221 H, Calcium 8.7 Micro: Microbiology 09/14/23 13:30 Stool Stool Occult Blood (JOHN) - Final 09/09/23 23:25 Blood Culture (Wb) - Anticubital Left Blood Culture - Preliminary No growth in 48 hours. 09/10/23 00:40 Blood Culture (Wb) - Right Forearm Blood Culture - Preliminary No growth in 48 hours. 09/10/23 15:10 Urine, Clean Catch Urine Culture - Final Culture exhibits no growth. 09/09/23 21:03 Mucosa - Nasopharyngeal Respiratory Panel (PCR) - Final 09/09/23 19:00 Nasal Secretion SARS-CoV-2 & FLU Antigen (Rapid) - Final Physical Exam Const alert, oriented x3, no apparent distress, healthy appearing and well nourished Constitutional Narrative: Pleasant middle-age male, obese, no acute distress. General Appearance: cooperative and comfortable HEENT normocephalic, head/scalp atraumatic, hearing grossly normal bilaterally, nasal mucous membranes and turbinates normal and moist oral mucous membranes Eyes PERRL, EOMs intact bilaterally and conjunctivae normal Neck full ROM, no lymphadenopathy and supple Lymph Lymphatic: no lymphadenopathy noted Chest inspection of chest normal Resp normal respiratory effort, normal air movement, no use of accessory muscles and clear to auscultation bilaterally Resp Narrative: Satting well on room air, no increased work of breathing noted. Cardio regular rate, regular rhythm, no murmurs and peripheral pulses 2+ throughout GI normal to inspection, nondistended, normoactive bowel sounds, soft to palpation, non-tender and non-distended Back/Spine normal ROM Extremity normal to inspection, full ROM and no pedal edema Skin no rashes or lesions noted Psych mental status grossly normal Assessment & Plan Assessment/Plan (1) (HFpEF) heart failure with preserved ejection fraction: QUALIFIERS: Heart failure chronicity: acute Qualified Code(s): I50.31 - Acute diastolic (congestive) heart failure PLAN: Plan Patient is a 57-year-old male with history of CAD s/p CABG in 2003, hypertension, type 2 diabetes with retinopathy, bilateral leg edema and obese ED who presented to [facility] on 09/09/2023 with chest pain. 1. NSTEMI, history of CAD s/p CABG Presented with an episode of chest pain. Found to have elevated troponins that peaked at 1196. Left heart cath on 09/10 showed occlusion of his bypass grafts except for the LOCKWOOD; previously had an occluded RCA and high-grade circumflex artery with patent LAD, [place] anatomy at this time appears similar to pre-bypass. Echo on 09/10 showed EF 55%, mild inferior hypokinesis, stage I diastolic dysfunction, mild aortic valve calcification, otherwise normal. ? Cardiology followed. Continue home aspirin, Plavix, statin, Lopressor. Cardiology recommended reestablishing with cardiothoracic surgery outpatient, will place referral for patient. 2. Urinary retention, recent UTI Recently diagnosed with UTI in outpatient setting. Was on Macrobid outpatient, continued on ceftriaxone while inpatient and completed course. Hospital course was complicated by DAVID post cath as noted below. Nephrology felt that original creatinine elevation was due to urinary retention complicated by IV contrast from heart cath, Rodriguez catheter placed. Renal ultrasound showed no hydronephrosis. ? Rodriguez catheter removed around noon on 09/14, conducting void trial for patient. If patient fails, will plan for Rodriguez catheter on discharge with outpatient follow-up with urology. Continue Flomax. 3. DAVID, improving Creatinine peaked at 2.92 on 09/12, significantly improved to 1.64 on 09/14. Last previous creatinine was in 2019, was normal at that time, suspect patient has normal kidney function at baseline. Nephrology suspected DAVID was due to both urinary retention and IV contrast as noted above. ? Nephrology followed. Monitor BMP daily. 4. Anemia Hemoglobin has remained stable around 8-9 since admission. Last known hemoglobin from 2019 was 12.6. Iron studies consistent with iron deficiency anemia. B12 also mildly low, folate normal. ? Continue ferrous sulfate every other day. We will start vitamin B12 on discharge. Unsure on if patient has had colonoscopy done, no dark stools or blood in stools noted per patient, will defer to outpatient management. 5. HFpEF ? Echo on 09/10 showed stage I diastolic dysfunction as noted above. Appeared clinically volume overloaded on 09/13, noted to be +2 L since admission. Had mild hypoxia with bilateral crackles and lower extremity edema. Given IV Lasix x1 dose with improvement. Continue to monitor. Chronic medical conditions: ? Hypertension: Continue home Lopressor and amlodipine. Holding home hydrochlorothiazide in setting of DAVID. ? Type 2 diabetes: On home insulin detemir 40 units at night, metformin 500 mg twice daily. Blood glucoses have been in normal range to slightly elevated on only sliding scale insulin while inpatient, likely secondary to patient having limited p.o. intake over the last several days. Continue sliding scale insulin for now, can adjust as needed. ? Bilateral leg edema: Chronic. Reports that he uses YUKI hose at home, YUKI hose ordered. DVT prophylaxis: Heparin subcu CODE STATUS: Full code, verified Expected disposition: Home, 1 to 2 days Total clinical time spent by myself addressing the patient's medical issues, reviewing all the data, and collaborating with patient's care team: 35 minutes. Charges/Coding Visit Charges Inpatient E&M: 95250 Subs Hosp L2
[2023-09-14 22:05] LABS: Bedside Glucose 313 mg/dL (74-106)
[2023-09-14] MEDS: Ceftriaxone 2 GM in 0.9% Normal Saline (50mL MB+) 50 ML IV (23:10)
[2023-09-14] MEDS: Insulin Glargine-YFGN 100 UNIT/ML Pen 40 UNIT SC (23:13)
[2023-09-14] MEDS: Atorvastatin Calcium 80 MG Tablet PO (23:18)
[2023-09-15 04:00] VITALS: BP 155/76; PULSE 92; RESP 18; TEMP 36.8; O2SAT 98
[2023-09-15 05:00] VITALS: BP 178/84; PULSE 80; RESP 18; TEMP 36.8; O2SAT 99
[2023-09-15] MEDS: Insulin Lispro 100 UNIT/ML INSULN.PEN SC ×2 (06:26→11:39)
[2023-09-15 09:05] VITALS: BP 159/95; PULSE 89; RESP 16; TEMP 37.1; O2SAT 98
[2023-09-15 09:16] VITALS: BP 159/95; PULSE 89
[2023-09-15] MEDS: Aspirin 81 MG TAB.CHEW PO (09:16)
[2023-09-15] MEDS: Juven (unflavored) Packet 1 PACKET PO (09:16)
[2023-09-15] MEDS: Metoprolol Tartrate 25 MG Tablet PO (09:16)
[2023-09-15] MEDS: buPROPion (SR) 150 MG Tablet.SA PO (09:17)
[2023-09-15] MEDS: amLODIPine 10 MG Tablet PO (09:17)
[2023-09-15] MEDS: Clopidogrel Bisulfate 75 MG Tablet PO (09:17)
--- NOTE | 2023-09-15 13:40 | DCINST_ITS ---
Discharge Instructions Diet Discharge Diet: 1999 Calorie Control Diet Activity Discharge Activity: Return to Normal Activity Weight Bearing Status: Full weight bearing Follow Up Care Please Follow Up With: Julien Patel, When: 1 to 2 weeks Test Results: Test results from this visit will be discussed in further detail at your follow- up appointment, if applicable. Pending Tests Upon Discharge: None Discharge Plan Admission Admit Date/Time: 09/09/23 22:32 Primary Reason for Your Visit: Chest pain Attending Provider: [place] Desai Primary Care Provider: Julien Patel Consulting Providers: Slade Ulloa; Darion Francis; Jami Clifton; Abel Keys Instructions Additional Instructions / Restrictions: Please start taking the following medications: ? Ferrous sulfate 325 mg tablet every other day, for iron deficiency anemia ? Flomax 0.4 mg every night, for enlarged prostate Please stop taking the following medications until you follow-up with your primary care doctor: ? Hydrochlorothiazide Continue all other home medications as previously prescribed. Please call your primary care doctor to schedule a follow-up appointment in the next 1 to 2 weeks. Would like for you to have your kidney function checked at that time and if it has normalized, can likely restart your home hydrochlorothiazide. Please discuss scheduling a colonoscopy soon as well. Discharge Orders/Prescriptions Prescriptions: New tamsulosin 0.4 mg Capsule 0.4 mg PO DAILY@1730 90 Days Qty: 90 1RF ferrous sulfate [FeroSul] 325 mg (65 mg iron) Tablet 325 mg PO Q48 90 Days Qty: 45 1RF Continued insulin detemir U-100 100 unit/mL (3 mL) insulin pen 40 unit SC QHS Patient Comments: inject 48 UNITS SUBCUTANEOUSLY AT BEDTIME metformin 500 mg tablet 500 mg PO BID Patient Comments: TAKE 1 TABLET BY MOUTH TWICE A DAY diphenhydramine HCl [Benadryl] 25 mg capsule 25 mg PO QHS PRN (Reason: sleep) metoprolol tartrate 25 mg tablet 25 mg PO BID sildenafil [Viagra] 100 mg tablet 100 mg PO DAILY PRN (Reason: sexual activity) Rx Instructions: administer 30 minutes to 4 hours before activity bupropion HCl [Wellbutrin SR] 150 mg tablet sustained-release 12 hr 150 mg PO DAILY aspirin 81 MG tablet,chewable 81 mg PO DAILY@0800 acetaminophen 325 MG tablet 650 mg PO Q4H PRN PRN (Reason: Pain Score 1-10/10) 0RF amlodipine 10 MG tablet 10 mg PO DAILY Qty: 30 0RF atorvastatin 80 MG tablet 80 mg PO QHS Qty: 30 0RF clopidogrel 75 MG tablet 75 mg PO DAILY Qty: 30 0RF Discontinued hydrochlorothiazide 12.5 mg capsule 25 mg PO DAILY nitrofurantoin monohyd/m-cryst 100 mg capsule 100 mg PO Q12H Referrals / Follow Up: Julien Patel DO [Primary Care Provider] - Disposition Disposition (needs filled in before D/C Order can be placed): Home, Self Care
[2023-09-15 13:52] VITALS: BP 141/76; PULSE 72; RESP 16; TEMP 37; O2SAT 98
--- NOTE | 2023-09-15 13:59 | PCM.DC.SUM ---
Providers Date of Admission: 09/09/23 Primary Care Physician: Dr. Julien Patel, Consultations 09/09/23 23:11 Consult: Cardiology Routine Consulting Provider: Slade Ulloa Reason for Consult: Chest Pain EMERGENT Consult: No MD Notified: Yes Date Notified: 09/09/23 Time Notified: 22:41 Method of Notification: ED Physician Initiated Method of Consult:: In-Person 09/12/23 09:42 Consult: Nephrology Routine Consulting Provider: Jami Clifton Reason for Consult: DAVID EMERGENT Consult: No MD Notified: Yes Date Notified: 09/12/23 Time Notified: 09:44 Method of Notification: Answering Service Reason For Visit: CHEST PAIN, ELEVATED HIGH SENSITIVITY TROPONIN Diagnosis Discharge Diagnosis (1) (HFpEF) heart failure with preserved ejection fraction: Status: Acute Code(s): I50.30 - Unspecified diastolic (congestive) heart failure Qualifiers: Heart failure chronicity: acute Qualified Code(s): I50.31 - Acute diastolic (congestive) heart failure Medications at Discharge Home Medications aspirin 81 mg chewable tablet 81 mg PO DAILY@0800 heart health 01/18/20 acetaminophen 325 mg tablet 650 mg (2 x 325 mg) PO Q4H PRN PRN Pain Score 1-09/0802/02/20 amlodipine 10 mg tablet 10 mg PO DAILY blood pressure #30 tabs 02/02/20 atorvastatin 80 mg tablet 80 mg PO QHS Cholesterol #30 tabs 02/02/20 clopidogrel 75 mg tablet 75 mg PO DAILY blood thinner #30 tabs 02/02/20 bupropion HCl 150 mg tablet,12 hr sustained-release (Wellbutrin SR) 150 mg PO DAILY mental health 07/09/22 sildenafil 100 mg tablet (Viagra) 100 mg PO DAILY PRN sexual activity 07/09/22 diphenhydramine HCl 25 mg capsule (Benadryl) 25 mg PO QHS PRN sleep 08/25/22 insulin detemir U-100 100 unit/mL (3 mL) subcutaneous pen 40 unit subcut QHS diabetes 08/25/22 metformin 500 mg tablet 500 mg PO BID diabetes 08/25/22 metoprolol tartrate 25 mg tablet 25 mg PO BID blood pressure 08/25/22 ferrous sulfate 325 mg (65 mg iron) tablet (FeroSul) 325 mg PO Q48 90 days #45 tabs 09/15/23 tamsulosin 0.4 mg capsule 0.4 mg PO DAILY@1730 90 days #90 caps 09/15/23 Hospital Course Operations None Procedures Cardiac catheterization, EKG, Transthoracic echo and - (Chest x-ray x2, renal ultrasound) Summary of Care Provided Minutes Spent on Discharge: 43 Hospital Course: Patient is a 57-year-old male with history of CAD s/p CABG in 2003, hypertension, type 2 diabetes with retinopathy, bilateral leg edema and obese ED who presented to [facility] on 09/09/2023 with chest pain. Hospital course with multiple medical concerns addressed as below. NSTEMI type I, history of CAD s/p CABG: Presented with an episode of chest pain. Found to have elevated troponins that peaked at 1196. Left heart cath on 09/10 showed occlusion of his bypass grafts except for the LOCKWOOD; previously had an occluded RCA and high-grade circumflex artery with patent LAD, [place] anatomy at this time appeared similar to pre-bypass. Echo on 09/10 showed EF 55%, mild inferior hypokinesis, stage I diastolic function, mild aortic valve calcification, otherwise normal. Cardiology followed, continued home aspirin, Plavix, statin, Lopressor. Notably did not add any new medications to regimen. Cardiology recommended reestablishing with cardiothoracic surgery in the outpatient setting, patient noted that he had appointment already scheduled prior to discharge. Patient notably was concerned about having recurrent chest pain given known occluded bypass grafts and no changes to medication regimen. Patient unfortunately could not be prescribed sublingual nitroglycerin as needed because he has sildenafil as needed on medication list. Patient did not have much chest pain during admission, did not seem to be a candidate for ranolazine. Encourage patient to follow-up regularly with outpatient providers for close monitoring. Urinary retention, recent UTI: Patient was diagnosed with UTI in the outpatient setting shortly prior to admission. Was on Macrobid at that time, was continued on ceftriaxone while inpatient and completed a 7-day course of antibiotics. Hospital course was complicated by DAVID post heart catheterization as noted below. Nephrology felt that patient's original creatinine elevation was due to urinary retention complicated by IV contrast from heart cath and Rodriguez catheter was placed. Renal ultrasound showed no hydronephrosis. Rodriguez catheter was removed on 09/14 and patient passed voiding trial. Patient was also initiated on Flomax, and this was continued on discharge. Has urology appointment scheduled for Friday 09/21 to follow-up on his urinary retention. DAVID, improving: Creatinine peaked at 2.92 on 09/12, significantly improved to 1.6 on 09/14. Last previous creatinine was in 2019, was normal at that time, suspect patient has normal kidney function at baseline. Nephrology suspected DAVID was due to both urinary retention and IV contrast as noted above. Patient had good urine output via Rodriguez catheter and to continue to have good urine output after catheter was removed. Suspect kidney function will return to his baseline over the neck several days. Held patient's home hydrochlorothiazide given his DAVID, recommended that he have a repeat BMP done in the next 1 to 2 weeks and if kidney function is normalized, can likely restart his home hydrochlorothiazide. Anemia: Had previous history of mild anemia with hemoglobin of 12.6 back in 2019. Hemoglobin on admission at this time was 10.4, then remained stable in the 8-9 range during admission. Iron studies were consistent with iron deficiency anemia. B12 was also noted to be mildly low. Folate normal. Unclear etiology of iron deficiency anemia. Patient noted that his last colonoscopy was about 5 years ago, had a few polyps found at that time, recommendation was for repeat colonoscopy in 5 years and he was planned to have this done soon. Patient denies any dark stools, blood in stools, recent change in bowel movements. Recommended that he have outpatient colonoscopy scheduled soon. Started on ferrous sulfate for iron supplementation, however patient could possibly qualify for IV iron infusions could be more helpful for his iron deficiency anemia than p.o. supplementation. Suspect that patient's B12 deficiency is due to his longstanding metformin use for diabetes. Given 1 dose of IM vitamin B12 1000 mcg prior to discharge. Recommend further B12 replacement in the outpatient setting. HFpEF: Echo on 09/10 showed stage I diastolic dysfunction as noted above. Appeared clinically volume overloaded on 09/13, noted to be +2 L since admission at that time. Also had mild hypoxia with bilateral crackles and lower extremity edema at that time. Was given IV Lasix x1 dose with significant improvement. No need for diuretics on discharge. Continued other home medications as above. Discharge diagnoses: ? NSTEMI type I ? Urinary retention, resolved ? UTI, resolved ? DAVID, improving ? Acute on chronic anemia ? HFpEF ? History of CAD s/p CABG ? Hypertension ? Type 2 diabetes ? Chronic bilateral lower extremity edema Total clinical time spent by myself addressing the patient's discharge needs: 43 minutes. Physical Exam Const alert, oriented x3, no apparent distress, healthy appearing and well nourished Constitutional Narrative: Pleasant middle-age male, obese, no acute distress. General Appearance: cooperative and comfortable HEENT normocephalic, head/scalp atraumatic, hearing grossly normal bilaterally, nasal mucous membranes and turbinates normal and moist oral mucous membranes Eyes PERRL, EOMs intact bilaterally and conjunctivae normal Neck full ROM, no lymphadenopathy and supple Lymph Lymphatic: no lymphadenopathy noted Chest inspection of chest normal Resp normal respiratory effort, normal air movement, no use of accessory muscles and clear to auscultation bilaterally Resp Narrative: Satting well on room air, no increased work of breathing noted. Cardio regular rate, regular rhythm, no murmurs and peripheral pulses 2+ throughout GI normal to inspection, nondistended, normoactive bowel sounds, soft to palpation, non-tender and non-distended Back/Spine normal ROM Extremity normal to inspection, full ROM and no pedal edema Skin no rashes or lesions noted Psych mental status grossly normal Weight / BMI Weight Weight: 117.1 kg Body Mass Index (BMI) 37.0 ABG / Lab / Microbiology Data 09/14/23 05:41 09/14/23 05:41 Laboratory: Laboratory Results - last 24 hr 09/14/23 21:47: POC Glucose 313 H Microbiology: Microbiology 09/09/23 23:25 Blood Culture (Wb) - Anticubital Left Blood Culture - Final No growth in 5 days. 09/10/23 00:40 Blood Culture (Wb) - Right Forearm Blood Culture - Final No growth in 5 days. 09/14/23 13:30 Stool Stool Occult Blood (JOHN) - Final 09/10/23 15:10 Urine, Clean Catch Urine Culture - Final Culture exhibits no growth. 09/09/23 21:03 Mucosa - Nasopharyngeal Respiratory Panel (PCR) - Final 09/09/23 19:00 Nasal Secretion SARS-CoV-2 & FLU Antigen (Rapid) - Final D/C Instructions Discharge Diet: 2000 Calorie Control Diet Weight Bearing Status: Full weight bearing Pending Tests Upon Discharge: None Please Follow Up With: Julien Patel, When: 1 to 2 weeks Meaningful Use Info Meaningful Use Diagnoses (Choose all that apply): None applicable Discharge Plan Admission Admit Date/Time: 09/09/23 22:32 Primary Reason for Your Visit: Chest pain Attending Provider: [place] Primary Care Provider: Julien Patel Consulting Providers: Slade Ulloa; Darion Francis; Jami Clifton; Abel Keys Instructions Additional Instructions / Restrictions: Please start taking the following medications: ? Ferrous sulfate 325 mg tablet every other day, for iron deficiency anemia ? Flomax 0.4 mg every night, for enlarged prostate Please stop taking the following medications until you follow-up with your primary care doctor: ? Hydrochlorothiazide Continue all other home medications as previously prescribed. Please call your primary care doctor to schedule a follow-up appointment in the next 1 to 2 weeks. Would like for you to have your kidney function checked at that time and if it has normalized, can likely restart your home hydrochlorothiazide. Please discuss scheduling a colonoscopy soon as well. Discharge Orders/Prescriptions Prescriptions: New tamsulosin 0.4 mg Capsule 0.4 mg PO DAILY@1730 90 Days Qty: 90 1RF ferrous sulfate [FeroSul] 325 mg (65 mg iron) Tablet 325 mg PO Q48 90 Days Qty: 45 1RF Continued insulin detemir U-100 100 unit/mL (3 mL) insulin pen 40 unit SC QHS Patient Comments: inject 48 UNITS SUBCUTANEOUSLY AT BEDTIME metformin 500 mg tablet 500 mg PO BID Patient Comments: TAKE 1 TABLET BY MOUTH TWICE A DAY diphenhydramine HCl [Benadryl] 25 mg capsule 25 mg PO QHS PRN (Reason: sleep) metoprolol tartrate 25 mg tablet 25 mg PO BID sildenafil [Viagra] 100 mg tablet 100 mg PO DAILY PRN (Reason: sexual activity) Rx Instructions: administer 30 minutes to 4 hours before activity bupropion HCl [Wellbutrin SR] 150 mg tablet sustained-release 12 hr 150 mg PO DAILY aspirin 81 MG tablet,chewable 81 mg PO DAILY@0800 acetaminophen 325 MG tablet 650 mg PO Q4H PRN PRN (Reason: Pain Score 1-10/10) 0RF amlodipine 10 MG tablet 10 mg PO DAILY Qty: 30 0RF atorvastatin 80 MG tablet 80 mg PO QHS Qty: 30 0RF clopidogrel 75 MG tablet 75 mg PO DAILY Qty: 30 0RF Discontinued hydrochlorothiazide 12.5 mg capsule 25 mg PO DAILY nitrofurantoin monohyd/m-cryst 100 mg capsule 100 mg PO Q12H Referrals / Follow Up: Julien Patel DO [Primary Care Provider] - 09/23/23 9:10 am Disposition Disposition (needs filled in before D/C Order can be placed): Home, Self Care Charges/Coding Visit Charges Inpatient E&M: 51416 Disch Hosp >30min
--- NOTE | 2023-09-15 14:54 | CASEMGMT ---
RN CM in to discuss needs at discharge with patient. Patient denies needs at discharge. Patient had no further questions or concerns at this time.
--- NOTE | 2023-09-15 15:17 | PHA.DC_ITS ---
Pharmacy [facility] has performed discharge medication reconciliation and counseling for this patient. The patient's discharge medication list was reviewed for discrepancies and discrepancies were resolved. The patient was counseled on the following discharge medications and changes in medications for homegoing were reviewed. The Reason for Use, instructions for use, and potential side effects were reviewed for all new medications. The patient's questions regarding all of their medications were answered. 1. Tamsulosin 0.4 mg PO daily 2. Ferrous sulfate 325 mg PO every other day The patient was able to verbally demonstrate an understanding of their discharge medications. Medications at Discharge Home Medications aspirin 81 mg chewable tablet 81 mg PO DAILY@0800 heart health 01/18/20 acetaminophen 325 mg tablet 650 mg (2 x 325 mg) PO Q4H PRN PRN Pain Score 1- 09/0802/02/20 amlodipine 10 mg tablet 10 mg PO DAILY blood pressure #30 tabs 02/02/20 atorvastatin 80 mg tablet 80 mg PO QHS Cholesterol #30 tabs 02/02/20 clopidogrel 75 mg tablet 75 mg PO DAILY blood thinner #30 tabs 02/02/20 bupropion HCl 150 mg tablet,12 hr sustained-release (Wellbutrin SR) 150 mg PO DAILY mental health 07/09/22 sildenafil 100 mg tablet (Viagra) 100 mg PO DAILY PRN sexual activity 07/09/22 diphenhydramine HCl 25 mg capsule (Benadryl) 25 mg PO QHS PRN sleep 08/25/22 insulin detemir U-100 100 unit/mL (3 mL) subcutaneous pen 40 unit subcut QHS diabetes 08/25/22 metformin 500 mg tablet 500 mg PO BID diabetes 08/25/22 metoprolol tartrate 25 mg tablet 25 mg PO BID blood pressure 08/25/22 ferrous sulfate 325 mg (65 mg iron) tablet (FeroSul) 325 mg PO Q48 90 days #45 tabs 09/15/23 tamsulosin 0.4 mg capsule 0.4 mg PO DAILY@1730 90 days #90 caps 09/15/23
[2023-09-15] MEDS: Cyanocobalamin (B12) 1,000 MCG/ML Vial 1000 MCG IM (15:26)
== END 2023-09-15 16:21 | disposition home or self-care (01) | DRG 280 ==
LOC: ED 21:12 → PCU 22:46
PROVIDERS: Internal Medicine Cardiovascular Disease; Admitting Provider Hospitalist; Emergency Provider Emergency Medicine; PCP Family Medicine; Visit Provider Hospitalist
DX: I21.4 Non-ST elevation (NSTEMI) myocardial infarction (principal); I50.31 Acute diastolic (congestive) heart failure; N17.9 Acute kidney failure, unspecified; N30.01 Acute cystitis with hematuria; E11.311 Type 2 diabetes mellitus with unspecified diabetic retinopathy with macular edema; I11.0 Hypertensive heart disease with heart failure; I70.0 Atherosclerosis of aorta; Z79.4 Long term (current) use of insulin; D50.9 Iron deficiency anemia, unspecified; I10 Essential (primary) hypertension; I25.10 Atherosclerotic heart disease of native coronary artery without angina pectoris; E78.5 Hyperlipidemia, unspecified; G47.33 Obstructive sleep apnea (adult) (pediatric); Z79.82 Long term (current) use of aspirin; Z79.02 Long term (current) use of antithrombotics/antiplatelets; R77.8 Other specified abnormalities of plasma proteins; N13.9 Obstructive and reflux uropathy, unspecified; N14.11 Contrast-induced nephropathy; R09.02 Hypoxemia; R33.9 Retention of urine, unspecified; R60.0 Localized edema
CPT/HCPCS: 36415; 71045; 76770; 80048; 80076; 81001; 82274; 82570; 82607; 82728; 82746; 82962; 83540; 83550; 84443; 84484; 84540; 85014; 85018; 85025; 85610; 85652; 85730; 86140; 87040; 87086; 87428; 87633; 93005; 93306; 93454; 93567; 94667; 94668; 99152; 99153; 99284; J7030; J7040; Q9957; Q9967; 90686; A4216; C1769; C8929; J0696; J1940; J3420

== ENCOUNTER → 2023-09-21 | Outpatient (CLI) | payer BC, SELFPAY ==
[2020-08-09 06:29] VITALS: BMI 38.4
== END | disposition home or self-care (01) ==
LOC: LAB 15:48
PROVIDERS: PCP Family Medicine; Referring Provider Nurse Practitioner; Visit Provider Nurse Practitioner
DX: Z12.5 Encounter for screening for malignant neoplasm of prostate (principal)
CPT/HCPCS: 36415; 84153; G0103

== ENCOUNTER → 2023-09-24 | Outpatient (CLI) | payer BC, SELFPAY ==
[2020-08-09 06:29] VITALS: BMI 38.4
[2023-09-24 15:20] LABS: Absolute Lymphocyte Count 1.81 X10^3/uL (0.83-4.51); Absolute Neutrophil Count 5.2 X10^3/uL (2.0-7.7); Basophil# 0.05 X10^3/uL; Basophil% 0.6 % (0-1); Eosinophil# 0.08 X10^3/uL; Hematocrit 32.3 % (40-54); Hemoglobin 9.6 g/dL (13.0-16.5); Lymphocyte # 1.81 X10^3/ul (0.83-4.51); Lymphocyte % 23.1 % (19-41); Mean Corp Hgb Conc 29.7 g/dL (32-36); Mean Corpuscular Hgb 28.2 pg (27.0-32.0); Mean Platelet Vol. 10.1 fl (6.2-12.0); Monocyte# 0.66 X10^3/uL; Monocyte% 8.4 % (0-10); NRBC Flagged by Analyzer 0 % (0-5); Neutrophil # 5.21 X10^3/uL (2.7-7.7); Neutrophil % 66.5 % (47-70); Platelet Count 333 K/mm3 (150-450); RBC Distribution Width CV 12.3 % (11.6-14.6); RBC Distribution Width SD 42.5 fl (35.1-43.9); White Blood Count 7.8 K/mm3 (4.4-11.0)
[2023-09-24 15:42] LABS: Vitamin B12 > 2000 pg/mL (211-911)
[2023-09-24 15:47] LABS: Anion Gap 5 (5-15); BUN 51 mg/dL (7-18); BUN/Creat Ratio 30.4 RATIO (10-20); Calcium,Total 9.6 mg/dL (8.5-10.1); Chloride 109 mmol/L (98-107); Creatinine, Serum 1.68 mg/dL (0.70-1.30); EST Glomerular Filtration Rate 45 mL/min (>60); Est Glom Filt Rate - Afr Amer 55 mL/min (>60); Glucose 121 mg/dL (74-106); Potassium 5.2 mmol/L (3.5-5.1); Sodium Level 139 mmol/L (136-145)
== END | disposition home or self-care (01) ==
LOC: BFHLAB 11:38
PROVIDERS: PCP Family Medicine; Referring Provider Family Medicine; Visit Provider Family Medicine
DX: I25.10 Atherosclerotic heart disease of native coronary artery without angina pectoris (principal); N18.32 Chronic kidney disease, stage 3b; D51.9 Vitamin B12 deficiency anemia, unspecified
CPT/HCPCS: 36415; 80048; 82607; 85025

== ENCOUNTER → 2023-11-17 | Outpatient (CLI) | payer BC, SELFPAY ==
[2020-08-09 06:29] VITALS: BMI 38.4
[2023-11-17 17:46] LABS: Absolute Neutrophil Count 4.4 X10^3/uL (2.0-7.7); Basophil# 0.06 X10^3/uL; Basophil% 0.8 % (0-1); Eosinophil# 0.11 X10^3/uL; Eosinophils% 1.5 % (0-5); Hematocrit 33.8 % (40-54); Hemoglobin 9.9 g/dL (13.0-16.5); Lymphocyte % 25.1 % (19-41); Mean Corp Hgb Conc 29.3 g/dL (32-36); Mean Corpuscular Hgb 26.8 pg (27.0-32.0); Mean Corpuscular Volume 91.6 fL (80-94); Mean Platelet Vol. 10.8 fl (6.2-12.0); Monocyte# 0.77 X10^3/uL; Monocyte% 10.7 % (0-10); NRBC Flagged by Analyzer 0 % (0-5); Neutrophil # 4.41 X10^3/uL (2.7-7.7); Neutrophil % 61.6 % (47-70); Platelet Count 219 K/mm3 (150-450); RBC Distribution Width SD 43.5 fl (35.1-43.9); Red Blood Count 3.69 M/mm3 (4.6-6.2); White Blood Count 7.2 K/mm3 (4.4-11.0)
[2023-11-17 18:05] LABS: Vitamin B12 352 pg/mL (211-911)
[2023-11-17 18:07] LABS: Anion Gap 6 (5-15); BUN 32 mg/dL (7-18); BUN/Creat Ratio 21.5 RATIO (10-20); Calcium,Total 8.9 mg/dL (8.5-10.1); Chloride 114 mmol/L (98-107); Creatinine, Serum 1.49 mg/dL (0.70-1.30); EST Glomerular Filtration Rate 52 mL/min (>60); Est Glom Filt Rate - Afr Amer 63 mL/min (>60); Ferritin 27 ng/mL (26-388); Glucose 132 mg/dL (74-106); Iron 48 ug/dL (65-175); Iron Binding Capacity,Total 335 ug/dL (250-450); PERCENT IRON SATURATION 14.3 % (15.0-55.0); Potassium 5.8 mmol/L (3.5-5.1); Sodium Level 142 mmol/L (136-145)
== END | disposition home or self-care (01) ==
LOC: BFHLAB 16:33
PROVIDERS: PCP Family Medicine; Referring Provider Family Medicine; Visit Provider Family Medicine
DX: I25.10 Atherosclerotic heart disease of native coronary artery without angina pectoris (principal); N18.32 Chronic kidney disease, stage 3b; D51.9 Vitamin B12 deficiency anemia, unspecified
CPT/HCPCS: 36415; 80048; 82607; 82728; 83540; 83550; 85025

== ENCOUNTER → 2024-08-18 | Outpatient (CLI) | payer BC, SELFPAY ==
[2020-08-09 06:29] VITALS: BMI 38.4
== END | disposition home or self-care (01) ==
LOC: SL 09:37
PROVIDERS: PCP Family Medicine; Visit Provider Nurse Practitioner Acute Care
DX: G47.33 Obstructive sleep apnea (adult) (pediatric) (principal)